=== PATIENT | female | born 1945 | race Caucasian/White ===

== ENCOUNTER 2017-02-18 16:26 | Inpatient (IN) | payer MEDICARE ==
[~2017-02-18] VITALS: Ht 165.1 cm; Wt 82.6 kg
[~2017-02-18 16:26] MED LIST: ADVAIR 250/501 DISK INH; ADVAIR INH; ALBUTEROL0.63 MG/3 INH; ARICEPT23 MG PO; CARDIZEM CD240 MG PO; CARDIZEM30 MG PO; CELEXA10 MG PO; CELEXA20 MG PO; IPRAT-ALBUT 0.5-3 ML UPD; LEVAQUIN500 MG PO; MUCINEX DM ER1 EAC1 PO; MYRBETRIQ25 MG PO; NAMENDA XR28 MG PO; NAMENDA5 MG PO; PROAIR HFA8.5 GM INH; SINGULAIR10 MG PO; SPIRIVA18 MCG INH; STERAPRED 5MG 125 MG PO; VENTOLIN HFA18 GM INH; ZYRTEC10 MG PO
--- NOTE | 2017-02-18 16:46 | NUR ---
PT RECEIVED TO ROOM 2130, VIA WHEELCHAIR. PT ORIENTED TO ROOM AND CALL LIGHT. NEW 22G IV X1 STICK STARTED TO LT FA, PT TOLERATED PROCEDURE WELL. O2 ON 2L NC. SCD'S PUT ON BILAT. PT ASSESSED AT THIS TIME, CALL LIGHT IN REACH, WILL START PLAN OF CARE.
[2017-02-18 17:20] VITALS: BP 129/58; BMI 30.3
--- NOTE | 2017-02-18 18:20 | NUR ---
CALLED AJITH RIDER AND INFORMED HER THAT PHARMACY WANTED TO KNOW IF THEY COULD SUB NEMENDA AND ARICEPT. AJITH RIDER STATED THAT IT WOULD BE OKAY TO SUB. 1833- CALLED PHARMACY AND SPOKE WITH JEN. INFOMRED HER THAT AJITH STATED THAT IT WAS OKAY TO SUB MEDS.
--- NOTE | 2017-02-18 19:00 | NUR ---
REPORT RECEIVED. ASSESSMENT COMPLETE PER FLOW SHEET. LAYING IN BED. SISTER SARAH AT BED SIDE. ALERT TO PERSON, TIME, AND PLACE. S1S2 PRESENT. 2 L NC. RADIAL AND POPLITEAL PULSES PALP BILAT. BS ACTIVE X4. SCDs ON. SEE FLOW SHEET FOR COMPLETE ASSESSMENT. DENIES FURTHER NEEDS AT THIS TIME. CALL LIGHT WITHIN REACH. WILL CONTINUE TO MONITOR.
[2017-02-18 19:07] LABS: BASOPHILS 0.8 % (0-2); EOSINOPHILS 5.4 % (0-7); HEMATOCRIT 40.4 % (36.0-48.0); HEMOGLOBIN 13.1 g/dL (12-16); IMMATURE GRANULOCYTES 0.3 % (0-5); LYMPHOCYTES 28.1 % (15-50); MCH 30.8 pg (26.0-34.0); MCHC 32.4 g/dL (31.0-37.0); MCV 94.8 fL (80.0-100.0); MEAN PLATELET VOLUME 10.1 fL (7.4-10.4); MONOCYTES 6.1 % (2-11); NEUTROPHILS 59.3 % (40-80); PLATELET COUNT 216 10x3/uL (130-400); RBC 4.26 10x6/uL (4.00-5.40); WBC 7.8 10x3/uL (4.8-10.8)
[2017-02-18 19:39] LABS: CALC OSMOLALITY 289 mosm/kg (275-300); CALCIUM 8.4 mg/dL (8.5-10.1); CHLORIDE - SERUM 104 mmol/L (98-107); CREATININE - SERUM 0.7 mg/dL (0.6-1.3); GLUCOSE 154 mg/dL (74-106); SODIUM 145 mmol/L (136-145); UREA NITROGEN 8 mg/dL (7-18); eGFR NON AFRICAN AMERICAN 87 mL/min (90-120)
[2017-02-18 20:00] VITALS: BP 120/37
--- NOTE | 2017-02-18 20:28 | NUR ---
AWAKE LAYING IN BED. MEDS ADMINISTERED PER EMAR. DENIES FURTHER NEEDS AT THIS TIME. CALL LIGHT WITHIN REACH. BED IN LOWEST POSITION.
--- NOTE | 2017-02-18 21:30 | NUR ---
LAYING IN BED WATCHING T.V. DENIES NEEDS AT THIS TIME. CALL LIGHT WITHIN REACH. BED IN LOWEST POSITION.
--- NOTE | 2017-02-18 23:00 | NUR ---
LAYING IN BED AWAKE, WATCHING T.V. DENIES NEEDS AT THIS TIME. CALL LIGHT WITHIN REACH. BED IN LOWEST POSITION. WILL CONTINUE TO MONITOR.
[2017-02-19] VITALS: BP 147/63
--- NOTE | 2017-02-19 00:30 | NUR ---
LAYING IN BED AWAKE, DENIES NEEDS AT THIS TIME. CALL LIGHT WITHIN REACH. BED IN LOWEST POSITION.
--- NOTE | 2017-02-19 02:20 | NUR ---
LAYING IN BED AWAKE. DENIES NEEDS AT THIS TIME. CALL LIGHT WITHIN REACH. BED IN LOWEST POSITION. WILL CONTINUE TO MONITOR.
--- NOTE | 2017-02-19 03:10 | NUR ---
LAYING IN BED SLEEPING. NO DISTRESS NOTED. BED IN LOWEST POSITION. CALL LIGHT WITHIN REACH.
[2017-02-19 04:00] VITALS: BP 123/48
--- NOTE | 2017-02-19 04:30 | NUR ---
LAYING IN BED AWAKE, DENIES NEEDS AT THIS TIME. CALL LIGHT WITHIN REACH. BED IN LOWEST POSITION.
--- NOTE | 2017-02-19 06:00 | NUR ---
LAYING IN BED AWAKE, DENIES NEEDS AT THIS TIME. CALL LIGHT WITHIN REACH. BED IN LOWEST POSITION.
[2017-02-19 06:08] LABS: BASOPHILS 0.2 % (0-2); EOSINOPHILS 0.2 % (0-7); HEMATOCRIT 40.4 % (36.0-48.0); HEMOGLOBIN 13.1 g/dL (12-16); IMMATURE GRANULOCYTES 0.3 % (0-5); LYMPHOCYTES 19.2 % (15-50); MCH 30.5 pg (26.0-34.0); MCHC 32.4 g/dL (31.0-37.0); MCV 94.2 fL (80.0-100.0); MEAN PLATELET VOLUME 10.4 fL (7.4-10.4); MONOCYTES 1.7 % (2-11); NEUTROPHILS 78.4 % (40-80); PLATELET COUNT 236 10x3/uL (130-400); RBC 4.29 10x6/uL (4.00-5.40); RDW 12.8 % (11.5-14.5); WBC 5.9 10x3/uL (4.8-10.8)
[2017-02-19 06:27] LABS: ANION GAP 14.9 mmol/L (8-16); CALCIUM 8.6 mg/dL (8.5-10.1); CARBON DIOXIDE 28.5 mmol/L (21.0-32.0); CREATININE - SERUM 0.8 mg/dL (0.6-1.3); MAGNESIUM - SERUM 1.8 mg/dL (1.8-2.4); POTASSIUM - SERUM 3.4 mmol/L (3.5-5.1)
--- NOTE | 2017-02-19 07:22 | NUR ---
AM ROUNDS- PT IN BED, DENIES ANY NEEDS AT THIS TIME. BED LOW AND WHEELS LOCKED, BEDSIDE RAILS X2, CALL LIGHT IN REACH. NO FAMILY AT BEDSDIE, LT FA IV SL,O2 AT 2L NC. NAD NOTED, WILL CONTINUE TO MONITOR.
--- NOTE | 2017-02-19 09:18 | NUR ---
AM MEDS GIVEN AT THIS TIME. ALSO HELPED PT TO BATHROOM AND LINEN CHANGED AT THIS TIME. PT DENIES ANY NEEDS AT THIS TIME. CALL LIGHT IN REACH, NAD NOTED, WILL CONTINUE TO MONITOR.
[2017-02-19 11:36] VITALS: Ht 165.1 cm; Wt 82.6 kg
[2017-02-19 13:08] VITALS: BP 139/64
[2017-02-19 13:09] VITALS: BP 111/78
--- NOTE | 2017-02-19 14:09 | NUR ---
PT IN BED, GETTING UPDRAFT. PT DENIES ANY NEEDS AT THIS TIME. CALL LIGHT IN REACH, NAD NOTED, WILL CONTINUE TO MONITOR.
[2017-02-19 16:30] VITALS: BP 124/78
--- NOTE | 2017-02-19 19:10 | NUR ---
ALERT/AWAKE TALKING TO VISITOR. DENIES PAIN OR ANY NEEDS. IV IN R FA INTACT SL. HAS 02 AT 2L, RR 20 EVEN U/L. DOES NOT WANT THE SCD'S ON. ORIENTED TO CALL LIGHT FOR ANY NEEDS.
[2017-02-19 20:00] VITALS: BP 109/43
--- NOTE | 2017-02-19 22:00 | NUR ---
RETURNING TO BED FROM BATHROOM. ADMIN SCHED MEDS. C/O ROOM BEING HOT. THERMOSTAT IS ON 55. GOT HER A FAN. STATED SHE FELT MUCH COOLER.
[2017-02-20 04:00] VITALS: BP 139/66
[2017-02-20 05:16] LABS: BASOPHILS 0.1 % (0-2); EOSINOPHILS 0 % (0-7); HEMATOCRIT 38.1 % (36.0-48.0); HEMOGLOBIN 12.3 g/dL (12-16); IMMATURE GRANULOCYTES 0.5 % (0-5); LYMPHOCYTES 6.3 % (15-50); MCH 30.6 pg (26.0-34.0); MCHC 32.3 g/dL (31.0-37.0); MCV 94.8 fL (80.0-100.0); MEAN PLATELET VOLUME 10.4 fL (7.4-10.4); MONOCYTES 4.6 % (2-11); NEUTROPHILS 88.5 % (40-80); PLATELET COUNT 233 10x3/uL (130-400); RBC 4.02 10x6/uL (4.00-5.40); RDW 13.2 % (11.5-14.5)
[2017-02-20 05:22] LABS: WBC 12.8 10x3/uL (4.8-10.8)
[2017-02-20 05:30] LABS: ANION GAP 12.4 mmol/L (8-16); CALCIUM 8.7 mg/dL (8.5-10.1); CARBON DIOXIDE 29.9 mmol/L (21.0-32.0); CREATININE - SERUM 0.8 mg/dL (0.6-1.3); POTASSIUM - SERUM 3.3 mmol/L (3.5-5.1)
--- NOTE | 2017-02-20 05:50 | NUR ---
ADMIN SCHED MEDS. DENIES ANY NEEDS OR DISCOMFORTS.
--- NOTE | 2017-02-20 07:48 | NUR ---
AM ROUNDING- RECEIVED REPORT FROM GROUP THERAPIST NURSE SARAH. PT IS CURRENLTY LAYING IN BED ON RIGHT SIDE WITH EYES CLOSED RESTING. ON 02 AT 2L VIA NC. NO MONITOR. IV SEEN TO RIGHT FOREARM THAT IS CURRENTLY SALINE LOCKED. NO NEED AT CURRENT TIME. WILL CONTINUE TO MONITOR AND CONTINUE WITH PLAN OF CARE.
[2017-02-20 08:18] LABS: IMMUNOGLOBULIN E 55 IU/mL (0-100)
[2017-02-20 10:02] VITALS: BP 417/59
[2017-02-20 11:18] LABS: IMMUNOGLOBULIN A 266 mg/dL (64-422); IMMUNOGLOBULIN G 616 mg/dL (700-1600)
--- NOTE | 2017-02-20 14:36 | NUR ---
PT REQUESTING TO GET IN SHOWER. I INFORMED PT I WOULD FEEL COMFORTABLE IF SOMEONE ASSISTED HER. PT STATES "NO I CAN SHOWER BY MYSELF". PT STATES "DOCTOR SAYS IF I SHOWER, GET DRESSED, AND WALK I CAN GO HOME". PT IN SHOWER NOW. WILL CONTINUE TO MONITOR.
[2017-02-20 14:42] VITALS: BP 114/54
[2017-02-20] MEDS ORDERED: LEVAQUIN750 MG PO (15:26)
[2017-02-20] MEDS ORDERED: PREDNISONE20 MG PO (15:27)
--- NOTE | 2017-02-20 15:58 | NUR ---
WALKED PT AROUND NURSES STATION ORDERED. PLACED PULSE OX ON PT WE WERE WALKING AND 02 SAT GOT DOWN TO 83%. AJITH RIDER NP ON UNIT, NOTIFIED HER OF THIS. AJITH RIDER NP STATES PT WILL HAVE TO GO HOME ON HOME 02. AFTER ASSISTING PT BACK TO BED O2 SATS WENT UP TO 91%. AJITH RIDER NP NOTIFIED OF THIS. WILL CONTINUE TO MONITOR.
--- NOTE | 2017-02-20 16:57 | NUR ---
Patient Name: DANIEL ALVAREZ Admission Status: Urgent Accout number: [id number] Admission Date: 02-18-2017 : 1945 Admission Diagnosis:SHORTNESS OF BREATH Attending: JEREL Current LOS: 2 Anticipated DC Date: 02-20-2017 Planned Disposition: Home Primary Insurance: MEDICARE A & B Discharge Planning Comments: * Is the patient Alert and Oriented? Yes 0 * How many steps to enter\exit or inside your home? 4 0 * PCP SIMEON GOODMAN APN 0 * Pharmacy [facility]. 0 * Preadmission Environment Home with Family 0 * ADLs Independent 0 * Equipment Cane Nebulizer 0 * Other Equipment NO MEDICAL EQUIPMENT PROVIDER PREFERENCE 0 * List name and contact numbers for known caregivers / representatives who currently or will assist patient after discharge: SARAH JOHNSON, SISTER, CAROL ALVAREZ, SON, 0 * Community resources currently utilized None 0 * Please name any agencies selected above. NONE 0 * Additional services required to return to the preadmission environment? No 0 * Can the patient safely return to the preadmission environment? Yes 0 * Has this patient been hospitalized within the prior 30 days at any hospital? No 0 CM MET WITH PT AND SISTER IN ROOM TO DISCUSS DISCHARGE PLANNING AND NEEDS. PT REPORTS LIVING AT HOME INDEPENDENTLY WITH HER ADULT SISTER. PT HASCANE AND NEBULIZER, THEY GOT RID OF THE SHOWER CHAIR BECAUSE IS BROKE A HOLE IN THE BATHTUB AT HOME. PT GAVE OXYGEN SET UP BACK TO THE UNKNOWN COMPANY AND HAS NOT HAD OXYGEN IN A LONG TIME. PT HAS NO MEDICAL EQUIPMENT PROVIDER PREFERNCE AND NO OUTSIDE SERVICES ASSISTING IN THE HOME. CM DISCUSSED AVAILABILITY OF HOME HEALTH, REHAB SERVICES AND MEDICAL EQUIPMENT. PT DENIES DISCHARGE NEEDS, REPORTS HER SISTER IS HERE NOW TO PICK HER UP FOR DISCHARGE HOME. CM RECEIVED ORDER TO ARRANGE HOME OXYGEN FOR PT, SPOKE TO BEDSIDE NURSE WHO REPORTS PT'S OXYGEN SAT IS BELOW 88 DURING AMBULATION. ORDER FOR REPIRATORY WALK TEST OBTAINED. CM RECEIVED QUALIFYING TESTING, CONTACTED [facility] PATIENT, , SPOKE TO [facility] AND FAXED REFERRAL TO [facility] PATIENT AT [phone]. [facility] WILL ARRANGE DELIVERY OF PORTABLE OXYGEN TO PT'S ROOM FOR DISCHARGE HOME SHORTLY AND WILL ARRANGE HOME DELIVERY OF HOME OXYGEN UNIT ONCE PT ARRIVES AT HOME VERONICA. PT AND SISTER NOTIFIED IN ROOM, NO FURTHER NEEDS VOICED. Integration Software Engineer: Jaya Dove
--- NOTE | 2017-02-20 18:21 | NUR ---
1745- D/C INSTRUCTIONS EXPLAINED TO PT. D/C PAPERWORK SIGNED BY PT AND PLACED IN CHART. HEART MONITOR RETURNED TO ABI IN TELEMETRY. IV TO RIGHT FOREARM REMOVED WITH CATH TIP INTACT. COVERED SITE WITH 2X2 GUAZE PADS AND SECURED WITH TAPE. D/C PT VIA WHEELCHAIR.
== END 2017-02-20 18:24 | disposition home or self-care (01) | DRG 192 ==
LOC: D.M2 16:26
PROVIDERS: Family Medicine; Internal Medicine Pulmonary Disease; ADMIT Family Medicine
DX: J44.1 Chronic obstructive pulmonary disease with (acute) exacerbation (principal); F03.90 Unspecified dementia, unspecified severity, without behavioral disturbance, psychotic disturbance, mood disturbance, and anxiety; H11.9 Unspecified disorder of conjunctiva; J30.9 Allergic rhinitis, unspecified; J01.90 Acute sinusitis, unspecified; E87.6 Hypokalemia; I49.9 Cardiac arrhythmia, unspecified; F41.9 Anxiety disorder, unspecified; G47.33 Obstructive sleep apnea (adult) (pediatric); D64.9 Anemia, unspecified; R04.0 Epistaxis; Z87.891 Personal history of nicotine dependence

== ENCOUNTER 2017-04-04 17:56 | Observation (INO) | payer MEDICARE ==
[~2017-04-04] VITALS: Ht 165.1 cm; Wt 60.8 kg
[~2017-04-04 17:56] MED LIST changes: +LEVAQUIN750 MG PO; +PREDNISONE20 MG PO
[2017-04-04 19:10] LABS: BASOPHILS 0.4 % (0-2); EOSINOPHILS 0.9 % (0-7); HEMATOCRIT 37.4 % (36.0-48.0); HEMOGLOBIN 12.2 g/dL (12-16); IMMATURE GRANULOCYTES 0.3 % (0-5); LYMPHOCYTES 6.7 % (15-50); MCH 31.1 pg (26.0-34.0); MCHC 32.6 g/dL (31.0-37.0); MCV 95.4 fL (80.0-100.0); MONOCYTES 7.2 % (2-11); NEUTROPHILS 84.5 % (40-80); PLATELET COUNT 200 10x3/uL (130-400); RBC 3.92 10x6/uL (4.00-5.40); RDW 13.6 % (11.5-14.5); WBC 10.6 10x3/uL (4.8-10.8)
[2017-04-04 19:36] LABS: ALBUMIN 3.3 g/dL (3.4-5.0); ANION GAP 13.4 mmol/L (8-16); BILIRUBIN - TOTAL 0.19 mg/dL (0.2-1.3); CALCIUM 9.1 mg/dL (8.5-10.1); CARBON DIOXIDE 27.5 mmol/L (21.0-32.0); CREATININE - SERUM 1.2 mg/dL (0.6-1.3); PROTEIN - SERUM 6.9 g/dL (6.4-8.2)
[2017-04-04 19:39] LABS: T4 THYROXIN - FREE 0.91 ng/dL (0.76-1.46); THYROID STIMULATING HORMONE 0.74 uIU/mL (0.36-3.74)
[2017-04-04 19:40] LABS: POTASSIUM - SERUM 2.9 mmol/L (3.5-5.1)
--- NOTE | 2017-04-04 22:55 | NUR ---
PT ARRIVES TO FLOOR VIA WC ACCOMPANIED BY NURSE AND SISTER. INITIAL ASSESSMENT COMPLETED, VSS, AFEBRILE. RESP EVEN AND UNLABORED. O2 2LPM NC, SATS 92%. PT DENIES ANY C/O PAIN OR ANY FURTHER C/O DYSPNEA. VSS, AFERBILE. MEDICATIONS RECONCILED AT THE BEDSIDE. UNIT ROUTINES AND PROTOCOLS DISCUSSED WITH PT AND HER SISTER, VERBALIZED UNDERSTANDING. WILL CONT TO MONITOR.
[2017-04-04] MEDS ORDERED: VIBRAMYCIN 100100 MG PO (22:57)
[2017-04-04] MEDS ORDERED: SPIRIVA18 MCG INH (22:57)
[2017-04-04] MEDS ORDERED: ALENDRONATE SOD70 MG PO (22:59)
[2017-04-04] MEDS ORDERED: [UNRECOGNIZED DRUG - OTHER] PO (22:59)
[2017-04-04] MEDS ORDERED: NAMZARIC PO (22:59)
[2017-04-04] MEDS ORDERED: CARTIA XT240 MG PO (22:59)
[2017-04-04] MEDS ORDERED: ARICEPT23 MG PO (23:00)
[2017-04-04] MEDS ORDERED: ADVAIR 500/501 DISK INH (23:00)
[2017-04-04 23:15] VITALS: BP 111/52; BMI 22.3
--- NOTE | 2017-04-04 23:28 | NUR ---
PT NOW NSR ON MONITOR, HR 86 WITH PVC'S NOTED. WILL CONT TO MONITOR.
[2017-04-05] VITALS: BP 111/52
--- NOTE | 2017-04-05 00:08 | NUR ---
PT RESTING WELL WITHOUT C/O OR DISTRESS NOTED. NO CHANGES NOTED IN ASSESSMENT. VSS, AFEBRILE. WILL CONT TO MONITOR.
[2017-04-05 04:00] VITALS: BP 97/40
--- NOTE | 2017-04-05 07:30 | NUR ---
RESTING QUIETLY AAOX4 RESP UNLABORED DENIES ANY NEEDS OR DISCOMFORT NAD NOTED
[2017-04-05 07:36] LABS: ANION GAP 10.2 mmol/L (8-16); CALCIUM 8.6 mg/dL (8.5-10.1); CARBON DIOXIDE 31.4 mmol/L (21.0-32.0); CREATININE - SERUM 0.8 mg/dL (0.6-1.3); POTASSIUM - SERUM 3.6 mmol/L (3.5-5.1)
[2017-04-05 07:59] VITALS: BP 152/77
--- NOTE | 2017-04-05 09:20 | NUR ---
WHILE DISCUSSING THE FERNANDES WITH THE PATIENT, SHE STATED THAT SHE HAS MEDICAID. SHE SAID IT LAPSED FOR A WEEK BECAUSE SHE NEEDED TO GET IN AND SIGN PAPERS, BUT THEY HAVE BEEN SIGNED AND SHE HAS IT. SPOKE WITH SUZY IN THE BUSINESS OFFICE WHO STATED SHE WILL RUN THE NUMBER AND SEE IF IT IS ACTIVE AND UPDATE HER INFORMATION IF IT IS.
[2017-04-05 10:31] VITALS: Ht 165.1 cm; Wt 60.8 kg
[2017-04-05 11:52] VITALS: BP 165/74
--- NOTE | 2017-04-05 15:15 | NUR ---
REVIEWED DISCHARGE INSTRUCTIONS WITH PT STATES UNDERSTANDING COPY GIVEN SALINE CATHETER DCD TO RT HAND SITE FREE OF REDNESS OR EDEMA PT DISCHARGED HOME LEFT VIA W/C IN STABLE CONDITION WITH ALL PERSONAL BELONGINGS
== END 2017-04-05 15:15 | disposition home or self-care (01) ==
LOC: D.ER 17:56 → OBSVTIME 21:03 → D.M2 21:03
PROVIDERS: Emergency Medicine; Physician Assistant Medical; ADMIT Family Medicine
DX: I48.0 Paroxysmal atrial fibrillation (principal); J44.1 Chronic obstructive pulmonary disease with (acute) exacerbation; F03.90 Unspecified dementia, unspecified severity, without behavioral disturbance, psychotic disturbance, mood disturbance, and anxiety; Z87.891 Personal history of nicotine dependence

== ENCOUNTER 2017-05-23 11:31 | Emergency (ER) | payer MEDICARE ==
[2017-04-05 10:31] VITALS: BMI 22.2
[~2017-05-23 11:31] MED LIST changes: +ADVAIR 500/501 DISK INH; +ALENDRONATE SOD70 MG PO; +CARTIA XT240 MG PO; +NAMZARIC PO; +VIBRAMYCIN 100100 MG PO; +[UNRECOGNIZED DRUG - OTHER] PO
[2017-05-23 12:22] LABS: ALBUMIN 3.1 g/dL (3.4-5.0); ALKALINE PHOSPHATASE 64 U/L (46-116); ALT (SGPT) 20 U/L (10-68); BILIRUBIN - TOTAL 0.25 mg/dL (0.2-1.3); CALC OSMOLALITY 293 mosm/kg (275-300); CARBON DIOXIDE 35.3 mmol/L (21.0-32.0); CHLORIDE - SERUM 107 mmol/L (98-107); CREATININE - SERUM 0.8 mg/dL (0.6-1.3); GLUCOSE 100 mg/dL (74-106); POTASSIUM - SERUM 3.6 mmol/L (3.5-5.1); PROTEIN - SERUM 7.1 g/dL (6.4-8.2); SODIUM 149 mmol/L (136-145); UREA NITROGEN 8 mg/dL (7-18); eGFR NON AFRICAN AMERICAN 74 mL/min (90-120)
[2017-05-23 12:30] LABS: BASOPHILS 1.1 % (0-2); EOSINOPHILS 10.6 % (0-7); HEMATOCRIT 40.9 % (36.0-48.0); IMMATURE GRANULOCYTES 0.2 % (0-5); MCH 30.7 pg (26.0-34.0); MCHC 31.8 g/dL (31.0-37.0); MCV 96.5 fL (80.0-100.0); MEAN PLATELET VOLUME 9.7 fL (7.4-10.4); MONOCYTES 8.6 % (2-11); NEUTROPHILS 49.5 % (40-80); PLATELET COUNT 251 10x3/uL (130-400); RBC 4.24 10x6/uL (4.00-5.40); RDW 13.3 % (11.5-14.5); WBC 6.4 10x3/uL (4.8-10.8)
[2017-05-23 12:44] LABS: CREATINE KINASE 49 UL (21-215); PRO BNP 67 pg/mL (0-125)
[2017-05-23 12:45] LABS: THYROID STIMULATING HORMONE 3.27 uIU/mL (0.36-3.74); TROPONIN-I < 0.017 ng/mL (0.000-0.060)
== END 2017-05-23 16:24 | disposition home or self-care (01) ==
LOC: D.ER 11:31
PROVIDERS: Emergency Medicine
DX: R06.00 Dyspnea, unspecified (principal); J44.1 Chronic obstructive pulmonary disease with (acute) exacerbation; F17.200 Nicotine dependence, unspecified, uncomplicated

== ENCOUNTER 2017-05-31 16:41 | Inpatient (IN) | payer MEDICARE, MEDICAID ==
--- NOTE | 2017-05-31 17:00 | NUR ---
RECEIVED TO ROOM 2235 DIRECT ADMIT FROM DOCTOR'S OFFICE. SOB ON EXERTION. O2 2L NC IN USE. SL SITED TO FA WITH 22 GUAGE X 1 ATTEMPT.
[2017-05-31 17:07] VITALS: BMI 27.4
[2017-05-31 18:37] LABS: BASOPHILS 0.4 % (0-2); EOSINOPHILS 3.1 % (0-7); HEMATOCRIT 39.1 % (36.0-48.0); HEMOGLOBIN 12.7 g/dL (12-16); IMMATURE GRANULOCYTES 0.7 % (0-5); LYMPHOCYTES 22.1 % (15-50); MCH 31.3 pg (26.0-34.0); MCHC 32.5 g/dL (31.0-37.0); MCV 96.3 fL (80.0-100.0); MEAN PLATELET VOLUME 9.9 fL (7.4-10.4); MONOCYTES 11.3 % (2-11); NEUTROPHILS 62.4 % (40-80); PLATELET COUNT 242 10x3/uL (130-400); RBC 4.06 10x6/uL (4.00-5.40); RDW 13.7 % (11.5-14.5); WBC 9.1 10x3/uL (4.8-10.8)
[2017-05-31 18:42] LABS: ANION GAP 12.3 mmol/L (8-16); CARBON DIOXIDE 30.5 mmol/L (21.0-32.0); CREATININE - SERUM 0.9 mg/dL (0.6-1.3); POTASSIUM - SERUM 3.8 mmol/L (3.5-5.1)
[2017-05-31 20:00] VITALS: BP 121/62
[2017-06-01] VITALS: BP 110/54
[2017-06-01 04:00] VITALS: BP 101/49
[2017-06-01 06:28] LABS: BASOPHILS 0.1 % (0-2); EOSINOPHILS 0 % (0-7); HEMATOCRIT 38.4 % (36.0-48.0); HEMOGLOBIN 12.5 g/dL (12-16); IMMATURE GRANULOCYTES 1.2 % (0-5); MCH 30.9 pg (26.0-34.0); MCHC 32.6 g/dL (31.0-37.0); MCV 94.8 fL (80.0-100.0); MEAN PLATELET VOLUME 9.9 fL (7.4-10.4); MONOCYTES 0.7 % (2-11); PLATELET COUNT 242 10x3/uL (130-400); RBC 4.05 10x6/uL (4.00-5.40); RDW 13.4 % (11.5-14.5); WBC 6.9 10x3/uL (4.8-10.8)
[2017-06-01 06:44] LABS: ANION GAP 13.4 mmol/L (8-16); CARBON DIOXIDE 27.3 mmol/L (21.0-32.0); POTASSIUM - SERUM 3.7 mmol/L (3.5-5.1)
--- NOTE | 2017-06-01 07:00 | NUR ---
PT REC'D FROM JOELLEN MIGUEL. RESTING IN BED WATCHING TV. ALERT TO PERSON, PLACE, AND TIME. SLIGHTLY CONFUSED WHEN ASKED ABOUT SITUATION. THINKS SHE IS HERE VISITING SOMEONE. EASILY REORIENTED. REGULAR HEART RATE AND RHYTHM. LUNG SOUNDS TO UPPER LOBES CLEAR AND EQUAL. MIDDLE LOBE TO R SIDE WITH EXPIRATORY WHEEZES. LOWER R LOBE DIMINISHED. BOWEL SOUNDS ACTIVE X4 QUADS. PIV TO L FA FREE OF REDNESS AND SWELLING. BED LOW, CALL LIGHT IN REACH, DENIES NEEDS. CPOC.
--- NOTE | 2017-06-01 08:45 | NUR ---
MORNING MEDS PASSED AT THIS TIME. EXPLAINED TO PT WHAT EACH MED WAS AND HOW IT WORKS. PT CONCERNED THAT WE DID NOT HAVE ALL HER MEDICINES. TRIED TO EXPLAIN TO HER THAT WE DID HAVE ALL HER MEDS ACCORDING TO OUR COMPUTER SYSTEM. STATED SHE WOULD CALL HER SISTER AND HAVE HER BRING HER LIST OF MEDS. PT NOT ORIENTED TO SITUATION. THINKS THAT SHE IS HERE BECAUSE SHE FELL. REORIENTED TO REASON FOR ADMISSION. PIV FLUSHED WITH SALINE AND IN MEDS ADMINISTERED. NO SWELLING OR REDNESS NOTED. BED LOW, CALL LIGHT IN REACH, DENIES NEEDS. CPOC.
[2017-06-01 12:17] VITALS: BMI 27.3
[2017-06-01 13:15] VITALS: BP 110/58
--- NOTE | 2017-06-01 13:31 | NUR ---
PT RESTING IN BED WITH TV ON. NO COMPLAINTS OF PAIN. BED LOW, CALL LIGHT IN REACH, DENIES NEEDS. CPOC.
--- NOTE | 2017-06-01 15:11 | NUR ---
PATIENT RESTING IN HER BED. FAMILY AT THE BEDSIDE. PATIENT DENIES ANY NEEDS AT PRESENT TIME. CALL LIGHT IN PATIENT'S REACH. WILL MONITOR PATIENT.
[2017-06-01 16:33] VITALS: BP 134/65
[2017-06-01 20:00] VITALS: BP 122/72
--- NOTE | 2017-06-01 20:14 | NUR ---
PATIENT RESTING IN BED ON NEB TREATMENT. ADMINISTERED MEDS WHEN TX FINISHED. COMPLETED ASSESSMENT. BROUGHT PT COLD CLOTH FOR HER HEAD AND WATER PER HER REQUEST. PATIENT DENIES OTHER NEEDS AT THIS TIME. BED IN LOWEST POSITION AND CALL LIGHT WITHIN REACH. ENCOURAGED THE PT TO CALL IF SHE HAS NEEDS.
[2017-06-02] VITALS (8 sets, daily range): BP systolic 103–135; BP diastolic 51–80
[2017-06-02 05:20] LABS: BASOPHILS 0.1 % (0-2); EOSINOPHILS 0 % (0-7); HEMATOCRIT 36.2 % (36.0-48.0); HEMOGLOBIN 11.8 g/dL (12-16); IMMATURE GRANULOCYTES 1.3 % (0-5); LYMPHOCYTES 5.6 % (15-50); MCH 30.7 pg (26.0-34.0); MCHC 32.6 g/dL (31.0-37.0); MCV 94.3 fL (80.0-100.0); MEAN PLATELET VOLUME 9.8 fL (7.4-10.4); MONOCYTES 5.8 % (2-11); NEUTROPHILS 87.2 % (40-80); PLATELET COUNT 248 10x3/uL (130-400); RBC 3.84 10x6/uL (4.00-5.40); RDW 13.6 % (11.5-14.5)
[2017-06-02 05:21] LABS: WBC 17.3 10x3/uL (4.8-10.8)
[2017-06-02 05:34] LABS: ANION GAP 11.9 mmol/L (8-16); CALCIUM 8.5 mg/dL (8.5-10.1); CARBON DIOXIDE 28.7 mmol/L (21.0-32.0); CREATININE - SERUM 0.9 mg/dL (0.6-1.3); POTASSIUM - SERUM 3.6 mmol/L (3.5-5.1)
--- NOTE | 2017-06-02 07:20 | NUR ---
RECEIVED REPORT. ASSUMED CARE OF PATIENT. CALL LIGHT WITHIN REACH. PATIENT IN SUPINE POSITION RECEIVING NEBULIZER TX AT THIS TIME. RESP EVEN AND UNLABORED. TELEMETRY REAPPLIED. DENIES NEEDS. NO DISTRESS.
--- NOTE | 2017-06-02 11:31 | NUR ---
RESTING IN BED WITH EYES CLOSED. EASILY AROUSED. NO DISTRESS. DENIES NEEDS AT THIS TIME.
--- NOTE | 2017-06-02 18:13 | NUR ---
PATIENT LYING IN BED WITH EYES CLOSED. RESP EVEN AND UNLABORED. CALL LIGHT WITHIN REACH. NO DISTRESS.
--- NOTE | 2017-06-02 20:00 | NUR ---
PATIENT RESTING IN BED WITH FAMILY AT BEDSIDE AND DENIES NEEDS AT THIS TIME. BED IN LOWEST POSITION AND CALL LIGHT WITHIN REACH. ENCOURAGED THE PT TO CALL IF SHE HAS NEEDS.
[2017-06-03] VITALS (7 sets, daily range): BP systolic 116–148; BP diastolic 54–72
--- NOTE | 2017-06-03 04:38 | NUR ---
NOTIFIED BY PATIENT THAT HER IV SITE WAS "BURNING". PT'S IV SITE APPEARED RED AND SWOLLEN. RESITED THE PT'S IV IN HER RIGHT WRIST ON THE THIRD ATTEMPT WITH A 20G IV.
[2017-06-03 05:34] LABS: BASOPHILS 0.1 % (0-2); EOSINOPHILS 0.1 % (0-7); HEMOGLOBIN 11.6 g/dL (12-16); IMMATURE GRANULOCYTES 2.1 % (0-5); LYMPHOCYTES 18.2 % (15-50); MCH 30.7 pg (26.0-34.0); MCHC 32.2 g/dL (31.0-37.0); MCV 95.2 fL (80.0-100.0); MEAN PLATELET VOLUME 9.8 fL (7.4-10.4); MONOCYTES 8.1 % (2-11); NEUTROPHILS 71.4 % (40-80); PLATELET COUNT 223 10x3/uL (130-400); RBC 3.78 10x6/uL (4.00-5.40); RDW 13.6 % (11.5-14.5); WBC 13.1 10x3/uL (4.8-10.8)
[2017-06-03 06:11] LABS: ANION GAP 9.9 mmol/L (8-16); CALCIUM 8.3 mg/dL (8.5-10.1); CARBON DIOXIDE 29.1 mmol/L (21.0-32.0); CREATININE - SERUM 0.8 mg/dL (0.6-1.3); MAGNESIUM - SERUM 1.9 mg/dL (1.8-2.4); PHOSPHOROUS 2.3 mg/dL (2.5-4.9)
--- NOTE | 2017-06-03 10:21 | NUR ---
Patient Name: DANIEL ALVAREZ Admission Status: Urgent Accout number: [id number] Admission Date: 05-31-2017 : 1945 Admission Diagnosis: Attending: JAMAAL MILES Current LOS: 3 Anticipated DC Date: 06-05-2017 Planned Disposition: Home Primary Insurance: MEDICARE A & B Discharge Planning Comments: CM MET WITH PATIENT REGARDING DISCHARGE NEEDS AND PLANS. PATIENT STATED SHE LIVES WITH HER SISTER (SARAH) AND SHE WILL DRIVE HER HOME AT DISCHARGE. PATIENT HAS 4 STEPS WITH RAILS AND NO STAIRS INSIDE HOME. PATIENT STATED SHE IS INDEPENDENT WITH HER CARE AND HAS OXYGEN (2L) 24/7, PORTABLE O2, AND NEBULIZER AT HOME. PATIENTS PCP IS DR. BARROW AND [facility] [employer] [facility]. PATIENT IS REFUSING HOME HEALTH AT THIS TIME. CM WILL CONTINUE TO FOLLOW PATIENT WITH D/C NEEDS AND PLANS. PCP DR[facility]ANIAL GARNICA [facility] [address] [phone] SARAH (SISTER) [phone] Clinical Business Manager: Maxine Quintero Is the patient Alert and Oriented? Yes 0 * How many steps to enter\exit or inside your home? 4 W/RAILS 0 * PCP DR. BARROW (SEES PRACTITIONER MOST OF TIME) 0 * Pharmacy [facility] [address] 0 * Preadmission Environment Home with Family 0 * ADLs Independent 0 * Equipment Nebulizer Oxygen 0 * Other Equipment PORTABLE O2 0 * List name and contact numbers for known caregivers / representatives who currently or will assist patient after discharge: SARAH (SISTER) [phone] 0 * Community resources currently utilized None 0 * Additional services required to return to the preadmission environment? Yes 0 * Can the patient safely return to the preadmission environment? Yes 0 * Has this patient been hospitalized within the prior 30 days at any hospital? No 0 Grand Total: 0
[2017-06-03 11:55] LABS: MAGNESIUM - SERUM 1.9 mg/dL (1.8-2.4); PHOSPHOROUS 2.1 mg/dL (2.5-4.9)
--- NOTE | 2017-06-03 14:00 | NUR ---
PT IV IN RIGHT WRIST INFILTRATED, STARTED PT IV IN LEFT HAND, SL. PT RESTING IN BED, EYES CLOSED, EVEN RISE AND FALL OF CHEST, NO SIGNS OF DISTRESS, CONTINUE WITH CARE PLAN
--- NOTE | 2017-06-03 21:15 | NUR ---
PATIENT RESTING IN BED AND DENIES NEEDS AT THIS TIME. ASSESSMENT COMPLETED AND MEDS ADMINISTERED PER ORDERS. BED IN LOWEST POSITION AND CALL LIGHT WITHIN REACH. ENCOURAGED THE PT TO CALL IF SHE HAS NEEDS.
[2017-06-04 04:00] VITALS: BP 136/83
[2017-06-04 06:29] LABS: BASOPHILS 0.2 % (0-2); EOSINOPHILS 1.5 % (0-7); HEMATOCRIT 37.8 % (36.0-48.0); HEMOGLOBIN 12.1 g/dL (12-16); IMMATURE GRANULOCYTES 2.6 % (0-5); LYMPHOCYTES 28.4 % (15-50); MCH 30.6 pg (26.0-34.0); MCV 95.5 fL (80.0-100.0); MEAN PLATELET VOLUME 9.9 fL (7.4-10.4); MONOCYTES 10.3 % (2-11); PLATELET COUNT 208 10x3/uL (130-400); RBC 3.96 10x6/uL (4.00-5.40); RDW 13.9 % (11.5-14.5)
[2017-06-04 06:36] LABS: WBC 9.3 10x3/uL (4.8-10.8)
[2017-06-04 06:52] LABS: ANION GAP 10.7 mmol/L (8-16); CALCIUM 8.5 mg/dL (8.5-10.1); CARBON DIOXIDE 30.6 mmol/L (21.0-32.0); CREATININE - SERUM 0.8 mg/dL (0.6-1.3); POTASSIUM - SERUM 3.3 mmol/L (3.5-5.1)
--- NOTE | 2017-06-04 07:30 | NUR ---
PT IS RECEIVED THIS AM LYING IN BED. SHE STATES THAT SHE IS NOT HAVING ANY PROBLEMS THIS AM. GEN- AWAKE AND ALERT. LUNGS- DECREASED BREATH SOUNDS BILATERALLY. HEART- RRR. ABD- SOFT , NT BS+. EXT WITH MINIMAL EDEMA. TELEMETRY INTACT. NSR. SALINE LOCK LEFT HAND PATENT. O2 AT 2 L NC. BED IS LOW. SIDE RAILS UP X 2 AND CALL LIGHT IN REACH.
[2017-06-04 08:15] VITALS: BP 134/75
--- NOTE | 2017-06-04 09:00 | NUR ---
PT GIVEN 0900 MEDS. TOLERATED WELL. SHE OFFERS NO COMPLAINTS THIS AM. IV ANTIBIOTIC HUNG MAXIPIME 1 GM. BED IS LOW. SIDE RAILS UP X 2 AND CALL LIGHT IN REACH.
--- NOTE | 2017-06-04 10:30 | NUR ---
PT IS LYING IN BED. OFFERS NO COMPLAINTS. SHE HAS NO REQUEST. BED IS LOW. SIDE RAILS UP X 2 AND CALL LIGHT IN REACH.
[2017-06-04 11:57] VITALS: BP 123/66
--- NOTE | 2017-06-04 12:30 | NUR ---
PT IS RESTING IN BED. SHE OFFERS NO COMPLAINTS. SHE ATE HER LUNCH AND TOLERATED WELL. BED IS LOW. SIDE RAILS UP X 2 AND CALL LIGHT IN REACH.
[2017-06-04] MEDS ORDERED: NAMENDA5 MG PO (12:58)
[2017-06-04] MEDS ORDERED: BENZONATATE200 MG PO (12:58)
[2017-06-04] MEDS ORDERED: MUCINEX DM ER1 EAC1 PO (12:58)
[2017-06-04] MEDS ORDERED: PULMICORT0.5 MG/21 UPD (12:58)
[2017-06-04] MEDS ORDERED: FLORAJEN3 CAPS460 MG PO (12:59)
[2017-06-04] MEDS ORDERED: DALIRESP500 MCG PO (12:59)
[2017-06-04] MEDS ORDERED: SINGULAIR10 MG PO (12:59)
[2017-06-04] MEDS ORDERED: FLUTICASONE PRO16 GM NASAL (12:59)
[2017-06-04] MEDS ORDERED: DOXYCYCLINE HY100 M2 PO (13:00)
[2017-06-04] MEDS ORDERED: OMNICEF300 MG PO (13:07)
--- NOTE | 2017-06-04 13:35 | NUR ---
CM REASSESSMENT NOTE: PATIENT TO DISCHARGE TODAY / FAMILY DRIVING HER/ HOUSE CALLS TO FOLLOW/ REF. HOME HEALTH/ IMM SERVED/ FAMILY BRINGING PORTABLE O2.
--- NOTE | 2017-06-04 13:57 | NUR ---
PT IS LYING IN BED. LSHE IS READY TO BE DISCHARGED. SHE STATES THAT HER BROTHER IN LAW IS COMING TO GET HER. SHE DOES WANT A FLU SHOT. GIVEN.
[2017-06-04] MEDS ORDERED: MEDROL DOSE PACK4 MG PO (14:29)
== END 2017-06-04 15:00 | disposition home or self-care (01) | DRG 189 ==
LOC: D.MS 16:41
PROVIDERS: Emergency Medicine; Family Medicine; ADMIT Family Medicine
DX: J96.20 Acute and chronic respiratory failure, unspecified whether with hypoxia or hypercapnia (principal); J44.1 Chronic obstructive pulmonary disease with (acute) exacerbation; F03.90 Unspecified dementia, unspecified severity, without behavioral disturbance, psychotic disturbance, mood disturbance, and anxiety; I48.91 Unspecified atrial fibrillation; F41.9 Anxiety disorder, unspecified; J30.9 Allergic rhinitis, unspecified; J32.9 Chronic sinusitis, unspecified; D64.9 Anemia, unspecified; Z87.891 Personal history of nicotine dependence

== ENCOUNTER 2017-08-16 12:11 | Day surgery (SDC) | payer MEDICARE ==
[~2017-08-16] VITALS: Ht 167.6 cm; Wt 81.6 kg
--- NOTE | ~2017-08-16 | OP ---
PATIENT NAME: DANIEL ALVAREZ MEDICAL RECORD: [id number] :[birth year] LOCATION:D.OPS ADMISSION DATE: SURGEON: HEIKE PHAM MD DATE OF OPERATION: 08/16/2017 PREOPERATIVE DIAGNOSIS: History of ascending colon polyp, which was a tubulovillous adenoma with focal low-grade atypia. POSTOPERATIVE DIAGNOSIS: History of ascending colon polyp, which was a tubulovillous adenoma with focal low-grade atypia, with significant regrowth of this polyp, which was on a fold. PROCEDURES: 1. Total colonoscopy to cecum. 2. Snare polypectomy and then treatment of the base of the polyp with the argon plasma calcine furnace tender, which is a radiofrequency type of ablation of a benign colonic process. SURGEON: Heike Pham MD MILK RUNNER: None. BLOOD LOSS: Minimal. ANESTHESIA: General. COMPLICATIONS: None. The risks, possible complications, and alternatives to the procedure were explained to the patient. She elects to proceed. The patient was conveyed to the operating room electively on 08/16/2017. General anesthesia was induced by the anesthesia staff. The patient was placed in the Hyatt position. A digital rectal examination was performed. A colonoscope was inserted through the anus. It was advanced easily to the cecum. The prep was very good. I slowly withdrew the endoscope. I irrigated and aspirated extensively. I utilized direct imaging as well as narrow band imaging to interrogate the colonic garcia. I identified significant regrowth of the ascending colon polyp. Several cold endoscopic biopsies were obtained. I then took the snare and snared off 2 pieces of the polyp. I then ablated the base of the polyp with the argon plasma calcine furnace tender. I grasped the 2 portions of the polyp that had been removed with the snare. They were grasped with an endoscopic retrieval net. I then slowly withdrew the endoscope. The pullback was greater than a 60-minute pullback. A retroflexed view was obtained in the rectum. I then unretroflexed the scope and removed it under direct vision. I will see the patient in my office in 2-3 weeks. I will plan for her next colonoscopy with the argon plasma calcine furnace tender to take place in one year. TRANSINT:[id number] Voice Confirmation ID: [id number] DOCUMENT ID: [id number] OPERATIVE REPORT [id number] ROMELIA ALVAREZNDA HEIKE PHAM MD at 0938 CC: DANIEL GALLO MD, ADDIE GEOTZ and RUDOLPH BARROW MD [id number] DICTATION DATE: 08/19/17 1406 SCHEDULING AGENT: 08/19/17 1738 [facility] 08/16/17 [place] [id number] [place] [id number]
--- NOTE | ~2017-08-16 | HP ---
PATIENT: DANIEL ALVAREZ MEDICAL RECORD: [id number] ACCOUNT: [id number] LOCATION:DJASPREET : 43 ADMISSION DATE: 08/16/17 HISTORY AND PHYSICAL EXAMINATION CHIEF COMPLAINT: Colon polyps. HISTORY OF PRESENT ILLNESS: The patient is here to undergo surveillance colonoscopy due to history of complex colon polyps. Many of these were tattooed during a previous colonoscopy. The risks, possible complications, and alternatives to procedure were explained to the patient. She elects to proceed. HOME MEDICATIONS: ProAir, Diltiazem, tramadol, Spiriva, Singulair, albuterol, Advair, and Fosamax. ALLERGIES: No known drug allergies. SOCIAL HISTORY: Ex-smoker. PAST MEDICAL AND SURGICAL HISTORY: She is on home O2, COPD, asthma, atrial fibrillation, dementia, arthritis, and history of colon polyps. PHYSICAL EXAMINATION: GENERAL: The patient does not appear acutely ill. She does appear chronically ill. VITAL SIGNS: Reviewed. The entire physical examination was performed with the presence of a female nurse. EARS: External ears appear normal. EYES: Extraocular movements are intact. NECK: Trachea is midline. CHEST: No intercostal retractions. PULMONARY: Nonlabored, no stridor. ABDOMEN: Nontender. EXTREMITIES: No peripheral cyanosis. IMPRESSION: History of complex colon polyps. PLAN: Colonoscopy and polypectomy utilizing argon plasma aquatics coordinator. TRANSINT:[id number] Voice Confirmation ID: [id number] DOCUMENT ID: [id number] HEIKE PHAM MD at 0938 CC: DUSTIN REAL M.D., DANIEL GALLO MD, ADDIE GOETZ and [id number] DICTATION DATE: 08/16/171945 BANK EXAMINER: 08/16/172052 [facility] 08/16/17 [place] [address] [place] [address]
[~2017-08-16 12:11] MED LIST changes: +BENZONATATE200 MG PO; +DALIRESP500 MCG PO; +DOXYCYCLINE HY100 M2 PO; +FLORAJEN3 CAPS460 MG PO; +FLUTICASONE PRO16 GM NASAL; +MEDROL DOSE PACK4 MG PO; +OMNICEF300 MG PO; +PULMICORT0.5 MG/21 UPD
[2017-08-16] MEDS ORDERED: NAMENDA10 MG PO (13:32)
[2017-08-16] MEDS ORDERED: ALENDRONATE SOD70 MG PO (13:33)
[2017-08-16] MEDS ORDERED: SINGULAIR10 MG PO (13:33)
[2017-08-16] MEDS ORDERED: ULTRAM50 MG PO (13:34)
[2017-08-16] MEDS ORDERED: PROVENTIL/2.5 MG/3 M INH (13:35)
[2017-08-16 13:43] VITALS: BP 119/84; Ht 167.6 cm; Wt 81.6 kg
[2017-08-16 14:05] LABS: HEMATOCRIT 39.9 % (36.0-48.0); MCH 31.2 pg (26.0-34.0); MCHC 32.6 g/dL (31.0-37.0); MCV 95.7 fL (80.0-100.0); MEAN PLATELET VOLUME 10.3 fL (7.4-10.4); RBC 4.17 10x6/uL (4.00-5.40); RDW 13.2 % (11.5-14.5); WBC 6.8 10x3/uL (4.8-10.8)
[2017-08-16 20:02] VITALS: BP 135/78
== END 2017-08-16 21:30 | disposition home or self-care (01) ==
LOC: D.OPS 12:11 → D.PAN 14:00 → D.MS 19:55 → D.OPS 21:30
PROVIDERS: Anesthesiology
DX: D12.2 Benign neoplasm of ascending colon (principal); J45.909 Unspecified asthma, uncomplicated; I48.91 Unspecified atrial fibrillation; J44.9 Chronic obstructive pulmonary disease, unspecified; F03.90 Unspecified dementia, unspecified severity, without behavioral disturbance, psychotic disturbance, mood disturbance, and anxiety; Z01.812 Encounter for preprocedural laboratory examination

== ENCOUNTER 2017-09-28 13:39 | Inpatient (IN) | payer MEDICARE ==
--- NOTE | ~2017-09-28 | CN ---
PATIENT NAME:DANIEL ALVAREZ MEDICAL RECORD: [id number] : 43 LOCATION:D.MS [address] ADMIT DATE: 09/29/17 ACCOUNT: [id number] CONSULTING PHYSICIAN: CHARISSA CAMPA MD REFERRING PHYSICIAN: FLAKITA BARROW MD DATE OF CONSULTATION: 09/29/2017 CONSULT REQUESTING PHYSICIAN: Flakita Barrow MD REASON FOR CONSULTATION: Acute exacerbation of COPD and asthma. HISTORY OF PRESENT ILLNESS: Ms. Alvarez is a 72-year-old female who has a history of COPD-asthma overlap syndrome, chronic hypoxic respiratory failure with home oxygen dependence. According to the patient, her sister has pneumonia; and then, for the last few days, she is sick. She has coughing, wheezing, and shortness of breath. Denies any fever or chills. No night sweats. REVIEW OF THE SYSTEMS: Mainly in the history of present illness. PAST MEDICAL HISTORY: 1. COPD. 2. Asthma. 3. Chronic hypoxic respiratory failure. 4. Dementia, Alzheimer's type. 5. Anxiety. 6. She also has history of atrial fibrillation. PAST SURGICAL HISTORY: History of tubal ligation. ALLERGIES: There are no known drug allergies. MEDICATIONS: She is on Advair, Tudorza, Singulair, albuterol/ipratropium nebulizer. PERSONAL AND SOCIAL HISTORY: The patient is an ex-smoker. She is nondrinker. FAMILY HISTORY: Significant for cardiovascular disease. PHYSICAL EXAMINATION: GENERAL: Now, the patient is lying comfortably. She is not in acute distress. VITAL SIGNS: Blood pressure is 123/59, pulse is 92, respirations 17, temperature 97.7, SpO2 is 94% on 2 liters nasal cannula. HEENT: Conjunctivae pink. Sclerae nonicteric. NECK: Supple. No JVD. CHEST: The chest excursion is minimal on both sides. Wheeze on forceful expiration. HEART: Rhythm regular. Normal sound. No murmur. ABDOMEN: Abdomen is soft. Bowel sounds present. No hepatosplenomegaly. RECTAL: Deferred. EXTREMITIES: No cyanosis. No clubbing. No pedal edema. SKIN: The skin is warm. Normal turgor. CENTRAL NERVOUS SYSTEM: The patient is awake and alert. There is no obvious cranial nerve abnormality. The gait was not tested. CONSULT REPORT [id number] DANIEL ALVAREZ CHEST RADIOGRAPH: There is hyperinflation. No acute infiltrate. CBC; the WBC is 8.3, hemoglobin 13.4, the hematocrit is 41.5, the MCV is 96.1, platelet count 187. Chemistry; sodium 141, potassium 3.9, BUN is 18, creatinine 0.9, glucose 210. ABG; pH is 7.41, pCO2 is 46.3, pO2 is 103, bicarbonate 29.7. IMPRESSION: 1. Ocgyr-qx-ozyljtt hypoxic respiratory failure. 2. Acute exacerbation of COPD. 3. Acute bronchitis. 4. Asthma-COPD overlap syndrome. 4. Dementia. RECOMMENDATION: 1. Methylprednisolone IV and albuterol/ipratropium nebulizer. Start on Brovana and budesonide nebulizer. Discontinue Tudorza. Discontinue Advair. Singulair 10 mg a day. Followup labs and chest radiograph. 2. Continue supplemental oxygen. Dr. Barrow, thank you for involving me in the care of Ms. Alvarez. TRANSINT:[id number] Voice Confirmation ID: [id number] DOCUMENT ID: [id number] CHARISSA CAMPA MD at 1340 CC: FLAKITA BARROW [id number] DICTATION DATE: 09/29/17 1618 IRON GUARDRAIL INSTALLER: 09/29/171914 DIS IN 10/02/17 [facility] [address] [facility] [place] [address]
[~2017-09-28 13:39] MED LIST changes: +NAMENDA10 MG PO; +PROVENTIL/2.5 MG/3 M INH; +ULTRAM50 MG PO
[2017-09-28 14:08] LABS: BASOPHILS 0.4 % (0-2); EOSINOPHILS 2.6 % (0-7); HEMATOCRIT 41.5 % (36.0-48.0); HEMOGLOBIN 13.4 g/dL (12-16); IMMATURE GRANULOCYTES 0.1 % (0-5); LYMPHOCYTES 24.4 % (15-50); MCHC 32.3 g/dL (31.0-37.0); MCV 96.1 fL (80.0-100.0); MEAN PLATELET VOLUME 9.6 fL (7.4-10.4); MONOCYTES 11.4 % (2-11); NEUTROPHILS 61.1 % (40-80); RBC 4.32 10x6/uL (4.00-5.40); RDW 13.1 % (11.5-14.5); WBC 8.3 10x3/uL (4.8-10.8)
[2017-09-28 14:15] LABS: PLATELET COUNT 187 10x3/uL (130-400)
[2017-09-28 14:25] LABS: ALKALINE PHOSPHATASE 64 U/L (46-116); ALT (SGPT) 18 U/L (10-68); BILIRUBIN - TOTAL 0.26 mg/dL (0.2-1.3); CALC OSMOLALITY 281 mosm/kg (275-300); CALCIUM 8.7 mg/dL (8.5-10.1); CARBON DIOXIDE 31.2 mmol/L (21.0-32.0); CHLORIDE - SERUM 104 mmol/L (98-107); CREATININE - SERUM 0.9 mg/dL (0.6-1.3); GLUCOSE 109 mg/dL (74-106); POTASSIUM - SERUM 3.7 mmol/L (3.5-5.1); SODIUM 141 mmol/L (136-145); UREA NITROGEN 13 mg/dL (7-18); eGFR NON AFRICAN AMERICAN 65 mL/min (90-120)
[2017-09-28 14:35] LABS: CKMB 0.2 U/L (0.0-3.6); CREATINE KINASE 26 UL (21-215)
[2017-09-28 14:38] LABS: TROPONIN-I < 0.017 ng/mL (0.000-0.060)
[2017-09-28 18:27] VITALS: BMI 29.2
[2017-09-28 21:18] VITALS: BP 127/68
[2017-09-29] VITALS: BP 143/70
[2017-09-29 04:00] VITALS: BP 115/72
[2017-09-29 05:32] LABS: BASOPHILS 0.3 % (0-2); EOSINOPHILS 0 % (0-7); HEMATOCRIT 38.8 % (36.0-48.0); HEMOGLOBIN 12.3 g/dL (12-16); IMMATURE GRANULOCYTES 0.3 % (0-5); LYMPHOCYTES 24.9 % (15-50); MCH 30.3 pg (26.0-34.0); MCHC 31.7 g/dL (31.0-37.0); MCV 95.6 fL (80.0-100.0); MONOCYTES 3.4 % (2-11); NEUTROPHILS 71.1 % (40-80); PLATELET COUNT 179 10x3/uL (130-400); RBC 4.06 10x6/uL (4.00-5.40)
[2017-09-29 05:39] LABS: WBC 3.9 10x3/uL (4.8-10.8)
[2017-09-29 05:40] LABS: ANION GAP 10.9 mmol/L (8-16); CALCIUM 8.1 mg/dL (8.5-10.1); CREATININE - SERUM 0.9 mg/dL (0.6-1.3); POTASSIUM - SERUM 3.9 mmol/L (3.5-5.1)
[2017-09-29 08:33] VITALS: BP 120/75
[2017-09-29 12:36] VITALS: BP 123/59
[2017-09-29 17:01] VITALS: BP 111/50
[2017-09-29 21:55] VITALS: BP 102/57
[2017-09-30 04:21] LABS: BASOPHILS 0.4 % (0-2); EOSINOPHILS 0 % (0-7); HEMATOCRIT 36.2 % (36.0-48.0); HEMOGLOBIN 11.7 g/dL (12-16); IMMATURE GRANULOCYTES 0.3 % (0-5); LYMPHOCYTES 8.1 % (15-50); MCH 30.8 pg (26.0-34.0); MCHC 32.3 g/dL (31.0-37.0); MCV 95.3 fL (80.0-100.0); MEAN PLATELET VOLUME 9.8 fL (7.4-10.4); MONOCYTES 3.9 % (2-11); NEUTROPHILS 87.3 % (40-80); PLATELET COUNT 182 10x3/uL (130-400)
[2017-09-30 04:27] LABS: WBC 14.4 10x3/uL (4.8-10.8)
[2017-09-30 04:50] VITALS: BP 111/49
[2017-09-30 05:58] LABS: ALBUMIN 2.7 g/dL (3.4-5.0); ANION GAP 14.1 mmol/L (8-16); BILIRUBIN - TOTAL 0.19 mg/dL (0.2-1.3); CALCIUM 8.7 mg/dL (8.5-10.1); CARBON DIOXIDE 28.9 mmol/L (21.0-32.0); PROTEIN - SERUM 6.3 g/dL (6.4-8.2)
[2017-09-30 08:19] VITALS: BP 114/48; BP 141/87
[2017-09-30 12:54] VITALS: BP 102/54
[2017-09-30 16:00] VITALS: BP 104/44
[2017-09-30 20:00] VITALS: BP 120/52
[2017-10-01 05:51] LABS: BASOPHILS 0.1 % (0-2); EOSINOPHILS 0 % (0-7); HEMOGLOBIN 11.4 g/dL (12-16); IMMATURE GRANULOCYTES 0.6 % (0-5); LYMPHOCYTES 8.7 % (15-50); MCH 30.7 pg (26.0-34.0); MCHC 32.6 g/dL (31.0-37.0); MCV 94.3 fL (80.0-100.0); MEAN PLATELET VOLUME 10.3 fL (7.4-10.4); MONOCYTES 3.6 % (2-11); PLATELET COUNT 194 10x3/uL (130-400); RBC 3.71 10x6/uL (4.00-5.40); RDW 13.1 % (11.5-14.5); WBC 15.3 10x3/uL (4.8-10.8)
[2017-10-01 06:29] LABS: ALBUMIN 2.5 g/dL (3.4-5.0); ANION GAP 13.2 mmol/L (8-16); BILIRUBIN - TOTAL 0.1 mg/dL (0.2-1.3); CALCIUM 8.1 mg/dL (8.5-10.1); CARBON DIOXIDE 28.3 mmol/L (21.0-32.0); POTASSIUM - SERUM 3.5 mmol/L (3.5-5.1); PROTEIN - SERUM 6.1 g/dL (6.4-8.2)
[2017-10-01 08:13] VITALS: BP 117/52
[2017-10-01 12:53] VITALS: BP 131/60
[2017-10-01 16:18] VITALS: BP 130/53
[2017-10-01 20:00] VITALS: BP 138/70
[2017-10-02 04:00] VITALS: BP 143/58
[2017-10-02 05:33] LABS: BASOPHILS 0.2 % (0-2); EOSINOPHILS 0 % (0-7); HEMATOCRIT 35.8 % (36.0-48.0); HEMOGLOBIN 11.6 g/dL (12-16); IMMATURE GRANULOCYTES 1.1 % (0-5); LYMPHOCYTES 8.2 % (15-50); MCH 30.3 pg (26.0-34.0); MCHC 32.4 g/dL (31.0-37.0); MCV 93.5 fL (80.0-100.0); MEAN PLATELET VOLUME 10.1 fL (7.4-10.4); MONOCYTES 3.6 % (2-11); NEUTROPHILS 86.9 % (40-80); PLATELET COUNT 181 10x3/uL (130-400); RBC 3.83 10x6/uL (4.00-5.40); RDW 13.1 % (11.5-14.5)
[2017-10-02 05:59] LABS: ALBUMIN 2.6 g/dL (3.4-5.0); ANION GAP 10.9 mmol/L (8-16); BILIRUBIN - TOTAL 0.14 mg/dL (0.2-1.3); CALCIUM 8.6 mg/dL (8.5-10.1); CARBON DIOXIDE 29.9 mmol/L (21.0-32.0); CREATININE - SERUM 0.9 mg/dL (0.6-1.3); POTASSIUM - SERUM 3.8 mmol/L (3.5-5.1); PROTEIN - SERUM 6.2 g/dL (6.4-8.2)
[2017-10-02 08:00] VITALS: BP 150/70
[2017-10-02 12:09] VITALS: BP 119/54
[2017-10-02] MEDS ORDERED: PREDNISONE20 MG PO (14:58)
[2017-10-02 16:50] VITALS: BP 140/64
== END 2017-10-02 17:02 | disposition home or self-care (01) | DRG 189 ==
LOC: D.ER 13:39 → OBSVTIME 16:03 → D.MS 16:03
PROVIDERS: Emergency Medicine; Family Medicine
DX: J96.21 Acute and chronic respiratory failure with hypoxia (principal); J44.0 Chronic obstructive pulmonary disease with (acute) lower respiratory infection; J44.1 Chronic obstructive pulmonary disease with (acute) exacerbation; M35.1 Other overlap syndromes; J20.9 Acute bronchitis, unspecified; G30.9 Alzheimer's disease, unspecified; F02.80 Dementia in other diseases classified elsewhere, unspecified severity, without behavioral disturbance, psychotic disturbance, mood disturbance, and anxiety; D64.9 Anemia, unspecified; Z87.891 Personal history of nicotine dependence

== ENCOUNTER 2017-12-05 20:20 | Observation (INO) | payer MEDICARE ==
[~2017-12-05] VITALS: Ht 167.6 cm; Wt 85.0 kg
--- NOTE | ~2017-12-05 | CN ---
PATIENT NAME:DANIEL ALVAREZ MEDICAL RECORD: [id number] : 43 LOCATION:[facility] ADMIT DATE: 12/05/17 ACCOUNT: [id number] CONSULTING PHYSICIAN: YUNIEL MARIE MD REFERRING PHYSICIAN: YUNIEL MARIE MD DATE OF CONSULTATION: 12/06/2017 HISTORY OF PRESENT ILLNESS: A 72-year-old lady with no known history of coronary artery disease, has history of hypertension, obstructive pulmonary disease, who has been having chest tightness and pressure, more dyspnea with exertion in the past 2-3 weeks. History of obstructive pulmonary disease, has baseline shortness of breath; however, the heaviness is new, had episode of rest symptomology yesterday. She is admitted for further evaluation. PAST MEDICAL HISTORY: Includes: 1. History of hypertension. 2. Hyperlipidemia. 3. Obstructive pulmonary disease. ALLERGIES: None known. MEDICATIONS: Typically include albuterol 2.5 q.i.d., Aricept 23 mg daily, Spiriva 1 puff daily, Cardizem 240 every day, Celexa 40 every day, Namenda 10 every day, tramadol 50 at bedtime, Singulair 10 at bedtime. SOCIAL HISTORY: She is nonsmoker, is able to take care of all ADLs. No set exercise program. REVIEW OF SYSTEMS: The patient reports easy bruising but reports no swollen glands. The patient reports no fever, no night sweats, no significant weight gain, no significant weight loss. No significant exercise tolerance. The patient reports no dry eyes, no irritation, no vision change. Patient reports no difficulty hearing and no ear pain. Patient reports no frequent nose bleeds or nose and sinus problems. Patient reports on arm pain on exertion. No shortness of breath while lying down. No history of heart murmur. Patient reports no cough, no wheezing or coughing up blood. Patient reports no abdominal pain, no vomiting. Normal appetite. No diarrhea and not vomiting blood. No nausea and no constipation. Patient reports no incontinence. No difficulty urinating. No hematuria. No increased frequency. Patient reports no muscle aches. No weakness, no arthralgias, no back pain. No swelling of the extremities. Patient reports no abnormal mole, no jaundice, no rashes. Reports no loss of consciousness. No weakness and no numbness. No seizures, dizziness, or headaches. The patient reports no depression, no sleep disturbance, feeling safe in a relationship and no alcohol abuse. Patient reports on fatigue. Reports no runny nose or sinus pressure. No itching, no hives, and no frequent sneezing. PHYSICAL EXAMINATION: GENERAL: Pleasant female in no acute distress. VITAL SIGNS: Blood pressure 93/45, pulse 64 and regular. HEENT: Normocephalic, atraumatic. NECK: No bruits noted. HEART: Regular, II/ systolic ejection murmur. LUNGS: Prolonged expiratory phase, few expiratory wheezes. ABDOMEN: Soft, nontender. CONSULT REPORT [id number] DANIEL ALVAREZ EXTREMITIES: Pulses 2+ with no edema. DIAGNOSTIC DATA: ECG without acute change. IMPRESSION: Acute coronary syndrome. No history of coronary artery disease. We will plan for angiography to check for progression of [place] disease. TRANSINT:[id number] Voice Confirmation ID: [id number] DOCUMENT ID: [id number] YUNIEL MARIE MD at 1214 CC: [id number] DICTATION DATE: 12/06/17 0841 RADIATION CONTROL TECHNICIAN: 12/06/17 1159 DIS IN 12/06/17 [facility] [address] [place] [address]
--- NOTE | ~2017-12-05 | OP ---
PATIENT NAME: DANIEL ALVAREZ MEDICAL RECORD: [id number] :43 LOCATION:[facility] ADMISSION DATE:12/05/17 SURGEON: YUNIEL MARIE MD DATE OF OPERATION: 12/06/2017 PROCEDURE: Left heart catheterization, selective coronary angiography, right radial artery approach. CATHETERS: A 5-Syriac sheath, 5-4 left and right Ottoniel. The procedure was well tolerated. The patient returned to the su. Sheath was removed. TR band was placed. FINDINGS: Left ventriculography in 30-degree ORDONEZ view: Normal wall motion and normal systolic function. CORONARY ANATOMY: LEFT MAIN: Left main is free of disease. LAD: Free of disease in the diagonal system. CIRCUMFLEX: Free of disease in the marginal system. RIGHT CORONARY ARTERY: Dominant artery, gives rise to PDA, free of disease. IMPRESSION: Normal systolic function, normal coronary anatomy. TRANSINT:[id number] Voice Confirmation ID: [id number] DOCUMENT ID: [id number] YUNIEL MARIE MD at 1214 CC: [id number] DICTATION DATE: 12/06/17 1332 IRRIGATION FOREMAN: 12/06/17 1344 DIS IN 12/06/17 [facility] [address] [place] [id number]
--- NOTE | ~2017-12-05 | HEMODYNAMI ---
PATIENT:DANIEL ALVAREZ MEDICAL RECORD: [id number] : 43 LOCATION[facility] D.[address] [id number] ADMISSION DATE: 12/05/17 Generatedon:12/06/201713:34 Patient name: DANIEL ALVAREZ Patient #: [id number] SSN: : 1945 Date of study: 12/06/2017 Page: Of Hemodynamic Procedure Report Patient Data Patient Demographics Procedure consent was obtained First Name: DANIEL Gender: Female Last Name: ANTONIO : 1945 Patient #: [id number] Age: 72 year(s) Race: Additional ID: [id number] Contact details Address: [address] [place] [address] State: [place] City: [facility] Zip code: [address] Past Medical History Allergies Allergen Reaction Date Comments Reported Other allergy 12/06/2017 [facility] Admission Admission Data Admission Date: 12/05/2017 Admission Time: 23:16 Room #: D.2115 Lab Results Lab Result Date: 12/06/2017 Lab Result Time: 0:00 Biochemistry Name Units Result Min Max BUN mg/dl 12 --(-*--)-- 7 18 Creatinine mg/dl 0.8 --(-*--)-- 0.6 1.3 CBC Name Units Result Min Max Hemoglobin g/dl 12.1 *-(----)-- 13.5 17.5 Procedure Procedure Types Cath Procedure Diagnostic Procedure LHC LHC w/Coronaries Procedure Description Procedure Date Procedure Date: 12/06/2017 Procedure Start Time: 13:23 Procedure End Time: 13:31 Procedure Staff Name Function Michael Hernandez MD Performing Physician Graciela Ivory RT Monitor Flakita Little RT Scrub Baldomero Story RN Nurse Procedure Data Cath Procedure Fluoroscopy Diagnostic fluoroscopy Total fluoroscopy Time: 0.7 time: 0.7 min min Diagnostic fluoroscopy Total fluoroscopy dose: 223 dose: 223 mGy mGy Contrast Material Contrast Material Type Amount (ml) Isovue 300 40 Entry Location Entry Primary Successful Side Size Upsize Upsize Entry Closure Perez ccessful Closure Location (Fr) 1 (Fr) 2 (Fr) Remarks Device Remarks Radial Right 6 Fr Mechanical tr artery Short Compression Estimated blood loss: 10 ml Diagnostic catheters Device Type Used For End Catheter Placement DIAGNOSTIC [place]atur 110cm 5 Procedure Fr catheter ([id number]) Procedure Complications No complications Procedure Medications Medication Administration Route Dosage Oxygen etCO2 Nasal cannula 2 l/min Heparin Flush Bag added to field 2 bags (1000units/500ml NS) 0.9% NaCl I.V. 100 ml/hr Radial Cocktail added to field 1 syringe (Verapomil 2mg/Nitro 400mcg/Heparin 1500units) Fentanyl I.V. 50 mcg Versed I.V. 1 mg Radial Cocktail I.A. 1 syringe (Verapomil 2mg/Nitro 400mcg/Heparin 1500units) Hemodynamics Rest HGB: 12.1 (g/dl) Heart Rate: 65 (bpm) Pressure Samples Time Site Value (mmHg) Purpose Heart Use Rate(bpm) 13:25 LV 104/10,24 Snapshot 75 Gradients Valve Time Site Site Mean SEP/DFP Peak To Heart Use 1 2 (mmHg) (sec/min) Peak Rate (mmHg) (bpm) Aortic 13:26 LV AO 73 Snapshots Pre Cath Intra NCS Post Cath Vital Signs Time Heart Resp SPO2 etCO2 NIBP Rhythm Pain Sedation Rate (ipm) (%) (mmHg) (mmHg) Status Level (bpm) 13:15:13 69 17 95 0 117/66(86) NSR 0 (11) 10(A) , No pain 13:19:29 66 16 95 0 107/56(77) NSR 0 (11) 10(A) , No pain 13:23:41 67 16 98 0 107/56(80) NSR 0 (11) 9(A) , No pain 13:27:53 74 17 96 0 92/41(61) NSR 0 (11) 9(A) , No pain 13:32:27 67 14 96 0 104/54(73) NSR 0 (11) 10(A) , No pain Medications Time Medication Route Dose Verified Delivered Reason Notes Effectiveness by by 13:16:07 Oxygen etCO2 2 l/min Michael Alexandre Per Nasal St Nuno Story RN physician cannula 13:16:17 Heparin Flush added 2 bags Michael Alexandre used for Bag to St Nuno Story RN procedure (1000units/500ml field JONES NS) 13:16:27 0.9% NaCl I.V. 100 Michael Alexandre Per ml/hr St Nuno Story RN physician 13:16:38 Radial Cocktail added 1 Michael Alexandre used for (Verapomil to syringe St Nuno Story RN procedure 2mg/Nitro field JONES 400mcg/Heparin 1500units) 13:22:28 Fentanyl I.V. 50 mcg Michael Alexandre for sedation St Nuno Story RN, MD 13:22:34 Versed I.V. 1 mg Michael Alexandre for sedation St Nuno Story RN, MD 13:25:32 Radial Cocktail I.A. 1 Michael Rodriguez for (Verapomil syringe [place] [facility] vasodilation 2mg/Nitro MD JONES 400mcg/Heparin 1500units) Procedure Log Time Note 12:50:55 Graciela Ivory RT(R) sent for patient. Start room use. 12:57:56 Time tracking: Regular hours (M-F 7:00 - 5:00) 12:58:01 Plan of Care:Hemodynamics will remain stable., Cardiac rhythm will remain stable., Comfort level will be maintained., Respiratory function will remain adequate., Patient/ family verbilizes understanding of procedure., Procedure tolerated without complication., Recovers from procedure without complications.. 12:58:42 Lab Result : Hemoglobin 12.1 g/dl 12:58:42 Lab Result : Creatinine 0.8 mg/dl 12:58:42 Lab Result : BUN 12 mg/dl 13:03:10 Patient received from Med II to [facility] 2 Alert and oriented. Tansferred to table in Supine position. 13:03:11 Warm blankets applied, and pritesh hugger turned on for patient comfort. 13:03:11 Correct patient and procedure confirmed by team. 13:03:13 Signed procedure consent form obtained from patient. 13:03:14 ECG and BP/O2 sat monitors applied to patient. 13:14:07 Vital chart was started 13:16:07 Oxygen 2 l/min etCO2 Nasal cannula was administered by Baldomero Story RN; Per physician; 13:16:17 Heparin Flush Bag (1000units/500ml NS) 2 bags added to field was administered by Baldomero Story RN; used for procedure; 13:16:27 0.9% NaCl 100 ml/hr I.V. was administered by Baldomero Story RN; Per physician; 13:16:38 Radial Cocktail (Verapomil 2mg/Nitro 400mcg/Heparin 1500units) 1 syringe added to field was administered by Baldomero Story RN; used for procedure; 13:17:10 Rhythm: sinus rhythm 13:17:12 Baseline sample Acquired. 13:17:13 Full Disclosure recording started 13:17:20 H&P Date Dictated: 12/05/2017 Within 30 days and on chart.. 13:17:23 Pre-procedure instructions explained to patient. 13:17:25 Family in waiting room. 13:17:56 Patient NPO since Midnight. 13:18:20 Patient allergic to Other allergysteriods 13:18:23 Is the patient allergic to Iodine/contrast media? No. 13:18:28 Is patient on blood thinner?No 13:18:32 Patient diabetic? No. 13:18:41 Snore? Yes 13:18:50 Airway obstruction? Yes COPD 13:18:54 Dentures? No ? 13:19:00 Patient pain scale 0/10 ?. 13:19:06 IV patent on arrival in left hand with 0.9% NaCl at [facility]. 13:19:12 Lab results completed and on chart. 13:19:15 Right Radial & Right Groin area was prepped with chlora-prep and draped in sterile fashion 13:19:19 Alarms reviewed by R. N. 13:19:20 Sharps counted by scrub and verified by R.N. 13:19:21 Physician paged 13:19:22 Physician arrived 13:19:22 --------ALL STOP TIME OUT------ 13:19:23 Final Timeout: patient, procedure, and site verified with staff and physician. All members of the team are in agreement. 13:19:25 Right Radial & Right Groin site verified by team. 13:19:36 Physical assessment completed. ASA score P 2 - A patient with mild systemic disease as per Michael Hernandez MD. 13:19:40 Sedation plan: IV Moderate Sedation Medication:Versed, Fentanyl 13:20:40 Use device set Femoral Dx 13:21:54 Procedure started. 13:22:28 Fentanyl 50 mcg I.V. was administered by Baldomero Story RN; for sedation; 13::34 Versed 1 mg I.V. was administered by Baldomero Story RN; for sedation; 13:23:05 Local anesthetic to right radial artery with Lidocaine 2% by Michael Hernandez MD.INITIAL ACCESS ONLY 13:23:15 A 6 Fr Short sheath was inserted into the Right Radial artery 13:24:09 Zero performed for pressure channel P1 13:25:32 Radial Cocktail (Verapomil 2mg/Nitro 400mcg/Heparin 1500units) 1 syringe I.A. was administered by Michael Hernandez MD; for vasodilation; 13:25:41 A DIAGNOSTIC [place] 110cm 5 Fr catheter ([id number]) was advanced over the wire and used for Procedure. 13:25:43 SHEATH 6Fr Prelude Radial ([id number]) opened to sterile field. 13:25:59 ACIST Hand Control (24041) opened to sterile field. 13:26:00 ACIST Manifold (65783) opened to sterile field. 13:26:04 Tegaderm 4 x 4 (1626W) opened to sterile field. 13:26:12 SHEATH 6Fr Prelude Radial ([id number]) opened to sterile field. 13:26:28 EF : 55 % 13:26:40 LCA angiography performed. 13:26:57 RCA angiography performed. 13:27:32 Catheter removed. 13:27:40 TR BAND Standard ([id number]) opened to sterile field. 13:28:01 Sheath removed intact; hemostasis achieved with Mechanical Compression to the Right Radial artery. 13:28:03 Procedure ended.(Physican Out) 13:28:14 Fluoroscopy time 00.70 minutes. 13:29:02 Flurop Dose total: 223 13:29:02 Fluoroscopy dose: 223 mGy 13:29:05 Contrast amount:Isovue 300 40ml. 13:29:07 Sharps counted by scrub and verified by R.N. 13:29:09 TR band inflated with 10cc of air. 13:29:10 Insertion/operative site no bleeding no hematoma. 13:29:16 Post Procedure Pulses reassessed and unchanged 13::22 Post-procedure physical assessment completed. ASA score P 2 - A patient with mild systemic disease as per Michael Hernandez MD. 13:29:25 Post procedure rhythm: unchanged. 13:29:28 Estimated blood loss: 10 ml 13:29:30 Post procedure instruction explained to patient.Patient verbalizes understanding. 13:29:37 Procedure and supply charges have been captured, reviewed, submitted and are correct. 13:30:05 ACIST Syringe (54610) opened to sterile field. 13:30:06 Bag Decanter (2001S) opened to sterile field. 13:30:08 Medline Cath Pack ([id number]) opened to sterile field. 13:30:09 DIAGNOSTIC WIRE .035 260cm J wire (508767) opened to sterile field. 13:30:58 Procedure Complication : No complications 13:31:01 Vital chart was stopped 13:31:01 See physician's report for complete and final results. 13:31:04 Report given to Pre/Post Procedure Room. 13:31:06 Patient transfered to Pre/Post Procedure Room with Stretcher. 13:31:09 Procedure ended. 13:31:09 Full Disclosure recording stopped 13:31:17 End room use (Document Last) Device Usage Item Name Manufacture Quantity Catalog Number Hospital Part Current M inimal Lot# / Charge Number Stock Stock Serial# Code DIAGNOSTIC Terumo 1 [id number] [id number] 185482 [id number] 5 [place]atur 110cm 5 Fr catheter (316357) SHEATH 6Fr Merit 2 [id number] 047374 247375 388967 5 Prelude Radial Medical ([id number]) ACIST Hand Acist 1 72320 479333 358928 124934 5 Control (50816) Medical Systems Inc ACIST Manifold Acist 1 05888 839468 488238 324662 5 (83921) [employer] Systems Inc Tegaderm 4 x 4 3M 1 1626W 772916 008528 911072 5 (1626W) TR BAND Terumo 1 [id number] 228393 836587 091636 4 0 Standard ([id number]) ACIST Syringe Acist 1 52883 609992 426985 319572 2 0 (54894) Medical Systems Inc Bag Decanter Microtek 1 2002S 382935 38495 880950 5 (2001S) Medical Inc. Medline Cath Cardinal 1 [id number] 636666 85463 021274 5 Pack Health ([id number]) DIAGNOSTIC WIRE St Tom 1 670061 810682 265612 730333 3 0 .035 260cm J wire (130803) Signature Audit Hunter Stage Time Signature Unsigned Intra-Procedure 12/06/2017 Graciela Ivory 1:34:24 PM RT(R) Signatures Monitor : Graciela Ivory Signature : RT Date : Time : [id number] [place] [address]
[2017-12-05 21:03] LABS: BASOPHILS 0.4 % (0-2); EOSINOPHILS 3.4 % (0-7); HEMATOCRIT 38.6 % (36.0-48.0); HEMOGLOBIN 12.1 g/dL (12-16); IMMATURE GRANULOCYTES 0.3 % (0-5); LYMPHOCYTES 14.8 % (15-50); MCH 30.1 pg (26.0-34.0); MCHC 31.3 g/dL (31.0-37.0); MEAN PLATELET VOLUME 9.5 fL (7.4-10.4); MONOCYTES 6.7 % (2-11); NEUTROPHILS 74.4 % (40-80); RBC 4.02 10x6/uL (4.00-5.40); RDW 13.6 % (11.5-14.5); WBC 11.3 10x3/uL (4.8-10.8)
[2017-12-05 21:06] LABS: PLATELET COUNT 245 10x3/uL (130-400)
[2017-12-05 21:27] LABS: ALBUMIN 3.2 g/dL (3.4-5.0); ALKALINE PHOSPHATASE 66 U/L (46-116); ALT (SGPT) 15 U/L (10-68); BILIRUBIN - TOTAL 0.24 mg/dL (0.2-1.3); CALC OSMOLALITY 284 mosm/kg (275-300); CARBON DIOXIDE 30.2 mmol/L (21.0-32.0); CHLORIDE - SERUM 106 mmol/L (98-107); CREATININE - SERUM 0.8 mg/dL (0.6-1.3); GLUCOSE 105 mg/dL (74-106); POTASSIUM - SERUM 3.4 mmol/L (3.5-5.1); PROTEIN - SERUM 7.1 g/dL (6.4-8.2); SODIUM 143 mmol/L (136-145); UREA NITROGEN 12 mg/dL (7-18); eGFR NON AFRICAN AMERICAN 74 mL/min (90-120)
[2017-12-05 21:40] LABS: CHOL - HDL RATIO 5.7 ratio (2.3-4.1); CHOLESTEROL, TOTAL 249 mg/dL (0-200); CKMB 0.7 U/L (0.0-3.6); CREATINE KINASE 201 UL (21-215); HDL CHOLESTEROL 44 mg/dL (32-96); LDL CHOLESTEROL 172 mg/dL (0-100); LDL-HDL RATIO 3.9 ratio (1.5-3.5); TRIGLYCERIDE 166 mg/dL (30-200); TROPONIN-I < 0.017 ng/mL (0.000-0.060)
[2017-12-06 01:20] VITALS: BP 147/76; Ht 167.6 cm; Wt 85.0 kg
[2017-12-06 03:55] LABS: CKMB 0.3 U/L (0.0-3.6); CREATINE KINASE 156 UL (21-215)
[2017-12-06 04:01] LABS: TROPONIN-I < 0.017 ng/mL (0.000-0.060)
[2017-12-06 08:33] VITALS: BP 93/45
[2017-12-06 09:10] LABS: BASOPHILS 0.3 % (0-2); EOSINOPHILS 0.2 % (0-7); HEMATOCRIT 36.6 % (36.0-48.0); HEMOGLOBIN 11.5 g/dL (12-16); IMMATURE GRANULOCYTES 0.2 % (0-5); LYMPHOCYTES 8.4 % (15-50); MCH 30.1 pg (26.0-34.0); MCHC 31.4 g/dL (31.0-37.0); MCV 95.8 fL (80.0-100.0); MONOCYTES 0.9 % (2-11); PLATELET COUNT 272 10x3/uL (130-400); RBC 3.82 10x6/uL (4.00-5.40); RDW 13.7 % (11.5-14.5); WBC 9.4 10x3/uL (4.8-10.8)
[2017-12-06 09:13] LABS: ANION GAP 12.7 mmol/L (8-16); CALCIUM 8.7 mg/dL (8.5-10.1); CARBON DIOXIDE 28.3 mmol/L (21.0-32.0); CREATININE - SERUM 0.9 mg/dL (0.6-1.3)
[2017-12-06 11:41] VITALS: BP 110/61
[2017-12-06 11:46] LABS: CREATINE KINASE 120 UL (21-215); TROPONIN-I < 0.017 ng/mL (0.000-0.060)
[2017-12-06 13:07] LABS: CKMB 0.9 U/L (0.0-3.6)
== END 2017-12-06 15:45 | disposition home or self-care (01) ==
LOC: D.ER 20:20 → OBSVTIME 23:16 → D.EDHOLD 23:16 → D.M2 23:16 → D.CLR 12-06 13:41
PROVIDERS: Emergency Medicine; Family Medicine; Internal Medicine Interventional Cardiology
DX: R07.89 Other chest pain (principal); I10 Essential (primary) hypertension; J44.9 Chronic obstructive pulmonary disease, unspecified; E78.5 Hyperlipidemia, unspecified

== ENCOUNTER 2018-02-07 13:28 | Emergency (ER) | payer MEDICARE ==
[~2018-02-07] VITALS: Ht 167.6 cm; Wt 82.3 kg
[2018-02-07 13:45] VITALS: BP 161/88; Ht 167.6 cm; Wt 82.3 kg
[2018-02-07] MEDS ORDERED: NORCO 7.5/325 T1 TA1 PO (15:33)
== END 2018-02-07 16:03 | disposition home or self-care (01) ==
LOC: D.ER 13:28
DX: M79.602 Pain in left arm (principal); F03.90 Unspecified dementia, unspecified severity, without behavioral disturbance, psychotic disturbance, mood disturbance, and anxiety; J44.9 Chronic obstructive pulmonary disease, unspecified

== ENCOUNTER 2018-07-17 11:07 | Day surgery (SDC) | payer MEDICARE ==
[~2018-07-17] VITALS: Ht 167.6 cm; Wt 82.3 kg
--- NOTE | ~2018-07-17 | OP ---
PATIENT NAME: GABRIELA ALVAREZ MEDICAL RECORD: [id number] :43 LOCATION:D.OPS ADMISSION DATE: SURGEON: GABRIELA NAILS MD DATE OF OPERATION: 07/17/2018 PROCEDURE: EGD with biopsy. CUSTOMER EXPERIENCE LEADER: Gabriela Nails MD SCOPE: Olympus video gastroscope. MEDICATIONS: Per TIVA anesthesia. The patient received 130 mg of propofol for this procedure, O2 4 liters. INDICATION FOR THE PROCEDURE: Epigastric pain, nausea, vomiting and gastroesophageal reflux disease. FINDINGS: Informed consent was given. The patient was made comfortable with the above medications. After reaching an adequate level of sedation by slow IV push, the patient was placed on her left side. The endoscope was then advanced under direct visualization through the posterior pharyngeal area and advanced to the distal esophagus. At the distal esophageal area, nonstenotic Schatzki's ring was appreciated along with mild distal esophagitis. No ulcers, no erosions were appreciated. We then entered the gastric mucosa in the cardia where a hiatal hernia was seen both on direct and retroflex views. We advanced the scope to the mid body of the stomach where only very mild inflammation was noted. At the antral area, the patient had some raised inflamed tissue with a few erosions, no ulcers were appreciated. Biopsies were taken to determine if the patient has Helicobacter pylori. The duodenal bulb was significant for some inflammation present on very small polyps. Biopsies were obtained. The scope was then advanced into the second portion of the duodenum where again mild inflammation was noted. Biopsies were taken in this area. The scope was then withdrawn. IMPRESSION: 1. Nonstenotic Schatzki's ring. 2. Mild distal esophagitis. 3. Small hiatal hernia. 4. Gastritis with a few very small erosions present, some raised tissue noted in the antral area, biopsy obtained. 5. Mildly inflamed duodenal bulbar polyps, biopsied. 6. Mild duodenitis in the second part of the duodenum. PLAN: 1. We will start the patient on famotidine at a dose of 20 mg p.o. b.i.d. 2. Carafate slurry 1 g p.o. q.i.d. for 1 month and then if the patient's symptoms have resolved, she can stop this medication. 3. The patient to follow reflux precautions stringently, both dietary and positional that is caution with chocolate, tomato, citrus, fatty foods, caffeine and peppermint. No tobacco. Caution with alcohol. The patient should sleep with the head of the bed elevated and sit up for 2 hours after every meal. TRANSINT:[id number] Voice Confirmation ID: [id number] DOCUMENT ID: [id number] OPERATIVE REPORT [id number] GABRIELA ALVAREZ BRENDA MD CC: HEIKE PHAM and ADDIE GOETZ [id number] DICTATION DATE: 07/17/18 1349 LOOP TACKER: 07/17/18 1734 [facility] [place] 07/17/18 [facility] [address] [place] [address]
[~2018-07-17 11:07] MED LIST changes: +NORCO 7.5/325 T1 TA1 PO
[2018-07-17 11:38] LABS: HEMATOCRIT 35.4 % (36.0-48.0); HEMOGLOBIN 11.1 g/dL (12-16); MCH 29.3 pg (26.0-34.0); MCHC 31.4 g/dL (31.0-37.0); MCV 93.4 fL (80.0-100.0); MEAN PLATELET VOLUME 9.5 fL (7.4-10.4); RBC 3.79 10x6/uL (4.00-5.40); RDW 14.2 % (11.5-14.5); WBC 7.3 10x3/uL (4.8-10.8)
[2018-07-17 11:51] LABS: ANION GAP 8.4 mmol/L (8-16); CALCIUM 8.6 mg/dL (8.5-10.1); CARBON DIOXIDE 36.9 mmol/L (21.0-32.0); CREATININE - SERUM 0.8 mg/dL (0.6-1.3); POTASSIUM - SERUM 3.3 mmol/L (3.5-5.1)
[2018-07-17 12:29] VITALS: BP 135/67; Ht 167.6 cm; Wt 82.3 kg
== END 2018-07-17 15:15 | disposition home or self-care (01) ==
LOC: D.OPS 11:07
PROVIDERS: Anesthesiology
DX: K21.9 Gastro-esophageal reflux disease without esophagitis (principal); K20.9 Esophagitis, unspecified; K22.2 Esophageal obstruction; K44.9 Diaphragmatic hernia without obstruction or gangrene; K29.80 Duodenitis without bleeding; K31.7 Polyp of stomach and duodenum; R13.10 Dysphagia, unspecified; R11.2 Nausea with vomiting, unspecified; Z01.812 Encounter for preprocedural laboratory examination

== ENCOUNTER 2018-09-02 13:10 | Day surgery (SDC) | payer MEDICARE ==
[~2018-09-02] VITALS: Ht 167.6 cm; Wt 82.7 kg
[2018-09-02 13:52] LABS: BASOPHILS 0.5 % (0-2); EOSINOPHILS 6.5 % (0-7); HEMOGLOBIN 13.3 g/dL (12-16); IMMATURE GRANULOCYTES 0.3 % (0-5); LYMPHOCYTES 25.9 % (15-50); MCH 29.5 pg (26.0-34.0); MCHC 31.7 g/dL (31.0-37.0); MCV 93.1 fL (80.0-100.0); MEAN PLATELET VOLUME 9.8 fL (7.4-10.4); MONOCYTES 8.6 % (2-11); NEUTROPHILS 58.2 % (40-80); PLATELET COUNT 285 10x3/uL (130-400); RBC 4.51 10x6/uL (4.00-5.40); RDW 14.1 % (11.5-14.5); WBC 10.1 10x3/uL (4.8-10.8)
[2018-09-02 13:59] VITALS: BP 89/54; Ht 167.6 cm; Wt 82.7 kg
[2018-09-02] MEDS ORDERED: INCRUSE ELLI62.5 MCG INH (13:59)
[2018-09-02 14:03] LABS: ANION GAP 8.6 mmol/L (8-16); CALCIUM 9.2 mg/dL (8.5-10.1); CARBON DIOXIDE 34.7 mmol/L (21.0-32.0); CREATININE - SERUM 1.2 mg/dL (0.6-1.3); POTASSIUM - SERUM 3.3 mmol/L (3.5-5.1)
--- NOTE | 2018-09-02 16:53 | NUR ---
PT STATES FEELING NAUSEATED. ADMINISTERED ZOFRAN 4 MG IV PER ORDER. DR. PHAM ORDERED BREATHING TREATMENT. RESPIRATORY THERAPIST IN ROOM CURRENTLY ADMINISTERIG BREATHING TREATMENT.
--- NOTE | 2018-09-02 17:17 | NUR ---
PT STATES FEELING CHEST PAIN. DR. PHAM ORDERED EKG AND TROPONIN. CALLED LAB TO DRAW BLODD FOR TROPONIN. LAB EDI BLOOD --WAITING FOR RESULTS. EKG WAS DONE AND SHOWS A. FIB. PT/FAMILY/DR. PHAM ARE ALL AWARE. PT/FAMILY STATE APPT W/ ROBOTICS TECHNOLOGIST IS ALREADY SCHEDULED.
--- NOTE | 2018-09-02 17:19 | NUR ---
X-RAY FINDINGS SHOW THAT THERE IS NO FREE AIR
--- NOTE | 2018-09-02 17:50 | NUR ---
PT IS RESTING COMFORTABLY IN BED. REQUESTS TO HAVE IV OUT. HOWEVER I INFORMED HER THAT THE IV NEEDS TO STAY IN PLACE UNTIL THE TROPONIN LEVEL RESULTS ARE MADE AVAILABLE.
--- NOTE | 2018-09-02 18:28 | NUR ---
PT RESTING QUIETLY IN BED. DENIES NEEDS AT THIS TIME.
--- NOTE | 2018-09-02 18:32 | NUR ---
STILL WAITING FOR TROPONIN LEVEL RESULTS
--- NOTE | 2018-09-02 18:51 | NUR ---
INFORMED DR. PHAM REGARDING CHEST X-RAY, EKG, AND TROPONIN (NEGATIVE FOR FREE AIR, NO CHANGES FROM PRE-OP EKG, TROPONIN <0.017). HE SAID TO DC HER HOME
--- NOTE | 2018-09-02 18:54 | NUR ---
PT LEFT UNIT VIA WC AT 185
--- NOTE | 2018-09-03 18:26 | OP ---
PATIENT NAME: DANIEL ALVAREZ MEDICAL RECORD: [id number] :43 LOCATION:D.OPS ADMISSION DATE: SURGEON: RAY PHAM MD DATE OF OPERATION: 09/02/2018 PREOPERATIVE DIAGNOSES: 1. Duodenal bulbar polyp with low-grade dysplasia. 2. History of complex ascending colon polyp. POSTOPERATIVE DIAGNOSES: 1. Duodenal bulbar polyp with low-grade dysplasia. 2. History of a complex ascending colon polyp. 3. No evidence of regrowth or persistence of the ascending colon polyp. 4. Two new polyps were identified within the large bowel and both of these were sessile and less than 1 cm in diameter. 5. Gastritis around the pylorus, which gave a glandular appearance to the area around the pylorus. 6. Possible small ulcerated polyp within the third portion of the duodenum. PROCEDURES: 1. Esophagogastroduodenoscopy with duodenal polypectomy utilizing argon plasma diamond sander. 2. Total colonoscopy to the cecum. 3. Hot biopsy forceps polypectomies times 2. 4. Biopsy of the scar that was tattooed at the prior polypectomy site in the ascending colon. SURGEON: Ray Pham MD SMOKING PIPE LINER: None. BLOOD LOSS: Minimal. ANESTHESIA: IV sedation. COMPLICATIONS: None. The risks, possible complications, and alternatives to procedure were explained to the patient. She elects to proceed. OPERATIVE COURSE: The patient was conveyed to the endoscopy suite electively on 09/02/2018. IV sedation was induced by the anesthesia staff. A bite block was inserted. A gastroscope was inserted into the mouth. It was advanced easily into the hypopharynx. The esophagus was easily intubated as were the stomach and duodenum. Upon withdrawal, retroflexed and angulus views were obtained. I advanced into the duodenal bulb. I identified the polyp, which was semi-pedunculated. Cold endoscopic biopsies were obtained. I then ablated the polypoid base utilizing argon plasma diamond sander with the esophageal setting in the forced mode. Utilizing the argon plasma diamond sander, I advanced it to the third portion of the duodenum. There was a possibly ulcerated area on one of the folds of the duodenum. I went ahead and treated this area with the argon plasma diamond sander as well. I withdrew into the stomach. The prepyloric area was treated with the OPERATIVE REPORT [id number] PALAVICINI,DANIEL argon plasma diamond sander. As it was somewhat hypertrophic and had a glandular appearance, I did not biopsy this area for fear that it would cause bleeding as the tissue appeared somewhat friable. The endoscope was then withdrawn under direct vision. The patient was turned 180 degrees and placed in the Hyatt position. A digital rectal examination was performed. A colonoscope was inserted through the anus. It was easily advanced to the cecum. I slowly withdrew the endoscope. The pullback was greater than a 14-minute pullback. The prior polypectomy site was noted. There was a scar present next to a tattoo. I noted no regrowth or persistence of a polyp. I re-biopsied this area. I then treated it with the argon plasma diamond sander for hemostasis. As I slowly withdrew the endoscope, a combination of normal imaging and narrow band imaging were utilized. I then performed two hot biopsy forceps polypectomies. A retroflexed view was obtained in the rectum. I then unretroflexed the scope and removed it under direct vision. I will see the patient in my office in 2-3 weeks. It is very likely I will return her surveillance endoscopy needs back over to Dr. Nails as there has been no regrowth of the ascending colon polyp. Additionally, I doubt that the duodenal bulbar polyp is going to regrow so I will turn all of her endoscopic needs back over to Dr. Nails. TRANSINT:[id number] Voice Confirmation ID: [id number] DOCUMENT ID: [id number] RAY PHAM MD at 1667 CC: DANIEL NAILS [id number] DICTATION DATE: 09/02/182028 LOGGING CREW FOREMAN: 09/02/18 2144 [facility] 09/02/18 [facility] [address] [place] [address]
== END 2018-09-02 18:54 | disposition home or self-care (01) ==
LOC: D.OPS 13:10
PROVIDERS: Anesthesiology
DX: K31.7 Polyp of stomach and duodenum (principal); K29.70 Gastritis, unspecified, without bleeding; K63.5 Polyp of colon; D12.6 Benign neoplasm of colon, unspecified; Z86.010 Personal history of colon polyps; Z01.812 Encounter for preprocedural laboratory examination

== ENCOUNTER 2018-10-08 18:14 | Inpatient (IN) | payer MEDICARE ==
[~2018-10-08] VITALS: Ht 167.6 cm; Wt 82.1 kg
[~2018-10-08 18:14] MED LIST changes: +INCRUSE ELLI62.5 MCG INH
[2018-10-08 18:56] LABS: BASOPHILS 0.8 % (0-2); EOSINOPHILS 5.4 % (0-7); HEMATOCRIT 40.1 % (36.0-48.0); HEMOGLOBIN 12.6 g/dL (12-16); IMMATURE GRANULOCYTES 0.1 % (0-5); MCH 29.6 pg (26.0-34.0); MCHC 31.4 g/dL (31.0-37.0); MCV 94.1 fL (80.0-100.0); MONOCYTES 11.9 % (2-11); NEUTROPHILS 59.8 % (40-80); PLATELET COUNT 231 10x3/uL (130-400); RBC 4.26 10x6/uL (4.00-5.40); RDW 14.1 % (11.5-14.5); WBC 8.6 10x3/uL (4.8-10.8)
[2018-10-08 19:00] VITALS: BP 128/80
[2018-10-08 19:11] LABS: APTT 29.4 SECONDS (22.8-39.4); INR 0.96 (0.85-1.17); PROTIME 12.3 SECONDS (11.6-15.0)
[2018-10-08 19:12] LABS: D-DIMER-QUANTITATIVE 0.46 ug/mLFEU (0.20-0.54)
[2018-10-08 19:13] LABS: ALBUMIN 3.1 g/dL (3.4-5.0); ALKALINE PHOSPHATASE 89 U/L (46-116); ALT (SGPT) 17 U/L (10-68); BILIRUBIN - TOTAL 0.23 mg/dL (0.2-1.3); CALC OSMOLALITY 290 mosm/kg (275-300); CALCIUM 9.1 mg/dL (8.5-10.1); CARBON DIOXIDE 33.5 mmol/L (21.0-32.0); CHLORIDE - SERUM 106 mmol/L (98-107); CREATININE - SERUM 0.8 mg/dL (0.6-1.3); GLUCOSE 102 mg/dL (74-106); POTASSIUM - SERUM 3.8 mmol/L (3.5-5.1); PROTEIN - SERUM 7.1 g/dL (6.4-8.2); SODIUM 146 mmol/L (136-145); UREA NITROGEN 12 mg/dL (7-18); eGFR NON AFRICAN AMERICAN 74 mL/min (90-120)
[2018-10-08 19:15] VITALS: BP 97/68
[2018-10-08 19:25] LABS: CKMB 1.6 U/L (0.0-3.6); CREATINE KINASE 59 UL (21-215); PRO BNP 372 pg/mL (0-125); TROPONIN-I < 0.017 ng/mL (0.000-0.060)
[2018-10-08 19:30] VITALS: BP 120/80
[2018-10-08 19:45] VITALS: BP 103/76
[2018-10-08 19:56] VITALS: BP 102/69
--- NOTE | 2018-10-08 20:04 | NUR ---
ATTEMTED TO CALL REPROT TO MED II TWICE, WAS TOLD FIRST TIME I WOULD BE CALLED BACK IN A FEW MINS. THE SECOND ATTEMPT NO ANSWER ON MED II
--- NOTE | 2018-10-08 20:10 | NUR ---
REPROT GIVEN TO Timbo ON MED II. IN REPORT TOLD ROOM IS DIRTY
--- NOTE | 2018-10-08 21:51 | NUR ---
PT ARRIVED TO ROOM, AAO X2 RIGHT AC 20G WITH CARDIZEM INFUSING AT 10 TELEMETRY PLACED PT IS UNCONTROLLED A FIB 110 2L O2 NC. S1S2 IRREGULAR, LOWER LOBES DIMINISHED. COUGH NON PRODUCTIVE. QUICK START AND HISTORY COMPLETE. PT UP TO RESTROOM AND BACK MINIMAL ASSIST. PT COMPLAINS OF DYSPNEA. BP 123/55 O2 96% 2L HEART RATE PER NETWORK CONTRACTOR 155 UNCONTROLLED A FIB. HEART RATE BACK DOWN TO 115 UAF. PT HAS CALL LIGHT IN REACH. NO S/S OF DISTRESS. BEDLOW AND CALL LIGHT IN REACH. WILL CPOC
--- NOTE | 2018-10-08 22:20 | NUR ---
PT IS UAF AT 110
--- NOTE | 2018-10-09 01:21 | NUR ---
PT HR IS NOW 74 SR. CARDIZEM STILL INFUSING AT 10 TO RIGHT AC. PT HAS NO S/S OF DISTRESS. PT BEDLOW AND CALL LIGHT IN REACH.WILL CPOC
[2018-10-09 02:41] VITALS: BP 125/55; BMI 29.2
--- NOTE | 2018-10-09 03:20 | NUR ---
PT IS SR AT 70 NO S/S OF DISTRESS. CARDIZEM STILL INFUSING ORDERED. WILL CPOC
[2018-10-09 04:00] VITALS: BP 117/50
--- NOTE | 2018-10-09 05:32 | NUR ---
PT REPOSITONED SELF IN BED TO LEFT SIDE. PT IS SR 66 ON MONITOR WITH OCCASIONAL PVC'S CARDIZEM INFUSING AT 10 ORDERED. PT HAS NO S/S OF DISTRESS. BEDLOW AND CALL LIGHT IN REACH. WILL CPOC
--- NOTE | 2018-10-09 06:30 | NUR ---
PT IS SR 68 WITH OCCASIONAL PVC'S
--- NOTE | 2018-10-09 08:01 | NUR ---
SPOKE WITH AJITH ORNELAS AND SHE STATES TO ORDER CARDIOLOGY CONSULT.
[2018-10-09 08:03] VITALS: BP 114/55
--- NOTE | 2018-10-09 09:40 | NUR ---
RECEIVED VERBAL ORDER FROM SHEKHAR AHUMADA APN TO LOWER CARDIZEM DRIP FROM 10ML/HR TO 5ML/HR AND GIVE CARDIZEM 360MG PO AND IN TWO HOURS DC CARDIZEM DRIP IF PT IS STILL IN SINUS RHYTHM AND IF PT GOES BACK INTO AFIB TO CALL AND LET CARDIOLOGY KNOW. I VERBALIZED UNDERSTANDING. TURNED CARDIZEM DRIP FROM 10 TO 5ML/HR AND GAVE PO CARDIZEM WILL CONTINUE TO MONITOR.
[2018-10-09 10:28] VITALS: BMI 29.2
--- NOTE | 2018-10-09 11:48 | NUR ---
PT STILL IN SINUS RHYTHM DC'D CARDIZEM DRIP. WILL CONTINUE TO MONITOR.
--- NOTE | 2018-10-09 13:58 | NUR ---
PT WANTING BREATHING TREATMENT. SPOKE WITH JADE BERMUDEZ AND SHE STATES SHE WILL BE RIGHT UP HERE.
--- NOTE | 2018-10-09 14:51 | NUR ---
PT STILL IN SINUS RHYTHM.
--- NOTE | 2018-10-09 14:51 | NUR ---
I have reviewed this patient and I concur with the Shift Assessment completed by the Licensed Practical Nurse today this shift.
--- NOTE | 2018-10-09 15:00 | MORECARE ---
CASE MANAGEMENT DISCHARGE SUMMARY PATIENT: DANIEL ALVAREZ UNIT: [id number] ADM DATE: 10/08/18 AGE: 73 : 44 SEX: F ROOM/BED: D.[facility] AUTHOR: ZENY SOLIS PHYSICIAN: REFERRING PHYSICIAN: CAROL BUSTOS MD DATE OF SERVICE: 10/09/18 Discharge Plan Patient Name: DANIEL ALVAREZ Facility: [facility]:[place] : 1945 Planned Disposition: Anticipated Discharge Date: Discharge Date: Expected LOS: Initial Reviewer: [email or web address] Initial Review Date: 10/08/2018 Generated: 10/09/18 4:00 pm Coverage Notice Reviewer: [id number] - Brittni Wesley Notice Issued Date-Time: 10/09/2018 14:26 Notice Type: Medicare Outpatient Observation Notice Notice Delivered To: Patient Relationship to Patient: Self Area Safety Manager Name: Delivery Method: HAND - Hand Delivered Isha Days: Prior Verbal Notification: Recipient Understood Notice: Yes Recipient Signature: Yes Med Rec Note Co-signed by Attending: Coverage Notice Comment: DENA DISCUSSED WITH PATIENT AND HER SISTER/SAHARAA SARAH JOHNSON, AFTER VERBAL CONSENT RECEIVED. Patient Name: DANIEL ALVAREZ Page [phone] at 1500 All edits/amendments must be made on the electronic document DICTATION DATE: 10/09/181458 PLAY WRITER: TIFFANY 10/09/18 145 RPT#: [id number] DC DATE: STATUS: ADM IN [facility] [address] [place] [address] END OF REPORT
[2018-10-09 16:01] VITALS: BP 114/58
[2018-10-09 16:06] VITALS: Ht 167.6 cm; Wt 82.1 kg
--- NOTE | 2018-10-09 17:00 | NUR ---
SPOKE WITH SHEKHAR BEYER AND SHE ASKED IF PT WAS STILL IN SINUS RHYTHM AND I STATED TO HER YES SHE STATES TO DC CARDIZEM DRIP OUT OF EMAR. VERBALIZED UNDERSTANDING.
[2018-10-10] VITALS (7 sets, daily range): BP systolic 105–145; BP diastolic 44–70
--- NOTE | 2018-10-10 07:19 | NUR ---
REPORT RECEIVED. WILL CONTINUE WITH POC. PT CURRENTLY RESTING ON RIGHT SIDE. CALL LIGHT W/I REACH. FAMILY AT BEDSIDE. RR EVEN AND UNLABORED ON 2L 02. R.AC PIV IS SALINE LOCKED. PT DENIES ANY NEEDS AT THIS TIME. NO S/S OF DISTRESS NOTED. WILL CTM.
--- NOTE | 2018-10-10 13:00 | NUR ---
PT CURRENTLY LYING SEMI FOWLERS. CALL LIGHT W/I REACH. FAMILY AT BEDSIDE. PT HAS BEEN RESTING ALL MORNING AND STATES "THIS IS WHAT HAPPENS WHEN YOU DONT SLEEP FOR SEVERAL DAYS." PT IS NOW AAO AND DENIES ANY NEEDS. WILL CTM.
--- NOTE | 2018-10-10 18:08 | NUR ---
PT CURRENTLY LYING SEMI FOWLERS. CALL LIGHT W/I REACH. FAMILY AT BEDSIDE. RR EVEN AND UNLABORED ON 2L 02. PT DENIES ANY NEEDS AT THIS TIME. WILL PASS REPORT AND CONTINUE WITH POC.
--- NOTE | 2018-10-10 20:19 | NUR ---
INITIAL ROUNDS AND ASSESSMENT COMPLETED. SEE ASSESSMENT. MONITOR AND CPOC.
--- NOTE | 2018-10-10 23:14 | NUR ---
BEDTIME MEDS GIVEN. PT RESTING IN BED. FAMILY X 1 AT BEDSIDE. ALERT/ORIENTED. O2 @ 2L/NC. PIV TO RIGHT A/C SALINE LOCKED. SR/76 PER TELEMETRY.
[2018-10-11 05:10] VITALS: BP 132/60
[2018-10-11 05:39] LABS: BASOPHILS 0.1 % (0-2); EOSINOPHILS 0 % (0-7); HEMATOCRIT 33.9 % (36.0-48.0); HEMOGLOBIN 10.7 g/dL (12-16); IMMATURE GRANULOCYTES 0.7 % (0-5); LYMPHOCYTES 7.5 % (15-50); MCH 28.9 pg (26.0-34.0); MCHC 31.6 g/dL (31.0-37.0); MCV 91.6 fL (80.0-100.0); MEAN PLATELET VOLUME 10.3 fL (7.4-10.4); MONOCYTES 3.2 % (2-11); NEUTROPHILS 88.5 % (40-80); PLATELET COUNT 270 10x3/uL (130-400); RDW 14.5 % (11.5-14.5)
[2018-10-11 05:56] LABS: ALBUMIN 2.8 g/dL (3.4-5.0); ANION GAP 12.5 mmol/L (8-16); BILIRUBIN - TOTAL 0.13 mg/dL (0.2-1.3); CALCIUM 8.7 mg/dL (8.5-10.1); CARBON DIOXIDE 29.7 mmol/L (21.0-32.0); CREATININE - SERUM 0.9 mg/dL (0.6-1.3); POTASSIUM - SERUM 4.2 mmol/L (3.5-5.1); PROTEIN - SERUM 6.4 g/dL (6.4-8.2)
--- NOTE | 2018-10-11 07:45 | NUR ---
ASSESSMENT COMPLETED.ALERT AND ORIENTED.02 AT 2 L/M PER NC. RIGHT AC SL. DENIES ANY NEEDS. TELEMERTY SHOWS SR. SR UP AND WITH CALL LIGHT IN REACH.
[2018-10-11 09:30] VITALS: BP 118/64
[2018-10-11 12:26] VITALS: BP 132/56
--- NOTE | 2018-10-11 13:48 | NUR ---
LYING QUIETLY. DENIES ANY NEEDS.TELEMERTY SHOWS SR. WILL MONITOR
--- NOTE | 2018-10-11 16:12 | NUR ---
AGREE WITH NAILHEAD SETTER ASSESSMENT
[2018-10-11 17:16] VITALS: BP 122/58
--- NOTE | 2018-10-11 18:00 | NUR ---
DENIES ANY NEEDS. TELEMERTY SHOWS SR. O2 AT 2LM PER NC. CALL LIGHT IN REACH WITH SR UP
[2018-10-11 19:55] VITALS: BP 137/33
--- NOTE | 2018-10-11 22:23 | NUR ---
INITIAL ROUNDS COMPLETED AT 1910 HRS. PT DENIED ANY DISCOMFORT. ASSESSMENT COMPLETED AT 1999 HRS. VSS. PT ALERT AND ORIENTED TO PERSON, PLACE AND TIME. AJ. SR PER CM HR 85. LUNGS ESSENTIALLY CTA. IV TO RAC SL. PM MEDS GIVEN PER ORDES. PT CURRENTLY RESTING WITH EYES CLOSED. RESP EVEN AND REGULAR. SR UP X2, CALL LIGHT WITHIN REACH.
[2018-10-11 23:55] VITALS: BP 130/65
--- NOTE | 2018-10-12 00:28 | NUR ---
PT RESTING WITH EYES CLOSED. RESP EVEN AND REGULAR. SR UP X2, CALL LIGHT WITHIN REACH.
--- NOTE | 2018-10-12 03:08 | NUR ---
PT RESTING WITH EYES CLOSED. RESP EVEN AND REGULAR. SR UP X2, CALL LIGHT WITHIN REACH.
[2018-10-12 03:55] VITALS: BP 132/70
--- NOTE | 2018-10-12 04:30 | NUR ---
PT RESTING WITH EYES CLOSED. RESP EVEN AND REGULAR. SR UP X2, CALL LIGHT WITHIN REACH.
[2018-10-12 06:21] LABS: BASOPHILS 0.1 % (0-2); EOSINOPHILS 0 % (0-7); HEMATOCRIT 33.2 % (36.0-48.0); HEMOGLOBIN 10.5 g/dL (12-16); IMMATURE GRANULOCYTES 0.9 % (0-5); LYMPHOCYTES 9.4 % (15-50); MCH 28.9 pg (26.0-34.0); MCHC 31.6 g/dL (31.0-37.0); MCV 91.5 fL (80.0-100.0); MEAN PLATELET VOLUME 10.4 fL (7.4-10.4); MONOCYTES 3.2 % (2-11); NEUTROPHILS 86.4 % (40-80); PLATELET COUNT 249 10x3/uL (130-400); RBC 3.63 10x6/uL (4.00-5.40); RDW 14.6 % (11.5-14.5); WBC 9.8 10x3/uL (4.8-10.8)
--- NOTE | 2018-10-12 06:27 | NUR ---
VSS THROUGHOUT NIGHT. SR PER CM. PT DENIED ANY DISCOMFORT. NEEDS MET; WILL CONTINUE TO MONITOR.
[2018-10-12 06:43] LABS: ALBUMIN 2.9 g/dL (3.4-5.0); ANION GAP 12.6 mmol/L (8-16); BILIRUBIN - TOTAL 0.07 mg/dL (0.2-1.3); CARBON DIOXIDE 28.6 mmol/L (21.0-32.0); CREATININE - SERUM 0.9 mg/dL (0.6-1.3); POTASSIUM - SERUM 4.2 mmol/L (3.5-5.1); PROTEIN - SERUM 6.2 g/dL (6.4-8.2)
--- NOTE | 2018-10-12 07:32 | NUR ---
ALERT AND ORIENTED. TELEMERTY SHOWS SR 62. O2 AT 2 L/M PER NC. SL TO RIGHT AC. UP AB LOBO. LUNGS DIMISHED. NO NEEDS VOICED
[2018-10-12 08:51] VITALS: BP 132/69
--- NOTE | 2018-10-12 10:39 | NUR ---
AGREE WITH DIRECTOR SOCIAL SERVICE ASSESSMENT
--- NOTE | 2018-10-12 11:31 | NUR ---
PT ACIDENTLY PULLED OUT HER IV. REFUSES TO HAVE IT RESTARTED AT THIS TIME
[2018-10-12] MEDS ORDERED: CARDIZEM CD180 MG PO (14:13)
[2018-10-12] MEDS ORDERED: PREDNISONE10 MG PO (14:14)
--- NOTE | 2018-10-12 14:41 | NUR ---
LYING QUIETLY. AWAITING DISCHARGE. DENIES ANY NEEDS. SR UP WITH CALL LIGHT IN REACH
[2018-10-12 14:43] VITALS: BP 137/62
--- NOTE | 2018-10-12 16:05 | MORECARE ---
CASE MANAGEMENT DISCHARGE SUMMARY PATIENT: DANIEL ALVAREZ UNIT: [id number] ADM DATE: 10/11/18 AGE: 73 : 44 SEX: F ROOM/BED: D.2122 AUTHOR: ZENY SOLIS PHYSICIAN: REFERRING PHYSICIAN: CAROL BUSTOS MD DATE OF SERVICE: 10/12/18 Discharge Plan Patient Name: DANIEL ALVAREZ Facility: [facility]:[place] : 1945 Planned Disposition: Home Anticipated Discharge Date: 10/12/18 Discharge Date: Expected LOS: 1 Initial Reviewer: [id number] Initial Review Date: 10/08/2018 Generated: 10/12/18 5:05 pm Coverage Notice Reviewer: [id number] Jenni Nieves Notice Issued Date-Time: 10/09/2018 14:26 Notice Type: Medicare Outpatient Observation Notice Notice Delivered To: Patient Relationship to Patient: Self 8Th Grade Teacher Name: Delivery Method: HAND - Hand Delivered Isha Days: Prior Verbal Notification: Recipient Understood Notice: Yes Recipient Signature: Yes Med Rec Note Co-signed by Attending: Coverage Notice Comment: DENA DISCUSSED WITH PATIENT AND HER SISTER/SAHARAA SARAH JOHNSON, AFTER VERBAL CONSENT RECEIVED. Last DP export: 10/09/18 1:00 pm Patient Name: DANIEL ALVAREZ Page [phone] at 1605 All edits/amendments must be made on the electronic document DICTATION DATE: 10/12/181603 VICE PRESIDENT GLOBAL ADVERTISING SALES: TIFFANY 10/12/181603 RPT#: [id number] DC DATE: STATUS: ADM IN [facility] [address] [place] [address] END OF REPORT
--- NOTE | 2018-10-12 16:12 | MORECARE ---
CASE MANAGEMENT DISCHARGE SUMMARY PATIENT: DANIEL ALVAREZ UNIT: [id number] ADM DATE: 10/11/18 AGE: 73 : 44 SEX: F ROOM/BED: D.2122 AUTHOR: ZENY SOLIS PHYSICIAN: REFERRING PHYSICIAN: CAROL BUSTOS MD DATE OF SERVICE: 10/12/18 Discharge Plan Patient Name: DANIEL ALVAREZ Facility: [facility]:[place] : 1945 Planned Disposition: Home Anticipated Discharge Date: 10/12/18 Discharge Date: Expected LOS: 1 Initial Reviewer: [email or web address] Initial Review Date: 10/08/2018 Generated: 10/12/18 5:12 pm DCPIA - Discharge Planning Initial Assessment Updated by [email or web address]: Caitlyn Hodgson on 10/12/18 4:09 pm * PCP Yasmin Domingo APN * Pharmacy [place], [place] * Preadmission Environment Home with Family * ADLs Independent * Equipment Oxygen * Other Equipment Denies any additional DME * List name and contact numbers for known caregivers / representatives who currently or will assist patient after discharge: Tracy Alexander-sister - [phone] * Verbal permission to speak to the caregivers and representatives has been obtained from the patient. No * Community resources currently utilized None * Please name any agencies selected above. N/A * Additional services required to return to the preadmission environment? No * Can the patient safely return to the preadmission environment? Yes * Has this patient been hospitalized within the prior 30 days at any hospital? No Coverage Notice Reviewer: [id number] - Brittni Golden Notice Issued Date-Time: 10/09/2018 14:26 Notice Type: Medicare Outpatient Observation Notice Notice Delivered To: Patient Relationship to Patient: Self Hide Splitter Name: Delivery Method: HAND - Hand Delivered Isha Days: Prior Verbal Notification: Recipient Understood Notice: Yes Recipient Signature: Yes Med Rec Note Co-signed by Attending: Coverage Notice Comment: FERNANDES DISCUSSED WITH PATIENT AND HER SISTER/POA TRACY ALEXANDER, AFTER VERBAL CONSENT RECEIVED. Last DP export: 10/12/18 3:05 p Patient Name: DANIEL ALVAREZ Page [phone] at 1612 All edits/amendments must be made on the electronic document DICTATION DATE: 10/12/181610 PAYROLL TECHNICIAN: TIFFANY 10/12/181610 RPT#: [id number] DC DATE: STATUS: ADM IN [facility] [address] [place] [address] END OF REPORT
--- NOTE | 2018-10-12 16:16 | NUR ---
PT DISCHARGED. INSTRUCTIONS GIVEN TO PT. TO PRIVATE CAR PER WHEELCHAIR.
--- NOTE | 2018-10-12 16:18 | MORECARE ---
CASE MANAGEMENT DISCHARGE SUMMARY PATIENT: DANIEL ALVAREZ UNIT: [id number] ADM DATE: 10/11/18 AGE: 73 : 44 SEX: F ROOM/BED: D.3082 AUTHOR: WILL,ZENY PHYSICIAN: REFERRING PHYSICIAN: CAROL BUSTOS MD DATE OF SERVICE: 10/12/18 Discharge Plan Patient Name: DANIEL ALVAREZ Facility: [facility]:[place] : 1945 Planned Disposition: Home Anticipated Discharge Date: 10/12/18 Discharge Date: Expected LOS: 1 Initial Reviewer: [email or web address] Initial Review Date: 10/08/2018 Generated: 10/12/18 5:18 pm Comments DCP- Discharge Planning Updated by [email or web address]: Caitlyn Hodgson on 10/12/18 3:[address] Patient Name: DANIEL ALVAREZ Admission Status: ER Accout number: [id number] Admission Date: 10-11-2018 : 1945 Admission Diagnosis: Attending: CAROL BUSTOS Current LOS: 1 Anticipated DC Date: 10-12-2018 Planned Disposition: Home Primary Insurance: [employer] Discharge Planning Comments: MET WITH THE PATIENT AT THE BEDSIDE. KNOW SHE IS DISCHARGED TODAY. ANXIOUS TO GO HOME. STATES SHE LIVES WITH HER SISTER, TRACY, AND BROTHER IN LAW. THE SISTER IS HER POA AND ASSIST HER WITH CARE. SHE HAS HOME OXYGEN THERAPY WITH [facility]. HAS A STATIONARY AND PORTABLE UNIT. [facility] DENIES ANY HOME SERVICES. HER SISTER AND BROTHER IN LAW WILL PROVIDE TRANSPORTATION TO HOME. DISCUSSED DISCHARGE IMM. SHE STATES SHE IS READY FOR DISCHARGE. IMM SIGNED AND TO THE CHART. PATIENT ALSO GIVEN A COPY. Homebirth Midwife: Caitlyn Hodgson DCPIA - Discharge Planning Initial Assessment Updated by [id number]: Caitlyn Hodgson on 10/12/18 4:09 pm * PCP Yasmin Domingo APN * Pharmacy [facility] [place] * Preadmission Environment Home with Family * ADLs Independent * Equipment Oxygen * Other Equipment Denies any additional DME * List name and contact numbers for known caregivers / representatives who currently or will assist patient after discharge: Tracy Alexander-sister - [phone] * Verbal permission to speak to the caregivers and representatives has been obtained from the patient. No * Community resources currently utilized None * Please name any agencies selected above. N/A * Additional services required to return to the preadmission environment? No * Can the patient safely return to the preadmission environment? Yes * Has this patient been hospitalized within the prior 30 days at any hospital? No Coverage Notice Reviewer: [id number] Jenni Nieves Notice Issued Date-Time: 10/09/2018 14:26 Notice Type: Medicare Outpatient Observation Notice Notice Delivered To: Patient Relationship to Patient: Self Pulping Machine Operator Name: Delivery Method: HAND - Hand Delivered Isha Days: Prior Verbal Notification: Recipient Understood Notice: Yes Recipient Signature: Yes Med Rec Note Co-signed by Attending: Coverage Notice Comment: DENA DISCUSSED WITH PATIENT AND HER SISTER/POA TRACY ALEXANDER, AFTER VERBAL CONSENT RECEIVED. Reviewer: [id number] Jenni Hodgson Notice Issued Date-Time: 10/12/2018 16:15 Notice Type: IM Discharge Notice Notice Delivered To: Patient Relationship to Patient: Self Pulping Machine Operator Name: Delivery Method: HAND - Hand Delivered Isha Days: Prior Verbal Notification: Recipient Understood Notice: Yes Recipient Signature: Yes Med Rec Note Co-signed by Attending: Coverage Notice Comment: CM EXPLAINED DISCHARGE IMM. PATIENT STATES SHE UNDERSTANDS. 'I AM READY TO GO". SHE SIGNED COPY WHICH WAS PLACED INTO PATIENT'S CHART. COPY ALSO GIVEN TO THE PATIENT. Last DP export: 10/12/18 3:12 p Patient Name: DANIEL ALVAREZ Page [phone] at 1618 All edits/amendments must be made on the electronic document DICTATION DATE: 10/12/18 1618 IT SYSTEMS ADMINISTRATOR: TIFFANY 10/12/18 1618 RPT#: [id number] DC DATE: STATUS: ADM IN [facility] [address] [place] [address] END OF REPORT
--- NOTE | 2018-10-12 16:25 | MORECARE ---
CASE MANAGEMENT DISCHARGE SUMMARY PATIENT: DANIEL ALVAREZ UNIT: [id number] ADM DATE: 10/11/18 AGE: 73 : 44 SEX: F ROOM/BED: D.9242 AUTHOR: WILL,DOC PHYSICIAN: REFERRING PHYSICIAN: CAROL BUSTOS MD DATE OF SERVICE: 10/12/18 Discharge Plan Patient Name: DANIEL ALVAREZ Facility: [facility]:[place] : 1945 Planned Disposition: Home Anticipated Discharge Date: 10/12/18 Discharge Date: 10/12/2018 Expected LOS: 1 Initial Reviewer: [email or web address] Initial Review Date: 10/08/2018 Generated: 10/12/18 5:25 pm Comments DCP- Discharge Planning Updated by [email or web address]: Caitlyn Hodgson on 10/12/18 3:[address] Patient Name: DANIEL ALVAREZ Admission Status: ER Accout number: [id number] Admission Date: 10-11-2018 : 1945 Admission Diagnosis: Attending: CAROL BUSTOS Current LOS: 1 Anticipated DC Date: 10-12-2018 Planned Disposition: Home Primary Insurance: Birdi Discharge Planning Comments: 1516 MET WITH THE PATIENT AT THE BEDSIDE. KNOW SHE IS DISCHARGED TODAY. ANXIOUS TO GO HOME. STATES SHE LIVES WITH HER SISTER, TRACY, AND BROTHER IN LAW. THE SISTER IS HER POA AND ASSIST HER WITH CARE. SHE HAS HOME OXYGEN THERAPY WITH [facility]. HAS A STATIONARY AND PORTABLE UNIT. [facility] DENIES ANY HOME SERVICES. HER SISTER AND BROTHER IN LAW WILL PROVIDE TRANSPORTATION TO HOME. DISCUSSED DISCHARGE IMM. SHE STATES SHE IS READY FOR DISCHARGE. IMM SIGNED AND TO THE CHART. PATIENT ALSO GIVEN A COPY. Manager Women: Caitlyn Hodgson DCPIA - Discharge Planning Initial Assessment Updated by [email or web address]: Caitlyn Hodgson on 10/12/18 4:09 pm * [facility]CP [facility] APN * [facility] * Preadmission Environment Home with Family * ADLs Independent * Equipment Oxygen * Other Equipment Denies any additional DME * List name and contact numbers for known caregivers / representatives who currently or will assist patient after discharge: Tracy Alexander-sister - [phone] * Verbal permission to speak to the caregivers and representatives has been obtained from the patient. No * Community resources currently utilized None * Please name any agencies selected above. N/A * Additional services required to return to the preadmission environment? No * Can the patient safely return to the preadmission environment? Yes * Has this patient been hospitalized within the prior 30 days at any hospital? No Coverage Notice Reviewer: [id number] Jenni Nieves Notice Issued Date-Time: 10/09/2018 14:26 Notice Type: Medicare Outpatient Observation Notice Notice Delivered To: Patient Relationship to Patient: Self Order Clerk Name: Delivery Method: HAND - Hand Delivered Isha Days: Prior Verbal Notification: Recipient Understood Notice: Yes Recipient Signature: Yes Med Rec Note Co-signed by Attending: Coverage Notice Comment: DENA DISCUSSED WITH PATIENT AND HER SISTER/POA TRACY ALEXANDER, AFTER VERBAL CONSENT RECEIVED. Reviewer: [email or web address] Jenni Hodgson Notice Issued Date-Time: 10/12/2018 16:15 Notice Type: IM Discharge Notice Notice Delivered To: Patient Relationship to Patient: Self Order Clerk Name: Delivery Method: HAND - Hand Delivered Isha Days: Prior Verbal Notification: Recipient Understood Notice: Yes Recipient Signature: Yes Med Rec Note Co-signed by Attending: Coverage Notice Comment: CM EXPLAINED DISCHARGE IMM. PATIENT STATES SHE UNDERSTANDS. 'I AM READY TO GO". SHE SIGNED COPY WHICH WAS PLACED INTO PATIENT'S CHART. COPY ALSO GIVEN TO THE PATIENT. Last DP export: 10/12/18 3:18 p Patient Name: DANIEL ALVAREZ Page [phone] at 1625 All edits/amendments must be made on the electronic document DICTATION DATE: 10/12/18 1625 HALL DIRECTOR: TIFFANY 10/12/18 1625 RPT#: [id number] DC DATE:10/12/18 STATUS: DIS IN [facility] [address] [place] [address] END OF REPORT
--- NOTE | 2018-10-13 10:12 | MORECARE ---
CASE MANAGEMENT DISCHARGE SUMMARY PATIENT: DANIEL ALVAREZ UNIT: [id number] ADM DATE: 10/11/18 AGE: 73 : 44 SEX: F ROOM/BED: D.2152 AUTHOR: WILL,DOC PHYSICIAN: REFERRING PHYSICIAN: CAROL BUSTOS MD DATE OF SERVICE: 10/13/18 Discharge Plan Patient Name: DANIEL ALVAREZ Facility: [facility]:[place] : 1945 Planned Disposition: Home Anticipated Discharge Date: 10/12/18 Discharge Date: 10/12/2018 Expected LOS: 1 Initial Reviewer: [email or web address] Initial Review Date: 10/08/2018 Generated: 10/13/18 11:12 am Comments DCP- Discharge Planning Updated by [email or web address]: Caitlyn Hodgson on 10/12/18 3:[address] Patient Name: DANIEL ALVAREZ Admission Status: ER Accout number: [id number] Admission Date: 10-11-2018 : 1945 Admission Diagnosis: Attending: CAROL BUSTOS Current LOS: 1 Anticipated DC Date: 10-12-2018 Planned Disposition: Home Primary Insurance: [employer] Discharge Planning Comments: 1516 MET WITH THE PATIENT AT THE BEDSIDE. KNOW SHE IS DISCHARGED TODAY. ANXIOUS TO GO HOME. STATES SHE LIVES WITH HER SISTER, TRACY, AND BROTHER IN LAW. THE SISTER IS HER POA AND ASSIST HER WITH CARE. SHE HAS HOME OXYGEN THERAPY WITH [facility]. HAS A STATIONARY AND PORTABLE UNIT. [facility] DENIES ANY HOME SERVICES. HER SISTER AND BROTHER IN LAW WILL PROVIDE TRANSPORTATION TO HOME. DISCUSSED DISCHARGE IMM. SHE STATES SHE IS READY FOR DISCHARGE. IMM SIGNED AND TO THE CHART. PATIENT ALSO GIVEN A COPY. Coil Winder: Caitlyn Hodgson DCPIA - Discharge Planning Initial Assessment Updated by [id number]: Caitlyn Hodgson on 10/12/18 4:09 pm * PCP Yasmin Domingo APN * [facility] [place], [place] * Preadmission Environment Home with Family * ADLs Independent * Equipment Oxygen * Other Equipment Denies any additional DME * List name and contact numbers for known caregivers / representatives who currently or will assist patient after discharge: Tracy Alexander-sister - [phone] * Verbal permission to speak to the caregivers and representatives has been obtained from the patient. No * Community resources currently utilized None * Please name any agencies selected above. N/A * Additional services required to return to the preadmission environment? No * Can the patient safely return to the preadmission environment? Yes * Has this patient been hospitalized within the prior 30 days at any hospital? No Coverage Notice Reviewer: [email or web address] Jenni Nieves Notice Issued Date-Time: 10/09/2018 14:26 Notice Type: Medicare Outpatient Observation Notice Notice Delivered To: Patient Relationship to Patient: Self Vp Product Name: Delivery Method: HAND - Hand Delivered Isha Days: Prior Verbal Notification: Recipient Understood Notice: Yes Recipient Signature: Yes Med Rec Note Co-signed by Attending: Coverage Notice Comment: DENA DISCUSSED WITH PATIENT AND HER SISTER/POA TRACY ALEXANDER, AFTER VERBAL CONSENT RECEIVED. Reviewer: [email or web address] Jenni Hodgson Notice Issued Date-Time: 10/12/2018 16:15 Notice Type: IM Discharge Notice Notice Delivered To: Patient Relationship to Patient: Self Vp Product Name: Delivery Method: HAND - Hand Delivered Isha Days: Prior Verbal Notification: Recipient Understood Notice: Yes Recipient Signature: Yes Med Rec Note Co-signed by Attending: Coverage Notice Comment: CM EXPLAINED DISCHARGE IMM. PATIENT STATES SHE UNDERSTANDS. 'I AM READY TO GO". SHE SIGNED COPY WHICH WAS PLACED INTO PATIENT'S CHART. COPY ALSO GIVEN TO THE PATIENT. Last DP export: 10/12/18 3:25 p Patient Name: DANIEL ALVAREZ Page [phone] at 1012 All edits/amendments must be made on the electronic document DICTATION DATE: 10/13/18 1011 YARN WEIGHER: TIFFANY 10/13/18 1011 RPT#: [id number] DC DATE:10/12/18 STATUS: DIS IN [facility] [address] [place] [address] END OF REPORT
== END 2018-10-12 16:22 | disposition home or self-care (01) | DRG 308 ==
LOC: D.ER 18:14 → D.M2 19:39 → OBSVTIME 19:39 → D.M2 10-11 14:54
PROVIDERS: Family Medicine; ADMIT Emergency Medicine; ATTEND Emergency Medicine
DX: I48.0 Paroxysmal atrial fibrillation (principal); J96.21 Acute and chronic respiratory failure with hypoxia; J44.0 Chronic obstructive pulmonary disease with (acute) lower respiratory infection; J44.1 Chronic obstructive pulmonary disease with (acute) exacerbation; I10 Essential (primary) hypertension; F03.90 Unspecified dementia, unspecified severity, without behavioral disturbance, psychotic disturbance, mood disturbance, and anxiety; J20.9 Acute bronchitis, unspecified; J45.909 Unspecified asthma, uncomplicated; Z87.891 Personal history of nicotine dependence

== ENCOUNTER 2019-01-09 17:28 | Inpatient (IN) | payer MEDICARE ==
[~2019-01-09 17:28] MED LIST changes: +CARDIZEM CD180 MG PO; +PREDNISONE10 MG PO
[2019-01-09 18:30] VITALS: BP 108/97
[2019-01-09 19:18] LABS: BASOPHILS 0.7 % (0-2); EOSINOPHILS 6.7 % (0-7); HEMATOCRIT 36.1 % (36.0-48.0); HEMOGLOBIN 11.1 g/dL (12-16); IMMATURE GRANULOCYTES 0.2 % (0-5); LYMPHOCYTES 17.1 % (15-50); MCH 28.3 pg (26.0-34.0); MCHC 30.7 g/dL (31.0-37.0); MCV 92.1 fL (80.0-100.0); MEAN PLATELET VOLUME 9.7 fL (7.4-10.4); MONOCYTES 8.1 % (2-11); NEUTROPHILS 67.2 % (40-80); PLATELET COUNT 238 10x3/uL (130-400); RBC 3.92 10x6/uL (4.00-5.40); RDW 14.2 % (11.5-14.5); WBC 8.5 10x3/uL (4.8-10.8)
[2019-01-09 19:32] LABS: ALBUMIN 3.2 g/dL (3.4-5.0); ALKALINE PHOSPHATASE 72 U/L (46-116); ALT (SGPT) 16 U/L (10-68); BILIRUBIN - TOTAL 0.38 mg/dL (0.2-1.3); CALC OSMOLALITY 287 mosm/kg (275-300); CALCIUM 8.8 mg/dL (8.5-10.1); CARBON DIOXIDE 38.1 mmol/L (21.0-32.0); CHLORIDE - SERUM 103 mmol/L (98-107); CREATININE - SERUM 0.7 mg/dL (0.6-1.3); POTASSIUM - SERUM 3.1 mmol/L (3.5-5.1); PROTEIN - SERUM 7.3 g/dL (6.4-8.2); SODIUM 145 mmol/L (136-145); UREA NITROGEN 8 mg/dL (7-18); eGFR NON AFRICAN AMERICAN 87 mL/min (90-120)
[2019-01-09 19:39] LABS: GLUCOSE 109 mg/dL (74-106)
[2019-01-09 19:40] VITALS: BP 111/93
[2019-01-09 19:41] LABS: PRO BNP 810 pg/mL (0-125); TROPONIN-I < 0.017 ng/mL (0.000-0.060)
[2019-01-09 20:48] VITALS: BP 102/85
[2019-01-09] MEDS ORDERED: VIBRAMYCIN 100100 MG PO (20:58)
[2019-01-09] MEDS ORDERED: PREDNISONE20 MG PO (20:59)
[2019-01-09 22:39] VITALS: BP 106/98
--- NOTE | 2019-01-09 23:07 | NUR ---
PATIENT SITTING UP EATING BECAME TACHYCARDIC - REPEAT EKG DONE AT 2304 - SHOWED ATRIAL FIBRILLATION WITH RAPID RESPONSE WITH PREMATURE VENTRICULAR OR ABERRANTLY CONDUCTED COMPLEXES. - DR HURT AT BEDSIDE - ORDERS RECEIVED FOR DELL MURPHY RN ASSISTING THIS NURSE WITH MEDICATION ADMINISTRATION. PT CONTINUES TO REPORT SHORTNESS OF BREATH AND IS ORTHOPNEIC. THIS APPEARS TO BE A CHRONIC STATE FOR HER SHE REPORTS SLEEPING SITTING UP AT HOME - PT HAS DISTENDED ABDOMEN THAT SHE STATES "IT HAS GOTTEN A LOT BIGGER LATELY." LOWER BILATERAL EDEMA +3 WHICH PATIENT ALSO REPORTS HAS INCREASED OVER THE LAST FEW DAYS. FAMILY AT BEDSIDE FOR ENTIRE STAY IN ER.
--- NOTE | 2019-01-09 23:58 | NUR ---
HIGHEST HEARTRATE NOTED ON MONITOR BY THIS NURSE WAS 143
--- NOTE | 2019-01-10 00:15 | NUR ---
ADMIT TO ROOM 2117 FROM ER VIA STRETCHER. ACCOMPANIED BY BROTHER IN LAW. PT ALERT/ORIENTED. IV CARDIZEM INFUSING AT 5ML/HR. TELEMETRY STARTED UCAF 120'S. ADMISSION ASSESSMENT, HISTORY AND HOME MEDS COMPLETED. PT NOW RESTING IN BED. PLAN OF CARE INITIATED.
[2019-01-10 01:04] VITALS: BP 142/80; BMI 29.2
--- NOTE | 2019-01-10 03:35 | NUR ---
RESTING IN BED. UCAF 132. C/O SORE REAR/BUTTOCKS. BOUDREAUXS CREAM PROVIDED.
[2019-01-10 04:00] VITALS: BP 119/66; BP 94/55
[2019-01-10 06:04] LABS: BASOPHILS 0.2 % (0-2); EOSINOPHILS 0.4 % (0-7); HEMOGLOBIN 10.7 g/dL (12-16); IMMATURE GRANULOCYTES 0.4 % (0-5); MCHC 30.6 g/dL (31.0-37.0); MCV 91.6 fL (80.0-100.0); MEAN PLATELET VOLUME 10.3 fL (7.4-10.4); MONOCYTES 0.5 % (2-11); NEUTROPHILS 92.5 % (40-80); PLATELET COUNT 243 10x3/uL (130-400); RBC 3.82 10x6/uL (4.00-5.40); RDW 14.1 % (11.5-14.5)
[2019-01-10 06:15] LABS: WBC 5.5 10x3/uL (4.8-10.8)
[2019-01-10 06:40] LABS: ALKALINE PHOSPHATASE 64 U/L (46-116); ALT (SGPT) 16 U/L (10-68); BILIRUBIN - TOTAL 0.27 mg/dL (0.2-1.3); CALCIUM 8.8 mg/dL (8.5-10.1); CARBON DIOXIDE 33.9 mmol/L (21.0-32.0); CHLORIDE - SERUM 106 mmol/L (98-107); CREATININE - SERUM 0.8 mg/dL (0.6-1.3); POTASSIUM - SERUM 3.3 mmol/L (3.5-5.1); PROTEIN - SERUM 6.9 g/dL (6.4-8.2); SODIUM 145 mmol/L (136-145); TROPONIN-I < 0.017 ng/mL (0.000-0.060); UREA NITROGEN 10 mg/dL (7-18); eGFR NON AFRICAN AMERICAN 74 mL/min (90-120)
[2019-01-10 06:41] LABS: CALC OSMOLALITY 291 mosm/kg (275-300); GLUCOSE 175 mg/dL (74-106)
--- NOTE | 2019-01-10 07:49 | NUR ---
ROUNDING DONE WITH PATIENT HAVING A PRODUCTIVE COUGH, SPUTUM IS CLEAR TO LIGHT YELLOW. BILATERAL UPPER HWEEZES HEARD THROUGHOUT UPPER LUNG MERAZ. PATIENT STATES SHE HAS HAD THIS COUGH FOR YEARS. ON 2L PER NC, THIS IS A HOME DOSE. ON HEART MONITOR SHOWING UCAF, HR 111. CARDIZEM DRIP INFUSING AT 5 CC/HR SEEN TO LEFT FA. PATIENT STATES THAT SHE HAS UPPER DENTURES, CONTAINER GIVEN ALONG WITH BLUE NON SKID SOCKS.
[2019-01-10 09:37] VITALS: BP 106/80
--- NOTE | 2019-01-10 11:59 | NUR ---
DENIES NEEDS AT THIS TIME. ON HEART MONITOR SHOWING UCAF, HR 154
--- NOTE | 2019-01-10 12:39 | NUR ---
HR 115-155, PAGE INTO JACK VENTURA APN. NEW ORDERS RECEIVED.
--- NOTE | 2019-01-10 13:43 | NUR ---
BETAPACE GIVEN. WILL D/C CARDIZEM DRIP IN TWO HOURS.
[2019-01-10 15:30] LABS: APTT 29.3 SECONDS (22.8-39.4); INR 1.13 (0.85-1.17)
[2019-01-10 15:32] LABS: D-DIMER-QUANTITATIVE 1.17 ug/mLFEU (0.20-0.54)
--- NOTE | 2019-01-10 15:44 | NUR ---
CARDIZEM DRIP IS STOPPED IT HAS BEEN TWO HOURS SINCE BETAPACE WAS GIVEN.
[2019-01-10 15:50] LABS: MAGNESIUM - SERUM 1.8 mg/dL (1.8-2.4); T4 THYROXIN - FREE 0.92 ng/dL (0.76-1.46); THYROID STIMULATING HORMONE 0.43 uIU/mL (0.36-3.74)
--- NOTE | 2019-01-10 15:53 | NUR ---
BILATERAL SCD'S ON AND IN USE.
[2019-01-10 16:13] LABS: % SATURATION 7 % (15-55); IRON 25 ug/dl (35-150); TOTAL IRON BIND CAPACITY 349 ug/dl (260-445); UNSAT IRON BIND CAPACITY 324 ug/dl (150-375)
[2019-01-10 18:48] VITALS: BP 116/73
[2019-01-10 19:55] VITALS: BP 128/71
--- NOTE | 2019-01-10 20:00 | NUR ---
PT RESTING IN BED. NO DISTRESS. INITIAL ROUNDS COMPLETED. SEE ASSESSMENT.
--- NOTE | 2019-01-10 21:56 | NUR ---
PHONE CALL TO DR JOYNER AND RECIEVED ORDER FOR MELATONIN 6MG ORAL AT BEDTIME.
--- NOTE | 2019-01-10 22:15 | NUR ---
ALL BEDTIME MEDS GIVEN. PT RESTING. CALL LIGHT IN REACH. MONITOR AND CPOC.
[2019-01-10 23:49] VITALS: BP 127/95
--- NOTE | 2019-01-11 02:00 | NUR ---
IV TO LFA INFILTRATED. SITED NEW 20G TO RFA AND IVF @ K[facility]/ABT RESUMMED. APPLIED ICE PACK TO LFA WHICH IS RED AND WARM. PT ALSO C/O SOB/DYSPNEA/WHEEZING . RT NOTIFIED AND HAS NOW PROVIDED BREATHING TREATMENT. AFTER COMPLETION OF TREATMENT, PT FEELS MORE AT EASE WITH BREATHING.
[2019-01-11 06:19] LABS: BASOPHILS 0 % (0-2); EOSINOPHILS 0 % (0-7); HEMATOCRIT 35.5 % (36.0-48.0); HEMOGLOBIN 10.6 g/dL (12-16); IMMATURE GRANULOCYTES 0.2 % (0-5); LYMPHOCYTES 8.1 % (15-50); MCH 27.9 pg (26.0-34.0); MCHC 29.9 g/dL (31.0-37.0); MCV 93.4 fL (80.0-100.0); MEAN PLATELET VOLUME 10.1 fL (7.4-10.4); MONOCYTES 3.2 % (2-11); NEUTROPHILS 88.5 % (40-80); PLATELET COUNT 244 10x3/uL (130-400); RDW 14.1 % (11.5-14.5)
[2019-01-11 06:31] LABS: WBC 12.4 10x3/uL (4.8-10.8)
--- NOTE | 2019-01-11 07:27 | NUR ---
ROUNDING DONE WITH PATIENT LAYING ON RIGHT SIDE, RESTING WITH EYES CLOSED. RESP EVEN. ON 2L PER NC. ON HEART MONITOR SHOWING UCAF, HR 111. RIGHT FA PIV SEEN WITH SALINE LOCK, ORANGE SWAB CAP IN USE. ON EP, AWAITING LAB RESULTS.
[2019-01-11 07:50] LABS: ANION GAP 9.2 mmol/L (8-16); CALCIUM 8.7 mg/dL (8.5-10.1); CARBON DIOXIDE 32.9 mmol/L (21.0-32.0); CREATININE - SERUM 0.8 mg/dL (0.6-1.3)
[2019-01-11 07:51] LABS: POTASSIUM - SERUM 4.1 mmol/L (3.5-5.1)
[2019-01-11 07:59] VITALS: BP 123/88
--- NOTE | 2019-01-11 08:04 | NUR ---
K+ IS 4.1, NO NEED FOR COVERAGE.
--- NOTE | 2019-01-11 10:30 | NUR ---
PATIENT AWAKE AND COMING OUT OF RESTROOM WITH NASAL CANNULA ON. STATES THAT SHE CAN'T BREATH. PULSE OX SHOWS 94%. I CALLED FOR PRN BREATHING TREATMENT. CHAPARRO WITH RT IS ON THE WAY. WILL STAY WITH PATIENT UNTIL SHE GETS HERE.
--- NOTE | 2019-01-11 11:19 | NUR ---
I CALLED [facility] WITH [facility] TO CONTINUE WITH THE PRN Q 2 HOURS BREATHING TREATMENT PATIENT'S EX. WHEEZING NOW.
--- NOTE | 2019-01-11 11:35 | NUR ---
NEW ORDERS FROM DR MAYA. I CALLED CHAPARRO IN [place] FOR THE BIPAP 15/02. I CALLED SARAH (SISTER) AND NOTIFIED HER OF NEW UPDATES.
[2019-01-11 11:57] VITALS: BP 126/93
--- NOTE | 2019-01-11 12:00 | NUR ---
PATIENT IS RESTING WITH EYES CLOSED WITH BIPAP ON. CALL LIGHT IS IN REACH.
--- NOTE | 2019-01-11 12:24 | NUR ---
RESTING WITH EYES CLOSED, RESP ARE EVEN. ON BIPAP.
--- NOTE | 2019-01-11 13:31 | NUR ---
20 G TO LEFT AC X 1 STICK PER THIS NURSE. PATIENT IS MADE NPO FOR CTA.
[2019-01-11 16:27] VITALS: BP 132/82
--- NOTE | 2019-01-11 16:32 | NUR ---
FAMILY AT BEDSIDE. PATIENT IS PLACED ON 2L PER NC.
--- NOTE | 2019-01-11 18:11 | NUR ---
PLACED BACK ON BIPAP. SISTER AT BEDSIDE. NPO PAST MIONIGHT TONIGHT.
--- NOTE | 2019-01-11 18:14 | NUR ---
PATIENT HAS NOT USED THE [facility] FOR THE URINE SAMPLE TO BE COLLECTED.
[2019-01-11 19:45] VITALS: BP 120/87
[2019-01-12] VITALS: BP 131/59
--- NOTE | 2019-01-12 02:47 | NUR ---
PT REFUSING TO WEAR BIPAP AT THIS TIME. PT PLACED ON 2L NASAL CANNULA.
[2019-01-12 04:00] VITALS: BP 112/58
--- NOTE | 2019-01-12 04:20 | NUR ---
PT PUT BACK ON BIPAP.
[2019-01-12 05:30] LABS: BASOPHILS 0 % (0-2); EOSINOPHILS 0 % (0-7); HEMATOCRIT 34.7 % (36.0-48.0); HEMOGLOBIN 10.6 g/dL (12-16); IMMATURE GRANULOCYTES 0.3 % (0-5); LYMPHOCYTES 6.8 % (15-50); MCH 28.2 pg (26.0-34.0); MCHC 30.5 g/dL (31.0-37.0); MCV 92.3 fL (80.0-100.0); MEAN PLATELET VOLUME 10.8 fL (7.4-10.4); MONOCYTES 3.3 % (2-11); NEUTROPHILS 89.6 % (40-80); PLATELET COUNT 271 10x3/uL (130-400); RBC 3.76 10x6/uL (4.00-5.40); WBC 9.8 10x3/uL (4.8-10.8)
[2019-01-12 06:00] LABS: ANION GAP 8.8 mmol/L (8-16); CALCIUM 8.7 mg/dL (8.5-10.1); CARBON DIOXIDE 34.4 mmol/L (21.0-32.0); CREATININE - SERUM 0.9 mg/dL (0.6-1.3); MAGNESIUM - SERUM 2.1 mg/dL (1.8-2.4); PHOSPHOROUS 4.1 mg/dL (2.5-4.9); POTASSIUM - SERUM 4.2 mmol/L (3.5-5.1)
--- NOTE | 2019-01-12 07:27 | NUR ---
ALERT AND CONFUSED AT TIMES. TELEMERTY SHOWS CAF AT 100. O2 AT 2 L/M PER NC. UP TO BATH ROOM. SR UP WITH CALL LIGHT IN REACH.NPO FOR CTA WILL MONITOR
[2019-01-12 07:59] VITALS: BP 125/88
--- NOTE | 2019-01-12 09:55 | CN ---
PATIENT NAME:DANIEL ALVAREZ MEDICAL RECORD: [id number] : 43 LOCATION:[facility] D.2117 ADMIT DATE: 01/09/19 ACCOUNT: [id number] CONSULTING PHYSICIAN: YUNIEL MARIE MD REFERRING PHYSICIAN: MYESHA JOYNER MD DATE OF CONSULTATION: 01/09/2019 HISTORY OF PRESENT ILLNESS: A 73-year-old female with history of paroxysmal atrial fibrillation typically controlled on diltiazem therapy, has history of underlying pulmonary disease and frequent exacerbations when she has exacerbation of pulmonary disease. She was admitted with respiratory tract infection here concerning his cardiovascular status. PAST MEDICAL HISTORY: 1. History of hypertension. 2. Dementia. 3. Obstructive pulmonary disease. 4. Atrial fibrillation, sick sinus syndrome. MEDICATIONS: Chronic home medications include Singulair 10 every day, Advair Diskus 500/50 one puff b.i.d., Namenda 10 mg every day, Celexa 40 every day, diltiazem 360 every day, benazepril 23 mg every day, and Proventil 2.5 q.6 hours. ALLERGIES: PREDNISONE. SOCIAL HISTORY: Lives at home, good family support. Nonsmoker. PHYSICAL EXAMINATION: GENERAL: This is a pleasant, in no acute distress. VITAL SIGNS: 125 and irregular, blood pressure 106/80. HEENT: Normocephalic, atraumatic. NECK: No bruits noted. HEART: Irregular, tachycardic. II/ systolic ejection murmur. LUNGS: Prolonged expiratory phase with expiratory wheezing. ABDOMEN: Soft, nontender. EXTREMITIES: Pulses are 2+. Trace edema. IMPRESSION: AFib, RVR, has had problem with higher doses of calcium channel julio secondary to marked edema. We will switch to beta blockade with Betapace 120 b.i.d. Hopefully, this will help maintain sinus rhythm as well as control rate for aspiration above. TRANSINT:[id number] Voice Confirmation ID: [id number] DOCUMENT ID: [id number] YUNIEL MARIE MD at 0955 CC: [id number] DICTATION DATE: 01/10/19 1332 ENTRY LEVEL MECHANICAL ENGINEER: 01/10/19 2221 [place] [address]
[2019-01-12 12:04] VITALS: BP 135/90
--- NOTE | 2019-01-12 12:08 | EC ---
PATIENT:DANIEL ALVAREZ DATE OF SERVICE: 01/09/19 SEX: F MEDICAL RECORD: [id number] DATE OF : 43 LOCATION:D.M2 D.211 AGE OF PATIENT: 73 ADMISSION DATE: 01/09/19 REFERRING PHYSICIAN: INTERPRETING PHYSICIAN: YUNIEL MARIE MD ECHOCARDIOGRAM REPORT ECHO CHARGES 4 ECHO COMPLETE Date: 01/11/19 CLINICAL DIAGNOSIS: CHF/A-FIB ECHOCARDIOGRAPHIC MEASUREMENTS (adult normal given) AC root (d.<3.7cm) 3.0 cm LV Septum d (<1.2 cm> 1.2 cm Valve Excursion 1.5 cm LV Septum (systole) 1.6 cm Left Atria (s.<4.0cm> 4.8 cm LVPW d(<1.2cm) 1.0 cm RV (d.<2.3cm) 2.7 cm LVPW (sytole) 1.4 cm LV diastole(<5.6CM) 5.9 cm MV E-F(>70mm/sec) cm LV systole 4.4 cm LVOT Diameter 1.7 cm MV exc.(>10mm) cm Est.ejection fraction (50-75%) % DOPPLER: LVIT cm/sec A cm/sec E 112 cm/sec LA cm/sec RVSP 41.0 mmHg LVOT 68.0 cm/sec AOP1/2T m/s Asc. Ao 115 cm/sec RVOT 69.0 cm/sec RA cm/sec PA 76.0 cm/sec AV Gradient Peak 5.3 mmHg AV Mean 2.8 mmHg AV Area 1.0 cm MV Gradient Peak 8.9 mmHg MV Mean 3.3 mmHg MV Area cm COMMENTS: Metal Moulder: 1 FAITH ARRIOLAOE Field Property Loss Specialist: 3 Dr. Rowe TAPE# PACS Pericardial Effusion Y DATE OF SERVICE: Adequate 2-D, color-flow and spectral Doppler, and M-mode. LVH is present. LV internal dimensions are normal. Difficult to fully assess focal wall motion secondary to underlying atrial fib and variable RR intervals. Overall LV function appears mildly reduced at 40% to 45%. Aortic valve sclerosis without stenosis by Doppler interrogation. Left atrium is dilated at 4.8 cm. Mitral valve is thickened. Moderate MR. Right-sided chambers are grossly normal. Moderate TR. ECHOCARDIOGRAM REPORT [id number] DANIEL ALVAREZ TRANSINT:[id number] Voice Confirmation ID: [id number] DOCUMENT ID: [id number] YUNIEL MARIE MD at 1208 CC: [id number] DICTATION DATE: 01/12/19 0950 HAND STRAIGHTENER: 01/12/19 1204 ADM IN [facility] [address] [id number]
[2019-01-12 13:42] VITALS: BMI 29.2
--- NOTE | 2019-01-12 15:27 | NUR ---
LYING QUIETLY WITH BI PAP ON. DENIES AND NEEDS. SR UP WITH CALL LIGHT IN REACH
--- NOTE | 2019-01-12 19:30 | NUR ---
RESUMING PATIENT CARE. PATIENT IS ALERT AND PLEASANTLY CONFUSED. PATIENT ON CONTINOUS BIPAP WITHOUT ISSUE. NO S/S OF DISTRESS. NO C/O PAIN. CALL LIGHT WITHIN REACH. WILL CPOC.
[2019-01-12 20:00] VITALS: BP 147/91
[2019-01-13] VITALS: BP 130/96
--- NOTE | 2019-01-13 01:03 | NUR ---
PATIENT RESTING COMFORTABLY IN BED. PATIENT REMAINS ON BIPAP WITHOUT ISSUE. NO S/S OF DISTRESS. NO C/O PAIN NEEDS MET. CALL LIGHT WITHIN REACH. WILL CPOC.
[2019-01-13 04:00] VITALS: BP 153/86
[2019-01-13 05:04] LABS: BASOPHILS 0 % (0-2); EOSINOPHILS 0 % (0-7); HEMATOCRIT 36.2 % (36.0-48.0); IMMATURE GRANULOCYTES 0.5 % (0-5); LYMPHOCYTES 8.1 % (15-50); MCH 27.6 pg (26.0-34.0); MCHC 30.4 g/dL (31.0-37.0); MEAN PLATELET VOLUME 10.5 fL (7.4-10.4); MONOCYTES 3.1 % (2-11); NEUTROPHILS 88.3 % (40-80); PLATELET COUNT 282 10x3/uL (130-400); RBC 3.98 10x6/uL (4.00-5.40)
[2019-01-13 05:23] LABS: ANION GAP 7.8 mmol/L (8-16); CALCIUM 8.4 mg/dL (8.5-10.1); CARBON DIOXIDE 37.9 mmol/L (21.0-32.0); CREATININE - SERUM 0.9 mg/dL (0.6-1.3); POTASSIUM - SERUM 3.7 mmol/L (3.5-5.1)
--- NOTE | 2019-01-13 07:30 | NUR ---
ALERT AND ORIENTED. TELEMERTY SHOWS CAF 99. RIGHT AND LEFT FA ARM SL. UP AB LOBO. ON CONTINOUS BI PAP. DENIES ANY NEEDS SR UP WITH CALL LIGHT IN REACH. WILL MONITOR
[2019-01-13 09:18] VITALS: BP 141/77
--- NOTE | 2019-01-13 16:26 | MORECARE ---
CASE MANAGEMENT DISCHARGE SUMMARY PATIENT: DAINEL ALVAREZ UNIT: [id number] ADM DATE: 01/09/19 AGE: 73 : 44 SEX: F ROOM/BED: [facility] AUTHOR: ZENY SOLIS PHYSICIAN: REFERRING PHYSICIAN: MYESHA JOYNER MD DATE OF SERVICE: 01/13/19 Discharge Plan Patient Name: DANIEL ALVAREZ Facility: [facility] : 1945 Planned Disposition: Home Anticipated Discharge Date: Discharge Date: Expected LOS: Initial Reviewer: [email or web address] Initial Review Date: 01/13/2019 Generated: 01/13/19 5:26 pm DCPIA - Discharge Planning Initial Assessment Updated by [email or web address]: Jaya Dove on 01/13/19 4:22 pm * Is the patient Alert and Oriented? Yes * How many steps to enter\exit or inside your home? * PCP DR. RUDOLPH BARROW * Pharmacy [facility] * Preadmission Environment Home with Family * ADLs Independent * Equipment Nebulizer Oxygen * Other Equipment HOME AND PORTABLE OXYGEN [facility] - PROVIDER * List name and contact numbers for known caregivers / representatives who currently or will assist patient after discharge: SARAH JOHNSON, SISTER, [phone] * Verbal permission to speak to the caregivers and representatives has been obtained from the patient. N/A * Community resources currently utilized None * Please name any agencies selected above. NONE * Additional services required to return to the preadmission environment? Yes * Can the patient safely return to the preadmission environment? Yes * Has this patient been hospitalized within the prior 30 days at any hospital? No External Providers External Provider: [facility] [place] [facility] Next Contact Date: 01/13/2019 Service Request Date: Service Type: Resolution: Reviewer: Comments: Patient Name: DANIEL ALVAREZ Page [phone] at 5740 All edits/amendments must be made on the electronic document DICTATION DATE: 01/13/19 1626 REPACKER: TIFFANY 01/13/19 1626 RPT#: [id number] DC DATE: STATUS: ADM IN [facility] [address] [place] [address] END OF REPORT
[2019-01-13 18:42] VITALS: BP 157/98
[2019-01-13 18:51] VITALS: BP 120/87
--- NOTE | 2019-01-13 19:34 | NUR ---
RESUMING PATIENT CARE. PATIENT IS RESTING COMFORTABLY IN BED. PATIENT REMAINS ON A BIPAP. NEEDS MET. NO S/S OF DISTRESS. NO C/O PAIN. CALL LIGHT WITHIN REACH. WILL CPOC.
[2019-01-13 20:00] VITALS: BP 124/76
[2019-01-14 00:08] VITALS: BP 114/74
[2019-01-14 04:00] VITALS: BP 132/90
[2019-01-14 06:11] LABS: BASOPHILS 0.1 % (0-2); EOSINOPHILS 0.5 % (0-7); HEMATOCRIT 36.8 % (36.0-48.0); HEMOGLOBIN 11.5 g/dL (12-16); IMMATURE GRANULOCYTES 0.5 % (0-5); LYMPHOCYTES 25.5 % (15-50); MCHC 31.3 g/dL (31.0-37.0); MCV 89.5 fL (80.0-100.0); MEAN PLATELET VOLUME 10.8 fL (7.4-10.4); MONOCYTES 11.8 % (2-11); NEUTROPHILS 61.6 % (40-80); PLATELET COUNT 273 10x3/uL (130-400); RBC 4.11 10x6/uL (4.00-5.40); WBC 9.3 10x3/uL (4.8-10.8)
[2019-01-14 06:41] LABS: ANION GAP 6.5 mmol/L (8-16); CALCIUM 8.6 mg/dL (8.5-10.1); CARBON DIOXIDE 37.8 mmol/L (21.0-32.0); CREATININE - SERUM 0.9 mg/dL (0.6-1.3); POTASSIUM - SERUM 3.3 mmol/L (3.5-5.1)
[2019-01-14 08:44] VITALS: BP 124/88
[2019-01-14 09:16] LABS: FOLATE (FOLIC ACID) - SERUM 12.7 ng/mL (>3.0)
--- NOTE | 2019-01-14 10:46 | NUR ---
DR. ANGELES NOTIFIED OF AF HR 150. NEW ORDERS GIVEN.
[2019-01-14 11:40] VITALS: BP 117/63
[2019-01-14 15:46] VITALS: BP 126/66
--- NOTE | 2019-01-14 16:25 | NUR ---
URINE AND STOOL COLLECTED AND TAKEN TO LAB. WILL MONITOR.
[2019-01-14 16:37] LABS: APPEARANCE CLEAR (CLEAR); BILIRUBIN NEGATIVE (NEGATIVE); COLOR YELLOW (YELLOW); GLUCOSE NEGATIVE (NEGATIVE); KETONE NEGATIVE (NEGATIVE); NITRITE NEGATIVE (NEGATIVE); PROTEIN NEGATIVE (NEGATIVE); SPECIFIC GRAVITY 1.015 (1.005-1.020); UROBILINOGEN NORMAL (NORMAL)
[2019-01-14 16:42] LABS: BACTERIA FEW /hpf (NONE SEEN); EPITHELIAL CELLS 0-5 /hpf (0-5); RED CELLS - URINE 0-5 /hpf (0-5); WHITE CELLS - URINE NSEEN /hpf (0-5)
--- NOTE | 2019-01-14 19:25 | NUR ---
RESUMING PATIENT CARE. PATIENT IS ALERT AND ORIENTED, SITTING ON SIDE OF BED. RESPIRATIONS ARE EVEN AND UNLABORED. PATIENT IV INFILTRATED. INFUSION STOPPED AND IV REMOVED. NO S/S OF DISTRESS. NO C/O PAIN. CALL LIGHT WITHIN REACH. WILL CPOC.
[2019-01-14 20:00] VITALS: BP 126/77
[2019-01-15] VITALS: BP 130/64
[2019-01-15 04:00] VITALS: BP 145/81
[2019-01-15 05:05] LABS: BASOPHILS 0 % (0-2); EOSINOPHILS 1.1 % (0-7); HEMATOCRIT 36.6 % (36.0-48.0); HEMOGLOBIN 11.5 g/dL (12-16); IMMATURE GRANULOCYTES 0.5 % (0-5); MCH 28.1 pg (26.0-34.0); MCHC 31.4 g/dL (31.0-37.0); MCV 89.5 fL (80.0-100.0); MEAN PLATELET VOLUME 10.8 fL (7.4-10.4); MONOCYTES 10.9 % (2-11); NEUTROPHILS 57.5 % (40-80); PLATELET COUNT 263 10x3/uL (130-400); RBC 4.09 10x6/uL (4.00-5.40); WBC 8.1 10x3/uL (4.8-10.8)
[2019-01-15 05:55] LABS: ANION GAP 8.2 mmol/L (8-16); CALCIUM 8.5 mg/dL (8.5-10.1); CARBON DIOXIDE 35.3 mmol/L (21.0-32.0); PHOSPHOROUS 2.7 mg/dL (2.5-4.9)
[2019-01-15 06:00] LABS: POTASSIUM - SERUM 3.5 mmol/L (3.5-5.1)
[2019-01-15 08:18] VITALS: BP 118/77
--- NOTE | 2019-01-15 09:40 | NUR ---
TELEMETRY CAF. HR 98. RESP UL ON 02 2L NC. UD CONT PER RT. CALL LIGHT IN REACH. WILL MONITOR NEEDS.
--- NOTE | 2019-01-15 11:27 | MORECARE ---
CASE MANAGEMENT DISCHARGE SUMMARY PATIENT: DANIEL ALVAREZ UNIT: [id number] ADM DATE: 01/09/19 AGE: 73 : 44 SEX: F ROOM/BED: D.5328 AUTHOR: WILL,DOC PHYSICIAN: REFERRING PHYSICIAN: MYESHA JOYNER MD DATE OF SERVICE: 01/15/19 Discharge Plan Patient Name: DANIEL ALVAREZ Facility: [facility]:[place] : 1945 Planned Disposition: Home Anticipated Discharge Date: Discharge Date: Expected LOS: Initial Reviewer: [email or web address] Initial Review Date: 01/13/2019 Generated: 01/15/19 12:27 pm Comments DCP- Discharge Planning Updated by [email or web address]: Brittni Nieves on 01/15/19 10:[address] SPOKE WITH LUCIO WITH [facility], [phone]. ASKED IF WE HAVE INSURANCE AUTH FOR THE TRILOGY OR NOT, EXPLAINED THAT THE BOOMSWING OPERATOR WANTED THE PATIENT TO SPEND A NIGHT ON THE MACHINE TO MAKE SURE SHE WOULD TOLERATE THE MACHINE BEFORE THEY DISCHARGED HER. I SAID IF THE MACHINE IS DELIVERED TODAY AND SHE TOLERATES IT, SHE MAY BE ABLE TO DISCHARGE HOME TOMORROW. SHE STATED THAT SHE WOULD CALL [facility] AND SEE ABOUT DELIVERY TODAY. I WILL CALL RESPIRATORY WHEN THE TRILOGY ARRIVES SO THEY CAN MANAGE IT OVERNIGHT. DCPIA - Discharge Planning Initial Assessment Updated by [id number]: Jaya Dove on 01/13/19 4:22 pm * Is the patient Alert and Oriented? Yes * How many steps to enter\exit or inside your home? * PCP DR. RUDOLPH BARROW * Pharmacy [facility] ON [facility] * Preadmission Environment Home with Family * ADLs Independent * Equipment Nebulizer Oxygen * Other Equipment HOME AND PORTABLE OXYGEN [facility] PATIENT - PROVIDER * List name and contact numbers for known caregivers / representatives who currently or will assist patient after discharge: SARAH JOHNSON, SISTER, [phone] * Verbal permission to speak to the caregivers and representatives has been obtained from the patient. N/A * Community resources currently utilized None * Please name any agencies selected above. NONE * Additional services required to return to the preadmission environment? Yes * Can the patient safely return to the preadmission environment? Yes * Has this patient been hospitalized within the prior 30 days at any hospital? No Coverage Notice Reviewer: [id number] Jenni Jaya Dove Notice Issued Date-Time: 01/13/2019 12:10 Notice Type: Patient Choice Letter Notice Delivered To: Patient Relationship to Patient: Strap Stitcher Name: Delivery Method: HAND - Hand Delivered Isha Days: Prior Verbal Notification: Recipient Understood Notice: Yes Recipient Signature: Yes Med Rec Note Co-signed by Attending: Coverage Notice Comment: [facility] Reviewer: [id number] Jenni Dove Notice Issued Date-Time: 01/13/2019 12:10 Notice Type: IM Discharge Notice Notice Delivered To: Patient Relationship to Patient: Strap Stitcher Name: Delivery Method: HAND - Hand Delivered Isha Days: Prior Verbal Notification: Recipient Understood Notice: Yes Recipient Signature: Yes Med Rec Note Co-signed by Attending: Coverage Notice Comment: Last DP export: 01/13/19 3:26 p Patient Name: DANIEL ALVAREZ Page [phone] at 1127 All edits/amendments must be made on the electronic document DICTATION DATE: 01/15/19 1126 SUPPLY PERSON: TIFFANY 01/15/19 1126 RPT#: [id number] DC DATE: STATUS: ADM IN [facility] [address] [place] [address] END OF REPORT
[2019-01-15 12:39] VITALS: BP 126/81
[2019-01-15 16:50] VITALS: BP 137/90
--- NOTE | 2019-01-15 17:33 | MORECARE ---
CASE MANAGEMENT DISCHARGE SUMMARY PATIENT: DANIEL ALVAREZ UNIT: [id number] ADM DATE: 01/09/19 AGE: 73 : 44 SEX: F ROOM/BED: D.4276 AUTHOR: WILL,DOC PHYSICIAN: REFERRING PHYSICIAN: MYESHA JOYNER MD DATE OF SERVICE: 01/15/19 Discharge Plan Patient Name: DANIEL ALVAREZ Facility: [facility]:[place] : 1945 Planned Disposition: Home Anticipated Discharge Date: Discharge Date: Expected LOS: Initial Reviewer: [email or web address] Initial Review Date: 01/13/2019 Generated: 01/15/19 6:32 pm Comments DCP- Discharge Planning Updated by [email or web address]: Caitlyn Hodgson on 01/15/19 4:[address] [facility] ARRIVED WITH PATIENT'S TRILOGY. CM SPOKE WITH HER AT THE BEDSIDE. SHE WAS EXPLINING THE UNIT TO THE PATIENT. SHE ALSO ADVISED SHE WOULD BE INSTRUCTING THE PATIENT AND HER FAMILY WHEN SHE DISCHARGES TO HOME. TC TO RESPIRATORY THERAPY, NIR, TO ADVISE THE TRILOGY IS PRESENT IN PATIENT'S AND ABI IS AT THE BEDSIDE. DCP- Discharge Planning Updated by [id number]: Brittni Nieves on 01/15/19 10:[address] SPOKE WITH LUCIO WITH [facility], [phone]. ASKED IF WE HAVE INSURANCE AUTH FOR THE TRILOGY OR NOT, EXPLAINED THAT THE WANT AD SUPERVISOR WANTED THE PATIENT TO SPEND A NIGHT ON THE MACHINE TO MAKE SURE SHE WOULD TOLERATE THE MACHINE BEFORE THEY DISCHARGED HER. I SAID IF THE MACHINE IS DELIVERED TODAY AND SHE TOLERATES IT, SHE MAY BE ABLE TO DISCHARGE HOME TOMORROW. SHE STATED THAT SHE WOULD CALL [facility] AND SEE ABOUT DELIVERY TODAY. I WILL CALL RESPIRATORY WHEN THE TRILOGY ARRIVES SO THEY CAN MANAGE IT OVERNIGHT. DCPIA - Discharge Planning Initial Assessment Updated by [email or web address]: Jaya Dove on 01/13/19 4:22 pm * Is the patient Alert and Oriented? Yes * How many steps to enter\exit or inside your home? * PCP DR. RUDOLPH BARROW * Pharmacy [facility] * Preadmission Environment Home with Family * ADLs Independent * Equipment Nebulizer Oxygen * Other Equipment HOME AND PORTABLE OXYGEN [facility] PATIENT - PROVIDER * List name and contact numbers for known caregivers / representatives who currently or will assist patient after discharge: SARAH JOHNSON, SISTER, [phone] * Verbal permission to speak to the caregivers and representatives has been obtained from the patient. N/A * Community resources currently utilized None * Please name any agencies selected above. NONE * Additional services required to return to the preadmission environment? Yes * Can the patient safely return to the preadmission environment? Yes * Has this patient been hospitalized within the prior 30 days at any hospital? No Coverage Notice Reviewer: [id number] Dove Notice Issued Date-Time: 01/13/2019 12:10 Notice Type: Patient Choice Letter Notice Delivered To: Patient Relationship to Patient: Candle Molder Hand Name: Delivery Method: HAND - Hand Delivered Isha Days: Prior Verbal Notification: Recipient Understood Notice: Yes Recipient Signature: Yes Med Rec Note Co-signed by Attending: Coverage Notice Comment: [facility] PATIENT Reviewer: [id number] Dove Notice Issued Date-Time: 01/13/2019 12:10 Notice Type: IM Discharge Notice Notice Delivered To: Patient Relationship to Patient: Candle Molder Hand Name: Delivery Method: HAND - Hand Delivered Isha Days: Prior Verbal Notification: Recipient Understood Notice: Yes Recipient Signature: Yes Med Rec Note Co-signed by Attending: Coverage Notice Comment: Last DP export: 01/15/19 10:27 a Patient Name: DANIEL ALVAREZ Page [phone] at 1733 All edits/amendments must be made on the electronic document DICTATION DATE: 01/15/191731 BLOCKER HEATED METAL FORMS: TIFFANY 01/15/191731 RPT#: [id number] DC DATE: STATUS: ADM IN [facility] [address] [place] [address] END OF REPORT
--- NOTE | 2019-01-15 19:51 | NUR ---
RESUMING PATIENT CARE. PATIENT IS ALERT AND ORIENTED, RESPIRATIONS ARE EVEN AND UNLABORED. NO S/S OF DISTRESS. NO C/O PAIN. CALL LIGHT WITHIN REACH. WILL CPOC.
[2019-01-15 21:04] VITALS: BP 114/71
[2019-01-16 01:29] VITALS: BP 131/81
--- NOTE | 2019-01-16 03:28 | NUR ---
PT WAS PUT ON TRILOGY AT 2200. I CAME TO PT ROOM TO DO 0100 BREATHING, SHE DID NOT HAVE HER TRILOGY ON. I EXPLAINED THE IMPORTANCE OF HER WEARING THE MASK AND SHE CONTINUES TO REFUSE. PT STATES SHE WILL NOT WEAR THE TRILOGY AT HOME
[2019-01-16 05:17] LABS: BASOPHILS 0.1 % (0-2); EOSINOPHILS 1.4 % (0-7); HEMATOCRIT 36.9 % (36.0-48.0); HEMOGLOBIN 11.6 g/dL (12-16); IMMATURE GRANULOCYTES 0.5 % (0-5); LYMPHOCYTES 26.2 % (15-50); MCH 27.7 pg (26.0-34.0); MCHC 31.4 g/dL (31.0-37.0); MCV 88.1 fL (80.0-100.0); MEAN PLATELET VOLUME 10.6 fL (7.4-10.4); MONOCYTES 10.1 % (2-11); NEUTROPHILS 61.7 % (40-80); PLATELET COUNT 249 10x3/uL (130-400); RBC 4.19 10x6/uL (4.00-5.40)
[2019-01-16 05:30] LABS: CARBON DIOXIDE 35.7 mmol/L (21.0-32.0); MAGNESIUM - SERUM 2.1 mg/dL (1.8-2.4); POTASSIUM - SERUM 3.7 mmol/L (3.5-5.1)
[2019-01-16 06:22] VITALS: BP 139/85
[2019-01-16 08:13] VITALS: BP 129/89
[2019-01-16 11:45] VITALS: BP 125/84
[2019-01-16] MEDS ORDERED: MUCINEX DM ER1 EAC1 PO (13:59)
[2019-01-16] MEDS ORDERED: DALIRESP500 MCG PO (13:59)
[2019-01-16] MEDS ORDERED: BETAPACE 120 M120 MG PO (13:59)
[2019-01-16] MEDS ORDERED: DOXYCYCLINE HY100 M2 PO (14:01)
[2019-01-16] MEDS ORDERED: MEDROL DOSE PACK4 MG PO (14:04)
[2019-01-16] MEDS ORDERED: ATROVENT 0.02%2.5 ML UPD (14:05)
[2019-01-16] MEDS ORDERED: XOPENEX 0.0.63 MG/3 UPD (14:07)
--- NOTE | 2019-01-16 15:17 | NUR ---
IV AND TELEMETRY DCD. DC PLANS GIVEN. UMDERSTANDING VOICED. ESCORTED TO CAR BY W/C.
--- NOTE | 2019-01-16 18:09 | MORECARE ---
CASE MANAGEMENT DISCHARGE SUMMARY PATIENT: DANIEL ALVAREZ UNIT: [id number] ADM DATE: 01/09/19 AGE: 73 : 44 SEX: F ROOM/BED: D.7170 AUTHOR: WILL,DOC PHYSICIAN: REFERRING PHYSICIAN: MYESHA JOYNER MD DATE OF SERVICE: 01/16/19 Discharge Plan Patient Name: DANIEL ALVAREZ Facility: [facility]:[place] : 1945 Planned Disposition: Home Anticipated Discharge Date: 01/16/19 Discharge Date: 01/16/2019 Expected LOS: 7 Initial Reviewer: [email or web address] Initial Review Date: 01/13/2019 Generated: 01/16/19 7:09 pm Comments DCP- Discharge Planning Updated by [email or web address]: Caitlyn Hodgson on 01/16/19 5:[address] LATE ENTRY 1330 TELEPHONED [facility] WITH [facility] THIS AFTERNOON TO ADVISE OF DISCHARGE. LEFT VOICE MAIL 1430 TELEPHONE CALL TO [facility] [place]. ADVISED THE PATIENT WAS BEING DISCHARGED TO HOME TODAY. SHAY MET W/ PATIENT PRIOR TO DISCHARGE.. SHE DENIED ANY NEEDS, DCP- Discharge Planning Updated by [id number]: Caitlyn Hodgson on 01/15/19 4:[address] ABI [facility] ARRIVED WITH PATIENT'S TRILOGY. SHAY SPOKE WITH HER AT THE BEDSIDE. SHE WAS EXPLINING THE UNIT TO THE PATIENT. SHE ALSO ADVISED SHE WOULD BE INSTRUCTING THE PATIENT AND HER FAMILY WHEN SHE DISCHARGES TO HOME. TC TO RESPIRATORY THERAPYNIR, TO ADVISE THE TRILOGY IS PRESENT IN PATIENT'S AND ABI IS AT THE BEDSIDE. DCP- Discharge Planning Updated by [id number]: Brittni Nieves on 01/15/19 10:[address] SPOKE WITH LUCIO WITH [facility], [phone]. ASKED IF WE HAVE INSURANCE AUTH FOR THE TRILOGY OR NOT, EXPLAINED THAT THE DIVISION MERCHANDISE MANAGER WANTED THE PATIENT TO SPEND A NIGHT ON THE MACHINE TO MAKE SURE SHE WOULD TOLERATE THE MACHINE BEFORE THEY DISCHARGED HER. I SAID IF THE MACHINE IS DELIVERED TODAY AND SHE TOLERATES IT, SHE MAY BE ABLE TO DISCHARGE HOME TOMORROW. SHE STATED THAT SHE WOULD CALL [facility] AND SEE ABOUT DELIVERY TODAY. I WILL CALL RESPIRATORY WHEN THE TRILOGY ARRIVES SO THEY CAN MANAGE IT OVERNIGHT. DCPIA - Discharge Planning Initial Assessment Updated by [id number]: Jaya Dove on 01/13/19 4:22 pm * Is the patient Alert and Oriented? Yes * How many steps to enter\exit or inside your home? * PCP DR. RUDOLPH BARROW * Pharmacy [facility] * Preadmission Environment Home with Family * ADLs Independent * Equipment Nebulizer Oxygen * Other Equipment HOME AND PORTABLE OXYGEN [facility] PATIENT - PROVIDER * List name and contact numbers for known caregivers / representatives who currently or will assist patient after discharge: SARAH JOHNSON, SISTER, [phone] * Verbal permission to speak to the caregivers and representatives has been obtained from the patient. N/A * Community resources currently utilized None * Please name any agencies selected above. NONE * Additional services required to return to the preadmission environment? Yes * Can the patient safely return to the preadmission environment? Yes * Has this patient been hospitalized within the prior 30 days at any hospital? No Coverage Notice Reviewer: [id number] Jenni Dove Notice Issued Date-Time: 01/13/2019 12:10 Notice Type: Patient Choice Letter Notice Delivered To: Patient Relationship to Patient: Buckler And Lacer Name: Delivery Method: HAND - Hand Delivered Isha Days: Prior Verbal Notification: Recipient Understood Notice: Yes Recipient Signature: Yes Med Rec Note Co-signed by Attending: Coverage Notice Comment: [facility] Reviewer: [email or web address] Jenni Dove Notice Issued Date-Time: 01/13/2019 12:10 Notice Type: IM Discharge Notice Notice Delivered To: Patient Relationship to Patient: Buckler And Lacer Name: Delivery Method: HAND - Hand Delivered Isha Days: Prior Verbal Notification: Recipient Understood Notice: Yes Recipient Signature: Yes Med Rec Note Co-signed by Attending: Coverage Notice Comment: Last DP export: 01/15/19 4:33 p Patient Name: DANIEL ALVARZE Page [phone] at 1809 All edits/amendments must be made on the electronic document DICTATION DATE: 01/16/191808 RELAY SHOP TESTER: TIFFANY 01/16/191808 RPT#: [id number] DC DATE:01/16/19 STATUS: DIS IN [address] [place] [address] END OF REPORT
[2019-03-31] MEDS ORDERED: SINGULAIR10 MG PO (14:58)
[2019-03-31] MEDS ORDERED: PROPAFENONE HC150 MG PO (14:58)
[2019-03-31] MEDS ORDERED: DONEPEZIL HCL10 MG PO (15:00)
[2019-04-01] MEDS ORDERED: RYTHMOL PO (15:42)
== END 2019-01-16 15:18 | disposition home or self-care (01) | DRG 177 ==
LOC: D.ER 17:28 → D.MS 22:29 → D.M2 22:29
PROVIDERS: Emergency Medicine; Family Medicine; ADMIT Internal Medicine Nephrology; ATTEND Internal Medicine Nephrology
PROC: 5A09557 Assistance with Respiratory Ventilation, Greater than 96 Consecutive Hours, Continuous Positive Airway Pressure (ICD-10-PCS; principal; 2019-01-11)
DX: J15.6 Pneumonia due to other Gram-negative bacteria (principal); J96.21 Acute and chronic respiratory failure with hypoxia; I50.33 Acute on chronic diastolic (congestive) heart failure; J44.1 Chronic obstructive pulmonary disease with (acute) exacerbation; J98.11 Atelectasis; J13 Pneumonia due to Streptococcus pneumoniae; Z99.81 Dependence on supplemental oxygen; I48.91 Unspecified atrial fibrillation; D64.9 Anemia, unspecified; F03.90 Unspecified dementia, unspecified severity, without behavioral disturbance, psychotic disturbance, mood disturbance, and anxiety; E87.6 Hypokalemia

== ENCOUNTER 2019-02-06 15:43 | Inpatient (IN) | payer MEDICARE ==
[~2019-02-06] VITALS: Ht 165.1 cm; Wt 76.7 kg
[~2019-02-06 15:43] MED LIST changes: +ATROVENT 0.02%2.5 ML UPD; +BETAPACE 120 M120 MG PO; +XOPENEX 0.0.63 MG/3 UPD
[2019-02-06 16:39] LABS: BASOPHILS 0.8 % (0-2); EOSINOPHILS 8.4 % (0-7); HEMATOCRIT 41.3 % (36.0-48.0); IMMATURE GRANULOCYTES 0.2 % (0-5); LYMPHOCYTES 37.9 % (15-50); MCH 28.1 pg (26.0-34.0); MCHC 31.5 g/dL (31.0-37.0); MCV 89.4 fL (80.0-100.0); MONOCYTES 9.4 % (2-11); NEUTROPHILS 43.3 % (40-80); RBC 4.62 10x6/uL (4.00-5.40); RDW 15.1 % (11.5-14.5); WBC 6.3 10x3/uL (4.8-10.8)
[2019-02-06 16:43] LABS: PLATELET COUNT 309 10x3/uL (130-400)
[2019-02-06 16:52] LABS: CALCIUM 9.3 mg/dL (8.5-10.1); CARBON DIOXIDE 32.7 mmol/L (21.0-32.0); CREATININE - SERUM 1.5 mg/dL (0.6-1.3); POTASSIUM - SERUM 3.7 mmol/L (3.5-5.1)
[2019-02-06] MEDS ORDERED: CARDIZEM CD240 MG PO (18:22)
[2019-02-06 20:00] VITALS: BP 104/83
--- NOTE | 2019-02-06 21:15 | NUR ---
PT HR-[id number] UNCONTROLLED A-FIBB RVR. DR. MARIE CONSULTED. CARDIZEM DRIP ORDERED WITH 15MG BOLUS. SEE MAR. DRIP STARTED BY JOELLEN DUFF. BED LOW CALL LIGHT WITHIN REACH. NICK ALARM IN PLACE AND ON. WILL CONTINUE TO MONITOR.
--- NOTE | 2019-02-06 21:15 | NUR ---
PRIMARY NURSE REPORTED AFIB RVR RATES UP TO [address] MARIE AND NEW ORDERS RECIEVED. BOLUS DOSE OF IV CARDIZEM 15MG GIVEN AT 3 AND THEN CARDIZEM DRIP AT 15ML/HR STARTED CONTINUOUS AFTER BOLUS GIVEN. CURRENT RATE AFIB 120 TO 130.
--- NOTE | 2019-02-06 22:54 | NUR ---
PT HR-88. CARDIZEM DRIP DECREASED FROM 15ML/HR TO 10ML/HR PER CHARGE NURSESHERIN. VITALAS STABLE AT THIS TIME. RR EVEN AND UNLABORED. WILL CONTINUE TO MONITOR.
--- NOTE | 2019-02-06 23:04 | NUR ---
DECREASED RATE OF CARDIZEM DRIP TO 10ML/HR AT THIS TIME. PT STAYING UCAF 110 OR LESS AT THIS TIME.
[2019-02-06 23:18] VITALS: BP 112/56
[2019-02-07] VITALS: BP 112/56
--- NOTE | 2019-02-07 00:14 | NUR ---
ESTABLISHED 22G IV IN LEFT WRIST. IV PATENT CARDIZEM RUNNING AT 10ML/HR. HR-71 A-FIBB ON TELEMETRY. WILL CONTINUE TO MONITOR.
--- NOTE | 2019-02-07 02:15 | NUR ---
I have reviewed this patient and I concur with the Shift Assessment completed by the Licensed Practical Nurse today this shift.
--- NOTE | 2019-02-07 02:18 | NUR ---
PT HR 59-62 AFIB ON TELEMETRY. DEACRESED CARDIZEM DRIP TO 5ML/HR PER CHARGE RAUL DUFF RN. PT RESTING COMFORTABLY AT THIS TIME. NO S/S OF DISTRESS. BED LOW CALL LIGHT WITHIN REACH. WILL CONTINUE TO MONITOR.
[2019-02-07 04:00] VITALS: BP 96/56
[2019-02-07 06:05] LABS: BASOPHILS 0.7 % (0-2); EOSINOPHILS 8.5 % (0-7); HEMATOCRIT 37.2 % (36.0-48.0); HEMOGLOBIN 11.6 g/dL (12-16); LYMPHOCYTES 51.4 % (15-50); MCH 27.6 pg (26.0-34.0); MCHC 31.2 g/dL (31.0-37.0); MCV 88.4 fL (80.0-100.0); MONOCYTES 9.8 % (2-11); NEUTROPHILS 29.6 % (40-80); PLATELET COUNT 272 10x3/uL (130-400); RBC 4.21 10x6/uL (4.00-5.40); RDW 15.1 % (11.5-14.5); WBC 5.7 10x3/uL (4.8-10.8)
[2019-02-07 06:24] LABS: ALBUMIN 2.6 g/dL (3.4-5.0); ANION GAP 10.1 mmol/L (8-16); BILIRUBIN - TOTAL 0.42 mg/dL (0.2-1.3); CALCIUM 8.3 mg/dL (8.5-10.1); CARBON DIOXIDE 31.8 mmol/L (21.0-32.0); MAGNESIUM - SERUM 1.8 mg/dL (1.8-2.4); POTASSIUM - SERUM 3.9 mmol/L (3.5-5.1); PROTEIN - SERUM 5.8 g/dL (6.4-8.2)
[2019-02-07 06:27] LABS: CREATININE - SERUM 1.1 mg/dL (0.6-1.3)
--- NOTE | 2019-02-07 07:00 | NUR ---
RECEIVED REPORT. ASSUMED CARE OF PATIENT. CALL LIGHT WITHIN REACH. DENIES NEEDS. CARDIZEM INFUSING TO RIGHT WRIST ORDERED. PATEINT IS CONTROLLED AFIB, RATE OF 65 ON TELEMETRY. NO DISTRESS.
--- NOTE | 2019-02-07 09:00 | NUR ---
SPOKE WITH ABOUT CARDIZEM ORDERS. RECEIVED NEW ORDER TO GIVE ORAL DOSE OF CARDIZEM ORDERED WITH AM MEDS AND TWO HOURS AFTER PO ADMINISTRATION, D/C IV CARDIZEM. THANKED .
[2019-02-07 09:33] VITALS: BP 100/52
--- NOTE | 2019-02-07 10:00 | NUR ---
DELL WEBER TO BE D/C'D AT 1150.
[2019-02-07 10:44] LABS: APTT 29.8 SECONDS (22.8-39.4); INR 1.09 (0.85-1.17); PROTIME 13.6 SECONDS (11.6-15.0)
[2019-02-07 10:46] LABS: D-DIMER-QUANTITATIVE 1.06 ug/mLFEU (0.20-0.54)
[2019-02-07 10:59] LABS: T4 THYROXIN - FREE 0.92 ng/dL (0.76-1.46); THYROID STIMULATING HORMONE 2.15 uIU/mL (0.36-3.74)
--- NOTE | 2019-02-07 12:01 | NUR ---
CARDIZEM DRIP OFF.
[2019-02-07] MEDS ORDERED: ALENDRONATE SOD35 MG PO (12:02)
[2019-02-07] MEDS ORDERED: VOLTAREN100 GM TOPICAL (12:05)
[2019-02-07] MEDS ORDERED: DONEPEZIL HCL10 MG PO (12:06)
[2019-02-07] MEDS ORDERED: OMEPRAZOLE20 M1 PO (12:07)
[2019-02-07] MEDS ORDERED: BETAPACE 120 M120 MG PO (12:08)
--- NOTE | 2019-02-07 12:31 | NUR ---
20 GAUGE IV REMOVED FROM RIGHT FOREARM IV SITE NOTED TO INFILTRATE. CATHETER TIP INTACT. NO BLEEDING FROM SITE. 2X2 GAUZE APPLIED AND SECURED WITH BANDAID. NO DISTRESS. TOELRATED IV REMOVAL WELL. IV FLUIDS INFUSING TO LEFT WRIST AT THIS TIME.
[2019-02-07 13:47] VITALS: Ht 165.1 cm; Wt 76.7 kg
[2019-02-07 14:23] VITALS: BP 106/55
[2019-02-07 16:10] VITALS: BP 118/53
--- NOTE | 2019-02-07 16:31 | NUR ---
URINE KEEPS GETTING CONTAMINATED BY STOOL. UNABLE TO COLLECT ADEQUATE URINE SPECIMEN AT THIS TIME.
[2019-02-07 19:10] VITALS: BP 98/54
--- NOTE | 2019-02-07 19:32 | NUR ---
PT RESTING IN BED ALERT AND ORIENTED WITH TRILOGY MASK ON. NO S/S OF DISTRESS AT THIS TIME. PT DENIES ANY PAIN OR FURTHER NEEDS. BED LOW CALL LIGHT WITHIN REACH. WILL CONTINUE TO MONITOR.
[2019-02-07 23:14] LABS: APPEARANCE CLEAR (CLEAR); BILIRUBIN NEGATIVE (NEGATIVE); COLOR YELLOW (YELLOW); GLUCOSE NEGATIVE (NEGATIVE); KETONE SMALL mg/dL (NEGATIVE); NITRITE NEGATIVE (NEGATIVE); PROTEIN NEGATIVE (NEGATIVE); SPECIFIC GRAVITY 1.015 (1.005-1.020); UROBILINOGEN NORMAL (NORMAL)
[2019-02-08] VITALS: BP 121/82
--- NOTE | 2019-02-08 01:35 | NUR ---
ASSISTED PT TO BATHEROOM. PT RR EVEN AND UNLABORED. P0SEY IN PLACE CALL LIGHT WITHIN REACH. WILL CON TINUE TO MONITOR.
[2019-02-08 04:00] VITALS: BP 116/56
[2019-02-08 05:28] LABS: BASOPHILS 0.6 % (0-2); EOSINOPHILS 7.4 % (0-7); HEMATOCRIT 34.8 % (36.0-48.0); HEMOGLOBIN 10.8 g/dL (12-16); IMMATURE GRANULOCYTES 0.2 % (0-5); LYMPHOCYTES 45.2 % (15-50); MCH 27.3 pg (26.0-34.0); MCV 87.9 fL (80.0-100.0); MEAN PLATELET VOLUME 9.9 fL (7.4-10.4); MONOCYTES 7.2 % (2-11); NEUTROPHILS 39.4 % (40-80); PLATELET COUNT 237 10x3/uL (130-400); RBC 3.96 10x6/uL (4.00-5.40); RDW 14.8 % (11.5-14.5); WBC 5.3 10x3/uL (4.8-10.8)
--- NOTE | 2019-02-08 05:31 | NUR ---
I have reviewed this patient and I concur with the Shift Assessment completed by the Licensed Practical Nurse today this shift.
[2019-02-08 05:42] LABS: ALBUMIN 2.7 g/dL (3.4-5.0); ANION GAP 8.7 mmol/L (8-16); BILIRUBIN - TOTAL 0.21 mg/dL (0.2-1.3); CALCIUM 8.5 mg/dL (8.5-10.1); CARBON DIOXIDE 30.1 mmol/L (21.0-32.0); CREATININE - SERUM 0.9 mg/dL (0.6-1.3); MAGNESIUM - SERUM 1.8 mg/dL (1.8-2.4); POTASSIUM - SERUM 3.8 mmol/L (3.5-5.1); PROTEIN - SERUM 5.9 g/dL (6.4-8.2)
--- NOTE | 2019-02-08 07:00 | NUR ---
RECEIVED REPORT. ASSUMED CARE OF PATIENT. CALL LIGHT WITHIN REACH. RESTING WITH EYES CLOSED ON RIGHT LATERAL SIDE. EASILY AROUSED. RESP EVEN AND UNLABORED. O2 VIA NASAL CANULA. IV FLUIDS INFUSING TO LEFT WRIST ORDERED. DENIES NEEDS.
[2019-02-08 09:13] VITALS: BP 105/61
--- NOTE | 2019-02-08 09:48 | NUR ---
20 GAUGE IV PLACED TO RIGHT FOREARM X 1 STICK. GOOD BLOOD RETURN, EASY FLUSH. IV PLACED DUE TO CTA PROTOCOL ORDERED. IV TAPED, DATED AND SECURED. TOLERATED IV PLACEMENT WELL. NO DISTRESS. ASSISTED PATIENT TO AND FROM RESTROOM AT THIS TIME
--- NOTE | 2019-02-08 10:48 | CN ---
PATIENT NAME:DANIEL ALVAREZ MEDICAL RECORD: [id number] : 43 LOCATION:D.M2 D.2138 ADMIT DATE: 02/06/19 ACCOUNT: [id number] CONSULTING PHYSICIAN: YUNIEL MARIE MD REFERRING PHYSICIAN: MYESHA JOYNER MD DATE OF CONSULTATION: 02/07/2019 HISTORY OF PRESENT ILLNESS: A 73-year-old lady with a history of severe obstructive pulmonary disease. She has a history of hypertension, atrial fibrillation, not a Coumadin candidate secondary to dementia, multiple issues. Admitted from Dr. Delaney' office with COPD exacerbation, atrial fibrillation with RVR. She has responded well to treatment of her pulmonary and IV Cardizem with rates now well controlled. Currently on continuous infusion of 5 mcg an hour. We are asked to see her concerning her cardiovascular status. PAST MEDICAL HISTORY: Includes; 1. History of hypertension. 2. Atrial fibrillation. 3. Dementia. 4. Obstructive pulmonary disease. ALLERGIES: PREDNISONE. SOCIAL HISTORY: Quit smoking several years back. Nondrinker. Does need assistance with ADLs due to dementia. Has good family support. No set exercise program. MEDICATIONS: On admission include Atrovent every 4 hours, Xopenex every 6 hours, Aricept 23 mg p.o. daily, Incruse Ellipta one puff daily, diltiazem 240 every day, Celexa 40 every day, Namenda 10 every day, Singulair 10 at bedtime. REVIEW OF SYSTEMS: The patient reports easy bruising but reports no swollen glands. The patient reports no fever, no night sweats, no significant weight gain, no significant weight loss. No significant exercise tolerance. The patient reports no dry eyes, no irritation, no vision change. Patient reports no difficulty hearing and no ear pain. Patient reports no frequent nose bleeds or nose and sinus problems. Patient reports on arm pain on exertion. No shortness of breath while lying down. No history of heart murmur. Patient reports no cough, no wheezing or coughing up blood. Patient reports no abdominal pain, no vomiting. Normal appetite. No diarrhea and not vomiting blood. No nausea and no constipation. Patient reports no incontinence. No difficulty urinating. No hematuria. No increased frequency. Patient reports no muscle aches. No weakness, no arthralgias, no back pain. No swelling of the extremities. Patient reports no abnormal mole, no jaundice, no rashes. Reports no loss of consciousness. No weakness and no numbness. No seizures, dizziness, or headaches. The patient reports no depression, no sleep disturbance, feeling safe in a relationship and no alcohol abuse. Patient reports on fatigue. Reports no runny nose or sinus pressure. No itching, no hives, and no frequent sneezing. PHYSICAL EXAMINATION: GENERAL: Elderly female, in no acute distress. VITAL SIGNS: Pulse is 78 and regular, blood pressure 100/52. HEENT: Normocephalic, atraumatic. NECK: No bruits noted. CONSULT REPORT [id number] MIQUELFABIOLADANIEL HEART: Irregular, rate is controlled, II/ systolic ejection murmur. LUNGS: Good air excursion. ABDOMEN: Soft, nontender. EXTREMITIES: A 1+ pulses, 1+ edema. IMPRESSION: Suspect atrial fibrillation exacerbation secondary to underlying pulmonary disease, easily controlled once pulmonary status improves. This is her typical scenario. Obviously not a candidate for NOAC or warfarin therapy given overall condition. Thank you for the consultation. TRANSINT:[id number] Voice Confirmation ID: [id number] DOCUMENT ID: [id number] YUNIEL MARIE MD at 1048 CC: [id number] DICTATION DATE: 02/07/19949 REGENERATOR OPERATOR: 02/07/19 1200 ADM IN [place] [id number] [place] [address]
[2019-02-08 12:38] VITALS: BP 111/73
--- NOTE | 2019-02-08 15:15 | NUR ---
HOME TRILOGY UNIT ON AND PATIENT RESTING WITH EYES CLOSED. NO DISTRESS. CALL LIGHT WITHIN REACH.
--- NOTE | 2019-02-08 15:26 | NUR ---
UNABLE TO COMPLETE ASSESSMENT DUE TO PREVIOUS ASSESSMENT IS LOCKED WITH POWER OUTAGE OCCURED. NARRATIVE PROVIDED: PATIENT IS ALERT,ORIENTED TO NAME, TIME, AND SITUATION. FOLLOWS COMMANDS, AROUSED BY NAME CALLING, EASILY FORGETFUL REQUIRING FREQUENT QUES AND REMINDERS. RESP EVEN AND UNLABORED. AUDIBLE WHEEZES. O2 VIA NASAL CANULA AT 2L/MIN. BIPAP WHEN SLEEPING. S1S2, NO MURMUR. NO EDEMA. BS X 4, SOFT. INCONTINENT OF URINE. DENIES PAIN OR DISCOMFORT. DENIES ANY SUICIDAL IDEATION. PATIENT IS A FALL RISK. SR UP X 2, CALL LIGHT WITHIN REACH, NON SKID SOCKS PATENT. IV TO LEFT WRIST PATENT WITH D5 1/2 NS INFUSING AT 100 ML/HR. PATIENT NOT ON CORE MEASURES. ARM BAND PRESENTE. PATIENT IS NOT ON ISOLATION. PATIENT REQUIRES ASSIST WITH TRANSFERS DUE TO UNSTEADY GAIT AT TIMES. THIS ASSESSMENT COMPLETED AT 0725 THIS AM.
[2019-02-08 16:47] VITALS: BP 126/69
--- NOTE | 2019-02-08 19:10 | NUR ---
PATIENT LAYING IN BED. FAMILY AT BEDSIDE. NO COMPLAINTS AT THIS TIME. NO DISTRESS NOTED.
[2019-02-08 20:00] VITALS: BP 98/54
--- NOTE | 2019-02-08 20:00 | NUR ---
PATIENT TRIED TO GET UP TO GO TO RESTROOM BY SELF. PATIENT SAT DOWN IN RECLINER. PATIENT STATES SHE DID NOT FALL. PATIENT'S IV TO RIGHT FOREARM PULLED OUT WHEN SHE TRIED TO STAND AND WALK. IV WITH TIP INTACT. IV FLUID CHANGED TO LEFT WRIST. PATIENT VERBALIZED UNDERSTANDING TO CALL FOR HELP WHEN GOING TO THE BATHROOM. PATIENT ASSISTED BACK INTO BED WITH NO ISSUES.
[2019-02-09] VITALS: BP 124/58
--- NOTE | 2019-02-09 02:07 | NUR ---
PATIENT LAYING IN BED. PATIENT HAS NO COMPLAINTS AT THIS TIME. NO DISTRESS NOTED.
[2019-02-09 04:13] LABS: BASOPHILS 0 % (0-2); EOSINOPHILS 0.2 % (0-7); HEMOGLOBIN 10.9 g/dL (12-16); IMMATURE GRANULOCYTES 0.4 % (0-5); LYMPHOCYTES 15.7 % (15-50); MCH 27.3 pg (26.0-34.0); MCHC 31.1 g/dL (31.0-37.0); MCV 87.7 fL (80.0-100.0); MEAN PLATELET VOLUME 10.3 fL (7.4-10.4); MONOCYTES 1.3 % (2-11); NEUTROPHILS 82.4 % (40-80); PLATELET COUNT 249 10x3/uL (130-400); RBC 3.99 10x6/uL (4.00-5.40); RDW 14.5 % (11.5-14.5); WBC 4.6 10x3/uL (4.8-10.8)
[2019-02-09 04:28] LABS: ALBUMIN 2.8 g/dL (3.4-5.0); BILIRUBIN - TOTAL 0.22 mg/dL (0.2-1.3); CALCIUM 8.6 mg/dL (8.5-10.1); MAGNESIUM - SERUM 1.8 mg/dL (1.8-2.4); PROTEIN - SERUM 6.2 g/dL (6.4-8.2)
--- NOTE | 2019-02-09 05:39 | NUR ---
I have reviewed this patient and I concur with the Shift Assessment completed by the Licensed Practical Nurse today this shift.
--- NOTE | 2019-02-09 07:00 | NUR ---
IV INFILTRATED TO LEFT HAND. TIP INTACT. NEW IV TO RIGHT HAND 22G X1 ATTEMPT.
--- NOTE | 2019-02-09 07:49 | NUR ---
PT IS AWAKEN AND ORIENTEDX4 AT THIS TIME. LYING IN BED, FIDDLING WITH HER HOME TRILOGY MASK. WAS TOLD BY TITLE DEPARTMENT MANAGER NURSE, WHO HAD BEEN TOLD BY PREVIOUS DAY SHIFT NURSE, THAT PT WAS SUPPOSED TO WEAR HER TRILOGY ALL DAY/NIGHT, ONLY REMOVING IT FOR MEALS. WHEN LOOKING INTO THE CHART FURTHER, WE FOUND NO ORDERS THAT CONFIRMED THIS. I HAVE DECIDED NOT TO ENFORCE THIS RULE WITH THE PT. I LET HER TAKE THE TRILOGY OFF AND INFORMED HER TO WEAR IT FOR AT LEAST 2 HOURS A DAY (PREFERBALLY WHEN SHE NAPS) AND THEN AT HS. PT IS RELIVED TO HAVE THIS, I WILL ADJUST IF I HEAR OTHERWISE FROM THE DR ABOUT HOW SHE IS SUPPOSED TO WEAR IT. NO COMPLAINTS/CONCERNS/QUESTIONS THIS MORNING, CL IN REACH, SRX2, BED ALARM ON.
[2019-02-09 08:52] VITALS: BP 118/64
--- NOTE | 2019-02-09 10:39 | NUR ---
PT IS EXTREMELY NON COMPLIENT WITH USING HER CL. PT IS ON A BED ALARM, BUT STILL REFUSES TO USE THE CL. HAVE DONE PT INSTRUCTION, PT DOESN'T LISTEN. CL IN REACH, SRX2.
[2019-02-09 12:55] VITALS: BP 132/63
--- NOTE | 2019-02-09 13:50 | NUR ---
I have reviewed this patient and I concur with the Shift Assessment completed by the Licensed Practical Nurse today this shift.
[2019-02-09 14:54] VITALS: BP 117/57
--- NOTE | 2019-02-09 16:53 | MORECARE ---
CASE MANAGEMENT DISCHARGE SUMMARY PATIENT: DANIEL ALVAREZ UNIT: [id number] ADM DATE: 02/06/19 AGE: 73 : 43 SEX: F ROOM/BED: D.9207 AUTHOR: WILL,DOC PHYSICIAN: REFERRING PHYSICIAN: YMESHA JOYNER MD DATE OF SERVICE: 02/09/19 Discharge Plan Patient Name: DANIEL ALVAREZ Facility: [facility]:[place] : 1945 Planned Disposition: Home with Home Health Anticipated Discharge Date: Discharge Date: Expected LOS: Initial Reviewer: [email or web address] Initial Review Date: 02/09/2019 Generated: 02/09/19 5:53 pm DCPIA - Discharge Planning Initial Assessment Updated by [email or web address]: Jaya Dove on 02/09/19 4:51 pm * Is the patient Alert and Oriented? Yes * How many steps to enter\exit or inside your home? NONE * PCP DR. RUDOLPH BARROW * Pharmacy [facility] [facility] * Preadmission Environment Home with Family * ADLs Independent * Equipment Nebulizer Other Oxygen * Other Equipment TRILOGY MACHINE HOME AND PORTABLE OXYGEN [facility] PATIENT - PROVIDER * List name and contact numbers for known caregivers / representatives who currently or will assist patient after discharge: SARAH JOHNSON, SISTER, * Verbal permission to speak to the caregivers and representatives has been obtained from the patient. Yes * Community resources currently utilized None * Please name any agencies selected above. NONE * Additional services required to return to the preadmission environment? No * Can the patient safely return to the preadmission environment? Yes * Has this patient been hospitalized within the prior 30 days at any hospital? Yes Coverage Notice Reviewer: [id number] Jenni Dove Notice Issued Date-Time: 02/09/2019 16:30 Notice Type: IM Discharge Notice Notice Delivered To: Patient Relationship to Patient: Registered Nurse First Assistant Name: Delivery Method: HAND - Hand Delivered Isha Days: Prior Verbal Notification: Recipient Understood Notice: Yes Recipient Signature: Yes Med Rec Note Co-signed by Attending: Coverage Notice Comment: Reviewer: [id number] Jenni Dove Notice Issued Date-Time: 02/09/2019 16:30 Notice Type: Patient Choice Letter Notice Delivered To: Patient Relationship to Patient: Registered Nurse First Assistant Name: Delivery Method: HAND - Hand Delivered Isha Days: Prior Verbal Notification: Recipient Understood Notice: Yes Recipient Signature: Yes Med Rec Note Co-signed by Attending: Coverage Notice Comment: [facility] Patient Name: DANIEL ALVAREZ Page [phone] at 1653 All edits/amendments must be made on the electronic document DICTATION DATE: 02/09/191651 TRANSMISSION MAINTENANCE SUPERVISOR: TIFFANY 02/09/191651 RPT#: [id number] DC DATE: STATUS: ADM IN [facility] [address] [place] [address] END OF REPORT
--- NOTE | 2019-02-09 17:09 | MORECARE ---
CASE MANAGEMENT DISCHARGE SUMMARY PATIENT: DANIEL ALVAREZ UNIT: [id number] ADM DATE: 02/06/19 AGE: 73 : 43 SEX: F ROOM/BED: D.2469 AUTHOR: WILL,DOC PHYSICIAN: REFERRING PHYSICIAN: MYESHA JOYNER MD DATE OF SERVICE: 02/09/19 Discharge Plan Patient Name: DANIEL ALVAREZ Facility: [facility]:[place] : 1945 Planned Disposition: Home with Home Health Anticipated Discharge Date: Discharge Date: Expected LOS: Initial Reviewer: [email or web address] Initial Review Date: 02/09/2019 Generated: 02/09/19 6:09 pm Comments DCP- Discharge Planning Updated by [email or web address]: Jaya Dove on 02/09/19 4:[address] Patient Name: DANIEL ALVAREZ Admission Status: Urgent Accout number: [id number] Admission Date: 02-06-2019 : 1945 Admission Diagnosis: Attending: MYESHA JOYNER Current LOS: 3 Anticipated DC Date: Planned Disposition: Home with Home Health Primary Insurance: [employer] PLANNED EXTERNAL PROVIDER: [facility] Discharge Planning Comments: CM MET WITH PT AND SISTER IN ROOM TO DISCUSS DISCHARGE PLANNING AND NEEDS. DANIEL ALVAREZ provided verbal consent to discuss current and ongoing needs with/in the presence of: SISTERELIZABETH. PT REPORTS LIVING AT HOME INDEPENDENTLY WITH HER SISTER. PT HAS NEBULIZER, HOME AND PORTABLE OXYGEN AND TRILOGY MACHINE FROM [facility] PATIENT. PT HAS NO OUTSIDE SERVICES ASSISTING IN THE HOME. PT HAS NOT BEEN WEARING HER HOME TRILOGY. CM COUNSELED WITH PT ON IMPORTANCE OF WEARING PRESCRIBED AND THAT INSURANCE WOULD NOT PAY FOR THE MACHINE IF PT REFUSES TO WEAR IT. PT REPORTS SHE WILL WEAR PRESCRIBED. PT'S SISTER INFORMED CM THAT THE DOCTOR TOLD HER THEY WERE GOING TO PUT PT INTO REHAB. CM REVIEWED CHART, THERAPY HAS SIGNED OFF INDICATING NO SKILLED NEED FOR THERAPY SERVICES. CM DISCUSSED AVAILABILITY OF HOME HEALTH, REHAB SERVICES AND MEDICAL EQUIPMENT. PT WILL ACCEPT HOME HEALTH WITH [facility] SHE HAS USED THEM IN THE PAST. CHOICE SIGNED. PT REPORTS HER SISTER WILL PICK HER UP FOR DISCHARGE HOME. IMPORTANT MESSAGE FROM MEDICARE PROVIDED AND EXPLAINED. PT WANTS TO DISCHARGE HOME WITH HER SISTER AND [employer]. CM TO ARRANGE HOME HEALTH FOR OBSERVATION AND ASSESSMENT WITH PHYSICIAN ORDER AND AGREEMENT AND PHYSICIAN ORDER FOR HOME HEALTH. Car Coupler: Jaya Dove DCPIA - Discharge Planning Initial Assessment Updated by [id number]: Jaya Dove on 02/09/19 4:51 pm * Is the patient Alert and Oriented? Yes * How many steps to enter\exit or inside your home? NONE * PCP DR. RUDOLPH BARROW * Pharmacy [facility] * Preadmission Environment Home with Family * ADLs Independent * Equipment Nebulizer Other Oxygen * Other Equipment TRILOGY MACHINE HOME AND PORTABLE OXYGEN [facility] PATIENT - PROVIDER * List name and contact numbers for known caregivers / representatives who currently or will assist patient after discharge: SARAH JOHNSON, SISTER, * Verbal permission to speak to the caregivers and representatives has been obtained from the patient. Yes * Community resources currently utilized None * Please name any agencies selected above. NONE * Additional services required to return to the preadmission environment? No * Can the patient safely return to the preadmission environment? Yes * Has this patient been hospitalized within the prior 30 days at any hospital? Yes Coverage Notice Reviewer: [id number] Jenni Dove Notice Issued Date-Time: 02/09/2019 16:30 Notice Type: IM Discharge Notice Notice Delivered To: Patient Relationship to Patient: Hogshead Cooper Name: Delivery Method: HAND - Hand Delivered Isha Days: Prior Verbal Notification: Recipient Understood Notice: Yes Recipient Signature: Yes Med Rec Note Co-signed by Attending: Coverage Notice Comment: Reviewer: [id number] Jenni Dove Notice Issued Date-Time: 02/09/2019 16:30 Notice Type: Patient Choice Letter Notice Delivered To: Patient Relationship to Patient: Hogshead Cooper Name: Delivery Method: HAND - Hand Delivered Isha Days: Prior Verbal Notification: Recipient Understood Notice: Yes Recipient Signature: Yes Med Rec Note Co-signed by Attending: Coverage Notice Comment: [facility] Last DP export: 02/09/19 3:53 pm Patient Name: DANIEL ALVAREZ Page [phone] at 1709 All edits/amendments must be made on the electronic document DICTATION DATE: 071708 EXERCISER HORSE: ITFFANY 02/09/191708 RPT#: [id number] DC DATE: STATUS: ADM IN [facility] [address] [place] [address] END OF REPORT
--- NOTE | 2019-02-09 19:00 | NUR ---
PATIENT LAYING IN BED. HAS NO COMPLAINTS AT THIS TIME. NO DISTRESS NOTED.
[2019-02-09 20:00] VITALS: BP 120/68
--- NOTE | 2019-02-09 22:50 | NUR ---
IT WAS FOUND THAT THIS PATIENT AND ANOTHER PATIENT HAD THE WRONG TELEMETRY MONITORS ON. ZHANE BEYER NOTIFIED. INCIDENT REPORT TO [facility] SUBMITTED. CHARGE NURSE NOTIFIED.
--- NOTE | 2019-02-09 23:13 | NUR ---
PATIENT GOT UP TO USE THE BATHROOM WITHOUT USING THE CALL LIGHT. THIS NURSE IMMEDIATELY WENT INTO ROOM WHEN BED ALARM WENT OFF. PATIENT HAD PULL HER IV LINE TIGHT AGAIN. IV LINE DISCONNECTED AND IV FLUSHED WITH SALINE FLUSH. THIS NURSE STAYED IN ROOM UNTIL PATIENT WAS DONE USING THE BATHROOM. PATIENT EDUCATED AGAIN TO USE THE CALL LIGHT BEFORE GOING TO THE BATHROOM.
[2019-02-10] VITALS: BP 121/66
--- NOTE | 2019-02-10 01:49 | NUR ---
I have reviewed this patient and I concur with the Shift Assessment completed by the Licensed Practical Nurse today this shift.
[2019-02-10 04:00] VITALS: BP 147/72
[2019-02-10 05:20] LABS: BASOPHILS 0.1 % (0-2); EOSINOPHILS 0.1 % (0-7); HEMATOCRIT 34.2 % (36.0-48.0); HEMOGLOBIN 10.7 g/dL (12-16); IMMATURE GRANULOCYTES 0.4 % (0-5); LYMPHOCYTES 8.7 % (15-50); MCH 27.8 pg (26.0-34.0); MCHC 31.3 g/dL (31.0-37.0); MCV 88.8 fL (80.0-100.0); MEAN PLATELET VOLUME 10.8 fL (7.4-10.4); MONOCYTES 2.4 % (2-11); NEUTROPHILS 88.3 % (40-80); PLATELET COUNT 256 10x3/uL (130-400); RBC 3.85 10x6/uL (4.00-5.40); RDW 15.1 % (11.5-14.5)
[2019-02-10 05:30] LABS: WBC 11.6 10x3/uL (4.8-10.8)
[2019-02-10 05:42] LABS: ALBUMIN 2.9 g/dL (3.4-5.0); ANION GAP 11.7 mmol/L (8-16); BILIRUBIN - TOTAL 0.19 mg/dL (0.2-1.3); CALCIUM 8.7 mg/dL (8.5-10.1); CARBON DIOXIDE 28.7 mmol/L (21.0-32.0); CREATININE - SERUM 0.8 mg/dL (0.6-1.3); MAGNESIUM - SERUM 1.9 mg/dL (1.8-2.4); POTASSIUM - SERUM 4.4 mmol/L (3.5-5.1); PROTEIN - SERUM 5.7 g/dL (6.4-8.2)
--- NOTE | 2019-02-10 07:00 | NUR ---
RECEIVED REPORT. ASSUMED CARE OF PATIENT. RESTING IN BED WITH EYES OPEN. SMILING. PATIENT DENIES ANY NEEDS AT THIS TIME. NO DISTRESS. HOME TRILOGY UNIT NOT IN USE, PATIENT ON NASAL CANNULA AT THIS TIME.
--- NOTE | 2019-02-10 08:06 | NUR ---
TELEMETRY REMOVED. PATIENT WILL NOT KEEP IT ON.
[2019-02-10 08:55] VITALS: BP 136/72
--- NOTE | 2019-02-10 09:45 | NUR ---
HERE ROUNDING ON PATIENT. STATES THAT PATIENT IS STABLE TO DISCHARGE TO HOME FROM HIS STAND POINT. WILL PASS ON TO PRIMARY.
--- NOTE | 2019-02-10 09:50 | NUR ---
LOMOTIL ADMINISTERED FOR DIARRHEA AT THIS TIME. NO DISTRESS.
[2019-02-10] MEDS ORDERED: PREDNISONE10 MG PO (12:34)
[2019-02-10 12:35] VITALS: BP 132/70
--- NOTE | 2019-02-10 13:40 | MORECARE ---
CASE MANAGEMENT DISCHARGE SUMMARY PATIENT: DANIEL ALVAREZ UNIT: [id number] ADM DATE: 02/06/19 AGE: 73 : 44 SEX: F ROOM/BED: D.3648 AUTHOR: WILL,DOC PHYSICIAN: REFERRING PHYSICIAN: MYESHA JOYNER MD DATE OF SERVICE: 02/10/19 Discharge Plan Patient Name: DANIEL ALVAREZ Facility: [facility]:[place] : 1945 Planned Disposition: Home with Home Health Anticipated Discharge Date: 02/10/19 Discharge Date: Expected LOS: 4 Initial Reviewer: [email or web address] Initial Review Date: 02/09/2019 Generated: 02/10/19 2:40 pm Comments DCP- Discharge Planning Updated by [id number]: Jaya Dove on 02/09/19 4:[address] Patient Name: DANIEL ALVAREZ Admission Status: Urgent Accout number: [id number] Admission Date: 02-06-2019 : 1945 Admission Diagnosis: Attending: MYESHA JOYNER Current LOS: 3 Anticipated DC Date: Planned Disposition: Home with Home Health Primary Insurance: [employer] PLANNED EXTERNAL PROVIDER: [facility] Discharge Planning Comments: CM MET WITH PT AND SISTER IN ROOM TO DISCUSS DISCHARGE PLANNING AND NEEDS. DANIEL ALVAREZ provided verbal consent to discuss current and ongoing needs with/in the presence of: SISTERELIZABETH. PT REPORTS LIVING AT HOME INDEPENDENTLY WITH HER SISTER. PT HAS NEBULIZER, HOME AND PORTABLE OXYGEN AND TRILOGY MACHINE FROM [facility] PATIENT. PT HAS NO OUTSIDE SERVICES ASSISTING IN THE HOME. PT HAS NOT BEEN WEARING HER HOME TRILOGY. CM COUNSELED WITH PT ON IMPORTANCE OF WEARING PRESCRIBED AND THAT INSURANCE WOULD NOT PAY FOR THE MACHINE IF PT REFUSES TO WEAR IT. PT REPORTS SHE WILL WEAR PRESCRIBED. PT'S SISTER INFORMED CM THAT THE DOCTOR TOLD HER THEY WERE GOING TO PUT PT INTO REHAB. CM REVIEWED CHART, THERAPY HAS SIGNED OFF INDICATING NO SKILLED NEED FOR THERAPY SERVICES. CM DISCUSSED AVAILABILITY OF HOME HEALTH, REHAB SERVICES AND MEDICAL EQUIPMENT. PT WILL ACCEPT HOME HEALTH WITH [facility] SHE HAS USED THEM IN THE PAST. CHOICE SIGNED. PT REPORTS HER SISTER WILL PICK HER UP FOR DISCHARGE HOME. IMPORTANT MESSAGE FROM MEDICARE PROVIDED AND EXPLAINED. PT WANTS TO DISCHARGE HOME WITH HER SISTER AND [facility]. CM TO ARRANGE HOME HEALTH FOR OBSERVATION AND ASSESSMENT WITH PHYSICIAN ORDER AND AGREEMENT AND PHYSICIAN ORDER FOR HOME HEALTH. [employer] Salesperson: Jaya Dove DCPIA - Discharge Planning Initial Assessment Updated by [id number]: Jaya Dove on 02/09/19 4:51 pm * Is the patient Alert and Oriented? Yes * How many steps to enter\exit or inside your home? NONE * PCP DR. RUDOLPH BARROW * Pharmacy [facility] * Preadmission Environment Home with Family * ADLs Independent * Equipment Nebulizer Other Oxygen * Other Equipment TRILOGY MACHINE HOME AND PORTABLE OXYGEN [facility] PATIENT - PROVIDER * List name and contact numbers for known caregivers / representatives who currently or will assist patient after discharge: SARAH JONHSON, SISTER, * Verbal permission to speak to the caregivers and representatives has been obtained from the patient. Yes * Community resources currently utilized None * Please name any agencies selected above. NONE * Additional services required to return to the preadmission environment? No * Can the patient safely return to the preadmission environment? Yes * Has this patient been hospitalized within the prior 30 days at any hospital? Yes External Providers External Provider: [facility] Next Contact Date: 02/10/2019 Service Request Date: Service Type: Resolution: Reviewer: Comments: Coverage Notice Reviewer: [email or web address] Jenni Dove Notice Issued Date-Time: 02/09/2019 16:30 Notice Type: IM Discharge Notice Notice Delivered To: Patient Relationship to Patient: Contracts Director Name: Delivery Method: HAND - Hand Delivered Isha Days: Prior Verbal Notification: Recipient Understood Notice: Yes Recipient Signature: Yes Med Rec Note Co-signed by Attending: Coverage Notice Comment: Reviewer: [email or web address] Jneni Dove Notice Issued Date-Time: 02/09/2019 16:30 Notice Type: Patient Choice Letter Notice Delivered To: Patient Relationship to Patient: Contracts Director Name: Delivery Method: HAND - Hand Delivered Isha Days: Prior Verbal Notification: Recipient Understood Notice: Yes Recipient Signature: Yes Med Rec Note Co-signed by Attending: Coverage Notice Comment: [facility] Last DP export: 02/09/19 4:09 pm Patient Name: DANIEL ALVAREZ Page [phone] at 1340 All edits/amendments must be made on the electronic document DICTATION DATE: 02/10/191338 HEALTH UNIT COORDINATOR: TIFFANY 02/10/191338 RPT#: [id number] DC DATE: STATUS: ADM IN [facility] [address] [place] [address] END OF REPORT
--- NOTE | 2019-02-10 14:07 | MORECARE ---
CASE MANAGEMENT DISCHARGE SUMMARY PATIENT: DANIEL ALVAREZ UNIT: [id number] ADM DATE: 02/06/19 AGE: 73 : 44 SEX: F ROOM/BED: D.5417 AUTHOR: WILL,DOC PHYSICIAN: REFERRING PHYSICIAN: MYESHA JOYNER MD DATE OF SERVICE: 02/10/19 Discharge Plan Patient Name: DANIEL ALVAREZ Facility: [facility]:[place] : 1945 Planned Disposition: Home with Home Health Anticipated Discharge Date: 02/10/19 Discharge Date: Expected LOS: 4 Initial Reviewer: [email or web address] Initial Review Date: 02/09/2019 Generated: 02/10/19 3:07 pm Comments DCP- Discharge Planning Updated by [email or web address]: Jaya Dove on 02/10/19 1:[address] Patient Name: DANIEL ALVAREZ Encounter No: [id number] : 1945 Primary Insurance: COVENTRY [place] [employer] Pounce Anticipated DC Date: 02-10-2019 Planned Disposition: Home with Home Health External Planned Provider: [facility] DCP follow-up note: CM RECEIVED DISCHARGE AND HOME HEALTH ORDERS. CM CALLED [facility], THEY ARE OUT OF PT'S INSURANCE NETWORK. CM SPOKE TO PT IN ROOM AND NOTIFIED THAT [facility] WAS OUT OF NETWORK FOR INSURANCE, PT HAD NO CHOICE ON HOME HEALTH PROVIDER, CM CALLED PT'S SECOND CHOICE OF [facility], ; THEY ARE IN NETWORK. CM FAXED REFERRAL AND DISCHARGE INFORMATION TO [facility] AT [phone]. [place] TO [facility] HOME HEALTH ADMIT. PT NOTIFIED WHO DENIES FURTHER DISCHARGE NEEDS. LORENZA Beaulieu DCP- Discharge Planning Updated by [id number]: Jaya Dove on 02/09/19 4:[address] Patient Name: DANIEL ALVAREZ Admission Status: Urgent Accout number: [id number] Admission Date: 02-06-2019 : 1945 Admission Diagnosis: Attending: MYESHA JOYNER Current LOS: 3 Anticipated DC Date: Planned Disposition: Home with Home Health Primary Insurance: [employer] ADVANTAGE PLANNED EXTERNAL PROVIDER: [facility] Discharge Planning Comments: CM MET WITH PT AND SISTER IN ROOM TO DISCUSS DISCHARGE PLANNING AND NEEDS. DANIEL ALVAREZ provided verbal consent to discuss current and ongoing needs with/in the presence of: SISTER, ELIZABETH. PT REPORTS LIVING AT HOME INDEPENDENTLY WITH HER SISTER. PT HAS NEBULIZER, HOME AND PORTABLE OXYGEN AND TRILOGY MACHINE FROM [facility]. PT HAS NO OUTSIDE SERVICES ASSISTING IN THE HOME. PT HAS NOT BEEN WEARING HER HOME TRILOGY. CM COUNSELED WITH PT ON IMPORTANCE OF WEARING PRESCRIBED AND THAT INSURANCE WOULD NOT PAY FOR THE MACHINE IF PT REFUSES TO WEAR IT. PT REPORTS SHE WILL WEAR PRESCRIBED. PT'S SISTER INFORMED CM THAT THE DOCTOR TOLD HER THEY WERE GOING TO PUT PT INTO REHAB. CM REVIEWED CHART, THERAPY HAS SIGNED OFF INDICATING NO SKILLED NEED FOR THERAPY SERVICES. CM DISCUSSED AVAILABILITY OF HOME HEALTH, REHAB SERVICES AND MEDICAL EQUIPMENT. PT WILL ACCEPT HOME HEALTH WITH [facility] SHE HAS USED THEM IN THE PAST. CHOICE SIGNED. PT REPORTS HER SISTER WILL PICK HER UP FOR DISCHARGE HOME. IMPORTANT MESSAGE FROM MEDICARE PROVIDED AND EXPLAINED. PT WANTS TO DISCHARGE HOME WITH HER SISTER AND [facility]. CM TO [facility] FOR OBSERVATION AND ASSESSMENT WITH PHYSICIAN ORDER AND AGREEMENT AND PHYSICIAN ORDER FOR HOME HEALTH. Booking Supervisor: Jaya Dove DCPIA - Discharge Planning Initial Assessment Updated by [email or web address]: Jaya Dove on 02/09/19 4:51 pm * Is the patient Alert and Oriented? Yes * How many steps to enter\exit or inside your home? NONE * PCP DR. RUDOLPH BARROW * Pharmacy [facility] * Preadmission Environment Home with Family * ADLs Independent * Equipment Nebulizer Other Oxygen * Other Equipment TRILOGY MACHINE HOME AND PORTABLE OXYGEN [facility] - PROVIDER * List name and contact numbers for known caregivers / representatives who currently or will assist patient after discharge: SARAH JOHNSON, SISTER, * Verbal permission to speak to the caregivers and representatives has been obtained from the patient. Yes * Community resources currently utilized None * Please name any agencies selected above. NONE * Additional services required to return to the preadmission environment? No * Can the patient safely return to the preadmission environment? Yes * Has this patient been hospitalized within the prior 30 days at any hospital? Yes External Providers External Provider: [facility] Next Contact Date: 02/10/2019 Service Request Date: Service Type: Resolution: Reviewer: Comments: Coverage Notice Reviewer: [id number] Dove Notice Issued Date-Time: 02/09/2019 16:30 Notice Type: IM Discharge Notice Notice Delivered To: Patient Relationship to Patient: Computational Sciences Professor Name: Delivery Method: HAND - Hand Delivered Isha Days: Prior Verbal Notification: Recipient Understood Notice: Yes Recipient Signature: Yes Med Rec Note Co-signed by Attending: Coverage Notice Comment: Reviewer: [id number] Jenni Jaya Dove Notice Issued Date-Time: 02/09/2019 16:30 Notice Type: Patient Choice Letter Notice Delivered To: Patient Relationship to Patient: Computational Sciences Professor Name: Delivery Method: HAND - Hand Delivered Isha Days: Prior Verbal Notification: Recipient Understood Notice: Yes Recipient Signature: Yes Med Rec Note Co-signed by Attending: Coverage Notice Comment: [facility], [facility] Last DP export: 02/10/19 12:40 pm Patient Name: DANIEL ALVAREZ Page [id number] at 1407 All edits/amendments must be made on the electronic document DICTATION DATE: 02/10/19 1407 COMMUNITY DEVELOPMENT PLANNER: TIFFANY 02/10/19 1407 RPT#: [id number] DC DATE: STATUS: ADM IN [facility] [address] [place] [address] END OF REPORT
--- NOTE | 2019-02-10 14:34 | NUR ---
22 GAUGE IV REMOVED FROM RIGHT HAND. NO BLEEDING FROM SITE. CATHETER TIP INTACT. 2X2 GAUZE APPLIED AND SECURED WITH TAPE. TOLERATED IV REMOVAL WELL. PATIENT IS DISCHARGING TO HOME.
[2019-02-10 15:11] VITALS: BP 130/70
--- NOTE | 2019-02-10 15:26 | NUR ---
PATIENT LEFT UNIT VIA WHEELCHAIR. PATIENT DISHCARGED TO HOME WITH HER SISTER. PATIENT LEFT UNIT WITH ALL PERSONAL BELONGINGS INCLUDING HER HOME TRILOGY UNIT. PATIENT IN NO DISTRESS UPON LEAVING THE UNIT. PATIENT THANKED THIS BEND UP FOR ALL CARES RENDERED.
[2019-03-31] MEDS ORDERED: SINGULAIR10 MG PO (14:58)
[2019-03-31] MEDS ORDERED: PROPAFENONE HC150 MG PO (14:58)
[2019-03-31] MEDS ORDERED: DONEPEZIL HCL10 MG PO (15:00)
[2019-04-01] MEDS ORDERED: RYTHMOL PO (15:42)
== END 2019-02-10 15:34 | disposition home health service (06) | DRG 189 ==
LOC: D.M2 15:43
PROVIDERS: Family Medicine Adult Medicine; ADMIT Internal Medicine Nephrology; ATTEND Internal Medicine Nephrology
DX: J96.21 Acute and chronic respiratory failure with hypoxia (principal); N17.9 Acute kidney failure, unspecified; E87.0 Hyperosmolality and hypernatremia; J98.11 Atelectasis; E44.0 Moderate protein-calorie malnutrition; Z99.81 Dependence on supplemental oxygen; F03.90 Unspecified dementia, unspecified severity, without behavioral disturbance, psychotic disturbance, mood disturbance, and anxiety; I48.2 Chronic atrial fibrillation; Z68.29 Body mass index [BMI] 29.0-29.9, adult; J30.9 Allergic rhinitis, unspecified; J43.9 Emphysema, unspecified; J96.22 Acute and chronic respiratory failure with hypercapnia; Z87.891 Personal history of nicotine dependence

== ENCOUNTER 2019-04-12 17:23 | Inpatient (IN) | payer MEDICARE ==
[~2019-04-12] VITALS: Ht 165.1 cm; Wt 104.5 kg
[~2019-04-12 17:23] MED LIST changes: +ALENDRONATE SOD35 MG PO; +DONEPEZIL HCL10 MG PO; +OMEPRAZOLE20 M1 PO; +PROPAFENONE HC150 MG PO; +RYTHMOL PO; +VOLTAREN100 GM TOPICAL
[2019-04-12 19:07] LABS: BASOPHILS 0.4 % (0-2); EOSINOPHILS 2.7 % (0-7); HEMATOCRIT 38.5 % (36.0-48.0); HEMOGLOBIN 12.5 g/dL (12-16); IMMATURE GRANULOCYTES 0.5 % (0-5); LYMPHOCYTES 13.5 % (15-50); MCHC 32.5 g/dL (31.0-37.0); MCV 86.3 fL (80.0-100.0); MEAN PLATELET VOLUME 9.4 fL (7.4-10.4); NEUTROPHILS 71.9 % (40-80); PLATELET COUNT 250 10x3/uL (130-400); RBC 4.46 10x6/uL (4.00-5.40); RDW 17.6 % (11.5-14.5); WBC 12.5 10x3/uL (4.8-10.8)
[2019-04-12 19:16] LABS: INR 1.01 (0.85-1.17); PROTIME 12.8 SECONDS (11.6-15.0)
[2019-04-12 19:23] VITALS: BP 102/69
[2019-04-12 19:26] LABS: ALBUMIN 3.2 g/dL (3.4-5.0); BILIRUBIN - TOTAL 0.45 mg/dL (0.2-1.3); C-REACTIVE PROTEIN 2.5 mg/dL (0.0-0.9); CALCIUM 8.3 mg/dL (8.5-10.1); CARBON DIOXIDE 32.5 mmol/L (21.0-32.0); CREATININE - SERUM 0.8 mg/dL (0.6-1.3); POTASSIUM - SERUM 3.6 mmol/L (3.5-5.1); PROTEIN - SERUM 6.4 g/dL (6.4-8.2)
[2019-04-12 21:13] VITALS: BP 123/48
--- NOTE | 2019-04-12 21:13 | NUR ---
NO DISTRESS NOTED AT THIS TIME. PT REPORTS PAIN IS 10/10.COLOR WNL FOR RACE IV PATENT AND INFUSING AND 125 ML/HR. VSS. WILL CONTINUE TO MONITOR.
--- NOTE | 2019-04-12 21:52 | NUR ---
PER EDP NICK OK TO ADMINISTER MORPHINE 2 MG AT THIS TIME.
[2019-04-12 22:11] VITALS: BP 104/62
--- NOTE | 2019-04-12 22:50 | NUR ---
RECEIVED PT FROM ER VIA STRETCHER. ALERT AND ORIENTED TO SELF AND PLACE. CONFUSED. POOR HISTORIAN DURING ASSESSMENT. FAMILY IN ROOM BUT UNSURE OF WHAT MEDS SHE IS ON. ONLY HAS PAIN WHEN MOVING. RESP LABORED, IRREG. O2 @ 2LNC. WEARS O2 AT HOME. NS @ 125 MLHR INFUSING IN RT AC WITHOUT DIFF. INCONT OF B/B. SPOKE WITH AIR BRAKE MECHANIC WHO STATES THERE ARE NO TELE UNITS AVAILABLE AT THIS TIME. NICK ALARM ON FOR PT SAFETY. SR ELEVATED X2. CL IN REACH.
[2019-04-12 23:48] VITALS: BP 95/58
[2019-04-12 23:58] VITALS: BP 95/58; BMI 29.0
[2019-04-13 04:00] VITALS: BP 127/66
--- NOTE | 2019-04-13 05:02 | NUR ---
LYING IN BED WITH EYES CLOSED. RESP EVEN AND NONLABORED. HAS RESTED WELL TONIGHT WITH NO C/O PAIN. NICK ALARM ON. CL IN REACH.
--- NOTE | 2019-04-13 07:38 | NUR ---
PT RESTING IN BED WITH EYES OPEN, NO S/S OF DISTRESS. CURRENTLY RCVING 2L VIA NC. IV LOCATED TO RIGHT AC RUNNING NS @ 125. DENIES ANY NEEDS AT THIS TIME, WILL CONT TO MONITOR.
[2019-04-13 08:37] VITALS: BP 111/75
--- NOTE | 2019-04-13 09:29 | NUR ---
Rehab Prescreening Consult recieved and the chart pas been reviewed. This [facility] which will require a preauth. She will need a PT and an OT eval. Currently she does not have a H&P. Rehab will follow her progress. Sarah Vences RN Clinical Liaison, Rehab
[2019-04-13 12:06] VITALS: BP 119/71
[2019-04-13 12:48] VITALS: BMI 28.9
--- NOTE | 2019-04-13 13:10 | NUR ---
PT VOIDED AND HAD BM. BLADDER SCAN COMPLETE SHOWING 0ML OF URINE.
[2019-04-13 13:41] LABS: BASOPHILS 0.3 % (0-2); EOSINOPHILS 2.8 % (0-7); HEMATOCRIT 35.4 % (36.0-48.0); HEMOGLOBIN 11.1 g/dL (12-16); IMMATURE GRANULOCYTES 0.3 % (0-5); LYMPHOCYTES 18.1 % (15-50); MCH 27.7 pg (26.0-34.0); MCHC 31.4 g/dL (31.0-37.0); MEAN PLATELET VOLUME 9.6 fL (7.4-10.4); MONOCYTES 10.9 % (2-11); NEUTROPHILS 67.6 % (40-80); PLATELET COUNT 221 10x3/uL (130-400); RBC 4.01 10x6/uL (4.00-5.40); RDW 17.7 % (11.5-14.5); WBC 10.4 10x3/uL (4.8-10.8)
[2019-04-13 13:43] LABS: MCV 88.3 fL (80.0-100.0)
[2019-04-13 13:55] LABS: CALC OSMOLALITY 282 mosm/kg (275-300); CALCIUM 7.8 mg/dL (8.5-10.1); CARBON DIOXIDE 35.2 mmol/L (21.0-32.0); CHLORIDE - SERUM 105 mmol/L (98-107); CREATININE - SERUM 0.7 mg/dL (0.6-1.3); POTASSIUM - SERUM 3.7 mmol/L (3.5-5.1); SODIUM 142 mmol/L (136-145); UREA NITROGEN 13 mg/dL (7-18); eGFR NON AFRICAN AMERICAN 87 mL/min (90-120)
[2019-04-13 13:58] LABS: GLUCOSE 90 mg/dL (74-106)
[2019-04-13 14:29] VITALS: BMI 38.3
--- NOTE | 2019-04-13 15:12 | MORECARE ---
CASE MANAGEMENT DISCHARGE SUMMARY PATIENT: DANIEL ALVAREZ UNIT: [id number] ADM DATE: 04/12/19 AGE: 73 : 44 SEX: F [facility] AUTHOR: ZENY SOLIS PHYSICIAN: REFERRING PHYSICIAN: MYESHA JOYNER MD DATE OF SERVICE: 04/13/19 Discharge Plan Patient Name: DANIEL ALVAREZ Facility: [facility]:[place] : 1945 Planned Disposition: Inpatient Rehab Anticipated Discharge Date: Discharge Date: Expected LOS: Initial Reviewer: [email or web address] Initial Review Date: 04/13/2019 Generated: 04/13/19 4:11 pm Patient Name: DANIEL ALVAREZ Page [id number] at 1512 All edits/amendments must be made on the electronic document DICTATION DATE: 04/13/19 1511 NURSE'S AIDES TEACHER: TIFFANY 04/13/19 1511 RPT#: [id number] DC DATE: STATUS: ADM IN [facility] [address] [place] [address] END OF REPORT
--- NOTE | 2019-04-13 15:20 | MORECARE ---
CASE MANAGEMENT DISCHARGE SUMMARY PATIENT: DANIEL ALVAREZ UNIT: [id number] ADM DATE: 04/12/19 AGE: 73 : 44 SEX: F ROOM/BED: D.2236 AUTHOR: ZENY OSLIS PHYSICIAN: REFERRING PHYSICIAN: MYESHA JOYNER MD DATE OF SERVICE: 04/13/19 Discharge Plan Patient Name: DANIEL ALVAREZ Facility: [facility]:[place] : 1945 Planned Disposition: Inpatient Rehab Anticipated Discharge Date: Discharge Date: Expected LOS: Initial Reviewer: [email or web address] Initial Review Date: 04/13/2019 Generated: 04/13/19 4:19 pm DCPIA - Discharge Planning Initial Assessment Updated by [id number]: Zohreh Potter on 04/13/19 3:17 pm * Is the patient Alert and Oriented? Yes * How many steps to enter\exit or inside your home? 4/0 * PCP Flakita Delaney * Pharmacy [facility] * Preadmission Environment Home with Family * ADLs Partial Dependent * Partial ADLs (Assistance needed) Ambulation Medication Management * Equipment Cane Nebulizer Other Oxygen * Other Equipment Portable oxygen Trilogy * List name and contact numbers for known caregivers / representatives who currently or will assist patient after discharge: Ray Alexander - Brother in law - [phone] Tracy Alexander - Sister (POA) - [phone] * Verbal permission to speak to the caregivers and representatives has been obtained from the patient. Yes * Community resources currently utilized Other * Please name any agencies selected above. [facility] * Additional services required to return to the preadmission environment? Yes * Can the patient safely return to the preadmission environment? No * Has this patient been hospitalized within the prior 30 days at any hospital? No Last DP export: 04/13/19 2:12 pm Patient Name: DANIEL ALVAREZ Page [phone] at 1520 All edits/amendments must be made on the electronic document DICTATION DATE: 04/13/19 1519 JOINTER MACHINE OPERATOR: TIFFANY 04/13/19 1519 RPT#: [id number] MA DATE: STATUS: ADM IN [facility] [address] [place] [address] END OF REPORT
--- NOTE | 2019-04-13 15:28 | MORECARE ---
CASE MANAGEMENT DISCHARGE SUMMARY PATIENT: DANIEL ALVAREZ UNIT: [id number] ADM DATE: 04/12/19 AGE: 73 : 44 SEX: F ROOM/BED: D.2236 AUTHOR: ZENY SOLIS PHYSICIAN: REFERRING PHYSICIAN: MYESHA JOYNER MD DATE OF SERVICE: 04/13/19 Discharge Plan Patient Name: DANIEL ALVAREZ Facility: [facility]:[place] : 1945 Planned Disposition: Inpatient Rehab Anticipated Discharge Date: Discharge Date: Expected LOS: Initial Reviewer: [email or web address] Initial Review Date: 04/13/2019 Generated: 04/13/19 4:27 pm Comments DCP- Discharge Planning Updated by [id number]: Zohreh Potter on 04/13/19 2:[address] Patient Name: DANIEL ALVAREZ Admission Status: ER Accout number: [id number] Admission Date: 04-12-2019 : 1945 Admission Diagnosis: Attending: MYESHA JOYNER Current LOS: 1 Anticipated DC Date: Planned Disposition: Inpatient Rehab Primary Insurance: [employer] ADVANTAGE Discharge Planning Comments: CM met with patient to discuss discharge planning/needs. She lives with her sister and brother in law in a mobile home. She states she is ok with going to rehab and doesn't care where she goes. Permission granted to call her family for further planning. I spoke with patient's brother in law (Ray) to discuss discharge plan. I informed them of the availability of inpatient rehab, SNF, home health and DME. He states he would like her to stay here at our inpatient rehab if possible. He states that he feels she may need more than 2 weeks of therapy though. I discussed SNF. He states he would like a referral to [facility] if inpatient rehab is not authorized. I spoke with Ngozi at [facility], they do not accept [employer]. She will need preauthorization for inpatient rehab. CM will continue to follow and assist with discharge planning/needs. Oil Field Roustabout: Zohreh Potter DCPIA - Discharge Planning Initial Assessment Updated by [id number]: Zohreh Potter on 04/13/19 3:17 pm * Is the patient Alert and Oriented? Yes * How many steps to enter\exit or inside your home? 4/0 * PCP Flakita Delaney * Pharmacy [facility] * Preadmission Environment Home with Family * ADLs Partial Dependent * Partial ADLs (Assistance needed) Ambulation Medication Management * Equipment Cane Nebulizer Other Oxygen * Other Equipment Portable oxygen Trilogy * List name and contact numbers for known caregivers / representatives who currently or will assist patient after discharge: Ray Alexander - Brother in law - [phone] Tracy Alexander - Sister (POA) - [phone] * Verbal permission to speak to the caregivers and representatives has been obtained from the patient. Yes * Community resources currently utilized Other * Please name any agencies selected above. [facility] * Additional services required to return to the preadmission environment? Yes * Can the patient safely return to the preadmission environment? No * Has this patient been hospitalized within the prior 30 days at any hospital? No Coverage Notice Reviewer: [id number] Jenni Potter Notice Issued Date-Time: 04/13/2019 15:24 Notice Type: Patient Choice Letter Notice Delivered To: Family Member Relationship to Patient: Brother in Law Tack Puller Machine Name: Ray Alexander Delivery Method: HAND - Hand Delivered Isha Days: Prior Verbal Notification: Recipient Understood Notice: Yes Recipient Signature: Med Rec Note Co-signed by Attending: Coverage Notice Comment: [place] for [facility] Last DP export: 04/13/19 2:20 pm Patient Name: DANIEL ALVAREZ Page [id number] at 1528 All edits/amendments must be made on the electronic document DICTATION DATE: 04/13/19 1527 CITY CARRIER: TIFFANY 04/13/19 1527 RPT#: [id number] DC DATE: STATUS: ADM IN [facility] [address] [place] [address] END OF REPORT
--- NOTE | 2019-04-13 16:50 | NUR ---
URINE COLLECTED AND TAKEN TO LAB.
[2019-04-13 17:10] VITALS: BP 113/57
[2019-04-13 17:25] LABS: APPEARANCE CLEAR (CLEAR); BILIRUBIN NEGATIVE (NEGATIVE); COLOR YELLOW (YELLOW); GLUCOSE NEGATIVE (NEGATIVE); KETONE NEGATIVE (NEGATIVE); NITRITE NEGATIVE (NEGATIVE); PROTEIN NEGATIVE (NEGATIVE); SPECIFIC GRAVITY 1.025 (1.005-1.020); UROBILINOGEN NORMAL (NORMAL)
--- NOTE | 2019-04-13 19:39 | NUR ---
LYING IN BED WITH TELEVISION ON, SISTER AT BEDSIDE, ABLE TO VOICE ALL COMPLAINTS WITH NO S/S OF ANY ACUTE DISTRESS NOTED. DENIES PAIN AT THIS TIME.
[2019-04-13 21:14] VITALS: BP 96/61
[2019-04-13 21:17] VITALS: BP 117/70
--- NOTE | 2019-04-14 01:10 | NUR ---
REQUESTED MEDICATION FOR PAIN, TYLENOL GIVEN PER ORDERS, EXCEPT WHEN PT WENT TO PUT MEDICATION IN MOUTH, CUP WENT BEHIND HEAD, MEDICATION WAS WASTED AND NEW PULLED FROM PYXIS AND SUCCESSFULLY ADMINISTERED PO. WILL NOTE ANY CHANGE.
[2019-04-14 01:44] VITALS: BP 130/80
--- NOTE | 2019-04-14 03:00 | NUR ---
HAS RESTED WELL THIS SHIFT, IV TO RIGHT AC IS PATENT WITH NORMAL SALINE INFUSING VIA PUMP PER ORDERS. O2 AT 2L VIA NC TOLERATED WELL. TELEMETRY IN PLACE WITH 97 CONTROLLED A-FIB NOTED. SHOWS NO S/S OF ANY DISTRESS. WILL NOTE ANY CHANGE.
[2019-04-14 04:38] VITALS: BP 130/74
[2019-04-14 06:02] LABS: BASOPHILS 0.3 % (0-2); EOSINOPHILS 3.2 % (0-7); HEMATOCRIT 32.9 % (36.0-48.0); HEMOGLOBIN 10.3 g/dL (12-16); IMMATURE GRANULOCYTES 0.3 % (0-5); LYMPHOCYTES 18.7 % (15-50); MCH 27.5 pg (26.0-34.0); MCHC 31.3 g/dL (31.0-37.0); MEAN PLATELET VOLUME 9.7 fL (7.4-10.4); MONOCYTES 10.7 % (2-11); NEUTROPHILS 66.8 % (40-80); PLATELET COUNT 202 10x3/uL (130-400); RBC 3.74 10x6/uL (4.00-5.40); RDW 17.6 % (11.5-14.5); WBC 10.1 10x3/uL (4.8-10.8)
--- NOTE | 2019-04-14 06:22 | NUR ---
I have reviewed this patient and I concur with the Shift Assessment completed by the Licensed Practical Nurse today this shift.
[2019-04-14 06:24] LABS: CALC OSMOLALITY 285 mosm/kg (275-300); CALCIUM 7.7 mg/dL (8.5-10.1); CARBON DIOXIDE 32.5 mmol/L (21.0-32.0); CHLORIDE - SERUM 106 mmol/L (98-107); CREATININE - SERUM 0.7 mg/dL (0.6-1.3); GLUCOSE 94 mg/dL (74-106); POTASSIUM - SERUM 3.6 mmol/L (3.5-5.1); SODIUM 144 mmol/L (136-145); UREA NITROGEN 10 mg/dL (7-18); eGFR NON AFRICAN AMERICAN 87 mL/min (90-120)
--- NOTE | 2019-04-14 07:00 | NUR ---
PATIENT RESTING WITH EYES CLOSED, NO DISTRESS OR NEEDS VOICED. CL IN REACH
[2019-04-14 07:55] VITALS: Ht 165.1 cm; Wt 104.5 kg
[2019-04-14 08:24] VITALS: BP 118/83
[2019-04-14 12:19] VITALS: BP 126/76
--- NOTE | 2019-04-14 13:55 | NUR ---
PATIENT RESTING IN BED, REPORTS PAIN WITH MOVEMENT. TOLERATED MEAL WELL. CL IN REACH
--- NOTE | 2019-04-14 15:21 | NUR ---
OT NOTE: PT COMPLETED BED MOB TASKS WITH MIN/MOD A. PT COMPLETED HAIR BRUSHING AND FACE WASH WITH SET UP. THANK YOU, BRENNAN WARD
[2019-04-14 17:03] VITALS: BP 122/59
--- NOTE | 2019-04-14 20:00 | NUR ---
A/O WITH NO SIGNS OF ACUTE DISTRESS NOTED. IV TO THE RT AC WITH NO REDNESS OR SWELLING. O2 @ 2L. DENIES PAIN OR OTHER NEEDS AT THIS TIME. CONTINUE WITH PLAN OF CARE.
[2019-04-14 21:20] VITALS: BP 105/79
[2019-04-14 22:40] LABS: APPEARANCE CLEAR (CLEAR); BILIRUBIN NEGATIVE (NEGATIVE); COLOR YELLOW (YELLOW); GLUCOSE NEGATIVE (NEGATIVE); KETONE NEGATIVE (NEGATIVE); NITRITE NEGATIVE (NEGATIVE); PROTEIN NEGATIVE (NEGATIVE); SPECIFIC GRAVITY 1.005 (1.005-1.020); UROBILINOGEN NORMAL (NORMAL)
[2019-04-15 01:11] VITALS: BP 126/75
[2019-04-15 05:18] VITALS: BP 154/80
[2019-04-15 06:57] LABS: CALC OSMOLALITY 280 mosm/kg (275-300); CALCIUM 8.5 mg/dL (8.5-10.1); CARBON DIOXIDE 33.1 mmol/L (21.0-32.0); CHLORIDE - SERUM 105 mmol/L (98-107); CREATININE - SERUM 0.6 mg/dL (0.6-1.3); GLUCOSE 101 mg/dL (74-106); POTASSIUM - SERUM 3.5 mmol/L (3.5-5.1); SODIUM 142 mmol/L (136-145); eGFR NON AFRICAN AMERICAN > 90 mL/min (90-120)
[2019-04-15 07:15] LABS: UREA NITROGEN 6 mg/dL (7-18)
[2019-04-15 07:17] LABS: BASOPHILS 0.2 % (0-2); EOSINOPHILS 2.5 % (0-7); HEMATOCRIT 33.6 % (36.0-48.0); HEMOGLOBIN 10.8 g/dL (12-16); IMMATURE GRANULOCYTES 0.7 % (0-5); LYMPHOCYTES 17.6 % (15-50); MCH 27.7 pg (26.0-34.0); MCHC 32.1 g/dL (31.0-37.0); MCV 86.2 fL (80.0-100.0); MEAN PLATELET VOLUME 9.9 fL (7.4-10.4); MONOCYTES 10.7 % (2-11); NEUTROPHILS 68.3 % (40-80); PLATELET COUNT 240 10x3/uL (130-400); RDW 17.2 % (11.5-14.5); WBC 10.5 10x3/uL (4.8-10.8)
[2019-04-15 09:22] VITALS: BP 156/92
--- NOTE | 2019-04-15 10:00 | NUR ---
PATIENT TRANSFER FROM MED SURG NEED [facility] DRIP. PATIENT IS AWAKE, LETHARGIC AND ONLY ORIENTED TO NAME. PATIENT DENIES ANY NEEDS OR PAIN. WILL CONTINUE WITH PLAN OF CARE. AR UP X 2 BED IN LOW POSITION AND CALL LIGHT IN REACH.
[2019-04-15 10:43] LABS: MAGNESIUM - SERUM 1.7 mg/dL (1.8-2.4); THYROID STIMULATING HORMONE 2.22 uIU/mL (0.36-3.74)
[2019-04-15 10:52] LABS: CKMB 0.3 U/L (0.0-3.6); CREATINE KINASE 22 UL (21-215); TROPONIN-I < 0.017 ng/mL (0.000-0.060)
--- NOTE | 2019-04-15 11:11 | MORECARE ---
CASE MANAGEMENT DISCHARGE SUMMARY PATIENT: DANIEL ALVAREZ UNIT: [id number] ADM DATE: 04/12/19 AGE: 73 : 43 SEX: F ROOM/BED: D.2123 AUTHOR: ZENY SOLIS PHYSICIAN: REFERRING PHYSICIAN: MYESHA JOYNER MD DATE OF SERVICE: 04/15/19 Discharge Plan Patient Name: DANIEL ALVAREZ Facility: [facility]:[place] : 1945 Planned Disposition: Inpatient Rehab Anticipated Discharge Date: Discharge Date: Expected LOS: Initial Reviewer: [email or web address] Initial Review Date: 04/13/2019 Generated: 04/15/19 12:10 pm DCP- Discharge Planning Updated by [email or web address]: Zohreh Potter on 04/13/19 2:[address] Patient Name: DANIEL ALVAREZ Admission Status: ER Accout number: [id number] Admission Date: 04-12-2019 : 1945 Admission Diagnosis: Attending: MYESHA JOYNER Current LOS: 1 Anticipated DC Date: Planned Disposition: Inpatient Rehab Primary Insurance: [employer] Discharge Planning Comments: CM met with patient to discuss discharge planning/needs. She lives with her sister and brother in law in a mobile home. She states she is ok with going to rehab and doesn't care where she goes. Permission granted to call her family for further planning. I spoke with patient's brother in law (Ray) to discuss discharge plan. I informed them of the availability of inpatient rehab, SNF, home health and DME. He states he would like her to stay here at our inpatient rehab if possible. He states that he feels she may need more than 2 weeks of therapy though. I discussed SNF. He states he would like a referral to [facility] if inpatient rehab is not authorized. I spoke with Ngozi at [facility], they do not accept [employer]. She will need preauthorization for inpatient rehab. CM will continue to follow and assist with discharge planning/needs. Algebra Tutor: Zohreh Potter DCPIA - Discharge Planning Initial Assessment Updated by [id number]: Zohreh Potter on 04/13/19 3:17 pm * Is the patient Alert and Oriented? Yes * How many steps to enter\exit or inside your home? 4/0 * PCP Flakita Delaney * Pharmacy [facility] * Preadmission Environment Home with Family * ADLs Partial Dependent * Partial ADLs (Assistance needed) Ambulation Medication Management * Equipment Cane Nebulizer Other Oxygen * Other Equipment Portable oxygen Trilogy * List name and contact numbers for known caregivers / representatives who currently or will assist patient after discharge: Ray Alexander - Brother in law - [phone] Tracy Alexander - Sister (POA) - [phone] * Verbal permission to speak to the caregivers and representatives has been obtained from the patient. Yes * Community resources currently utilized Other * Please name any agencies selected above. [facility] * Additional services required to return to the preadmission environment? Yes * Can the patient safely return to the preadmission environment? No * Has this patient been hospitalized within the prior 30 days at any hospital? No Coverage Notice Reviewer: [id number] Jenni Potter Notice Issued Date-Time: 04/13/2019 15:24 Notice Type: Patient Choice Letter Notice Delivered To: Family Member Relationship to Patient: Brother in Law Drag Car Racer Name: Ray Alexander Delivery Method: HAND - Hand Delivered Isha Days: Prior Verbal Notification: Recipient Understood Notice: Yes Recipient Signature: Med Rec Note Co-signed by Attending: Coverage Notice Comment: [place] for [facility] Last DP export: 04/13/19 2:28 pm Patient Name: DANIEL ALVAREZ Page 54633 at 1111 All edits/amendments must be made on the electronic document DICTATION DATE: 04/15/19 1110 ARTIFICIAL PLASTIC EYE MAKER: TIFFANY 04/15/19 1110 RPT#: [id number] DC DATE: STATUS: ADM IN [facility] [address] [place] [address] END OF REPORT
--- NOTE | 2019-04-15 11:20 | MORECARE ---
CASE MANAGEMENT DISCHARGE SUMMARY PATIENT: DANIEL ALVAREZ UNIT: [id number] ADM DATE: 04/12/19 AGE: 73 : 43 SEX: F ROOM/BED: D.2123 AUTHOR: WILL,DOC PHYSICIAN: REFERRING PHYSICIAN: MYESHA JOYNER MD DATE OF SERVICE: 04/15/19 Discharge Plan Patient Name: DANIEL ALVAREZ Facility: [facility]:[place] : 1945 Planned Disposition: Inpatient Rehab Anticipated Discharge Date: Discharge Date: Expected LOS: Initial Reviewer: [id number] Initial Review Date: 04/13/2019 Generated: 04/15/19 12:20 pm Comments DCP- Discharge Planning Updated by [id number]: Zohreh Abbey on 04/15/19 10:[address] CM spoke with patient's sister yesterday. Her sister (Tracy) states she doesn't want her to go to a shelter if possible. She states that she would like her to go to inpatient rehab. I informed her that she would need authorization for that from insurance and inpatient rehab is already working on that. I informed her that it could probably be a denial if she is unable to participate in 3 hours of therapy a day. Her sister states if she is denied, that she would consent to a skilled unit. I spoke with [facility], and Maria E states she believes [facility] in network, but unsure. I also spoke with Dong Mac with [facility] and he states he may be able to work with her insurance for authorization. Her sister states it does not matter which one she goes to, "whatever we can find". zeyad Menjivar for [facility], states they [facility]. CM will continue to follow and assist with discharge planning/needs. DCP- Discharge Planning Updated by [id number]: Zohreh Abbey on 04/13/19 2:[address] Patient Name: DANIEL ALVAREZ Admission Status: ER Accout number: [id number] Admission Date: 04-12-2019 : 1945 Admission Diagnosis: Attending: MYESHA JOYNER Current LOS: 1 Anticipated DC Date: Planned Disposition: Inpatient Rehab Primary Insurance: [employer] ADVANT[employer] Discharge Planning Comments: CM met with patient to discuss discharge planning/needs. She lives with her sister and brother in law in a mobile home. She states she is ok with going to rehab and doesn't care where she goes. Permission granted to call her family for further planning. I spoke with patient's brother in law (Ray) to discuss discharge plan. I informed them of the availability of inpatient rehab, SNF, home health and DME. He states he would like her to stay here at our inpatient rehab if possible. He states that he feels she may need more than 2 weeks of therapy though. I discussed SNF. He states he would like a referral to [facility] if inpatient rehab is not authorized. I spoke with Ngozi at [facility], they do not accept [employer]. She will need preauthorization for inpatient rehab. CM will continue to follow and assist with discharge planning/needs. Metal Container Maker: Zohreh Potter NHPIA - Discharge Planning Initial Assessment Updated by [id number]: Zohreh Potter on 04/13/19 3:17 pm * Is the patient Alert and Oriented? Yes * How many steps to enter\\exit or inside your home? 4/0 * PCP Flakita Delaney * Pharmacy [facility] * Preadmission Environment Home with Family * ADLs Partial Dependent * Partial ADLs (Assistance needed) Ambulation Medication Management * Equipment Cane Nebulizer Other Oxygen * Other Equipment Portable oxygen Trilogy * List name and contact numbers for known caregivers / representatives who currently or will assist patient after discharge: Ray Alexander - Brother in law - [phone] Tracy Alexander - Sister (POA) - [phone] * Verbal permission to speak to the caregivers and representatives has been obtained from the patient. Yes * Community resources currently utilized Other * Please name any agencies selected above. [facility] * Additional services required to return to the preadmission environment? Yes * Can the patient safely return to the preadmission environment? No * Has this patient been hospitalized within the prior 30 days at any hospital? No Coverage Notice Reviewer: [id number] - Zohreh Potter Notice Issued Date-Time: 04/13/2019 15:24 Notice Type: Patient Choice Letter Notice Delivered To: Family Member Relationship to Patient: Brother in Law Medical Assembly Name: Ray Alexander Delivery Method: HAND - Hand Delivered Isha Days: Prior Verbal Notification: Recipient Understood Notice: Yes Recipient Signature: Med Rec Note Co-signed by Attending: Coverage Notice Comment: [place] for [facility] Last DP export: 04/15/19 10:11 a Patient Name: DANIEL ALVAREZ Page 19881 at 1120 All edits/amendments must be made on the electronic document DICTATION DATE: 04/15/19 112 CRIME SCENE EXAMINER: TIFFANY 04/15/19 1120 RPT#: [id number] DC DATE: STATUS: ADM IN [facility] [address] [place] [address] END OF REPORT
--- NOTE | 2019-04-15 12:18 | NUR ---
PATIENT EATING LUNCH. PATIENT IS STABLE. CARGRACEZEM GOING PER OCT. WILL CONTINUE TO MONITOR. SR UP X 2 BED IN LOW POSITION AND CALL LIGHT IN REACH.
[2019-04-15 14:05] VITALS: BP 131/82
[2019-04-15 17:26] LABS: CKMB 0.3 U/L (0.0-3.6); CREATINE KINASE 27 UL (21-215); TROPONIN-I < 0.017 ng/mL (0.000-0.060)
[2019-04-15 17:31] VITALS: BP 140/44
--- NOTE | 2019-04-15 17:47 | NUR ---
PATIENT HAD LARGE WATERY BROWN STOOL. PATIENT CLEANED AND TOTAL LINEN AND GOWN CHANGE. PATIENT NOW SITTING UP IN BED EATING DINNER. PATIENT DENIES ANY NEEDS OR PAIN. WILL CONTINUE TO [facility]. SR UP X 2 BED IN LOW POSITION AND CALL LIGHT IN REACH.
[2019-04-15 20:00] VITALS: BP 127/66
[2019-04-15 22:12] LABS: CKMB 0.2 U/L (0.0-3.6); CREATINE KINASE 21 UL (21-215)
[2019-04-15 22:32] LABS: TROPONIN-I < 0.017 ng/mL (0.000-0.060)
[2019-04-16] VITALS: BP 133/74
[2019-04-16 05:39] LABS: BASOPHILS 0.5 % (0-2); EOSINOPHILS 4.2 % (0-7); HEMATOCRIT 32.8 % (36.0-48.0); HEMOGLOBIN 10.6 g/dL (12-16); IMMATURE GRANULOCYTES 0.6 % (0-5); LYMPHOCYTES 19.6 % (15-50); MCH 27.7 pg (26.0-34.0); MCHC 32.3 g/dL (31.0-37.0); MCV 85.9 fL (80.0-100.0); MEAN PLATELET VOLUME 9.6 fL (7.4-10.4); NEUTROPHILS 64.1 % (40-80); PLATELET COUNT 244 10x3/uL (130-400); RBC 3.82 10x6/uL (4.00-5.40)
[2019-04-16 05:43] VITALS: BP 143/80
[2019-04-16 05:57] LABS: CALC OSMOLALITY 276 mosm/kg (275-300); CARBON DIOXIDE 31.9 mmol/L (21.0-32.0); CHLORIDE - SERUM 104 mmol/L (98-107); CREATININE - SERUM 0.6 mg/dL (0.6-1.3); GLUCOSE 82 mg/dL (74-106); POTASSIUM - SERUM 3.7 mmol/L (3.5-5.1); SODIUM 140 mmol/L (136-145); eGFR NON AFRICAN AMERICAN > 90 mL/min (90-120)
[2019-04-16 05:58] LABS: UREA NITROGEN 10 mg/dL (7-18)
[2019-04-16 09:16] VITALS: BP 148/77
--- NOTE | 2019-04-16 09:23 | NUR ---
awake and alert. DENIES ANY NEEDS. TELEMERTY SHOWS SR 68. 02 AT 2 L/M PER NC. IV TO RIGHT AC HAS NS AT 75 AND A CARDIZEM DRIP AT 5MG/HR. SR UP WITH CALL LIGHT IN REACH. WILL MONITOR
--- NOTE | 2019-04-16 11:21 | NUR ---
Rehab Note- Received voicemail from from [facility] stating her inpatient acute rehab stay will be denied per their medical coding technician d/t the patient being too acutely ill & on the Cardizem drip. Had conversation at length with & will begin PreAuth process again with [facility] when the patient is medically stable. Have spoken with SHAY Dickson. Will continue to follow at this time & begin PreAuth process when medically stable. Thank you for this referral! Deirdre Up RN Clinical Liaison, [facility] Rehab
--- NOTE | 2019-04-16 12:17 | NUR ---
Nutrition Follow-up: Chart reviewed. Overall good/fair PO intake. Noted pt had large watery BM last night. Diet: Cardiac PO intake: 79% avg x 7 meals Wt: 230# Labs reviewed Meds reviewed Continue current diet as tolerated. Offer nutrition supplements. [place] food preferences within diet restrictions. RD following.
--- NOTE | 2019-04-16 12:53 | NUR ---
OT NOTE: PT PERFORMED VERY WELL TODAY. INITIALLY VERY LETHARGIC BUT BETTER THERAPY ADVANCED. BED MOB WITH MIN ASSIST AND EXT TIME. SIT TO STAND WITH MOD ASSIST AND USE OF WALKER. PT ABLE TO AMB TODAY WITH MIN/MOD ASSIST, IV, O2, WALKER, AND MOD VERBAL CUES TO ADVANCE RLE VS DRAGGING IT. AMB APPROX 20 FT. TOILET TRANSFER WITH MIN/MOD ASSIST USING A BED SCRUGGS IN CHAIR. MAX ASSIST WITH HYGIENE. ABLE TO WASH HANDS, FACE, ARMS, AND CHEST WITH SET UP. UE DRESSING WITH MIN ASSIST. MOD ASSIST TO AMELIA SOCKS CAMRON GORDON, OTR/L
--- NOTE | 2019-04-16 12:59 | NUR ---
URINE SPECIMAN CUP GIVEN TO PT FOR UA. STATES SHE WILL DO IT SOON
[2019-04-16 13:27] VITALS: BP 125/98
--- NOTE | 2019-04-16 14:50 | NUR ---
I have reviewed this patient and I concur with the Shift Assessment completed by the Licensed Practical Nurse today this shift.
--- NOTE | 2019-04-16 15:08 | NUR ---
OT NOTE: PT COMPLETED ADL MOB WITH MOD A WITH RW. PT COMPLETED SIT TO STAND WITH MOD A. PT REQUIRED MOD/MAX A FOR HYGIENE TASKS. THANK YOU, BRENNAN WARD
[2019-04-16 16:45] VITALS: BP 142/77
--- NOTE | 2019-04-16 18:09 | NUR ---
HOB UP FOR DIET. DENIES ANY NEEDS. SR UP WITH CALL LIGHT IN REACH.TELEMERTY SHOWS SR. WILL MONITOR
--- NOTE | 2019-04-16 19:05 | NUR ---
RESP IN ROOM AND TX GOING PT ALERT AND OX4 SKIN WARM AND DRY O2 AT 2 OTHERWISE AND IV TO RT AC IS PATENT
--- NOTE | 2019-04-16 19:40 | NUR ---
LCTA BED LOW AND LOCKED AND CALL LIGHT IS IN REACH
[2019-04-16 21:00] VITALS: BP 149/77
[2019-04-17 00:50] VITALS: BP 150/63
--- NOTE | 2019-04-17 04:37 | NUR ---
I have reviewed this patient and I concur with the Shift Assessment completed by the Licensed Practical Nurse today this shift.
[2019-04-17 04:46] LABS: BASOPHILS 0.4 % (0-2); EOSINOPHILS 4.9 % (0-7); HEMATOCRIT 32.5 % (36.0-48.0); HEMOGLOBIN 10.5 g/dL (12-16); IMMATURE GRANULOCYTES 0.5 % (0-5); LYMPHOCYTES 23.9 % (15-50); MCH 27.9 pg (26.0-34.0); MCHC 32.3 g/dL (31.0-37.0); MCV 86.2 fL (80.0-100.0); MEAN PLATELET VOLUME 9.3 fL (7.4-10.4); MONOCYTES 12.3 % (2-11); PLATELET COUNT 253 10x3/uL (130-400); RBC 3.77 10x6/uL (4.00-5.40); WBC 7.7 10x3/uL (4.8-10.8)
[2019-04-17 04:56] LABS: CALC OSMOLALITY 278 mosm/kg (275-300); CALCIUM 8.3 mg/dL (8.5-10.1); CARBON DIOXIDE 32.5 mmol/L (21.0-32.0); CHLORIDE - SERUM 104 mmol/L (98-107); CREATININE - SERUM 0.7 mg/dL (0.6-1.3); GLUCOSE 86 mg/dL (74-106); POTASSIUM - SERUM 4.1 mmol/L (3.5-5.1); SODIUM 141 mmol/L (136-145); UREA NITROGEN 11 mg/dL (7-18); eGFR NON AFRICAN AMERICAN 87 mL/min (90-120)
[2019-04-17 06:35] VITALS: BP 139/72
--- NOTE | 2019-04-17 08:20 | NUR ---
ASSESSMENT COMPLETED. AWAKE AND ALERT. TELEMERTY SHOWS SR. O2 AT 2 L/M PER NC. RIGHT AC WITH NS AT 75. PT IS INCOIENT OF URINE AND STOOL. SR UP WITH CALL LIGHT IN REACH. WILL MONITOR
[2019-04-17 08:30] VITALS: BP 111/46
[2019-04-17 10:17] LABS: % SATURATION 12 % (15-55); IRON 34 ug/dl (35-150); TOTAL IRON BIND CAPACITY 265 ug/dl (260-445); UNSAT IRON BIND CAPACITY 231 ug/dl (150-375)
--- NOTE | 2019-04-17 12:39 | NUR ---
OT NOTE: PT DOING WELL HOWEVER, REPORTING INCREASED PAIN IN R LE DURING AMBULAITON. BED MOB WITH MOD ASSIST. EOB SITTING WITH GOOD BALANCE. GROOMING TASKS INCLUDING BRUSHING HAIR, WASHING FACE AND UPPER BODY WITH WASH CLOTH AND SET UP; MIN ASSIST TO AMELIA GOWN. ATTEMPTED AMBULATION AND PT GRIMACING AND C/O PAIN IN FX AREA. ASSISTED TO CHAIR WITH WALKER AND MOD ASSIST. PT UNABLE TO ADVANCE L LE DUE TO PAIN WITH WT BEARING ON R LE. PT BACK TO SCOOTING FOOT VS STEPPING. CAMRON GORDON, OTR/L
[2019-04-17 13:45] VITALS: BP 129/63
--- NOTE | 2019-04-17 14:40 | NUR ---
I have reviewed this patient and I concur with the Shift Assessment completed by the Licensed Practical Nurse today this shift.
[2019-04-17 16:32] VITALS: BP 136/71
[2019-04-17 20:00] VITALS: BP 133/67
--- NOTE | 2019-04-17 20:00 | NUR ---
REPORT RECIEVED AND ROUNDING COMPLETE. PATIENT LAYING IN BED EYES CLOSED. BREATHING EVEN AND UNLABORED NO S/SX OF DISTRESS. PATIENT HAS A RIGHT AC PIV THAT IS PATENT AND SHOWING NO S/SX OF INFILTRATION. PATIEN IS WEARING NASAL CANNULA WITH O2 AT 2L. CALL LIGHT WITHIN REACH AND BED IN LOWEST POSITON.
--- NOTE | 2019-04-17 20:29 | NUR ---
ODD JOBS DAY WORKER REPORTS ELEVATED TEMP. WILL TREAT PER MAR
[2019-04-18] VITALS: BP 110/68
[2019-04-18 04:00] VITALS: BP 135/87
[2019-04-18 05:49] LABS: BASOPHILS 0.2 % (0-2); EOSINOPHILS 5.2 % (0-7); HEMATOCRIT 33.6 % (36.0-48.0); HEMOGLOBIN 10.8 g/dL (12-16); IMMATURE GRANULOCYTES 0.5 % (0-5); LYMPHOCYTES 25.5 % (15-50); MCHC 32.1 g/dL (31.0-37.0); MEAN PLATELET VOLUME 10.3 fL (7.4-10.4); MONOCYTES 12.6 % (2-11); PLATELET COUNT 261 10x3/uL (130-400); RBC 3.86 10x6/uL (4.00-5.40); WBC 8.3 10x3/uL (4.8-10.8)
[2019-04-18 06:07] LABS: CALCIUM 8.6 mg/dL (8.5-10.1); CARBON DIOXIDE 30.6 mmol/L (21.0-32.0); CHLORIDE - SERUM 105 mmol/L (98-107); CREATININE - SERUM 0.6 mg/dL (0.6-1.3); POTASSIUM - SERUM 3.8 mmol/L (3.5-5.1); SODIUM 140 mmol/L (136-145); UREA NITROGEN 10 mg/dL (7-18); eGFR NON AFRICAN AMERICAN > 90 mL/min (90-120)
[2019-04-18 06:20] LABS: CALC OSMOLALITY 276 mosm/kg (275-300); GLUCOSE 72 mg/dL (74-106)
--- NOTE | 2019-04-18 07:20 | NUR ---
PT RESTING IN BED, SHIFT ASSESSMENT PERFORMED. DENIES ANY NEEDS AT THIS TIME, WILL CONT TO FOLLOW POC
[2019-04-18 08:30] VITALS: BP 125/78
[2019-04-18 12:45] VITALS: BP 116/64
--- NOTE | 2019-04-18 15:19 | NUR ---
PT RESTING IN BED EATING LUNCH. DENIES ANY NEEDS AT THIS TIME. WILL CONT TO FOLLOW POC
[2019-04-18 16:45] VITALS: BP 129/68
[2019-04-18 22:06] VITALS: BP 137/76
--- NOTE | 2019-04-18 23:15 | NUR ---
INITIAL ROUNDS COMPLETED AT 1915 HRS. PT DENEID ANY DISCOMFORT. ASSESSMETN COMPLETED AT 1954 H RS. UCAF PER CM HR 103. PT ALERT, ORIENTED TO PERSON AND PLACE. REORIENTED TO TIME AND SITUATION. IV TO RAC WITH NS AT 75CC/HR. IV PATENT. LUNGS DIMINSHED IN BASES BILAT. AJ. PT INCONTINENT OF URINE. INCONTINENT CARE DONE. BED LINENS CHANGED. PM MEDS GIVEN. PT CURRENTLY RESTING WITH EYES CLOSED. RESP EVEN AND REGULAR. SR UP X2, CALL LIGHT WITHIN REACH AND BED ALARM ON.
[2019-04-19] VITALS (7 sets, daily range): BP systolic 98–153; BP diastolic 47–78
--- NOTE | 2019-04-19 01:47 | NUR ---
PT RESTING WITH EYES CLOSED. RESP EVEN AND REGULAR. SR UP X2, CALL LIGHT WITHIN REACH AND BED ALARM ON.
--- NOTE | 2019-04-19 02:54 | NUR ---
PT INCONTINENT OF URINE. BED BATHDONE, BED LINENS CHANGED. PT REPOSITIONED IN BED FOR COMFORT. SR UP X2, CALL LIGHT WITHIN REACH.
--- NOTE | 2019-04-19 04:15 | NUR ---
PT RESTING WITH EYES CLOSED. RESP EVEN AND REGULAR. SR UP X2, CALL LIGHT WITHIN REACH AND BED ALARM ON.
[2019-04-19 05:43] LABS: BASOPHILS 0.5 % (0-2); EOSINOPHILS 4.3 % (0-7); HEMATOCRIT 35.6 % (36.0-48.0); HEMOGLOBIN 11.6 g/dL (12-16); IMMATURE GRANULOCYTES 0.3 % (0-5); LYMPHOCYTES 24.4 % (15-50); MCH 28.4 pg (26.0-34.0); MCHC 32.6 g/dL (31.0-37.0); MCV 87.3 fL (80.0-100.0); MEAN PLATELET VOLUME 10.7 fL (7.4-10.4); MONOCYTES 11.2 % (2-11); NEUTROPHILS 59.3 % (40-80); PLATELET COUNT 226 10x3/uL (130-400); RBC 4.08 10x6/uL (4.00-5.40); RDW 16.8 % (11.5-14.5); WBC 9.4 10x3/uL (4.8-10.8)
[2019-04-19 06:03] LABS: CALC OSMOLALITY 278 mosm/kg (275-300); CALCIUM 8.8 mg/dL (8.5-10.1); CARBON DIOXIDE 31.2 mmol/L (21.0-32.0); CHLORIDE - SERUM 104 mmol/L (98-107); CREATININE - SERUM 0.6 mg/dL (0.6-1.3); GLUCOSE 80 mg/dL (74-106); POTASSIUM - SERUM 4.3 mmol/L (3.5-5.1); SODIUM 141 mmol/L (136-145); UREA NITROGEN 9 mg/dL (7-18); eGFR NON AFRICAN AMERICAN > 90 mL/min (90-120)
--- NOTE | 2019-04-19 06:21 | NUR ---
VSS THROUGHOTU NIGHT. CAF PER CM HR 82 THIS AM. INCONTINENT X3 DURING SHIFT. PT CLEAN AND SRY AT THIS TIME. NEEDS MET; WILL CONTINUE TO MONITOR.
--- NOTE | 2019-04-19 08:00 | NUR ---
PT RESTING IN BED, SHIFT ASSESSMENT PERFORMED. DENIES ANY NEEDS AT THIS TIME. WILL CONT TO FOLLOW POC
--- NOTE | 2019-04-19 12:15 | NUR ---
PT RESTING IN CHAIR EATING LUNCH, DENIES ANY NEEDS AT THIS TIME, WILL CONT TO FOLLOW POC
--- NOTE | 2019-04-19 18:29 | NUR ---
PT RESTING IN BED, FAMILY IS BRINGING HER SUPPER. DENIES ANY NEEDS AT THIS TIME. BED ALARM ON. WILL CONT TO FOLLOW POC
--- NOTE | 2019-04-19 20:14 | NUR ---
PT IN W/C WITH FAMILY GOING DOWNSTAIRS AT 1915 HRS. NO DISTRESS NOTED. BACK TO ROOM AT 1950 HRS. PT ALERT, ORIENTED TO PERSON AND PLACE. REORIENTED TO TIME AND SITUATION. O2 2LNC. INSPIRATORY WHEEZES NOTED TO UPPER R LOBES, DIMINSHED IN BASES BILAT. AJ. IV TO RAC WITH NS AT 75C/HR. IV PATENT. BUTTOCKS SLIGHTLY EXCORIATED. WILL CONTINUE TO MONITOR. SR UP X2, CALL LIGHT WITHIN REACH.
--- NOTE | 2019-04-19 20:49 | NUR ---
PT INCONTINENT OF URINE. INCONTINENT CARE DONE, BED LINENS CHANGED. PT TOLERATED ACTIVITY WELL.
--- NOTE | 2019-04-19 22:06 | NUR ---
PM MEDS GIVEN. SR UP X2, CALL LIGHT WITHIN REACH.
--- NOTE | 2019-04-19 23:47 | NUR ---
UCAF PER CM HR 127. PT DENIES ANY DISCOMFORT. FAN PROVIDED PER REQUEST. SR UP X2, CALL LIGHT WITHIN REACH.
--- NOTE | 2019-04-20 00:56 | NUR ---
PT INCONTINENT OF URINE AND STOOL. INCONTINENT CARE DONE, BED LINENS CHANGED. PT STATES FEELS MUCH IMPROVED. CAF PER CM HR 89. CALL LIGHT WITHIN REACH.
--- NOTE | 2019-04-20 02:05 | NUR ---
PT RESTING WITH EYES CLOSED. RESP EVEN AND REGULAR. SR UP X2, CALL LIGHT WITHIN REACH.
[2019-04-20 04:37] VITALS: BP 112/63
[2019-04-20 04:42] LABS: BASOPHILS 0.4 % (0-2); EOSINOPHILS 3.5 % (0-7); HEMATOCRIT 32.9 % (36.0-48.0); HEMOGLOBIN 10.5 g/dL (12-16); IMMATURE GRANULOCYTES 0.4 % (0-5); LYMPHOCYTES 23.6 % (15-50); MCH 27.9 pg (26.0-34.0); MCHC 31.9 g/dL (31.0-37.0); MCV 87.5 fL (80.0-100.0); MEAN PLATELET VOLUME 9.9 fL (7.4-10.4); MONOCYTES 8.3 % (2-11); NEUTROPHILS 63.8 % (40-80); PLATELET COUNT 249 10x3/uL (130-400); RBC 3.76 10x6/uL (4.00-5.40); RDW 16.7 % (11.5-14.5); WBC 9.4 10x3/uL (4.8-10.8)
--- NOTE | 2019-04-20 04:46 | NUR ---
PT INCONTINENT OF URINE. INCONTINENT CARE DONE, BED LINENS CHANGED. PT DENIES ANY DISCOMFORT. SR UP X2, CALL LIGHT WITHIN REACH.
[2019-04-20 04:54] LABS: CALC OSMOLALITY 281 mosm/kg (275-300); CALCIUM 8.4 mg/dL (8.5-10.1); CARBON DIOXIDE 33.9 mmol/L (21.0-32.0); CHLORIDE - SERUM 105 mmol/L (98-107); CREATININE - SERUM 0.7 mg/dL (0.6-1.3); GLUCOSE 82 mg/dL (74-106); POTASSIUM - SERUM 3.9 mmol/L (3.5-5.1); SODIUM 142 mmol/L (136-145); eGFR NON AFRICAN AMERICAN 87 mL/min (90-120)
[2019-04-20 04:57] LABS: UREA NITROGEN 13 mg/dL (7-18)
--- NOTE | 2019-04-20 05:44 | NUR ---
VSS THROUGHOUT NIGHT. CAF PER CM THIS AM. DENIES ANY DISCOMFORT. NEEDS MET; WILL CONTINUE TO MONITOR.
--- NOTE | 2019-04-20 07:00 | NUR ---
PT RESTING PEACEFULLY, BREATHS EVEN/REGULAR/UNLABORED. NO SIGNS/SYMPTOMS OF ACUTE DISTRESS AT THIS TIME. DID NOT FURTHER DISTURB AT THIS TIME. CL IN REACH, SRX2. NO FMAILY PRESENT.
[2019-04-20 08:14] VITALS: BP 103/55
--- NOTE | 2019-04-20 11:10 | NUR ---
OT NOTE: PT IN BED; VERY LETHARGIC. ASSISTED PT TO EOB WITH MOD ASSIST; PT HAD VERY WATERY DIARRHEA BUT DID NOT ATTEMPT TO ASK TO GO TO BATHROOM, NOR DID SHE ATTEMPT TO COMPLETE HYGIENE. REQUIRED TOTAL ASSIST WITH TOILET HYGIENE. AFTER GETTING PT CLEANED AND CHANGING LINENS, HAD PT SIT ON EOB TO COMPLETE BATH. PT ABLE TO WASH FACE, HANDS, CHEST AND UPPER LEGS WITH WASH CLOTH. REQUIRED ASSIST WITH BACK. STOOD WITH PT WITH MOD ASSIST AND SHE REQUIRED TOTAL ASSIST FOR PERINEAL CARE. PT WITH INCREASED WEAKNESS TODAY. ABLE TO STAND FOR ONLY APPROX 1 MIN EACH TIME ( REQUIRED 4 ATTEMPTS IN STANDING). PT NOT WANTING TO GET UP IN CHAIR. MOD ASSIST FOR GETTING BACK TO BED. CAMRON GORDON, OTR/L
[2019-04-20 11:17] VITALS: BP 108/61
--- NOTE | 2019-04-20 12:01 | NUR ---
I have reviewed this patient and I concur with the Shift Assessment completed by the Licensed Practical Nurse today this shift.
--- NOTE | 2019-04-20 13:20 | NUR ---
Nutrition Follow-up: Pt reports overall good appetite. Observed breakfast tray; majority eaten. Noted watery diarrhea this AM. Diet: Cardiac PO intake: 58% avg x 9 meals No new wt Labs reviewed Meds reviewed Continue current diet as tolerated. Pt agreed to try Ensure; sent with lunch today. RD following.
--- NOTE | 2019-04-20 15:09 | NUR ---
Rehab Note- Spoke with Darlene Paul reintiated a PreAuth for an inpatient acute rehab stay. Pending Ref#[id number], clinicals faxed in for review at this time. Will continue to follow. Thank you for this referral! Deirdre Up RN Clinical Liaison, [facility] Rehab
[2019-04-20 15:23] VITALS: BP 100/65
--- NOTE | 2019-04-20 18:53 | NUR ---
WITHELD BREATHING TX DUE TO ELEVATED HR OF 165 CONFIRMED VIA TELEMETRY
--- NOTE | 2019-04-20 19:33 | NUR ---
OT NOTE: PT COMPLETED BED MOB WITH MIN A. PT COMPLETED SIT TO STAND WITH CGA. PT REQUIRED TOTAL A WITH HYGIENE TASKS. PT REQUIRED CUES FOR TASK COMPLETION. THANK YOU, BRENNAN WARD
[2019-04-20 20:00] VITALS: BP 103/70
--- NOTE | 2019-04-20 22:51 | NUR ---
CONCRETE FOREMAN AT BED SIDE, BATH AND LINEN CHANGE COMPLETE.
[2019-04-21] VITALS: BP 123/57
--- NOTE | 2019-04-21 01:10 | NUR ---
RESTING WITH EYES CLOSED, RESPERATIONS EVEN, NO S/S DISTRESS NOTED.
--- NOTE | 2019-04-21 03:23 | NUR ---
I have reviewed this patient and I concur with the Shift Assessment completed by the Licensed Practical Nurse today this shift.
[2019-04-21 04:00] VITALS: BP 114/57
[2019-04-21 06:35] LABS: BASOPHILS 0.4 % (0-2); EOSINOPHILS 3.4 % (0-7); HEMATOCRIT 33.3 % (36.0-48.0); HEMOGLOBIN 10.8 g/dL (12-16); IMMATURE GRANULOCYTES 0.4 % (0-5); LYMPHOCYTES 19.9 % (15-50); MCH 28.4 pg (26.0-34.0); MCHC 32.4 g/dL (31.0-37.0); MCV 87.6 fL (80.0-100.0); MEAN PLATELET VOLUME 10.3 fL (7.4-10.4); MONOCYTES 9.3 % (2-11); NEUTROPHILS 66.6 % (40-80); PLATELET COUNT 234 10x3/uL (130-400); RDW 16.5 % (11.5-14.5); WBC 10.5 10x3/uL (4.8-10.8)
[2019-04-21 06:53] LABS: ALBUMIN 2.3 g/dL (3.4-5.0); ALKALINE PHOSPHATASE 78 U/L (46-116); ALT (SGPT) 17 U/L (10-68); BILIRUBIN - TOTAL 0.27 mg/dL (0.2-1.3); CALC OSMOLALITY 282 mosm/kg (275-300); CALCIUM 8.5 mg/dL (8.5-10.1); CARBON DIOXIDE 36.3 mmol/L (21.0-32.0); CHLORIDE - SERUM 104 mmol/L (98-107); CREATININE - SERUM 0.6 mg/dL (0.6-1.3); GLUCOSE 82 mg/dL (74-106); POTASSIUM - SERUM 4.1 mmol/L (3.5-5.1); PROTEIN - SERUM 5.4 g/dL (6.4-8.2); SODIUM 143 mmol/L (136-145); UREA NITROGEN 10 mg/dL (7-18); eGFR NON AFRICAN AMERICAN > 90 mL/min (90-120)
--- NOTE | 2019-04-21 07:21 | NUR ---
EYES CLOSED BUT RESPONDS TO VERBLE STEMULI. 02 AT 2 L/M PER NC. LEFT AC IV WITH NS AT 75. TELEMERTY SHOWS CAF 90. SR UP WITH CALL LIGHT IN REACH
[2019-04-21 08:39] VITALS: BP 106/79
[2019-04-21 11:34] VITALS: BP 116/65
--- NOTE | 2019-04-21 13:03 | NUR ---
OT NOTE: BED MOB WITH MIN ASSIST; TOILETING WITH MOD ASSIST. AMB IN ROOM WITH WALKER AND MIN/MOD ASSIST WITH VC FOR ADVANCING L LE VS SLIDING. CUES FOR EACH STEP. SIMPLE GROOMING WITH SET UP CAMRON GORDON OTR/L
--- NOTE | 2019-04-21 14:22 | NUR ---
I have reviewed this patient and I concur with the Shift Assessment completed by the Licensed Practical Nurse today this shift.
[2019-04-21 15:42] VITALS: BP 130/73
[2019-04-21 21:01] VITALS: BP 124/69
--- NOTE | 2019-04-21 21:17 | NUR ---
HS MEDS GIVEN WITH FRESH ICE WATER. PT DENIES NEEDS. BED LOW, CL IN REACH.
--- NOTE | 2019-04-21 22:09 | NUR ---
GREASER HELPER AT BED SIDE, BATH AND LINEN CHANGE COMPLETE. REPOSITIONED IN BED FOR COMFORT.
[2019-04-22] VITALS: BP 121/53
[2019-04-22 04:00] VITALS: BP 128/76
[2019-04-22 05:58] LABS: BASOPHILS 0.5 % (0-2); EOSINOPHILS 3.9 % (0-7); HEMATOCRIT 33.6 % (36.0-48.0); HEMOGLOBIN 10.8 g/dL (12-16); IMMATURE GRANULOCYTES 0.3 % (0-5); LYMPHOCYTES 22.2 % (15-50); MCH 28.1 pg (26.0-34.0); MCHC 32.1 g/dL (31.0-37.0); MCV 87.5 fL (80.0-100.0); MEAN PLATELET VOLUME 10.4 fL (7.4-10.4); MONOCYTES 7.9 % (2-11); NEUTROPHILS 65.2 % (40-80); PLATELET COUNT 209 10x3/uL (130-400); RBC 3.84 10x6/uL (4.00-5.40); RDW 16.4 % (11.5-14.5); WBC 8.8 10x3/uL (4.8-10.8)
[2019-04-22 06:32] LABS: ALBUMIN 2.3 g/dL (3.4-5.0); ALKALINE PHOSPHATASE 73 U/L (46-116); ALT (SGPT) 17 U/L (10-68); BILIRUBIN - TOTAL 0.28 mg/dL (0.2-1.3); CALC OSMOLALITY 280 mosm/kg (275-300); CALCIUM 9.1 mg/dL (8.5-10.1); CARBON DIOXIDE 37.3 mmol/L (21.0-32.0); CHLORIDE - SERUM 102 mmol/L (98-107); CREATININE - SERUM 0.6 mg/dL (0.6-1.3); GLUCOSE 78 mg/dL (74-106); POTASSIUM - SERUM 3.6 mmol/L (3.5-5.1); PROTEIN - SERUM 6.1 g/dL (6.4-8.2); SODIUM 142 mmol/L (136-145); UREA NITROGEN 9 mg/dL (7-18); eGFR NON AFRICAN AMERICAN > 90 mL/min (90-120)
--- NOTE | 2019-04-22 07:56 | NUR ---
ASSESSMENT DONE. DENIES NEEDS
[2019-04-22 08:00] VITALS: BP 131/75
--- NOTE | 2019-04-22 09:44 | NUR ---
I have reviewed this patient and I concur with the Shift Assessment completed by the Licensed Practical Nurse today this shift.
[2019-04-22 12:00] VITALS: BP 101/67
--- NOTE | 2019-04-22 13:20 | NUR ---
Rehab Note- Spoke with Tracy with [facility] stating that the patient has been denied an inpatient acute rehab stay due to concerns for the patient would be able to participate in the required 3hrs/day of therapy, but would approve a SNF. Has the option to do a peer to peer by 1200 on 04/23/19 by calling [phone]. Ref#[id number]. VM left for SHAY Dickson. Thank you for this referral! Deirdre Up RN Clinical Liaison, [facility] Rehab
--- NOTE | 2019-04-22 14:01 | NUR ---
OT NOTE: BED MOB WITH MIN/CGA; IN ROOM AMBULATION WITH MIN ASSIST AND PT VERY FRUSTRATED WHEN CUES TO ADVANCE STEP VS SLIDING HER FOOT. SET UP FOR GROOMING TASKS. AGREEABLE TO SIT UP IN CHAIR. SLIGHTLY MORE AGITATED TODAY. CAMRON GORDON, OTR/L
--- NOTE | 2019-04-22 14:29 | NUR ---
OT NOTE: PT COMPLETED SIT TO STAND WITH MIN A. PT COMPLETED ADL MOB WITH MIN A. PT EDUCATED TO LIFT FOOT...NOT SLIDE AND TWIST. PT COMPLETED HAIR GROOMING WITH SET UP. PT COMPLETED UE AROM AXS. THANK YOU, BRENNAN WARD
[2019-04-22 16:00] VITALS: BP 91/49
--- NOTE | 2019-04-22 16:53 | MORECARE ---
CASE MANAGEMENT DISCHARGE SUMMARY PATIENT: DANIEL ALVAREZ UNIT: [id number] ADM DATE: 04/12/19 AGE: 73 : 44 SEX: F ROOM/BED: D.0373 AUTHOR: WILL,DOC PHYSICIAN: REFERRING PHYSICIAN: MYESHA JOYNER MD DATE OF SERVICE: 04/22/19 Discharge Plan Patient Name: DANIEL ALVAREZ Facility: [facility]:[place] : 1945 Planned Disposition: Home with Home Health Anticipated Discharge Date: Discharge Date: Expected LOS: Initial Reviewer: [email or web address] Initial Review Date: 04/13/2019 Generated: 04/22/19 5:52 pm Comments DCP- Discharge Planning Updated by [id number]: Jaya Dove on 04/22/19 3:[address] Patient Name: DANIEL ALVAREZ Encounter No: [id number] : 1945 Primary Insurance: [employer] Anticipated DC Date: Planned Disposition: Home with Home Health External Planned Provider: TO BE DETERMINED DCP follow-up note: CM RECEIVED CALL FROM [facility]PAT[facility], PT WAS DECLINED BY INSURANCE FOR INPATIENT REHAB. CM SPOKE TO PT IN ROOM, PT DOES NOT WANT TO GO TO [facility] FOR REHAB AND WANTS TO RETURN HOME WITH HOME HEALTH. PT REPORTS GETTING OUT OF BED AND WALKING INDEPENDENTLY AND IS STONG ENOUGH TO RETURN HOME AT DISCHARGE. PT DENIES FURHTER NEEDS OTHER THAN HOME HEALTH. CM NOTIFIED PEPITO RIDER. CM TO FOLLOW UP WITH PT SOON POSSIBLE TO GET PT'S CHOICE ON HOME HEALTH PROVIDER AND WILL ARRANGE HOME HEALTH FOR DISCHARGE HOME WITH PHYSICIAN AGREEEMENT AND ORDERS. Jaya Dove, CASE MANAGEMENT DCP- Discharge Planning Updated by [id number]: Zohreh Potter on 04/15/19 10:[address] CM spoke with patient's sister yesterday. Her sister (Tracy) states she doesn't want her to go to a retirement if possible. She states that she would like her to go to inpatient rehab. I informed her that she would need authorization for that from insurance and inpatient rehab is already working on that. I informed her that it could probably be a denial if she is unable to participate in 3 hours of therapy a day. Her sister states if she is denied, that she would consent to a skilled unit. I spoke with Maria E with [facility], and Maria E states she believes [facility] are in network, but unsure. I also spoke with Dong Mac with [facility] and he states he may be able to work with her insurance for authorization. Her sister states it does not matter which one she goes to, "whatever we can find". zeyad Menjivar for [facility], states they are not in network with [employer]. CM will continue to follow and assist with discharge planning/needs. DCP- Discharge Planning Updated by [id number]: Zohreh Potter on 04/13/19 2:[address] Patient Name: DANIEL ALVAREZ Admission Status: ER Accout number: [id number] Admission Date: 04-12-2019 : 1945 Admission Diagnosis: Attending: MYESHA JOYNER Current LOS: 1 Anticipated DC Date: Planned Disposition: Inpatient Rehab Primary Insurance: [employer] Discharge Planning Comments: CM met with patient to discuss discharge planning/needs. She lives with her sister and brother in law in a mobile home. She states she is ok with going to rehab and doesn't care where she goes. Permission granted to call her family for further planning. I spoke with patient's brother in law (Ray) to discuss discharge plan. I informed them of the availability of inpatient rehab, SNF, home health and DME. He states he would like her to stay here at our inpatient rehab if possible. He states that he feels she may need more than 2 weeks of therapy though. I discussed SNF. He states he would like a referral to [facility] if inpatient rehab is not authorized. I spoke with Ngozi at [facility], they do not accept [employer]. She will need preauthorization for inpatient rehab. CM will continue to follow and assist with discharge planning/needs. Straightening Machine Operator: Zohreh Potter DCPIA - Discharge Planning Initial Assessment Updated by [id number]: Zohreh Potter on 04/13/19 3:17 pm * Is the patient Alert and Oriented? Yes * How many steps to enter\\exit or inside your home? 4/0 * PCP Flakita Delaney * Pharmacy [facility] * Preadmission Environment Home with Family * ADLs Partial Dependent * Partial ADLs (Assistance needed) Ambulation Medication Management * Equipment Cane Nebulizer Other Oxygen * Other Equipment Portable oxygen Trilogy * List name and contact numbers for known caregivers / representatives who currently or will assist patient after discharge: Ray Alexander - Brother in law - [phone] Tracy Alexander - Sister (POA) - [phone] * Verbal permission to speak to the caregivers and representatives has been obtained from the patient. Yes * Community resources currently utilized Other * Please name any agencies selected above. House Call[facility] * Additional services required to return to the preadmission environment? Yes * Can the patient safely return to the preadmission environment? No * Has this patient been hospitalized within the prior 30 days at any hospital? No Coverage Notice Reviewer: [id number] Jenni Potter Notice Issued Date-Time: 04/13/2019 15:24 Notice Type: Patient Choice Letter Notice Delivered To: Family Member Relationship to Patient: Brother in Law Auto Bumper Straightener Name: Ray Alexander Delivery Method: HAND - Hand Delivered Isha Days: Prior Verbal Notification: Recipient Understood Notice: Yes Recipient Signature: Med Rec Note Co-signed by Attending: Coverage Notice Comment: [place] for [facility] Last DP export: 04/15/19 10:20 a Patient Name: DANIEL ALVAREZ Page [id number] at 1653 All edits/amendments must be made on the electronic document DICTATION DATE: 04/22/191651 MAKING LINE WORKER: TIFFANY 04/22/191651 RPT#: [id number] DC DATE: STATUS: ADM IN [facility] [address] [place] [address] END OF REPORT
--- NOTE | 2019-04-22 17:31 | NUR ---
WITHOUT CHANGES OR DISTRESS NOTED AT THIS TIME. DENIES NEEDS
--- NOTE | 2019-04-22 19:20 | NUR ---
BEDSIDE REPORT RECEIVED FROM DAY SHIFT, PT CARE ASSUMED. INTRODUCED SELF AND WROTE NAME ON BOARD. PT LYING IN BED WITH EYES CLOSED, RR EVEN AND NONLABORED, NO S/S OF DISTRESS, AROUSES EASILY TO VOICE. DENIES ANY NEEDS AT THIS TIME. BED IN LOWEST POSITION, SR X2, CALL LIGHT WITHIN REACH. WILL CONTINUE TO MONITOR.
[2019-04-22 20:47] VITALS: BP 127/80
[2019-04-23] VITALS: BP 91/58
--- NOTE | 2019-04-23 01:31 | NUR ---
PT LYING AWAKE IN BED, WATCHING TV. DENIES ANY NEEDS AT THIS TIME. BED IN LOWEST POSITION, SR X2, CALL LIGHT WITHIN REACH. WILL CONTINUE TO MONITOR.
[2019-04-23 04:00] VITALS: BP 104/69
[2019-04-23 05:56] LABS: BASOPHILS 0.4 % (0-2); EOSINOPHILS 3.9 % (0-7); HEMATOCRIT 33.5 % (36.0-48.0); HEMOGLOBIN 10.7 g/dL (12-16); IMMATURE GRANULOCYTES 0.4 % (0-5); LYMPHOCYTES 21.4 % (15-50); MCH 28.1 pg (26.0-34.0); MCHC 31.9 g/dL (31.0-37.0); MCV 87.9 fL (80.0-100.0); MEAN PLATELET VOLUME 10.3 fL (7.4-10.4); MONOCYTES 9.8 % (2-11); NEUTROPHILS 64.1 % (40-80); PLATELET COUNT 228 10x3/uL (130-400); RBC 3.81 10x6/uL (4.00-5.40); RDW 16.2 % (11.5-14.5); WBC 9.8 10x3/uL (4.8-10.8)
[2019-04-23 06:18] LABS: ALBUMIN 2.4 g/dL (3.4-5.0); ALKALINE PHOSPHATASE 85 U/L (46-116); ALT (SGPT) 17 U/L (10-68); BILIRUBIN - TOTAL 0.19 mg/dL (0.2-1.3); CALCIUM 8.9 mg/dL (8.5-10.1); CARBON DIOXIDE 35.3 mmol/L (21.0-32.0); CHLORIDE - SERUM 103 mmol/L (98-107); CREATININE - SERUM 0.5 mg/dL (0.6-1.3); GLUCOSE 86 mg/dL (74-106); PROTEIN - SERUM 5.5 g/dL (6.4-8.2); SODIUM 141 mmol/L (136-145); eGFR NON AFRICAN AMERICAN > 90 mL/min (90-120)
[2019-04-23 06:19] LABS: CALC OSMOLALITY 280 mosm/kg (275-300); POTASSIUM - SERUM 4.4 mmol/L (3.5-5.1); UREA NITROGEN 15 mg/dL (7-18)
--- NOTE | 2019-04-23 07:49 | NUR ---
ASSESSMENT DONE. DENIES NEEDS
[2019-04-23 08:00] VITALS: BP 128/63
--- NOTE | 2019-04-23 09:09 | NUR ---
I have reviewed this patient and I concur with the Shift Assessment completed by the Licensed Practical Nurse today this shift.
[2019-04-23 12:00] VITALS: BP 105/52
--- NOTE | 2019-04-23 12:25 | NUR ---
OT NOTE: PT WAS HAVING BM IN BED. ASKED IF SHE COULD TELL WHEN SHE NEEDED TO HAVE A BM AND SHE STATED YES. EXPLAINED THAT I WOULD FIND A BS COMMODE SO THAT SHE COULD ASK FOR ASSIST TO TOILET VS GOING IN BED.. BED MOB WITH MIN ASSIST; SIT TO STAND WITH MIN ASSIST; MAX ASSIST WITH TOILET HYGIENE; MAX ASSIST TO AMELIA PULL UPS; SET UP FOR WASHING FACE, HANDS, CHEST, ARMS, AND UPPER LEGS..MAX ASSIST WITH LOWER LEGS DUE TO PAIN WHEN BENDING FORWARD IN CHAIR. PT AMB APPROX 10-12 FT IN ROOM WITH CONSTANT CUES FOR ADVANCING L LE.. PT IMPROVED WITH GAIT TOWARDS END OF AMBULATION BUT WAS VERY FATIGUED AND SOB UPON GETTING OVER TO CHAIR. CONTINUE TO RECOMMEND IP REHAB WHEN PT IS MEDICALLY STABLE. CAMRON GORDON, OTR/L
--- NOTE | 2019-04-23 12:43 | NUR ---
Nutrition Follow-up: Pt did not remember if she ate this morning but reports that she likes Ensure. Diet: Cardiac, Ensure with meals PO intake: 50-75% No new wt Last BM: 04/23 Labs reviewed Meds reviewed Continue current diet/supplement as tolerated. RD following.
[2019-04-23 16:18] VITALS: BP 105/52; BP 115/58
--- NOTE | 2019-04-23 17:08 | MORECARE ---
CASE MANAGEMENT DISCHARGE SUMMARY PATIENT: DANIEL ALVAREZ UNIT: [id number] ADM DATE: 04/12/19 AGE: 73 : 43 SEX: F ROOM/BED: D.2123 AUTHOR: WILLDOC PHYSICIAN: REFERRING PHYSICIAN: MYESHA JOYNER MD DATE OF SERVICE: 04/23/19 Discharge Plan Patient Name: DANIEL ALVAREZ Facility: [facility]:[place] : 1945 Planned Disposition: Inpatient Rehab Anticipated Discharge Date: Discharge Date: Expected LOS: Initial Reviewer: [id number] Initial Review Date: 04/13/2019 Generated: 04/23/19 6:08 pm Comments DCP- Discharge Planning Updated by [id number]: Jaya Dove on 04/23/19 4:[address] Patient Name: DANIEL ALVAREZ Encounter No: [id number] : 1945 Primary Insurance: KXEN Anticipated DC Date: Planned Disposition: Inpatient Rehab External Planned Provider: [facility] INPATIENT REHAB DCP follow-up note: CM RECEIVED CALL FROM PT'S SISTER AND POWER OF SATELLITE INSTALLATION TECHNICIAN, TRACY GONZALEZ, WHO WANTED TO DISCUSS DISCHARGE PLANNING. TRACY REPORTS PT NEEDS REHAB INPATIENT AT [place] AND IF DELCINED, SHE WILL NEED ANY GROUP HOME REHAB EXCEPT [facility]. TRACY REPORTS PT HAS DEMENTIA, LIVES WITH HER (TRACY) AND THEY DISCUSSED REHAB LAST NIGHT, PT IS IN AGREEMENT WITH REHAB SERVICES. IF TRACY DOES NOT ANSWER HER PHONE, SHE DIRECTED CM TO CALL HEIKE, HER SPOUSE, . CM SPOKE TO VIDA OF INPATIENT REHAB AT MULTIDISCIPLINARY TEAM MEETING, INPATIENT REHAB TO RESUBMIT TO INSURANCE FOR INPATIENT REHAB AUTHORIZATION REQUEST. CM TO CONTINUE TO FOLLOW AND ASSIST IF NEEDED. LORENZA Beaulieu DCP- Discharge Planning Updated by [id number]: Jaya Dove on 04/22/19 3:[address] Patient Name: DANIEL ALVAREZ Encounter No: [id number] : 1945 Primary Insurance: [employer] Anticipated DC Date: Planned Disposition: Home with Home Health External Planned Provider: TO BE DETERMINED DCP follow-up note: CM RECEIVED CALL FROM VIDA OF INPATIENT REHAB, PT WAS DECLINED BY INSURANCE FOR INPATIENT REHAB. CM SPOKE TO PT IN ROOM, PT DOES NOT WANT TO GO TO GROUP HOME FOR REHAB AND WANTS TO RETURN HOME WITH HOME HEALTH. PT REPORTS GETTING OUT OF BED AND WALKING INDEPENDENTLY AND IS STONG ENOUGH TO RETURN HOME AT DISCHARGE. PT DENIES FURHTER NEEDS OTHER THAN HOME HEALTH. CM NOTIFIED PEPITO RIDER. CM TO FOLLOW UP WITH PT SOON POSSIBLE TO GET PT'S CHOICE ON HOME HEALTH PROVIDER AND WILL ARRANGE HOME HEALTH FOR DISCHARGE HOME WITH PHYSICIAN AGREEEMENT AND ORDERS. Jaya Dove, CASE MANAGEMENT DCP- Discharge Planning Updated by [id number]: Zohreh Potter on 04/15/19 10:[address] CM spoke with patient's sister yesterday. Her sister (Tracy) states she doesn't want her to go to a [facility] if possible. She states that she would like her to go to inpatient rehab. I informed her that she would need authorization for that from insurance and inpatient rehab is already working on that. I informed her that it could probably be a denial if she is unable to participate in 3 hours of therapy a day. Her sister states if she is denied, that she would consent to a skilled unit. I spoke with Maria E with [facility], and Maria E states she believes [facility] are in network, but unsure. I also spoke with Dong Mac with [facility] and he states he may be able to work with her insurance for authorization. Her sister states it does not matter which one she goes to, "whatever we can find". nina Menjivarson for [facility], states they are not in network with [place]. CM will continue to follow and assist with discharge planning/needs. DCP- Discharge Planning Updated by [id number]: Zohreh Potter on 04/13/19 2:[address] Patient Name: DANIEL ALVAREZ Admission Status: ER Accout number: [id number] Admission Date: 04-12-2019 : 1945 Admission Diagnosis: Attending: MYESHA JOYNER Current LOS: 1 Anticipated DC Date: Planned Disposition: Inpatient Rehab Primary Insurance: [employer] Discharge Planning Comments: CM met with patient to discuss discharge planning/needs. She lives with her sister and brother in law in a mobile home. She states she is ok with going to rehab and doesn't care where she goes. Permission granted to call her family for further planning. I spoke with patient's brother in law (Heike) to discuss discharge plan. I informed them of the availability of inpatient rehab, SNF, home health and DME. He states he would like her to stay here at our inpatient rehab if possible. He states that he feels she may need more than 2 weeks of therapy though. I discussed SNF. He states he would like a referral to [facility] if inpatient rehab is not authorized. I spoke with Ngozi at [facility], they do not accept [place]. She will need preauthorization for inpatient rehab. CM will continue to follow and assist with discharge planning/needs. Food Packer: Zohreh Potter NEPIA - Discharge Planning Initial Assessment Updated by [id number]: Zohreh Potter on 04/13/19 3:17 pm * Is the patient Alert and Oriented? Yes * How many steps to enter\\exit or inside your home? 4/0 * PCP Flakita Delaney * Pharmacy [facility] * Preadmission Environment Home with Family * ADLs Partial Dependent * Partial ADLs (Assistance needed) Ambulation Medication Management * Equipment Cane Nebulizer Other Oxygen * Other Equipment Portable oxygen Trilogy * List name and contact numbers for known caregivers / representatives who currently or will assist patient after discharge: Heike Alexander - Brother in law - [phone] Tracy Alexander - Sister (POA) - [phone] * Verbal permission to speak to the caregivers and representatives has been obtained from the patient. Yes * Community resources currently utilized Other * Please name any agencies selected above. [facility] * Additional services required to return to the preadmission environment? Yes * Can the patient safely return to the preadmission environment? No * Has this patient been hospitalized within the prior 30 days at any hospital? No Coverage Notice Reviewer: [id number] - Zohreh Potter Notice Issued Date-Time: 04/13/2019 15:24 Notice Type: Patient Choice Letter Notice Delivered To: Family Member Relationship to Patient: Brother in Law Wire Inspector Name: Heike Alexander Delivery Method: HAND - Hand Delivered Isha Days: Prior Verbal Notification: Recipient Understood Notice: Yes Recipient Signature: Med Rec Note Co-signed by Attending: Coverage Notice Comment: [place] for [facility] Last DP export: 04/22/19 3:53 p Patient Name: DANIEL ALVAREZ Page 26730 at 1708 All edits/amendments must be made on the electronic document DICTATION DATE: 04/23/191707 MOTOR AND GENERATOR ASSEMBLER: TIFFANY 04/23/191707 RPT#: [id number] DC DATE: STATUS: ADM IN [facility] [address] [place] [address] END OF REPORT
--- NOTE | 2019-04-23 17:35 | NUR ---
WITHOUT CHANGES OR DISTRESS NOTED AT THIS TIME. DENIES NEEDS
--- NOTE | 2019-04-23 19:20 | NUR ---
ASSESSMENT COMPLETE. PT ALERT AND ORIENTED TO NAME, RESPERATIONS NON LABORED ON RA. IV TO LEFT ARM NS AT 50 CC/HR. PT DENIES PAIN OR NEEDS. BED LOW, CL IN REACH. NICK LARISSA IN USE FOR PT SAFETY.
[2019-04-23 20:00] VITALS: BP 107/68
--- NOTE | 2019-04-23 20:37 | NUR ---
HS MEDS GIVEN WITH FRESH ICE WATER. PT INCONTINENT OF BOWEL, PT CLEANED, BUT PASTE APPLIED, REPOSITIONED IN BED FOR COMFORT.
[2019-04-24] VITALS: BP 122/60
--- NOTE | 2019-04-24 02:05 | NUR ---
RESTING WITH EYES CLOSED, REPSERATIONS EVEN, NO S/S DISTRESS NOTED.
--- NOTE | 2019-04-24 03:22 | NUR ---
I have reviewed this patient and I concur with the Shift Assessment completed by the Licensed Practical Nurse today this shift.
[2019-04-24 04:00] VITALS: BP 116/67
[2019-04-24 06:41] LABS: BASOPHILS 0.5 % (0-2); EOSINOPHILS 4.6 % (0-7); HEMATOCRIT 34.1 % (36.0-48.0); HEMOGLOBIN 10.8 g/dL (12-16); IMMATURE GRANULOCYTES 0.5 % (0-5); LYMPHOCYTES 26.9 % (15-50); MCH 28.4 pg (26.0-34.0); MCHC 31.7 g/dL (31.0-37.0); MCV 89.7 fL (80.0-100.0); MEAN PLATELET VOLUME 11.5 fL (7.4-10.4); MONOCYTES 10.6 % (2-11); NEUTROPHILS 56.9 % (40-80); PLATELET COUNT 222 10x3/uL (130-400); RDW 16.5 % (11.5-14.5); WBC 8.3 10x3/uL (4.8-10.8)
[2019-04-24 06:52] LABS: ALBUMIN 2.5 g/dL (3.4-5.0); ALKALINE PHOSPHATASE 88 U/L (46-116); ALT (SGPT) 17 U/L (10-68); BILIRUBIN - TOTAL 0.22 mg/dL (0.2-1.3); CALC OSMOLALITY 283 mosm/kg (275-300); CALCIUM 8.9 mg/dL (8.5-10.1); CARBON DIOXIDE 37.5 mmol/L (21.0-32.0); CHLORIDE - SERUM 104 mmol/L (98-107); CREATININE - SERUM 0.6 mg/dL (0.6-1.3); GLUCOSE 80 mg/dL (74-106); POTASSIUM - SERUM 4.2 mmol/L (3.5-5.1); PROTEIN - SERUM 5.6 g/dL (6.4-8.2); SODIUM 143 mmol/L (136-145); UREA NITROGEN 13 mg/dL (7-18); eGFR NON AFRICAN AMERICAN > 90 mL/min (90-120)
--- NOTE | 2019-04-24 07:20 | NUR ---
ASSESSMENT DONE. DENIES NEEDS
[2019-04-24 08:16] VITALS: BP 126/75
--- NOTE | 2019-04-24 10:18 | NUR ---
I have reviewed this patient and I concur with the Shift Assessment completed by the Licensed Practical Nurse today this shift.
[2019-04-24 12:44] VITALS: BP 115/62
--- NOTE | 2019-04-24 13:26 | NUR ---
LOOSE STOOL X3. DOES NOT MEET C-DIF CRITERIA
--- NOTE | 2019-04-24 14:53 | NUR ---
OT NOTE: PT WITH SEVERE DIARRHEA AGAIN TODAY. PT WITH CONTINUAL EPISODES EACH TIME SHE IS CLEANED UP. PT ABLE TO WASH FACE AND HANDS WITH CLOTH. REQUIRED EXT ASSIST WITH REMAINDER OF ADLS. BED MOB WITH MIN ASSIST BUT DID NOT FEEL LIKE AMBULATING TODAY. CAMRON GORDON, OTR/L
[2019-04-24 20:16] VITALS: BP 104/59
--- NOTE | 2019-04-24 22:06 | NUR ---
INITIAL ROUNDS COMPLETED AT 1914 HRS. PT RESTING WITH EYES CLOSED. RESP EVEN AND REGULAR. ASSESSMENT COMPLETED AT 1939 HRS. CAF PER CM HR 100. PT ALERT; ORIENTED TO PERSON ONLY. REORIENTED TO PLACE, TIME AND SITUATION. AJ. IV TO LFA WITH NS AT 50CC/HR. IV PATENT. O2 2LNC. LUNGS DIMINISHED IN BASES BILAT WITH EXP WHEEZE NOTED TO R LUNG. BUTTOCKS EXCORIATED. PM MEDS GIVEN. PT INCONTINENT OF URINE AT 2200 HRS. BEDBATH DONE; BED LINENS CHANGED. HAIR WASHED. REPOSITIONED IN BED FOR COMFORT. PT CURRENTLY WATCHING TV. SR UP X2, CALL LIGHT WITHIN REACH.
[2019-04-24 23:13] VITALS: BP 108/60
--- NOTE | 2019-04-24 23:56 | NUR ---
PT RESTING WITH EYES CLOSED. RESP EVEN AND REGULAR. SR UP X2, CALL LIGHT WITHIN REACH.
--- NOTE | 2019-04-25 02:33 | NUR ---
PT RESTING WITH EYES CLOSED. RESP EVEN AND REGULAR. SR UP X2, CALL LIGHT WITHIN REACH.
--- NOTE | 2019-04-25 04:12 | NUR ---
PT RESTING WITH EYES CLOSED. RESP EVEN AND REGULAR. SR UP X2, CALL LIGHT WITHIN REACH.
[2019-04-25 04:13] VITALS: BP 106/56
--- NOTE | 2019-04-25 06:02 | NUR ---
VSS THROUGHOUT NIGHT. CAF PER CM. PT RESTED WELL DURING SHIFT. NEEDS MET; WILL CONTINUE TO MONITOR.
[2019-04-25 06:21] LABS: ALBUMIN 2.4 g/dL (3.4-5.0); ALKALINE PHOSPHATASE 90 U/L (46-116); ALT (SGPT) 18 U/L (10-68); BILIRUBIN - TOTAL 0.24 mg/dL (0.2-1.3); CALC OSMOLALITY 286 mosm/kg (275-300); CALCIUM 8.4 mg/dL (8.5-10.1); CARBON DIOXIDE 39.9 mmol/L (21.0-32.0); CHLORIDE - SERUM 107 mmol/L (98-107); CREATININE - SERUM 0.6 mg/dL (0.6-1.3); GLUCOSE 80 mg/dL (74-106); POTASSIUM - SERUM 4.1 mmol/L (3.5-5.1); PROTEIN - SERUM 5.6 g/dL (6.4-8.2); SODIUM 145 mmol/L (136-145); eGFR NON AFRICAN AMERICAN > 90 mL/min (90-120)
[2019-04-25 06:22] LABS: BASOPHILS 0.9 % (0-2); EOSINOPHILS 5.1 % (0-7); HEMATOCRIT 34.7 % (36.0-48.0); HEMOGLOBIN 10.7 g/dL (12-16); IMMATURE GRANULOCYTES 0.4 % (0-5); MCH 28.1 pg (26.0-34.0); MCHC 30.8 g/dL (31.0-37.0); MCV 91.1 fL (80.0-100.0); MEAN PLATELET VOLUME 10.9 fL (7.4-10.4); MONOCYTES 10.4 % (2-11); NEUTROPHILS 54.2 % (40-80); PLATELET COUNT 254 10x3/uL (130-400); RBC 3.81 10x6/uL (4.00-5.40); RDW 16.5 % (11.5-14.5); UREA NITROGEN 9 mg/dL (7-18); WBC 7.8 10x3/uL (4.8-10.8)
[2019-04-25 08:00] VITALS: BP 112/66
--- NOTE | 2019-04-25 08:51 | NUR ---
AM MEDS GIVEN AT THIS TIME. PT A/O X2, RESP EVEN AND NONLABORED ON 2LNC. LT FA IV INFUSING NS AT 50CC/HR. PT REFUSED TO EAT BREAKFAST AT THIS TIME. DENIES ANY NEEDS, CALL LIGHT IN REACH, BEDSIDE RAILS X2, NAD NOTED, WILL CONTINUE PLAN OF CARE.
[2019-04-25 12:00] VITALS: BP 101/64
--- NOTE | 2019-04-25 12:48 | NUR ---
PT UP TO CHAIR, EATING LUNCH, DENIES ANY NEEDS AT THIS TIME. CALL LIGHT IN REACH, NAD NOTED, WILL CONTINUE TO MONITOR.
--- NOTE | 2019-04-25 15:08 | NUR ---
CALLED PHARMACY AND SPOKE WITH JENNIFER, INFORMED HIM THAT I NEED ANOTHER TUBE OF CALMOSEPTINE FOR PT.
[2019-04-25 16:11] VITALS: BP 108/61
--- NOTE | 2019-04-25 16:33 | NUR ---
PT IN BED, RESTING COMFORTABLY, EASILY AROUSES TO VOICE. DENIES ANY NEEDS AT THIS TIME. CALL LIGHT IN REACH.
--- NOTE | 2019-04-25 16:52 | NUR ---
CALLED PHARMACY, INFORMED TECH THAT I HAD CALLED EARLIER TO REQUEST ANOTHER TUBE OF CALMOSEPTINE.
--- NOTE | 2019-04-25 19:34 | NUR ---
INITIAL ROUNDS COMPLETED. PT DENIES ANY DISCOMFORT. SR UP X2, CALL LIGHT WITHIN JC.
[2019-04-25 20:04] VITALS: BP 98/56
--- NOTE | 2019-04-25 22:32 | NUR ---
ASSESSMENT COMPLETED AT 1945 HRS. VSS. UCAF PER CM HR 112. PT ALERT, ORIENTED TO PERSON AND PLACE. REORIENTED TO TIME AND SITUATION. O2 2LNC. LUNGS DIMINISHED IN BASES BILAT. ABD SOFT WITH ACTIVE BS NOTED. AJ. PALPABLE PERIPHERAL PULSES. IV TO RFA WITH NS AT 50CC/HR. IV PATENT. BUTTOCKS EXCORIATED. PM MEDS GIVEN. PT CURRENTLY RESTING WITH EYES CLOSED. RESP EVEN AND REGULAR. SR UP X2,CALL LIGHT WITHIN REACH.
[2019-04-25 23:23] VITALS: BP 101/56
--- NOTE | 2019-04-26 00:29 | NUR ---
PT RESTING WITH EYES CLOSED. RESP EVEN AND REGULAR. SR UP X2,CALL LIGHT WITHIN REACH.
--- NOTE | 2019-04-26 02:28 | NUR ---
PT INCONTINENT OF URINE. INCONTINENT CARE DONE, BED LINENS CHANGED. AUSTIN'S APPLIED TO BUTTOCKS. PT TOLERATED ACTIVITY WELL. SR UP X2, CALL LIGHT WITHIN REACH.
[2019-04-26 04:00] VITALS: BP 101/57
--- NOTE | 2019-04-26 04:28 | NUR ---
PT RSTING WITH EYES CLOSED. RESP EVEN AND REGULAR. SR UP X2, CALL LIGHT WITHIN REACH.
[2019-04-26 05:49] LABS: BASOPHILS 0.5 % (0-2); HEMOGLOBIN 10.4 g/dL (12-16); IMMATURE GRANULOCYTES 0.3 % (0-5); LYMPHOCYTES 31.2 % (15-50); MCH 28.5 pg (26.0-34.0); MCHC 31.5 g/dL (31.0-37.0); MCV 90.4 fL (80.0-100.0); MEAN PLATELET VOLUME 10.7 fL (7.4-10.4); MONOCYTES 10.7 % (2-11); NEUTROPHILS 51.3 % (40-80); PLATELET COUNT 216 10x3/uL (130-400); RBC 3.65 10x6/uL (4.00-5.40); RDW 16.4 % (11.5-14.5); WBC 7.4 10x3/uL (4.8-10.8)
[2019-04-26 06:12] LABS: ALBUMIN 2.3 g/dL (3.4-5.0); ALKALINE PHOSPHATASE 89 U/L (46-116); ALT (SGPT) 17 U/L (10-68); BILIRUBIN - TOTAL 0.22 mg/dL (0.2-1.3); CALC OSMOLALITY 285 mosm/kg (275-300); CALCIUM 8.7 mg/dL (8.5-10.1); CARBON DIOXIDE 36.1 mmol/L (21.0-32.0); CHLORIDE - SERUM 104 mmol/L (98-107); CREATININE - SERUM 0.6 mg/dL (0.6-1.3); GLUCOSE 89 mg/dL (74-106); POTASSIUM - SERUM 4.1 mmol/L (3.5-5.1); PROTEIN - SERUM 5.4 g/dL (6.4-8.2); SODIUM 144 mmol/L (136-145); eGFR NON AFRICAN AMERICAN > 90 mL/min (90-120)
--- NOTE | 2019-04-26 06:39 | NUR ---
VSS THROUGHOUT NIGHT. PT DENIED ANY DISCOMFORT. NEDS MET; WILL CONTINUE TO MONITOR.
[2019-04-26 06:53] LABS: UREA NITROGEN 12 mg/dL (7-18)
--- NOTE | 2019-04-26 07:17 | NUR ---
ASSESSMENT COMPLETED. DENIES ANY NEEDS.TELEMERTY SHOWS AFIB AT 94. 02 AT 2 L/M PER NC. RIGHT FA IV WITH NS AT 50. LUNGS DIMISHED. SR UP WITH CALL LIGHT IN REACH WITH SR UP.
--- NOTE | 2019-04-26 07:30 | NUR ---
ASSESSMENT COMPLETELY. DENIES ANY NEEDS. TELEMERTY SHOWS SB AT 57. PT IS HUSLIA. LUNGS DIMISHED. LEFT AC SL. FAMILY AT BEDSIDE. WILL MONITOR
[2019-04-26 08:00] VITALS: BP 95/53
--- NOTE | 2019-04-26 10:58 | NUR ---
I have reviewed this patient and I concur with the Shift Assessment completed by the Licensed Practical Nurse today this shift.
[2019-04-26 12:00] VITALS: BP 98/60
--- NOTE | 2019-04-26 15:38 | MORECARE ---
CASE MANAGEMENT DISCHARGE SUMMARY PATIENT: DANIEL ALVAREZ UNIT: [id number] ADM DATE: 04/12/19 AGE: 73 : 44 SEX: F ROOM/BED: D.2123 AUTHOR: WILL,DOC PHYSICIAN: REFERRING PHYSICIAN: MYESHA JOYNER MD DATE OF SERVICE: 04/26/19 Discharge Plan Patient Name: DANIEL ALVAREZ Facility: [facility]:[place] : 1945 Planned Disposition: Inpatient Rehab Anticipated Discharge Date: Discharge Date: Expected LOS: Initial Reviewer: [id number] Initial Review Date: 04/13/2019 Generated: 04/26/19 4:37 pm Comments DCP- Discharge Planning Updated by [id number]: Caitlyn Hodgson on 04/26/19 2:[address] CM RECEIVED MD ORDER TO CHECK IF DISCHARGE PLAN IS STILL FOR HOME. IN REVIEW OF WEEKDAY CM THE PLAN IS FOR A SENIOR LIVING FACILITY. SPOKE W/ THE PRIMARY NURSE, ROSANA. THE PATIENT HAS SOME DEGREE OF CONFUSION. SHE WISHES TO DISCHARGE TO HOME. PER THE NURSING NOTES THE FAMILY WAS AT THE BEDSIDE EARLIER THIS AM. TC TO YANNICK, SISTER, TRACY. NO ANSWER. LEFT VM FOR TRACY ELIZABETH TO RETURN CALL WHEN AVAILAABLE. DCP- Discharge Planning Updated by [id number]: Jaya Dove on 04/23/19 4:[address] Patient Name: DANIEL ALVAREZ Encounter No: [id number] : 1945 Primary Insurance: Kar[employer] Anticipated DC Date: Planned Disposition: Inpatient Rehab External Planned Provider: [facility] DCP follow-up note: CM RECEIVED CALL FROM PT'S SISTER AND POWER OF MOTION AND TIME STUDY TEACHER, TRACY LISA, WHO WANTED TO DISCUSS DISCHARGE PLANNING. TRACY REPORTS PT NEEDS REHAB INPATIENT AT [place] AND IF DELCINED, SHE WILL NEED ANY SENIOR LIVING REHAB EXCEPT [facility]. TRACY REPORTS PT HAS DEMENTIA, LIVES WITH HER (TRACY) AND THEY DISCUSSED REHAB LAST NIGHT, PT IS IN AGREEMENT WITH REHAB SERVICES. IF TRACY DOES NOT ANSWER HER PHONE, SHE DIRECTED CM TO CALL HEIKE, HER SPOUSE, . CM SPOKE TO VIDA OF INPATIENT REHAB AT MULTIDISCIPLINARY TEAM MEETING, INPATIENT REHAB TO RESUBMIT TO INSURANCE FOR INPATIENT REHAB AUTHORIZATION REQUEST. CM TO CONTINUE TO FOLLOW AND ASSIST IF NEEDED. Jaay Dove, CASE MANAGEMENT DCP- Discharge Planning Updated by [id number]: Jaya Dove on 04/22/19 3:[address] Patient Name: DANIEL ALVAREZ Encounter No: [id number] : 1945 Primary Insurance: Karma Snap Anticipated DC Date: Planned Disposition: Home with Home Health External Planned Provider: TO BE DETERMINED DCP follow-up note: CM RECEIVED CALL FROM VIDA OF INPATIENT REHAB, PT WAS DECLINED BY INSURANCE FOR INPATIENT REHAB. CM SPOKE TO PT IN ROOM, PT DOES NOT WANT TO GO TO SENIOR LIVING FOR REHAB AND WANTS TO RETURN HOME WITH HOME HEALTH. PT REPORTS GETTING OUT OF BED AND WALKING INDEPENDENTLY AND IS STONG ENOUGH TO RETURN HOME AT DISCHARGE. PT DENIES FURHTER NEEDS OTHER THAN HOME HEALTH. CM NOTIFIED PEPITO RIDER. CM TO FOLLOW UP WITH PT SOON POSSIBLE TO GET PT'S CHOICE ON HOME HEALTH PROVIDER AND WILL ARRANGE HOME HEALTH FOR DISCHARGE HOME WITH PHYSICIAN AGREEEMENT AND ORDERS. Jaya Dove, CASE MANAGEMENT DCP- Discharge Planning Updated by [id number]: Zohreh Potter on 04/15/19 10:[address] CM spoke with patient's sister yesterday. Her sister (Tracy) states she doesn't want her to go to a skilled nursing if possible. She states that she would like her to go to inpatient rehab. I informed her that she would need authorization for that from insurance and inpatient rehab is already working on that. I informed her that it could probably be a denial if she is unable to participate in 3 hours of therapy a day. Her sister states if she is denied, that she would consent to a skilled unit. I spoke with Maria E with [facility], and Maria E states she believes [facility] are in network, but unsure. I also spoke with Dong Mac with [facility] and he states he may be able to work with her insurance for authorization. Her sister states it does not matter which one she goes to, "whatever we can find". zeyad Menjivar for [facility], states they are not in network with [place]. CM will continue to follow and assist with discharge planning/needs. DCP- Discharge Planning Updated by [id number]: Zohreh Potter on 04/13/19 2:[address] Patient Name: DANIEL ALVAREZ Admission Status: ER Accout number: [id number] Admission Date: 04-12-2019 : 1945 Admission Diagnosis: Attending: MYESHA JOYNER Current LOS: 1 Anticipated DC Date: Planned Disposition: Inpatient Rehab Primary Insurance: [employer] Discharge Planning Comments: CM met with patient to discuss discharge planning/needs. She lives with her sister and brother in law in a mobile home. She states she is ok with going to rehab and doesn't care where she goes. Permission granted to call her family for further planning. I spoke with patient's brother in law (Heike) to discuss discharge plan. I informed them of the availability of inpatient rehab, SNF, home health and DME. He states he would like her to stay here at our inpatient rehab if possible. He states that he feels she may need more than 2 weeks of therapy though. I discussed SNF. He states he would like a referral to [facility] if inpatient rehab is not authorized. I spoke with Ngozi at [facility], they do not accept [place]. She will need preauthorization for inpatient rehab. CM will continue to follow and assist with discharge planning/needs. Street Photographer: Zohreh Potter DCPIA - Discharge Planning Initial Assessment Updated by [id number]: Zohreh Potter on 04/13/19 3:17 pm * Is the patient Alert and Oriented? Yes * How many steps to enter\\exit or inside your home? 4/0 * PCP Flakita Delaney * Pharmacy [facility] * Preadmission Environment Home with Family * ADLs Partial Dependent * Partial ADLs (Assistance needed) Ambulation Medication Management * Equipment Cane Nebulizer Other Oxygen * Other Equipment Portable oxygen Trilogy * List name and contact numbers for known caregivers / representatives who currently or will assist patient after discharge: Heike Alexander - Brother in law - [phone] Tracy Alexander - Sister (POA) - [phone] * Verbal permission to speak to the caregivers and representatives has been obtained from the patient. Yes * Community resources currently utilized Other * Please name any agencies selected above. [facility] * Additional services required to return to the preadmission environment? Yes * Can the patient safely return to the preadmission environment? No * Has this patient been hospitalized within the prior 30 days at any hospital? No Coverage Notice Reviewer: [id number] Jenni Potter Notice Issued Date-Time: 04/13/2019 15:24 Notice Type: Patient Choice Letter Notice Delivered To: Family Member Relationship to Patient: Brother in Law Flooring Grader Name: Heike Alexander Delivery Method: HAND - Hand Delivered Isha Days: Prior Verbal Notification: Recipient Understood Notice: Yes Recipient Signature: Med Rec Note Co-signed by Attending: Coverage Notice Comment: [place] for [facility] Last DP export: 04/23/19 4:08 p Patient Name: DANIEL ALVAREZ Page 62527 at 1538 All edits/amendments must be made on the electronic document DICTATION DATE: 04/26/19 1537 TOURIST CABIN KEEPER: TIFFANY 04/26/19 1537 RPT#: [id number] DC DATE: STATUS: ADM IN [facility] [address] [place] [address] END OF REPORT
[2019-04-26 16:00] VITALS: BP 108/75
--- NOTE | 2019-04-26 16:48 | NUR ---
PT LYING QUIETLY. DENIES ANY NEEDS. SR UP WITH CALL LIGHT IN REACH. WILL MONITOR
--- NOTE | 2019-04-26 19:12 | NUR ---
INITIAL ROUNDS COMPLETED. RT TX IN PROGRESS. NO DISTRESS NOTED. SR UP X2, CALL LIGHT WITHIN REACH.
[2019-04-26 20:23] VITALS: BP 111/67
--- NOTE | 2019-04-26 21:55 | NUR ---
ASSESSMENT COMPLETED AT 2004 HRS. UCAF PER CM HR 135. OTHER VSS. PT ALERT, ORIENTED TO PERSON AND PLACE. REORIENTED TO TIME AND SITUATION. IV TO RFA WITH NS AT 50CC/HR. IV PATENT. O2 2LNC. LUNGS WITH SCATTERED WHEEZES TO UPPER LOBES, DIMINISHED TO LWER LOBES BILAT. ACTIVE BS NOTED. AJ. PALPABLE PERIPHERAL PULSES. BUTTOCKS EXCORIATED. PM MEDS GIVEN PER ORDERS. PT INCINTINENT OF URINE AT 2120 HRS. BEDBATH DONE, BED LINENS CHANGED. PT TOLERATED ACTIVITY WELL. PT CURRENTLY RESTING WITH EYES CLOSED. RESP EVEN AND REGULAR. SR UP X2, CALL LIGHT WITHIN REACH.
--- NOTE | 2019-04-27 00:03 | NUR ---
PT RESTING WITH EYES CLOSED. RESP EVEN AND REGULAR. SR UP X2, CALL LIGHT WITHIN REACH.
[2019-04-27 00:11] VITALS: BP 103/61
--- NOTE | 2019-04-27 02:09 | NUR ---
PT RESTING WITH EYES CLOSED. RESP EVEN AND REGULAR. SR UP X2, CALL LIGHT WITHIN REACH.
[2019-04-27 04:24] VITALS: BP 100/56
--- NOTE | 2019-04-27 04:32 | NUR ---
PT RESTING WITH EYES CLOSED. RESP EVEN AND REGULAR. SR UP X2, CALL LIGHT WITHIN REACH.
--- NOTE | 2019-04-27 05:51 | NUR ---
VS THIS AM. PT DENIED ANY DISCOMFORT DURING SHIFT. INCONTINENT X2. NEEDS MET; WILL CONTINUE TO MONITOR.
[2019-04-27 06:25] LABS: BASOPHILS 0.3 % (0-2); HEMATOCRIT 31.8 % (36.0-48.0); HEMOGLOBIN 9.8 g/dL (12-16); IMMATURE GRANULOCYTES 0.4 % (0-5); LYMPHOCYTES 27.4 % (15-50); MCH 28.2 pg (26.0-34.0); MCHC 30.8 g/dL (31.0-37.0); MCV 91.4 fL (80.0-100.0); MEAN PLATELET VOLUME 10.5 fL (7.4-10.4); NEUTROPHILS 59.9 % (40-80); PLATELET COUNT 230 10x3/uL (130-400); RBC 3.48 10x6/uL (4.00-5.40); RDW 16.2 % (11.5-14.5); WBC 6.9 10x3/uL (4.8-10.8)
[2019-04-27 06:52] LABS: ALBUMIN 2.2 g/dL (3.4-5.0); ALKALINE PHOSPHATASE 82 U/L (46-116); ALT (SGPT) 17 U/L (10-68); BILIRUBIN - TOTAL 0.14 mg/dL (0.2-1.3); CALC OSMOLALITY 284 mosm/kg (275-300); CALCIUM 8.7 mg/dL (8.5-10.1); CARBON DIOXIDE 39.8 mmol/L (21.0-32.0); CHLORIDE - SERUM 105 mmol/L (98-107); CREATININE - SERUM 0.5 mg/dL (0.6-1.3); GLUCOSE 67 mg/dL (74-106); POTASSIUM - SERUM 4.5 mmol/L (3.5-5.1); PROTEIN - SERUM 5.7 g/dL (6.4-8.2); SODIUM 144 mmol/L (136-145); UREA NITROGEN 12 mg/dL (7-18); eGFR NON AFRICAN AMERICAN > 90 mL/min (90-120)
[2019-04-27 07:53] VITALS: BP 106/73
[2019-04-27 11:03] VITALS: BP 90/46
--- NOTE | 2019-04-27 11:40 | NUR ---
I have reviewed this patient and I concur with the Shift Assessment completed by the Licensed Practical Nurse today this shift.
--- NOTE | 2019-04-27 11:41 | MORECARE ---
CASE MANAGEMENT DISCHARGE SUMMARY PATIENT: DANIEL ALVAREZ UNIT: [id number] ADM DATE: 04/12/19 AGE: 73 : 43 SEX: F ROOM/BED: D.9863 AUTHOR: WILL,DOC PHYSICIAN: REFERRING PHYSICIAN: MYESHA JOYNER MD DATE OF SERVICE: 04/27/19 Discharge Plan Patient Name: DANIEL ALVAREZ Facility: [facility]:[place] : 1945 Planned Disposition: Inpatient Rehab Anticipated Discharge Date: Discharge Date: Expected LOS: Initial Reviewer: [id number] Initial Review Date: 04/13/2019 Generated: 04/27/19 12:41 pm Comments DCP- Discharge Planning Updated by [id number]: Jaya Dove on 04/27/19 10:[address] Patient Name: DANIEL ALVAREZ Encounter No: [id number] : 1945 Primary Insurance: [employer] Anticipated DC Date: Planned Disposition: Inpatient Rehab External Planned Provider: [facility] DCP follow-up note: CM SPOKE TO VIDA OF [facility] DURING MULTIDICIPLINARY TEAM MEETING WHO INFORMED GROUP THAT SHE IS RESUBMITTING TO INSURANCE FOR AUTHORIZATION DETERMINATION FOR INPATIENT REHAB. CM HAS PREVIOUSLY SPOKEN TO PT'S SISTER / YANNICK WHO HAS DISCUSSED PLAN OF [facility] IN [place] IF DECLINED INPATIENT REHAB; JUST NOT [facility]. CM WAITING INSURANCE AUTHORIZATION FOR DENIAL FOR INPATIENT REHAB AT [place]. Jaya Dove. CASE MANAGEMENT DCP- Discharge Planning Updated by [id number]: Caitlyn Hodgson on 04/26/19 2:[address] CM RECEIVED MD ORDER TO CHECK IF DISCHARGE PLAN IS STILL FOR HOME. IN REVIEW OF WEEKDAY CM THE PLAN IS FOR A [facility] FACILITY. SPOKE W/ THE PRIMARY NURSE, ROSANA. THE PATIENT HAS SOME DEGREE OF CONFUSION. SHE WISHES TO DISCHARGE TO HOME. PER THE NURSING NOTES THE FAMILY WAS AT THE BEDSIDE EARLIER THIS AM. TC TO POA, SISTER, TRACY. NO ANSWER. LEFT VM FOR TRACY JOHNSON TO RETURN CALL WHEN AVAILAABLE. DCP- Discharge Planning Updated by [id number]: Jaya Dove on 04/23/19 4:[address] Patient Name: DANIEL ALVAREZ Encounter No: [id number] : 1945 Primary Insurance: [employer] Anticipated DC Date: Planned Disposition: Inpatient Rehab External Planned Provider: [facility] DCP follow-up note: CM RECEIVED CALL FROM PT'S SISTER AND POWER OF COMMUNICATIONS OFFICER, TRACY GONZALEZ, WHO WANTED TO DISCUSS DISCHARGE PLANNING. TRACY REPORTS PT NEEDS REHAB INPATIENT AT [place] AND IF DELCINED, SHE WILL NEED ANY [facility] REHAB EXCEPT [facility]. TRACY REPORTS PT HAS DEMENTIA, LIVES WITH HER (TRACY) AND THEY DISCUSSED REHAB LAST NIGHT, PT IS IN AGREEMENT WITH REHAB SERVICES. IF TRACY DOES NOT ANSWER HER PHONE, SHE DIRECTED CM TO CALL HEIKE, HER SPOUSE, . CM SPOKE TO VIDA OF INPATIENT REHAB AT MULTIDISCIPLINARY TEAM MEETING, INPATIENT REHAB TO RESUBMIT TO INSURANCE FOR INPATIENT REHAB AUTHORIZATION REQUEST. CM TO CONTINUE TO FOLLOW AND ASSIST IF NEEDED. Jaya Dove, CASE MANAGEMENT DCP- Discharge Planning Updated by [id number]: Jaya Dove on 04/22/19 3:[address] Patient Name: DANIEL ALVAREZ Encounter No: [id number] : 1945 Primary Insurance: [employer] Anticipated DC Date: Planned Disposition: Home with Home Health External Planned Provider: TO BE DETERMINED DCP follow-up note: CM RECEIVED CALL FROM [facility] OF INPATIENT REHAB, PT WAS DECLINED BY INSURANCE FOR INPATIENT REHAB. CM SPOKE TO PT IN ROOM, PT DOES NOT WANT TO GO TO [facility] FOR REHAB AND WANTS TO RETURN HOME WITH HOME HEALTH. PT REPORTS GETTING OUT OF BED AND WALKING INDEPENDENTLY AND IS STONG ENOUGH TO RETURN HOME AT DISCHARGE. PT DENIES FURHTER NEEDS OTHER THAN HOME HEALTH. CM NOTIFIED PEPITO RIDER. CM TO FOLLOW UP WITH PT SOON POSSIBLE TO GET PT'S CHOICE ON HOME HEALTH PROVIDER AND WILL ARRANGE HOME HEALTH FOR DISCHARGE HOME WITH PHYSICIAN AGREEEMENT AND ORDERS. Jaya Dove, CASE MANAGEMENT DCP- Discharge Planning Updated by [id number]: Zohreh Potter on 04/15/19 10:[address] CM spoke with patient's sister yesterday. Her sister (Tracy) states she doesn't want her to go to a care home if possible. She states that she would like her to go to inpatient rehab. I informed her that she would need authorization for that from insurance and inpatient rehab is already working on that. I informed her that it could probably be a denial if she is unable to participate in 3 hours of therapy a day. Her sister states if she is denied, that she would consent to a skilled unit. I spoke with Maria E with [facility], and Maria E states she believes [place] and [facility] are in network, but unsure. I also spoke with Dong Mac with [facility] and he states he may be able to work with her insurance for authorization. Her sister states it does not matter which one she goes to, "whatever we can find". zeyad Menjivar for [facility], states they are not in network with [employer]. CM will continue to follow and assist with discharge planning/needs. DCP- Discharge Planning Updated by [id number]: Zohreh Potter on 04/13/19 2:[address] Patient Name: DANIEL ALVAREZ Admission Status: ER Accout number: [id number] Admission Date: 04-12-2019 : 1945 Admission Diagnosis: Attending: MYESHA JOYNER Current LOS: 1 Anticipated DC Date: Planned Disposition: Inpatient Rehab Primary Insurance: [employer] Discharge Planning Comments: CM met with patient to discuss discharge planning/needs. She lives with her sister and brother in law in a mobile home. She states she is ok with going to rehab and doesn't care where she goes. Permission granted to call her family for further planning. I spoke with patient's brother in law (Heike) to discuss discharge plan. I informed them of the availability of inpatient rehab, SNF, home health and DME. He states he would like her to stay here at our inpatient rehab if possible. He states that he feels she may need more than 2 weeks of therapy though. I discussed SNF. He states he would like a referral to [facility] if inpatient rehab is not authorized. I spoke with Ngozi at [facility], they do not accept [employer]. She will need preauthorization for inpatient rehab. CM will continue to follow and assist with discharge planning/needs. Stamp Presser: Zohreh Potter DCPIA - Discharge Planning Initial Assessment Updated by [id number]: Zohreh Potter on 04/13/19 3:17 pm * Is the patient Alert and Oriented? Yes * How many steps to enter\\exit or inside your home? 4/0 * PCP Flakita Delaney * Pharmacy [facility] * Preadmission Environment Home with Family * ADLs Partial Dependent * Partial ADLs (Assistance needed) Ambulation Medication Management * Equipment Cane Nebulizer Other Oxygen * Other Equipment Portable oxygen Trilogy * List name and contact numbers for known caregivers / representatives who currently or will assist patient after discharge: Heike Johnson - Brother in law - [phone] Tracy Johnson - Sister (POA) - [phone] * Verbal permission to speak to the caregivers and representatives has been obtained from the patient. Yes * Community resources currently utilized Other * Please name any agencies selected above. House Call[facility] * Additional services required to return to the preadmission environment? Yes * Can the patient safely return to the preadmission environment? No * Has this patient been hospitalized within the prior 30 days at any hospital? No Coverage Notice Reviewer: [id number] - Zohreh Potter Notice Issued Date-Time: 04/13/2019 15:24 Notice Type: Patient Choice Letter Notice Delivered To: Family Member Relationship to Patient: Brother in Law Cattle Inspector Name: Heike Johnson Delivery Method: HAND - Hand Delivered Isha Days: Prior Verbal Notification: Recipient Understood Notice: Yes Recipient Signature: Med Rec Note Co-signed by Attending: Coverage Notice Comment: [place] for [facility] Last DP export: 04/26/19 2:38 p Patient Name: DANIEL ALVAREZ Page 37875 at 1141 All edits/amendments must be made on the electronic document DICTATION DATE: 04/27/19 1141 BROADCAST JOURNALIST: TIFFANY 04/27/19 1141 RPT#: [id number] DC DATE: STATUS: ADM IN [facility] [address] [place] [address] END OF REPORT
--- NOTE | 2019-04-27 14:05 | NUR ---
Nutrition Follow-up: Pt states she likes Ensure and drinks them when they are sent. Diet: Cardiac, Ensure with meals PO intake: 41% avg x 6 meals No new wt Last BM: 04/26 Labs reviewed Meds noted: Imodium, NS @ 75 Continue current diet/supplement as tolerated. Encourage PO intake. [place] food preferences within diet restrictions. RD following.
--- NOTE | 2019-04-27 14:45 | NUR ---
OT NOTE: PT COMPLETED BED MOB WITH SBA. PT COMPLETED SIT TO STAND WITH CGA. PT COMPLETED ADL MOB WITH CGA. PT COMPLETED GROOMING TASK WITH SET UP. PT COMPLETED UE AROM AXS. PT STILL HAS C/O PAIN WITH MOBILITY. THANK YOU, BRENNAN WARD
--- NOTE | 2019-04-27 15:26 | NUR ---
Rehab Note- PreAuth restarted at this time [employer], Ref#[id number]. Faxed clinical information for review for possible inpatient acute rehab stay. Will continue to follow at this time. Thank you for this referral! Brian Up RN Clincial Liaison, [facility] Rehab
[2019-04-27 15:37] VITALS: BP 110/73
--- NOTE | 2019-04-27 19:17 | NUR ---
ASSESSMENT COMPLETE, PT ALERT AND ORIENTED TO SLEF. RESPERATIONS NON-LAOBRED ON O2 AT 2 LITERS VIA NC. IV TO RIGHT ARM WITH NS INFUSING AT 50 CC/HR. SITE CLEAN AND DRY. PT CURRENTLY DENIES PAIN AND NEEDS, BED LOW, CL IN REACH.
[2019-04-27 20:00] VITALS: BP 96/52
--- NOTE | 2019-04-27 21:46 | NUR ---
HS MEDS GIVEN WITH FRESH ICE WATER. PT DENIES PAIN OR NEEEDS, BED LOW, CL IN REACH.
--- NOTE | 2019-04-27 22:55 | NUR ---
LINE WELDER AT BED SIDE, PT INCONTINENT OF URINE.
[2019-04-28] VITALS: BP 98/68
--- NOTE | 2019-04-28 00:43 | NUR ---
CLOTH SHRINKING MACHINE OPERATOR AT BED SIDE, BATH AND LINEN CHANGE COMPLETE.
--- NOTE | 2019-04-28 02:16 | NUR ---
RESTING WITH EYES CLOSED, RESPERATIONS EVEN, NO S/S DISTRESS NOTED.
[2019-04-28 04:00] VITALS: BP 99/64
--- NOTE | 2019-04-28 04:55 | NUR ---
I have reviewed this patient and I concur with the Shift Assessment completed by the Licensed Practical Nurse today this shift.
[2019-04-28 05:00] LABS: BASOPHILS 0.5 % (0-2); EOSINOPHILS 6.3 % (0-7); HEMATOCRIT 31.6 % (36.0-48.0); HEMOGLOBIN 9.6 g/dL (12-16); IMMATURE GRANULOCYTES 0.2 % (0-5); LYMPHOCYTES 33.6 % (15-50); MCH 28.2 pg (26.0-34.0); MCHC 30.4 g/dL (31.0-37.0); MCV 92.7 fL (80.0-100.0); MEAN PLATELET VOLUME 10.2 fL (7.4-10.4); NEUTROPHILS 50.4 % (40-80); PLATELET COUNT 208 10x3/uL (130-400); RBC 3.41 10x6/uL (4.00-5.40); RDW 16.7 % (11.5-14.5); WBC 5.9 10x3/uL (4.8-10.8)
[2019-04-28 05:10] LABS: ALBUMIN 2.2 g/dL (3.4-5.0); ALKALINE PHOSPHATASE 80 U/L (46-116); ALT (SGPT) 17 U/L (10-68); BILIRUBIN - TOTAL 0.17 mg/dL (0.2-1.3); CALC OSMOLALITY 289 mosm/kg (275-300); CALCIUM 8.3 mg/dL (8.5-10.1); CARBON DIOXIDE 39.3 mmol/L (21.0-32.0); CHLORIDE - SERUM 107 mmol/L (98-107); CREATININE - SERUM 0.5 mg/dL (0.6-1.3); GLUCOSE 83 mg/dL (74-106); POTASSIUM - SERUM 3.9 mmol/L (3.5-5.1); PROTEIN - SERUM 5.5 g/dL (6.4-8.2); SODIUM 147 mmol/L (136-145); UREA NITROGEN 11 mg/dL (7-18); eGFR NON AFRICAN AMERICAN > 90 mL/min (90-120)
--- NOTE | 2019-04-28 08:05 | NUR ---
ASSESSMENT DONE. DENIES NEEDS.
[2019-04-28 08:29] VITALS: BP 128/61
--- NOTE | 2019-04-28 10:24 | NUR ---
I have reviewed this patient and I concur with the Shift Assessment completed by the Licensed Practical Nurse today this shift.
[2019-04-28 11:24] VITALS: BP 95/68
--- NOTE | 2019-04-28 15:23 | NUR ---
OT NOTE: PT COMPLETED INCREASED ADL MOB WITH R/W REQUIRED CGA. PT EDUCATED TO PICK LE UP AND FOLLOW THROUGH FOR INCREASED SAFETY AND DECREASED FALL RISK. PT COMPLETED STANDING BALANCE WITH CGA. PT COMPLETED FACE WASH WITH SET UP IN CHAIR. PT COMPLETED UE AROM AX. THANK YOU, BRENNAN WARD
[2019-04-28 15:50] VITALS: BP 118/63
--- NOTE | 2019-04-28 17:20 | MORECARE ---
CASE MANAGEMENT DISCHARGE SUMMARY PATIENT: DANIEL ALVAREZ UNIT: [id number] ADM DATE: 04/12/19 AGE: 73 : 44 SEX: F ROOM/BED: D.2123 AUTHOR: ZENY SOLIS PHYSICIAN: REFERRING PHYSICIAN: MYESHA JOYNER MD DATE OF SERVICE: 04/28/19 Discharge Plan Patient Name: DANIEL ALVAREZ Facility: [facility]:[place] : 1945 Planned Disposition: Inpatient Rehab Anticipated Discharge Date: Discharge Date: Expected LOS: Initial Reviewer: [id number] Initial Review Date: 04/13/2019 Generated: 04/28/19 6:19 pm Comments DCP- Discharge Planning Updated by [id number]: Jaya Dove on 04/28/19 4:[address] Patient Name: DANIEL ALVAREZ Encounter No: [id number] : 1945 Primary Insurance: [employer] Anticipated DC Date: Planned Disposition: Inpatient Rehab External Planned Provider: [facility] INPATIENT REHAB DCP follow-up note: CM PARTICIPATED IN MULTIDISCIPLINARY TEAM MEETING, WAS INFORMED BY VIDA OF INPATIENT REHAB AT [place] THAT THEY ARE SUBMITTING FOR INSURANCE AUTHORIZATION AGAIN TODAY. CM NOTIFIED PT WHO IS WILLING FOR INPATIENT REHAB AT [place] AND UNDERSTANDS AND AGREES THAT IF DECLINED, SHE WILL GO TO PENITENTIARY FACILITY IN [place] OTHER THAN [facility]. IMPORTANT MESSAGE FROM MEDICARE PROVIDED AND EXPLAINED. CM WAITING INSURANCE DETERMINATION FOR INPATIENT REHAB AT [facility]. LORENZA Beaulieu DCP- Discharge Planning Updated by [id number]: Jaya Dove on 04/27/19 10:[address] Patient Name: DANIEL ALVAREZ Encounter No: [id number] : 1945 Primary Insurance: [employer]AGE Anticipated DC Date: Planned Disposition: Inpatient Rehab External Planned Provider: [facility] INPATIENT REH[facility] DCP follow-up note: CM SPOKE TO VIDA OF [facility] INPATIENT REHAB DURING MULTIDICIPLINARY TEAM MEETING WHO INFORMED GROUP THAT SHE IS RESUBMITTING TO INSURANCE FOR AUTHORIZATION DETERMINATION FOR INPATIENT REHAB. CM HAS PREVIOUSLY SPOKEN TO PT'S SISTER / POA WHO HAS DISCUSSED PLAN OF PENITENTIARY IN [place] IF DECLINED INPATIENT REHAB; JUST NOT [facility]. CM WAITING INSURANCE AUTHORIZATION FOR DENIAL FOR INPATIENT REHAB AT [place]. Jaya Dove. CASE MANAGEMENT DCP- Discharge Planning Updated by [id number]: Caitlyn Hodgson on 04/26/19 2:[address] CM RECEIVED MD ORDER TO CHECK IF DISCHARGE PLAN IS STILL FOR HOME. IN REVIEW OF WEEKDAY CM THE PLAN IS FOR A PENITENTIARY FACILITY. SPOKE W/ THE PRIMARY NURSE, ROSANA. THE PATIENT HAS SOME DEGREE OF CONFUSION. SHE WISHES TO DISCHARGE TO HOME. PER THE NURSING NOTES THE FAMILY WAS AT THE BEDSIDE EARLIER THIS AM. TC TO POA, SISTER, TRACY. NO ANSWER. LEFT VM FOR TRACY JOHNSON TO RETURN CALL WHEN AVAILAABLE. DCP- Discharge Planning Updated by [id number]: Jaya Dove on 04/23/19 4:[address] Patient Name: DANIEL ALVAREZ Encounter No: [id number] : 1945 Primary Insurance: [employer] Anticipated DC Date: Planned Disposition: Inpatient Rehab External Planned Provider: [facility] INPATIENT REH[facility] DCP follow-up note: CM RECEIVED CALL FROM PT'S SISTER AND POWER OF GOAT FARMER, TRACY GONZALEZ, WHO WANTED TO DISCUSS DISCHARGE PLANNING. TRACY REPORTS PT NEEDS REHAB INPATIENT AT [place] AND IF DELCINED, SHE WILL NEED ANY PENIT[facility] REHAB [facility]CEPT [facility]. TRACY REPORTS PT HAS DEMENTIA, LIVES WITH HER (TRACY) AND THEY DISCUSSED REHAB LAST NIGHT, PT IS IN AGREEMENT WITH REHAB SERVICES. IF TRACY DOES NOT ANSWER HER PHONE, SHE DIRECTED CM TO CALL HEIKE, HER SPOUSE, . CM SPOKE TO VIDA OF INPATIENT REHAB AT MULTIDISCIPLINARY TEAM MEETING, INPATIENT REHAB TO RESUBMIT TO INSURANCE FOR INPATIENT REHAB AUTHORIZATION REQUEST. CM TO CONTINUE TO FOLLOW AND ASSIST IF NEEDED. Jaya Dove, CASE MANAGEMENT DCP- Discharge Planning Updated by [id number]: Jaya Dove on 04/22/19 3:[address] Patient Name: DANIEL ALVAREZ Encounter No: [id number] : 1945 Primary Insurance: ALYL ARCHULETA Anticipated DC Date: Planned Disposition: Home with Home Health External Planned Provider: TO BE DETERMINED DCP follow-up note: CM RECEIVED CALL FROM [facility] OF INPATIENT REHAB, PT WAS DECLINED BY INSURANCE FOR INPATIENT REHAB. CM SPOKE TO PT IN ROOM, PT DOES NOT WANT TO GO TO PENITENTIARY FOR REHAB AND WANTS TO RETURN HOME WITH HOME HEALTH. PT REPORTS GETTING OUT OF BED AND WALKING INDEPENDENTLY AND IS STONG ENOUGH TO RETURN HOME AT DISCHARGE. PT DENIES FURHTER NEEDS OTHER THAN HOME HEALTH. CM NOTIFIED PEPITO RIDER. CM TO FOLLOW UP WITH PT SOON POSSIBLE TO GET PT'S CHOICE ON HOME HEALTH PROVIDER AND WILL ARRANGE HOME HEALTH FOR DISCHARGE HOME WITH PHYSICIAN AGREEEMENT AND ORDERS. Jaya Dove, CASE MANAGEMENT DCP- Discharge Planning Updated by [id number]: Zohreh Potter on 04/15/19 10:[address] CM spoke with patient's sister yesterday. Her sister (Tracy) states she doesn't want her to go to a longterm if possible. She states that she would like her to go to inpatient rehab. I informed her that she would need authorization for that from insurance and inpatient rehab is already working on that. I informed her that it could probably be a denial if she is unable to participate in 3 hours of therapy a day. Her sister states if she is denied, that she would consent to a skilled unit. I spoke with Maria E with [facility], and Maria E states she believes [place] and [facility] are in network, but unsure. I also spoke with Dong Mac with [facility] and he states he may be able to work with her insurance for authorization. Her sister states it does not matter which one she goes to, "whatever we can find". zeyad Menjivar for [facility], states they are not in network with [place]. CM will continue to follow and assist with discharge planning/needs. DCP- Discharge Planning Updated by [id number]: Zohreh Potter on 04/13/19 2:[address] Patient Name: DANIEL ALVAREZ Admission Status: ER Accout number: [id number] Admission Date: 04-12-2019 : 1945 Admission Diagnosis: Attending: MYESHA JOYNER Current LOS: 1 Anticipated DC Date: Planned Disposition: Inpatient Rehab Primary Insurance: [employer] Discharge Planning Comments: CM met with patient to discuss discharge planning/needs. She lives with her sister and brother in law in a mobile home. She states she is ok with going to rehab and doesn't care where she goes. Permission granted to call her family for further planning. I spoke with patient's brother in law (Heike) to discuss discharge plan. I informed them of the availability of inpatient rehab, SNF, home health and DME. He states he would like her to stay here at our inpatient rehab if possible. He states that he feels she may need more than 2 weeks of therapy though. I discussed SNF. He states he would like a referral to [facility] if inpatient rehab is not authorized. I spoke with Ngozi at [facility], they do not accept [place]. She will need preauthorization for inpatient rehab. CM will continue to follow and assist with discharge planning/needs. Roll Inspector: Zohreh Potter [facility] - Discharge Planning Initial Assessment Updated by [id number]: Zohreh Potter on 04/13/19 3:17 pm * Is the patient Alert and Oriented? Yes * How many steps to enter\\exit or inside your home? 4/0 * PCP Flakita Delaney * Pharmacy [facility] * Preadmission Environment Home with Family * ADLs Partial Dependent * Partial ADLs (Assistance needed) Ambulation Medication Management * Equipment Cane Nebulizer Other Oxygen * Other Equipment Portable oxygen Trilogy * List name and contact numbers for known caregivers / representatives who currently or will assist patient after discharge: Heike Johnson - Brother in law - [phone] Tracy Johnson - Sister (POA) - [phone] * Verbal permission to speak to the caregivers and representatives has been obtained from the patient. Yes * Community resources currently utilized Other * Please name any agencies selected above. House Calls * Additional services required to return to the preadmission environment? Yes * Can the patient safely return to the preadmission environment? No * Has this patient been hospitalized within the prior 30 days at any hospital? No Coverage Notice Reviewer: [id number] - Zohreh Potter Notice Issued Date-Time: 04/13/2019 15:24 Notice Type: Patient Choice Letter Notice Delivered To: Family Member Relationship to Patient: Brother in Law Clipper Machine Name: Heike Johnson Delivery Method: HAND - Hand Delivered Isha Days: Prior Verbal Notification: Recipient Understood Notice: Yes Recipient Signature: Med Rec Note Co-signed by Attending: Coverage Notice Comment: [place] for [facility] Reviewer: [id number] - Jaya Dove Notice Issued Date-Time: 04/28/2019 15:50 Notice Type: IM Discharge Notice Notice Delivered To: Patient Relationship to Patient: Clipper Machine Name: Delivery Method: HAND - Hand Delivered Isha Days: Prior Verbal Notification: Recipient Understood Notice: Yes Recipient Signature: Yes Med Rec Note Co-signed by Attending: Coverage Notice Comment: Last DP export: 04/27/19 10:41 a Patient Name: DANIEL ALVAREZ Page [id number] at 1720 All edits/amendments must be made on the electronic document DICTATION DATE: 04/28/191718 REPTILE KEEPER: TIFFANY 04/28/191718 RPT#: [id number] DC DATE: STATUS: ADM IN [facility] [address] [place] [address] END OF REPORT
--- NOTE | 2019-04-28 17:45 | NUR ---
WITHOUT CHANGES OR DISTRESS NOPTED AT THIS TIME.
--- NOTE | 2019-04-28 19:15 | NUR ---
CALLED TO PTS ROOM BY FAMILY MEMBER, PT SITTING UP ON SIDE OF BED, ASKED PT WHAT SHE WAS DOING AND PT STATED THAT SHE WAS JUST WANTING TO SIT UP FOR A MINUTE AND GET REPOSITIONED. EXPLAINED TO PT THAT FOR HER SAFETY THAT WE DONT WANT HER TO GET UP BY HER SELF AND THAT SHE NEEDS TO CALL FOR ASSISTANCE. PT STATED THAT SHE WASNT GOING TO GET UP AND KNOWS TO CALL FOR ASSISTANCE. ASSITED PT BACK TO LAYING POSITION, CL IN REACH.
[2019-04-28 20:15] VITALS: BP 115/71
--- NOTE | 2019-04-28 21:54 | NUR ---
DIRECTOR INBOUND SALES AT BED SIDE, PT INCONTINENT OF URINE. BATH AND LINEN CHANGE COMPLETE.
[2019-04-29 00:02] VITALS: BP 147/70
[2019-04-29 04:00] VITALS: BP 115/62
--- NOTE | 2019-04-29 04:28 | NUR ---
I have reviewed this patient and I concur with the Shift Assessment completed by the Licensed Practical Nurse today this shift.
[2019-04-29 06:33] LABS: ALBUMIN 2.4 g/dL (3.4-5.0); ALKALINE PHOSPHATASE 89 U/L (46-116); ALT (SGPT) 20 U/L (10-68); BILIRUBIN - TOTAL 0.27 mg/dL (0.2-1.3); CALC OSMOLALITY 286 mosm/kg (275-300); CALCIUM 8.9 mg/dL (8.5-10.1); CHLORIDE - SERUM 104 mmol/L (98-107); CREATININE - SERUM 0.6 mg/dL (0.6-1.3); GLUCOSE 87 mg/dL (74-106); POTASSIUM - SERUM 3.8 mmol/L (3.5-5.1); PROTEIN - SERUM 5.9 g/dL (6.4-8.2); SODIUM 145 mmol/L (136-145); UREA NITROGEN 9 mg/dL (7-18); eGFR NON AFRICAN AMERICAN > 90 mL/min (90-120)
[2019-04-29 07:12] LABS: CARBON DIOXIDE 41.6 mmol/L (21.0-32.0)
[2019-04-29 07:31] LABS: BASOPHILS 0.7 % (0-2); EOSINOPHILS 6.7 % (0-7); HEMATOCRIT 32.8 % (36.0-48.0); HEMOGLOBIN 9.9 g/dL (12-16); IMMATURE GRANULOCYTES 0.5 % (0-5); LYMPHOCYTES 31.2 % (15-50); MCH 28.2 pg (26.0-34.0); MCHC 30.2 g/dL (31.0-37.0); MCV 93.4 fL (80.0-100.0); MONOCYTES 12.1 % (2-11); NEUTROPHILS 48.8 % (40-80); PLATELET COUNT 239 10x3/uL (130-400); RBC 3.51 10x6/uL (4.00-5.40); RDW 16.5 % (11.5-14.5); WBC 6.1 10x3/uL (4.8-10.8)
--- NOTE | 2019-04-29 07:55 | NUR ---
ASSESSMENT DONE. DENIES NEEDS
[2019-04-29 08:45] VITALS: BP 116/64
--- NOTE | 2019-04-29 11:11 | NUR ---
I have reviewed this patient and I concur with the Shift Assessment completed by the Licensed Practical Nurse today this shift.
[2019-04-29 13:57] VITALS: BP 98/42
--- NOTE | 2019-04-29 14:50 | NUR ---
Spoke to Liz at [employer] today regarding the preauthorization for ARU for this patient. Clinical updates along with labs, PT and V/S given orally per her request. She will submit all information to the biomedical engineering professor for a determination. Discussed with the CM during IDT Liz PH# [phone], Sarah Vences RN Clinical Liaison, Rehab
--- NOTE | 2019-04-29 16:32 | NUR ---
OT NOTE: PT COMPLETED SIDE ROLLING WITH MIN A USING SIDE RAIL. PT COMPLETED BUE AROM EXS. PT COMPLETED FACE WASHING WITH SET UP. PT COMPLETED HAIR GROOMING WTH SET UP. THANK YOU, BRENNAN WARD
[2019-04-29 17:30] VITALS: BP 101/80
--- NOTE | 2019-04-29 18:40 | NUR ---
WITHOUT CHANGES OR DISTRESS NOTED AT THIS TIME. DENIES NEEDS
[2019-04-29 20:00] VITALS: BP 105/57
[2019-04-30] VITALS: BP 105/69
--- NOTE | 2019-04-30 01:42 | NUR ---
I have reviewed this patient and I concur with the Shift Assessment completed by the Licensed Practical Nurse today this shift.
--- NOTE | 2019-04-30 03:03 | NUR ---
RESTING WITH EYES CLOSED, RESPERATIONS EVEN, NO S/S DISTRESS NOTED.
[2019-04-30 06:56] LABS: BASOPHILS 0.5 % (0-2); EOSINOPHILS 3.3 % (0-7); HEMATOCRIT 35.1 % (36.0-48.0); HEMOGLOBIN 10.7 g/dL (12-16); IMMATURE GRANULOCYTES 0.3 % (0-5); LYMPHOCYTES 13.7 % (15-50); MCH 28.5 pg (26.0-34.0); MCHC 30.5 g/dL (31.0-37.0); MCV 93.6 fL (80.0-100.0); MEAN PLATELET VOLUME 10.3 fL (7.4-10.4); MONOCYTES 6.6 % (2-11); NEUTROPHILS 75.6 % (40-80); PLATELET COUNT 251 10x3/uL (130-400); RBC 3.75 10x6/uL (4.00-5.40); RDW 16.4 % (11.5-14.5)
[2019-04-30 07:14] LABS: ALBUMIN 2.6 g/dL (3.4-5.0); ALKALINE PHOSPHATASE 94 U/L (46-116); ALT (SGPT) 22 U/L (10-68); BILIRUBIN - TOTAL 0.27 mg/dL (0.2-1.3); CALCIUM 9.2 mg/dL (8.5-10.1); CHLORIDE - SERUM 102 mmol/L (98-107); CREATININE - SERUM 0.7 mg/dL (0.6-1.3); PROTEIN - SERUM 6.3 g/dL (6.4-8.2); SODIUM 143 mmol/L (136-145); eGFR NON AFRICAN AMERICAN 87 mL/min (90-120)
[2019-04-30 07:16] LABS: WBC 8.8 10x3/uL (4.8-10.8)
--- NOTE | 2019-04-30 07:21 | NUR ---
EYES CLOSED APEARS TO BE SLEEPING RESPERATIONS REG AND NONE LABORED. TELEMERTY SHOWS SR 89. LEFT AC IV WITH NS AT 75. NO NEEDS NOTED
[2019-04-30 07:55] LABS: CALC OSMOLALITY 290 mosm/kg (275-300); GLUCOSE 191 mg/dL (74-106); POTASSIUM - SERUM 4.4 mmol/L (3.5-5.1); UREA NITROGEN 15 mg/dL (7-18)
[2019-04-30 09:28] VITALS: BP 101/65
--- NOTE | 2019-04-30 09:46 | NUR ---
Rehab Note- Received voicemail from Liz with [facility] stating that their medical recruiter denied the patient an inpatient rehab stay stating the patient was too unstable at this time per Medicare guidelines. Peer to Peer can be set up by [address] [place] [address] today by calling [phone]. And an Appeals line is [phone]. Voicemail left for SHAY Dickson. Thank you for this referral! Deirdre Up RN Clinical Liaison, [facility] Rehab
[2019-04-30 12:53] VITALS: BP 92/38
--- NOTE | 2019-04-30 13:56 | NUR ---
LYING QUIETLY. RESP REG AND NON LABORED. WILL MONITOR
--- NOTE | 2019-04-30 15:55 | NUR ---
OT NOTE: PT EXHIBITED INCREASED I WITH BED MOB TASKS. PT COMPLETED SUPINE TO SIT WITH SBA. PT COMPLETED SIT TO STAND WITH SBA/CGA. PT COMPLETED ADL MOB WITH R/W AND CGA. PT CONTINUES TO REQUIRE CUES TO LIFT FOOT DURING AMBULATION. PT COMPLETED GROOMING TASKS UPRIGHT IN CHAIR WITH SET UP. THANK YOU, BRENNAN WARD
--- NOTE | 2019-04-30 15:58 | NUR ---
OT NOTE: PT COMPLETED STANDING BALANCE AXS WITH SBA/CGA. PT COMPLETED HYGIENE TASK IN STANDING WITH MOD A. THANK YOU, BRENNAN WARD
--- NOTE | 2019-04-30 17:37 | NUR ---
I have reviewed this patient and I concur with the Shift Assessment completed by the Licensed Practical Nurse today this shift.
[2019-04-30 20:00] VITALS: BP 99/53
[2019-05-01] VITALS: BP 97/56
--- NOTE | 2019-05-01 02:56 | NUR ---
RESTING WITH EYES CLOSED, RESPERTIONS EVEN, NO S/S DISTRESS NOTED.
[2019-05-01 04:00] VITALS: BP 97/54
--- NOTE | 2019-05-01 06:49 | NUR ---
I have reviewed this patient and I concur with the Shift Assessment completed by the Licensed Practical Nurse today this shift.
--- NOTE | 2019-05-01 07:33 | NUR ---
ALERT BUT CONFUSED. TELEMERTY SHOWS PACED RHYTHM. SL TO RIGHT WRIST. DENIES ANY NEEDS. PT WILL NOT TURN OR USE THE BEDSIDE COOMODE. SHE IS INCONIENT. HER BUTTOCTS ARE RALPH. SR UP WITH CALL LIGHT IN REACH
[2019-05-01 09:01] VITALS: BP 115/65
--- NOTE | 2019-05-01 11:34 | MORECARE ---
CASE MANAGEMENT DISCHARGE SUMMARY PATIENT: DANIEL ALVAREZ UNIT: [id number] ADM DATE: 04/12/19 AGE: 73 : 43 SEX: F ROOM/BED: D.2123 AUTHOR: ZENY SOLIS PHYSICIAN: REFERRING PHYSICIAN: MYESHA JOYNER MD DATE OF SERVICE: 05/01/19 Discharge Plan Patient Name: DANIEL ALVAREZ Facility: [facility] : 1945 Planned Disposition: Inpatient Rehab Anticipated Discharge Date: Discharge Date: Expected LOS: Initial Reviewer: [id number] Initial Review Date: 04/13/2019 Generated: 05/01/19 12:33 pm Comments DCP- Discharge Planning Updated by [id number]: Jaya Dove on 04/28/19 4:[address] Patient Name: DANIEL ALVAREZ Encounter No: [id number] : 1945 Primary Insurance: [employer] Anticipated DC Date: Planned Disposition: Inpatient Rehab External Planned Provider: [facility] INPATIENT REHAB DCP follow-up note: CM PARTICIPATED IN MULTIDISCIPLINARY TEAM MEETING, WAS INFORMED BY [facility] OF INPATIENT REHAB AT [place] THAT THEY ARE SUBMITTING FOR INSURANCE AUTHORIZATION AGAIN TODAY. CM NOTIFIED PT WHO IS WILLING FOR INPATIENT REHAB AT [place] AND UNDERSTANDS AND AGREES THAT IF DECLINED, SHE WILL GO TO CUSTODIAL FACILITY IN [place] OTHER THAN [facility]. IMPORTANT MESSAGE FROM MEDICARE PROVIDED AND EXPLAINED. CM WAITING INSURANCE DETERMINATION FOR INPATIENT REHAB AT [facility]. LORENZA Beaulieu DCP- Discharge Planning Updated by [id number]: Jaya Dove on 04/27/19 10:[address] Patient Name: DANIEL ALVAREZ Encounter No: [id number] : 1945 Primary Insurance: [employer] Anticipated DC Date: Planned Disposition: Inpatient Rehab External Planned Provider: [facility] INPATIENT REH[facility] DCP follow-up note: CM SPOKE TO VIDA OF [facility] INPATIENT REHAB DURING MULTIDICIPLINARY TEAM MEETING WHO INFORMED GROUP THAT SHE IS RESUBMITTING TO INSURANCE FOR AUTHORIZATION DETERMINATION FOR INPATIENT REHAB. CM HAS PREVIOUSLY SPOKEN TO PT'S SISTER / POA WHO HAS DISCUSSED PLAN OF CUSTODIAL IN [place] IF DECLINED INPATIENT REHAB; JUST NOT [facility]. CM WAITING INSURANCE AUTHORIZATION FOR DENIAL FOR INPATIENT REHAB AT [place]. Jaya Dove. CASE MANAGEMENT DCP- Discharge Planning Updated by [id number]: Caitlyn Hodgson on 04/26/19 2:[address] CM RECEIVED MD ORDER TO CHECK IF DISCHARGE PLAN IS STILL FOR HOME. IN REVIEW OF WEEKDAY CM THE PLAN IS FOR A CUSTODIAL FACILITY. SPOKE W/ THE PRIMARY NURSE, ROSANA. THE PATIENT HAS SOME DEGREE OF CONFUSION. SHE WISHES TO DISCHARGE TO HOME. PER THE NURSING NOTES THE FAMILY WAS AT THE BEDSIDE EARLIER THIS AM. TC TO POA, SISTER, TRACY. NO ANSWER. LEFT VM FOR TRACY JOHNSON TO RETURN CALL WHEN AVAILAABLE. DCP- Discharge Planning Updated by [id number]: Jaya Dove on 04/23/19 4:[address] Patient Name: DANIEL ALVAREZ Encounter No: [id number] : 1945 Primary Insurance: [employer] Anticipated DC Date: Planned Disposition: Inpatient Rehab External Planned Provider: [facility] INPATIENT REHAB DCP follow-up note: CM RECEIVED CALL FROM PT'S SISTER AND POWER OF BRANCH MANAGER, TRACY GONZALEZ, WHO WANTED TO DISCUSS DISCHARGE PLANNING. TRACY REPORTS PT NEEDS REHAB INPATIENT AT [place] AND IF DELCINED, SHE WILL NEED ANY CUSTODIAL REHAB [place]CEPT [facility]. TRACY REPORTS PT HAS DEMENTIA, LIVES WITH HER (TRACY) AND THEY DISCUSSED REHAB LAST NIGHT, PT IS IN AGREEMENT WITH REHAB SERVICES. IF TRACY DOES NOT ANSWER HER PHONE, SHE DIRECTED CM TO CALL HEIKE, HER SPOUSE, . CM SPOKE TO VIDA OF INPATIENT REHAB AT MULTIDISCIPLINARY TEAM MEETING, INPATIENT REHAB TO RESUBMIT TO INSURANCE FOR INPATIENT REHAB AUTHORIZATION REQUEST. CM TO CONTINUE TO FOLLOW AND ASSIST IF NEEDED. Jaya Dove, CASE MANAGEMENT DCP- Discharge Planning Updated by [id number]: Jaya Dove on 04/22/19 3:[address] Patient Name: DANIEL ALVAREZ Encounter No: [id number] : 1945 Primary Insurance: [employer] Anticipated DC Date: Planned Disposition: Home with Home Health External Planned Provider: TO BE DETERMINED DCP follow-up note: CM RECEIVED CALL FROM [facility] OF INPATIENT REHAB, PT WAS DECLINED BY INSURANCE FOR INPATIENT REHAB. CM SPOKE TO PT IN ROOM, PT DOES NOT WANT TO GO TO CUSTODIAL FOR REHAB AND WANTS TO RETURN HOME WITH HOME HEALTH. PT REPORTS GETTING OUT OF BED AND WALKING INDEPENDENTLY AND IS STONG ENOUGH TO RETURN HOME AT DISCHARGE. PT DENIES FURHTER NEEDS OTHER THAN HOME HEALTH. CM NOTIFIED PEPITO RIDER. CM TO FOLLOW UP WITH PT SOON POSSIBLE TO GET PT'S CHOICE ON HOME HEALTH PROVIDER AND WILL ARRANGE HOME HEALTH FOR DISCHARGE HOME WITH PHYSICIAN AGREEEMENT AND ORDERS. Jaya Dove, CASE MANAGEMENT DCP- Discharge Planning Updated by [id number]: Zohreh Potter on 04/15/19 10:[address] CM spoke with patient's sister yesterday. Her sister (Tracy) states she doesn't want her to go to a custodial if possible. She states that she would like her to go to inpatient rehab. I informed her that she would need authorization for that from insurance and inpatient rehab is already working on that. I informed her that it could probably be a denial if she is unable to participate in 3 hours of therapy a day. Her sister states if she is denied, that she would consent to a skilled unit. I spoke with Maria E with [facility], and Maria E states she believes [place] and [facility] are in network, but unsure. I also spoke with Dong Mac with [facility] and he states he may be able to work with her insurance for authorization. Her sister states it does not matter which one she goes to, "whatever we can find". zeyad Menjivar for [facility], states they are not in network with [place]. CM will continue to follow and assist with discharge planning/needs. DCP- Discharge Planning Updated by [id number]: Zohreh Potter on 04/13/19 2:[address] Patient Name: DANIEL ALVAREZ Admission Status: ER Accout number: [id number] Admission Date: 04-12-2019 : 1945 Admission Diagnosis: Attending: MYESHA JOYNER Current LOS: 1 Anticipated DC Date: Planned Disposition: Inpatient Rehab Primary Insurance: [employer] Discharge Planning Comments: CM met with patient to discuss discharge planning/needs. She lives with her sister and brother in law in a mobile home. She states she is ok with going to rehab and doesn't care where she goes. Permission granted to call her family for further planning. I spoke with patient's brother in law (Heike) to discuss discharge plan. I informed them of the availability of inpatient rehab, SNF, home health and DME. He states he would like her to stay here at our inpatient rehab if possible. He states that he feels she may need more than 2 weeks of therapy though. I discussed SNF. He states he would like a referral to [facility] if inpatient rehab is not authorized. I spoke with Ngozi at [facility], they do not accept [place]. She will need preauthorization for inpatient rehab. CM will continue to follow and assist with discharge planning/needs. Photographers' Model: [facility]re[facility] Potter [facility] Initial Assessment Updated by [id number]: Zohreh Potter on 04/13/19 3:17 pm * Is the patient Alert and Oriented? Yes * How many steps to enter\\exit or inside your home? 4/0 * PCP Flakita Delaney * Pharmacy [facility] * Preadmission Environment Home with Family * ADLs Partial Dependent * Partial ADLs (Assistance needed) Ambulation Medication Management * Equipment Cane Nebulizer Other Oxygen * Other Equipment Portable oxygen Trilogy * List name and contact numbers for known caregivers / representatives who currently or will assist patient after discharge: Heike Johnson - Brother in law - [phone] Tracy Johnson - Sister (POA) - [phone] * Verbal permission to speak to the caregivers and representatives has been obtained from the patient. Yes * Community resources currently utilized Other * Please name any agencies selected above. [facility] * Additional services required to return to the preadmission environment? Yes * Can the patient safely return to the preadmission environment? No * Has this patient been hospitalized within the prior 30 days at any hospital? No External Providers External Provider: [facility] Next Contact Date: Service Request Date: Service Type: Resolution: Reviewer: Comments: Coverage Notice Reviewer: [id number] - Zohreh Potter Notice Issued Date-Time: 04/13/2019 15:24 Notice Type: Patient Choice Letter Notice Delivered To: Family Member Relationship to Patient: Brother in Law Show Horse Driver Name: Heike Johnson Delivery Method: HAND - Hand Delivered Isha Days: Prior Verbal Notification: Recipient Understood Notice: Yes Recipient Signature: Med Rec Note Co-signed by Attending: Coverage Notice Comment: [facility] Reviewer: [id number] - Jaya Dove Notice Issued Date-Time: 04/28/2019 15:50 Notice Type: IM Discharge Notice Notice Delivered To: Patient Relationship to Patient: Show Horse Driver Name: Delivery Method: HAND - Hand Delivered Isha Days: Prior Verbal Notification: Recipient Understood Notice: Yes Recipient Signature: Yes Med Rec Note Co-signed by Attending: Coverage Notice Comment: Last DP export: 04/28/19 4:20 p Patient Name: DANIEL ALVAREZ Page [id number] at 1134 All edits/amendments must be made on the electronic document DICTATION DATE: 05/01/19 1133 [place] OPERATOR: TIFFANY 05/01/19 1133 RPT#: [id number] DC DATE: STATUS: ADM IN [facility] [address] [place] [address] END OF REPORT
--- NOTE | 2019-05-01 12:51 | MORECARE ---
CASE MANAGEMENT DISCHARGE SUMMARY PATIENT: DANIEL ALVAREZ UNIT: [id number] ADM DATE: 04/12/19 AGE: 73 : 43 SEX: F ROOM/BED: D.2123 AUTHOR: ZENY SOLIS PHYSICIAN: REFERRING PHYSICIAN: MYESHA JOYNER MD DATE OF SERVICE: 05/01/19 Discharge Plan Patient Name: DANIEL ALVAREZ Facility: [facility]:[place] : 1945 Planned Disposition: Longterm Facility Anticipated Discharge Date: Discharge Date: Expected LOS: Initial Reviewer: [id number] Initial Review Date: 04/13/2019 Generated: 05/01/19 1:51 pm Comments DCP- Discharge Planning Updated by [id number]: Jaya Dove on 04/28/19 4:[address] Patient Name: DANIEL ALVAREZ Encounter No: [id number] : 1945 Primary Insurance: [employer] Anticipated DC Date: Planned Disposition: Inpatient Rehab External Planned Provider: [facility] INPATIENT REHAB DCP follow-up note: CM PARTICIPATED IN MULTIDISCIPLINARY TEAM MEETING, WAS INFORMED BY [facility] OF INPATIENT REH[facility] AT [place] THAT THEY ARE SUBMITTING FOR INSURANCE AUTHORIZATION AGAIN TODAY. CM NOTIFIED PT WHO IS WILLING FOR INPATIENT REHAB AT [place] AND UNDERSTANDS AND AGREES THAT IF DECLINED, SHE WILL GO TO LONG-TERM FACILITY IN [place] OTHER THAN [facility]. IMPORTANT MESSAGE FROM MEDICARE PROVIDED AND EXPLAINED. CM WAITING INSURANCE DETERMINATION FOR INPATIENT REHAB AT [facility]. LORENZA Beaulieu DCP- Discharge Planning Updated by [email or web address]: Jaya Dove on 04/27/19 10:[address] Patient Name: DANIEL ALVAREZ Encounter No: [id number] : 1945 Primary Insurance: [employer]AGE Anticipated DC Date: Planned Disposition: Inpatient Rehab External Planned Provider: [facility] INPATIENT REHAB DCP follow-up note: CM SPOKE TO VIDA OF [facility] INPATIENT REHAB DURING MULTIDICIPLINARY TEAM MEETING WHO INFORMED GROUP THAT SHE IS RESUBMITTING TO INSURANCE FOR AUTHORIZATION DETERMINATION FOR INPATIENT REHAB. CM HAS PREVIOUSLY SPOKEN TO PT'S SISTER / POA WHO HAS DISCUSSED PLAN OF LONG-TERM IN [place] IF DECLINED INPATIENT REHAB; JUST NOT [facility]. CM WAITING INSURANCE AUTHORIZATION FOR DENIAL FOR INPATIENT REHAB AT [place]. Jaya Dove. CASE MANAGEMENT DCP- Discharge Planning Updated by [id number]: Caitlyn Hodgson on 04/26/19 2:[address] CM RECEIVED MD ORDER TO CHECK IF DISCHARGE PLAN IS STILL FOR HOME. IN REVIEW OF WEEKDAY CM THE PLAN IS FOR A LONG-TERM FACILITY. SPOKE W/ THE PRIMARY NURSE, ROSANA. THE PATIENT HAS SOME DEGREE OF CONFUSION. SHE WISHES TO DISCHARGE TO HOME. PER THE NURSING NOTES THE FAMILY WAS AT THE BEDSIDE EARLIER THIS AM. TC TO POA, SISTER, TRACY. NO ANSWER. LEFT VM FOR TRACY JOHNSON TO RETURN CALL WHEN AVAILAABLE. DCP- Discharge Planning Updated by [id number]: Jaya Dove on 04/23/19 4:[address] Patient Name: DANIEL ALVAREZ Encounter No: [id number] : 1945 Primary Insurance: [employer] Anticipated DC Date: Planned Disposition: Inpatient Rehab External Planned Provider: [facility] INPATIENT REHAB DCP follow-up note: CM RECEIVED CALL FROM PT'S SISTER AND POWER OF RESEARCH CENTER DIRECTOR, TRACY GONZALEZ, WHO WANTED TO DISCUSS DISCHARGE PLANNING. TRACY REPORTS PT NEEDS REHAB INPATIENT AT [place] AND IF DELCINED, SHE WILL NEED ANY LONG-TERM REHAB [facility]CEPT [facility]. TRACY REPORTS PT HAS DEMENTIA, LIVES WITH HER (TRACY) AND THEY DISCUSSED REHAB LAST NIGHT, PT IS IN AGREEMENT WITH REHAB SERVICES. IF TRACY DOES NOT ANSWER HER PHONE, SHE DIRECTED CM TO CALL HEIKE, HER SPOUSE, . CM SPOKE TO VIDA OF INPATIENT REHAB AT MULTIDISCIPLINARY TEAM MEETING, INPATIENT REHAB TO RESUBMIT TO INSURANCE FOR INPATIENT REHAB AUTHORIZATION REQUEST. CM TO CONTINUE TO FOLLOW AND ASSIST IF NEEDED. Jaya Dove, CASE MANAGEMENT DCP- Discharge Planning Updated by [id number]: Jaya Dove on 04/22/19 3:[address] Patient Name: DANIEL ALVAREZ Encounter No: [id number] : 1945 Primary Insurance: [employer] Anticipated DC Date: Planned Disposition: Home with Home Health External Planned Provider: TO BE DETERMINED DCP follow-up note: CM RECEIVED CALL FROM [facility] OF INPATIENT REHAB, PT WAS DECLINED BY INSURANCE FOR INPATIENT REHAB. CM SPOKE TO PT IN ROOM, PT DOES NOT WANT TO GO TO LONG-TERM FOR REHAB AND WANTS TO RETURN HOME WITH HOME HEALTH. PT REPORTS GETTING OUT OF BED AND WALKING INDEPENDENTLY AND IS STONG ENOUGH TO RETURN HOME AT DISCHARGE. PT DENIES FURHTER NEEDS OTHER THAN HOME HEALTH. CM NOTIFIED PEPITO RIDER. CM TO FOLLOW UP WITH PT SOON POSSIBLE TO GET PT'S CHOICE ON HOME HEALTH PROVIDER AND WILL ARRANGE HOME HEALTH FOR DISCHARGE HOME WITH PHYSICIAN AGREEEMENT AND ORDERS. Jaya Dove, CASE MANAGEMENT DCP- Discharge Planning Updated by [id number]: Zohreh Potter on 04/15/19 10:[address] CM spoke with patient's sister yesterday. Her sister (Tracy) states she doesn't want her to go to a fci if possible. She states that she would like her to go to inpatient rehab. I informed her that she would need authorization for that from insurance and inpatient rehab is already working on that. I informed her that it could probably be a denial if she is unable to participate in 3 hours of therapy a day. Her sister states if she is denied, that she would consent to a skilled unit. I spoke with Maria E with [facility], and Maria E states she believes [place] and [facility] are in network, but unsure. I also spoke with Dong Mac with [facility] and he states he may be able to work with her insurance for authorization. Her sister states it does not matter which one she goes to, "whatever we can find". zeyad Menjivar for [facility], states they are not in network with [place]. CM will continue to follow and assist with discharge planning/needs. DCP- Discharge Planning Updated by [id number]: Zohreh Potter on 04/13/19 2:[address] Patient Name: DANIEL ALVAREZ Admission Status: ER Accout number: [id number] Admission Date: 04-12-2019 : 1945 Admission Diagnosis: Attending: MYESHA JOYNER Current LOS: 1 Anticipated DC Date: Planned Disposition: Inpatient Rehab Primary Insurance: [employer] Discharge Planning Comments: CM met with patient to discuss discharge planning/needs. She lives with her sister and brother in law in a mobile home. She states she is ok with going to rehab and doesn't care where she goes. Permission granted to call her family for further planning. I spoke with patient's brother in law (Heike) to discuss discharge plan. I informed them of the availability of inpatient rehab, SNF, home health and DME. He states he would like her to stay here at our inpatient rehab if possible. He states that he feels she may need more than 2 weeks of therapy though. I discussed SNF. He states he would like a referral to [facility] if inpatient rehab is not authorized. I spoke with Ngozi at [facility], they do not accept [place]. She will need preauthorization for inpatient rehab. CM will continue to follow and assist with discharge planning/needs. Business Development Executive: Zohreh Potter [facility] - [facility]charge Planning Initial Assessment Updated by [email or web address]: Zohreh Potter on 04/13/19 3:17 pm * Is the patient Alert and Oriented? Yes * How many steps to enter\\exit or inside your home? 4/0 * PCP Flakita Delaney * Pharmacy [facility] * Preadmission Environment Home with Family * ADLs Partial Dependent * Partial ADLs (Assistance needed) Ambulation Medication Management * Equipment Cane Nebulizer Other Oxygen * Other Equipment Portable oxygen Trilogy * List name and contact numbers for known caregivers / representatives who currently or will assist patient after discharge: Heike Johnson - Brother in law - [phone] Tracy Johnson - Sister (POA) - [phone] * Verbal permission to speak to the caregivers and representatives has been obtained from the patient. Yes * Community resources currently utilized Other * Please name any agencies selected above. [facility] * Additional services required to return to the preadmission environment? Yes * Can the patient safely return to the preadmission environment? No * Has this patient been hospitalized within the prior 30 days at any hospital? No Coverage Notice Reviewer: [id number] - Zohreh Potter Notice Issued Date-Time: 04/13/2019 15:24 Notice Type: Patient Choice Letter Notice Delivered To: Family Member Relationship to Patient: Brother in Law Field Sales Engineer Name: Heike Johnson Delivery Method: HAND - Hand Delivered Isha Days: Prior Verbal Notification: Recipient Understood Notice: Yes Recipient Signature: Med Rec Note Co-signed by Attending: Coverage Notice Comment: [place] for [facility] Reviewer: [id number] - Jaya Dove Notice Issued Date-Time: 04/28/2019 15:50 Notice Type: IM Discharge Notice Notice Delivered To: Patient Relationship to Patient: Field Sales Engineer Name: Delivery Method: HAND - Hand Delivered Isha Days: Prior Verbal Notification: Recipient Understood Notice: Yes Recipient Signature: Yes Med Rec Note Co-signed by Attending: Coverage Notice Comment: Last DP export: 05/01/19 10:34 a Patient Name: DANIEL ALVAREZ Page 84668 at 1251 All edits/amendments must be made on the electronic document DICTATION DATE: 05/01/19 1251 STONE LAYER: TIFFANY 05/01/19 1251 RPT#: [id number] DC DATE: STATUS: ADM IN [facility] [address] [place] [address] END OF REPORT
--- NOTE | 2019-05-01 12:56 | NUR ---
Nutrition Follow-up: Pt disoriented. PO intake fluctuates. Noted pt incontinent with reddened buttocks. Awaiting placement. Diet: Cardiac, Ensure with meals PO intake: 0-75% No new wt Last BM: 04/29 per chart Labs noted: Glu 191 Meds reviewed -Continue current diet/supplement as tolerated. Encourage PO intake. [place] food preferences within diet restrictions. -MD may consider appetite stimulant. -Please obtain new wt. -RD following.
--- NOTE | 2019-05-01 13:07 | MORECARE ---
CASE MANAGEMENT DISCHARGE SUMMARY PATIENT: DANIEL ALVAREZ UNIT: [id number] ADM DATE: 04/12/19 AGE: 73 : 44 SEX: F ROOM/BED: D.2123 AUTHOR: WILL,DOC PHYSICIAN: REFERRING PHYSICIAN: MYESHA JOYNER MD DATE OF SERVICE: 05/01/19 Discharge Plan Patient Name: DANIEL ALVAREZ Facility: [facility]:[place] : 1945 Planned Disposition: Nursing Home Facility Anticipated Discharge Date: Discharge Date: Expected LOS: Initial Reviewer: [id number] Initial Review Date: 04/13/2019 Generated: 05/01/19 2:06 pm Comments DCP- Discharge Planning Updated by [id number]: Lesly Rios on 05/01/19 12:[address] Patient Name: DANIEL ALVAREZ Admission Status: ER Accout number: [id number] Admission Date: 04-12-2019 : 1945 Admission Diagnosis:FRACTURE OF SUPERIOR RIM OF RIGHT PUBIS, INIT FOR CLOS Attending: MYESHA JOYNER Current LOS: 19 Anticipated DC Date: Planned Disposition: Nursing Home Facility Primary Insurance: COVENTRY FL[employer] ADVANTAGE Discharge Planning Comments: [place] HAD BEEN SIGNED FOR [facility] SNF, I FAXED REFERRAL TODAY. CM WILL FOLLOW AND ASSIST. Nursing Assoc: Lesly Rios DCP- Discharge Planning Updated by [id number]: Jaya Dove on 04/28/19 4:[address] Patient Name: ADNIEL ALVAREZ Encounter No: [id number] : 1945 Primary Insurance: COVENTRY MCARE ADVANTAGE Anticipated DC Date: Planned Disposition: Inpatient Rehab External Planned Provider: [facility] INPATIENT REHAB DCP follow-up note: CM PARTICIPATED IN MULTIDISCIPLINARY TEAM MEETING, WAS INFORMED BY [facility] OF INPATIENT REHAB AT [place] THAT THEY ARE SUBMITTING FOR INSURANCE AUTHORIZATION AGAIN TODAY. CM NOTIFIED PT WHO IS WILLING FOR INPATIENT REHAB AT [place] AND UNDERSTANDS AND AGREES THAT IF DECLINED, SHE WILL GO TO LONG TERM FACILITY IN [place] OTHER THAN [facility]. IMPORTANT MESSAGE FROM MEDICARE PROVIDED AND EXPLAINED. CM WAITING INSURANCE DETERMINATION FOR INPATIENT REHAB AT [facility]. aJya Dove, CASE MANAGEMENT DCP- Discharge Planning Updated by [id number]: Jaya Dove on 04/27/19 10:[address] Patient Name: DANIEL ALVAREZ Encounter No: [id number] : 1945 Primary Insurance: [employer] ADVANTAGE Anticipated DC Date: Planned Disposition: Inpatient Rehab External Planned Provider: [facility] INPATIENT REHAB DCP follow-up note: CM SPOKE TO VIDA OF [facility] INPATIENT REHAB DURING MULTIDICIPLINARY TEAM MEETING WHO INFORMED GROUP THAT SHE IS RESUBMITTING TO INSURANCE FOR AUTHORIZATION DETERMINATION FOR INPATIENT REHAB. CM HAS PREVIOUSLY SPOKEN TO PT'S SISTER / YANNICK WHO HAS DISCUSSED PLAN OF LONG TERM IN [place] IF DECLINED INPATIENT REHAB; JUST NOT [facility]. CM WAITING INSURANCE AUTHORIZATION FOR DENIAL FOR INPATIENT REHAB AT [place]. Jaya Dove. CASE MANAGEMENT DCP- Discharge Planning Updated by [id number]: Caitlyn Hodgson on 04/26/19 2:[address] CM RECEIVED MD ORDER TO CHECK IF DISCHARGE PLAN IS STILL FOR HOME. IN REVIEW OF WEEKDAY CM THE PLAN IS FOR A LONG TERM FACILITY. SPOKE W/ THE PRIMARY NURSE, ROSANA. THE PATIENT HAS SOME DEGREE OF CONFUSION. SHE WISHES TO DISCHARGE TO HOME. PER THE NURSING NOTES THE FAMILY WAS AT THE BEDSIDE EARLIER THIS AM. TC TO YANNICK, SISTER, TRACY. NO ANSWER. LEFT VM FOR TRACY ALEXANDER TO RETURN CALL WHEN AVAILAABLE. DCP- Discharge Planning Updated by [id number]: Jaya Dove on 04/23/19 4:[address] Patient Name: DANIEL ALVAREZ Encounter No: [id number] : 1945 Primary Insurance: [employer] ADVANTAGE Anticipated DC Date: Planned Disposition: Inpatient Rehab External Planned Provider: [facility] INPATIENT REHAB DCP follow-up note: CM RECEIVED CALL FROM PT'S SISTER AND POWER OF ORTHOPEDIC SHOE FITTER, TRACY GONZALEZ, WHO WANTED TO DISCUSS DISCHARGE PLANNING. TRACY REPORTS PT NEEDS REHAB INPATIENT AT [place] AND IF DELCINED, SHE WILL NEED ANY LONG TERM REHAB EXCEPT [facility]. TRACY REPORTS PT HAS DEMENTIA, LIVES WITH HER (TRACY) AND THEY DISCUSSED REHAB LAST NIGHT, PT IS IN AGREEMENT WITH REHAB SERVICES. IF TRACY DOES NOT ANSWER HER PHONE, SHE DIRECTED CM TO CALL HEIKE, HER SPOUSE, . CM SPOKE TO VIDA OF INPATIENT REHAB AT MULTIDISCIPLINARY TEAM MEETING, INPATIENT REHAB TO RESUBMIT TO INSURANCE FOR INPATIENT REHAB AUTHORIZATION REQUEST. CM TO CONTINUE TO FOLLOW AND ASSIST IF NEEDED. Jaya Dove, CASE MANAGEMENT DCP- Discharge Planning Updated by [id number]: Jaya Dove on 04/22/19 3:[address] Patient Name: DANIEL ALVAREZ Encounter No: [id number] : 1945 Primary Insurance: [employer] Anticipated DC Date: Planned Disposition: Home with Home Health External Planned Provider: TO BE DETERMINED DCP follow-up note: CM RECEIVED CALL FROM [facility] OF INPATIENT REHAB, PT WAS DECLINED BY INSURANCE FOR INPATIENT REHAB. CM SPOKE TO PT IN ROOM, PT DOES NOT WANT TO GO TO LONG TERM FOR REHAB AND WANTS TO RETURN HOME WITH HOME HEALTH. PT REPORTS GETTING OUT OF BED AND WALKING INDEPENDENTLY AND IS STONG ENOUGH TO RETURN HOME AT DISCHARGE. PT DENIES FURHTER NEEDS OTHER THAN HOME HEALTH. CM NOTIFIED PEPITO RIDER. CM TO FOLLOW UP WITH PT SOON POSSIBLE TO GET PT'S CHOICE ON HOME HEALTH PROVIDER AND WILL ARRANGE HOME HEALTH FOR DISCHARGE HOME WITH PHYSICIAN AGREEEMENT AND ORDERS. Jaya Dove, CASE MANAGEMENT DCP- Discharge Planning Updated by [id number]: Zohreh Potter on 04/15/19 10:[address] CM spoke with patient's sister yesterday. Her sister (Tracy) states she doesn't want her to go to a penitentiary if possible. She states that she would like her to go to inpatient rehab. I informed her that she would need authorization for that from insurance and inpatient rehab is already working on that. I informed her that it could probably be a denial if she is unable to participate in 3 hours of therapy a day. Her sister states if she is denied, that she would consent to a skilled unit. I spoke with Maria E with [facility], and Maria E states she believes [place] and [facility] are in network, but unsure. I also spoke with Dong Mac with [facility] and he states he may be able to work with her insurance for authorization. Her sister states it does not matter which one she goes to, "whatever we can find". Ngozi Jones, liason for [facility], states they are not in network with [place]. CM will continue to follow and assist with discharge planning/needs. DCP- Discharge Planning Updated by [id number]: Zohreh Potter on 04/13/19 2:[address] Patient Name: DANIEL ALVAREZ Admission Status: ER Accout number: [id number] Admission Date: 04-12-2019 : 1945 Admission Diagnosis: Attending: MYESHA JOYNER Current LOS: 1 Anticipated DC Date: Planned Disposition: Inpatient Rehab Primary Insurance: COVENTRDesecuritrexRE ADVANTAGE Discharge Planning Comments: CM met with patient to discuss discharge planning/needs. She lives with her sister and brother in law in a mobile home. She states she is ok with going to rehab and doesn't care where she goes. Permission granted to call her family for further planning. I spoke with patient's brother in law (Heike) to discuss discharge plan. I informed them of the availability of inpatient rehab, SNF, home health and DME. He states he would like her to stay here at our inpatient rehab if possible. He states that he feels she may need more than 2 weeks of therapy though. I discussed SNF. He states he would like a referral to [facility] if inpatient rehab is not authorized. I spoke with Ngozi at [facility], they do not accept [employer]. She will need preauthorization for inpatient rehab. CM will continue to follow and assist with discharge planning/needs. Nursing Assoc: Zohreh Potter DCPIA - Discharge Planning Initial Assessment Updated by [id number]: Zohreh Potter on 04/13/19 3:17 pm * Is the patient Alert and Oriented? Yes * How many steps to enter\\exit or inside your home? 4/0 * PCP Flakita Delaney * Pharmacy [facility] * Preadmission Environment Home with Family * ADLs Partial Dependent * Partial ADLs (Assistance needed) Ambulation Medication Management * Equipment Cane Nebulizer Other Oxygen * Other Equipment Portable oxygen Trilogy * List name and contact numbers for known caregivers / representatives who currently or will assist patient after discharge: Heike Alexander - Brother in law - [phone] Tracy Alexander - Sister (POA) - [phone] * Verbal permission to speak to the caregivers and representatives has been obtained from the patient. Yes * Community resources currently utilized Other * Please name any agencies selected above. [facility] * Additional services required to return to the preadmission environment? Yes * Can the patient safely return to the preadmission environment? No * Has this patient been hospitalized within the prior 30 days at any hospital? No Coverage Notice Reviewer: [id number] - Zohreh Potter Notice Issued Date-Time: 04/13/2019 15:24 Notice Type: Patient Choice Letter Notice Delivered To: Family Member Relationship to Patient: Brother in Law Nanotechnology Engineering Technologist Name: Heike Alexander Delivery Method: HAND - Hand Delivered Isha Days: Prior Verbal Notification: Recipient Understood Notice: Yes Recipient Signature: Med Rec Note Co-signed by Attending: Coverage Notice Comment: [facility] for [facility] Reviewer: [id number] - Jaya Dove Notice Issued Date-Time: 04/28/2019 15:50 Notice Type: IM Discharge Notice Notice Delivered To: Patient Relationship to Patient: Nanotechnology Engineering Technologist Name: Delivery Method: HAND - Hand Delivered Isha Days: Prior Verbal Notification: Recipient Understood Notice: Yes Recipient Signature: Yes Med Rec Note Co-signed by Attending: Coverage Notice Comment: Last DP export: 05/01/19 11:51 a Patient Name: DANIEL ALVAREZ Page 36535 at 1307 All edits/amendments must be made on the electronic document DICTATION DATE: 05/01/19 1306 DRUG COUNSELOR: TIFFANY 05/01/19 1306 RPT#: [id number] DC DATE: STATUS: ADM IN [facility] [address] [place] [address] END OF REPORT
[2019-05-01 13:19] VITALS: BP 158/64
--- NOTE | 2019-05-01 14:45 | MORECARE ---
CASE MANAGEMENT DISCHARGE SUMMARY PATIENT: DANIEL ALVAREZ UNIT: [id number] ADM DATE: 04/12/19 AGE: 73 : 44 SEX: F ROOM/BED: D.2123 AUTHOR: WILL,DOC PHYSICIAN: REFERRING PHYSICIAN: MYESHA JOYNER MD DATE OF SERVICE: 05/01/19 Discharge Plan Patient Name: DANIEL ALVAREZ Facility: [facility]:[place] : 1945 Planned Disposition: [facility] Facility Anticipated Discharge Date: Discharge Date: Expected LOS: Initial Reviewer: [id number] Initial Review Date: 04/13/2019 Generated: 05/01/19 3:45 pm Comments DCP- Discharge Planning Updated by [id number]: Lesly Rios on 05/01/19 12:[address] Patient Name: DANIEL ALVAREZ Admission Status: ER Accout number: [id number] Admission Date: 04-12-2019 : 1945 Admission Diagnosis:FRACTURE OF SUPERIOR RIM OF RIGHT PUBIS, INIT FOR CLOS Attending: MYESHA JOYNER Current LOS: 19 Anticipated DC Date: Planned Disposition: [facility] Facility Primary Insurance: COVENTRY [employer]RE ADVANTAGE Discharge Planning Comments: [place] HAD BEEN SIGNED FOR [facility] SNF, I FAXED REFERRAL TODAY. CM WILL FOLLOW AND ASSIST. Food Inspector: Lesly Rios DCP- Discharge Planning Updated by [id number]: Jaya Dove on 04/28/19 4:[address] Patient Name: DANIEL ALVAREZ Encounter No: [id number] : 1945 Primary Insurance: COVENTRY [employer] ADVANTAGE Anticipated DC Date: Planned Disposition: Inpatient Rehab External Planned Provider: [facility] INPATIENT REHAB DCP follow-up note: CM PARTICIPATED IN MULTIDISCIPLINARY TEAM MEETING, WAS INFORMED BY [facility] OF INPATIENT REHAB AT [place] THAT THEY ARE SUBMITTING FOR INSURANCE AUTHORIZATION AGAIN TODAY. CM NOTIFIED PT WHO IS WILLING FOR INPATIENT REHAB AT [place] AND UNDERSTANDS AND AGREES THAT IF DECLINED, SHE WILL GO TO [facility]PC FACILITY IN [place] OTHER THAN [facility]. IMPORTANT MESSAGE FROM MEDICARE PROVIDED AND EXPLAINED. CM WAITING INSURANCE DETERMINATION FOR INPATIENT REHAB AT [facility]. Jaya Dove, CASE MANAGEMENT DCP- Discharge Planning Updated by [id number]: Jaya Dove on 04/27/19 10:[address] Patient Name: DANIEL ALVAREZ Encounter No: [id number] : 1945 Primary Insurance: Home Le[employer]RE ADVANTAGE Anticipated DC Date: Planned Disposition: Inpatient Rehab External Planned Provider: [facility] INPATIENT REHAB DCP follow-up note: CM SPOKE TO VIDA OF [facility] INPATIENT REHAB DURING MULTIDICIPLINARY TEAM MEETING WHO INFORMED GROUP THAT SHE IS RESUBMITTING TO INSURANCE FOR AUTHORIZATION DETERMINATION FOR INPATIENT REHAB. CM HAS PREVIOUSLY SPOKEN TO PT'S SISTER / YANNICK WHO HAS DISCUSSED PLAN OF [facility] IN [place] IF DECLINED INPATIENT REHAB; JUST NOT [facility]. CM WAITING INSURANCE AUTHORIZATION FOR DENIAL FOR INPATIENT REHAB AT [place]. Jaya Dove. CASE MANAGEMENT DCP- Discharge Planning Updated by [id number]: Caitlyn Hodgson on 04/26/19 2:[address] CM RECEIVED MD ORDER TO CHECK IF DISCHARGE PLAN IS STILL FOR HOME. IN REVIEW OF WEEKDAY CM THE PLAN IS FOR A [facility] FACILITY. SPOKE W/ THE PRIMARY NURSE, ROSANA. THE PATIENT HAS SOME DEGREE OF CONFUSION. SHE WISHES TO DISCHARGE TO HOME. PER THE NURSING NOTES THE FAMILY WAS AT THE BEDSIDE EARLIER THIS AM. TC TO YANNICK, SISTER, TRACY. NO ANSWER. LEFT VM FOR TRACY ALEXANDER TO RETURN CALL WHEN AVAILAABLE. DCP- Discharge Planning Updated by [id number]: Jaya Dove on 04/23/19 4:[address] Patient Name: DANIEL ALVAREZ Encounter No: [id number] : 1945 Primary Insurance: Home LeasingRE ADVANTAGE Anticipated DC Date: Planned Disposition: Inpatient Rehab External Planned Provider: [facility] INPATIENT REHAB DCP follow-up note: CM RECEIVED CALL FROM PT'S SISTER AND POWER OF VEHICLE AND EQUIPMENT CLEANER, TRACY GONZALEZ, WHO WANTED TO DISCUSS DISCHARGE PLANNING. TRACY REPORTS PT NEEDS REHAB INPATIENT AT [place] AND IF DELCINED, SHE WILL NEED ANY [facility] REHAB EXCEPT [facility]. TRACY REPORTS PT HAS DEMENTIA, LIVES WITH HER (TRACY) AND THEY DISCUSSED REHAB LAST NIGHT, PT IS IN AGREEMENT WITH REHAB SERVICES. IF TRACY DOES NOT ANSWER HER PHONE, SHE DIRECTED CM TO CALL HEIKE, HER SPOUSE, . CM SPOKE TO VIDA OF INPATIENT REHAB AT MULTIDISCIPLINARY TEAM MEETING, INPATIENT REHAB TO RESUBMIT TO INSURANCE FOR INPATIENT REHAB AUTHORIZATION REQUEST. CM TO CONTINUE TO FOLLOW AND ASSIST IF NEEDED. Jaya Dove, CASE MANAGEMENT DCP- Discharge Planning Updated by [id number]: Jaya Dove on 04/22/19 3:[address] Patient Name: DANIEL ALVAREZ Encounter No: [id number] : 1945 Primary Insurance: [employer] Anticipated DC Date: Planned Disposition: Home with Home Health External Planned Provider: TO BE DETERMINED DCP follow-up note: CM RECEIVED CALL FROM [facility] OF INPATIENT REHAB, PT WAS DECLINED BY INSURANCE FOR INPATIENT REHAB. CM SPOKE TO PT IN ROOM, PT DOES NOT WANT TO GO TO [facility] FOR [facility] AND WANTS TO RETURN HOME WITH HOME HEALTH. PT REPORTS GETTING OUT OF BED AND WALKING INDEPENDENTLY AND IS STONG ENOUGH TO RETURN HOME AT DISCHARGE. PT DENIES FURHTER NEEDS OTHER THAN HOME HEALTH. CM NOTIFIED PEPITO RIDER. CM TO FOLLOW UP WITH PT SOON POSSIBLE TO GET PT'S CHOICE ON HOME HEALTH PROVIDER AND WILL ARRANGE HOME HEALTH FOR DISCHARGE HOME WITH PHYSICIAN AGREEEMENT AND ORDERS. Jaya Dove, CASE MANAGEMENT DCP- Discharge Planning Updated by [id number]: Zohreh Potter on 04/15/19 10:[address] CM spoke with patient's sister yesterday. Her sister (Tracy) states she doesn't want her to go to a snf if possible. She states that she would like her to go to inpatient rehab. I informed her that she would need authorization for that from insurance and inpatient rehab is already working on that. I informed her that it could probably be a denial if she is unable to participate in 3 hours of therapy a day. Her sister states if she is denied, that she would consent to a skilled unit. I spoke with Maria E with [facility], and Maria E states she believes [place] and [facility] are in network, but unsure. I also spoke with Dong Mac with [facility] and he states he may be able to work with her insurance for authorization. Her sister states it does not matter which one she goes to, "whatever we can find". Ngozi Jones, liason for [facility], states they are not in network with [place]. CM will continue to follow and assist with discharge planning/needs. DCP- Discharge Planning Updated by [id number]: Zohreh Potter on 04/13/19 2:[address] Patient Name: DANIEL ALVAREZ Admission Status: ER Accout number: [id number] Admission Date: 04-12-2019 : 1945 Admission Diagnosis: Attending: MYESHA JOYNER Current LOS: 1 Anticipated DC Date: Planned Disposition: Inpatient Rehab Primary Insurance: COVENTR[employer] for [employer] ADVANTAGE Discharge Planning Comments: CM met with patient to discuss discharge planning/needs. She lives with her sister and brother in law in a mobile home. She states she is ok with going to rehab and doesn't care where she goes. Permission granted to call her family for further planning. I spoke with patient's brother in law (Heike) to discuss discharge plan. I informed them of the availability of inpatient rehab, SNF, home health and DME. He states he would like her to stay here at our inpatient rehab if possible. He states that he feels she may need more than 2 weeks of therapy though. I discussed SNF. He states he would like a referral to [facility] if inpatient rehab is not authorized. I spoke with Ngozi at [facility], they do not accept [employer]. She will need preauthorization for inpatient rehab. CM will continue to follow and assist with discharge planning/needs. Food Inspector: Zohreh Potter DCPIA - Discharge Planning Initial Assessment Updated by [id number]: Zohreh Potter on 04/13/19 3:17 pm * Is the patient Alert and Oriented? Yes * How many steps to enter\\exit or inside your home? 4/0 * PCP Flakita Delaney * Pharmacy [facility] * Preadmission Environment Home with Family * ADLs Partial Dependent * Partial ADLs (Assistance needed) Ambulation Medication Management * Equipment Cane Nebulizer Other Oxygen * Other Equipment Portable oxygen Trilogy * List name and contact numbers for known caregivers / representatives who currently or will assist patient after discharge: Heike Alexander - Brother in law - [phone] Tracy Alexander - Sister (POA) - [phone] * Verbal permission to speak to the caregivers and representatives has been obtained from the patient. Yes * Community resources currently utilized Other * Please name any agencies selected above. [facility] * Additional services required to return to the preadmission environment? Yes * Can the patient safely return to the preadmission environment? No * Has this patient been hospitalized within the prior 30 days at any hospital? No Coverage Notice Reviewer: [id number] - Zohreh Potter Notice Issued Date-Time: 04/13/2019 15:24 Notice Type: Patient Choice Letter Notice Delivered To: Family Member Relationship to Patient: Brother in Law Senior Linux Systems Administrator Name: Heike Alexander Delivery Method: HAND - Hand Delivered Isha Days: Prior Verbal Notification: Recipient Understood Notice: Yes Recipient Signature: Med Rec Note Co-signed by Attending: Coverage Notice Comment: [facility] for [facility] Reviewer: [id number] - Jaya Dove Notice Issued Date-Time: 04/28/2019 15:50 Notice Type: IM Discharge Notice Notice Delivered To: Patient Relationship to Patient: Senior Linux Systems Administrator Name: Delivery Method: HAND - Hand Delivered Isha Days: Prior Verbal Notification: Recipient Understood Notice: Yes Recipient Signature: Yes Med Rec Note Co-signed by Attending: Coverage Notice Comment: Last DP export: 05/01/19 12:07 p Patient Name: DANIEL ALVAREZ Page [id number] at 1445 All edits/amendments must be made on the electronic document DICTATION DATE: 05/01/19 1445 ELECTRIC POWER MACHINE OPERATOR: TIFFANY 05/01/19 1445 RPT#: [id number] DC DATE: STATUS: ADM IN [facility] [address] [place] [address] END OF REPORT
--- NOTE | 2019-05-01 14:51 | NUR ---
OT NOTE: PT COMPLETED ADL MOB WITH CGA. PT COMPLETED SIT TO STAND WITH CGA. PT COMPLETED HAIR GROOMING WITH SET UP . PT COMPLETED BUE AROM AXS. PT EXHIBITS SELF LIMITING BEHAVIOR AND REQUIRED MAX CUES FOR INCREASED PARTICIPATION. THANK YOU, BRENNAN WARD
[2019-05-01 17:58] VITALS: BP 98/58
--- NOTE | 2019-05-01 18:19 | NUR ---
LYING QUIETLY WITH EYES CLOSED. RESP REG AND NON LABORED. TELEMERTY SREMOVED PER CONSUELO ZENDEJAS
--- NOTE | 2019-05-01 19:41 | NUR ---
RECEIVED REPORT, WILL ASSUME CARE OF PT, HOUSE STEWARD/STEWARDESS IN ROOM CLEANING UP PT, WILL CONTINUE PLAN OF CARE
[2019-05-01 20:10] VITALS: BP 102/57
[2019-05-02 00:05] VITALS: BP 100/59
--- NOTE | 2019-05-02 01:57 | NUR ---
I have reviewed this patient and I concur with the Shift Assessment completed by the Licensed Practical Nurse today this shift.
--- NOTE | 2019-05-02 03:35 | NUR ---
SLEEPING ON L.SIDE, BED IS LOW, SRX2, CALL LIGHT IN REACH, WILL CONTINUE PLAN OF CARE
[2019-05-02 04:10] VITALS: BP 122/73
[2019-05-02 08:13] VITALS: BP 108/68
--- NOTE | 2019-05-02 08:19 | NUR ---
ASSESSMENT DONE,. DENIES NEEDS
[2019-05-02 12:49] VITALS: BP 105/44
--- NOTE | 2019-05-02 13:47 | NUR ---
I have reviewed this patient and I concur with the Shift Assessment completed by the Licensed Practical Nurse today this shift.
--- NOTE | 2019-05-02 19:22 | NUR ---
RECEIVED REPORT, PT WAS OFF FLOOR WITH FAMILY, NOW BACK IN ROOM, BED IS LOW, SRX2, CALL LIGHT IN REACH, WILL CONTINUE PLAN OF CARE
[2019-05-02 20:05] VITALS: BP 113/73
[2019-05-03] VITALS: BP 105/52
[2019-05-03 04:00] VITALS: BP 112/77
--- NOTE | 2019-05-03 05:34 | NUR ---
I have reviewed this patient and I concur with the Shift Assessment completed by the Licensed Practical Nurse today this shift.
[2019-05-03 05:51] LABS: BASOPHILS 0.8 % (0-2); EOSINOPHILS 7.3 % (0-7); IMMATURE GRANULOCYTES 0.3 % (0-5); LYMPHOCYTES 33.6 % (15-50); MCH 28.6 pg (26.0-34.0); MCHC 28.9 g/dL (31.0-37.0); MCV 98.7 fL (80.0-100.0); MEAN PLATELET VOLUME 11.7 fL (7.4-10.4); MONOCYTES 11.5 % (2-11); NEUTROPHILS 46.5 % (40-80); PLATELET COUNT 254 10x3/uL (130-400); RBC 3.85 10x6/uL (4.00-5.40); RDW 17.1 % (11.5-14.5); WBC 7.2 10x3/uL (4.8-10.8)
[2019-05-03 06:07] LABS: CALCIUM 9.5 mg/dL (8.5-10.1); CHLORIDE - SERUM 102 mmol/L (98-107); CREATININE - SERUM 0.6 mg/dL (0.6-1.3); POTASSIUM - SERUM 4.5 mmol/L (3.5-5.1); SODIUM 145 mmol/L (136-145); UREA NITROGEN 12 mg/dL (7-18); eGFR NON AFRICAN AMERICAN > 90 mL/min (90-120)
[2019-05-03 06:08] LABS: CALC OSMOLALITY 288 mosm/kg (275-300); GLUCOSE 92 mg/dL (74-106)
[2019-05-03 06:12] LABS: CARBON DIOXIDE 43.5 mmol/L (21.0-32.0)
--- NOTE | 2019-05-03 07:58 | NUR ---
ASSESSMENT DONE. DENIES NEEDS
[2019-05-03 08:37] VITALS: BP 103/58
--- NOTE | 2019-05-03 09:41 | NUR ---
I have reviewed this patient and I concur with the Shift Assessment completed by the Licensed Practical Nurse today this shift.
[2019-05-03 12:41] VITALS: BP 107/52
[2019-05-03 15:13] VITALS: BP 113/75
--- NOTE | 2019-05-03 17:20 | NUR ---
WITHOUT CHANGES OR DISTRESS NOTED AT THIS TIME. DENIES NEEDS
--- NOTE | 2019-05-03 19:04 | NUR ---
RECEIVED REPORT, WILL ASSUME CARE OF PT, SLEEPING, BED IS LOW, SRX2, CALL LIGHT IN REACH, WILL CONTINUE PLAN OF CARE
[2019-05-03 20:00] VITALS: BP 115/72
[2019-05-04] VITALS: BP 103/60
[2019-05-04 04:00] VITALS: BP 116/68
--- NOTE | 2019-05-04 05:56 | NUR ---
I have reviewed this patient and I concur with the Shift Assessment completed by the Licensed Practical Nurse today this shift.
--- NOTE | 2019-05-04 07:26 | NUR ---
ALERT AND CONFUSED. O2 AT 2L/M PER NC. LEFT WRIST SL, PATENT. UP WITH PT. BUTTOCKS EXCORATED. PT REFUSES TO GET UP TO BATHROOM AND IS INCONIENT OF URINE AND STOOL. SR UP WITH CALL LIGHT IN REACH
[2019-05-04 08:02] VITALS: BP 94/62
--- NOTE | 2019-05-04 11:25 | MORECARE ---
CASE MANAGEMENT DISCHARGE SUMMARY PATIENT: DANIEL ALVAREZ UNIT: [id number] ADM DATE: 04/12/19 AGE: 74 : 44 SEX: F ROOM/BED: D.2123 AUTHOR: WILL,DOC PHYSICIAN: REFERRING PHYSICIAN: MYESHA JOYNER MD DATE OF SERVICE: 05/04/19 Discharge Plan Patient Name: DANIEL ALVAREZ Facility: [facility]:[place] : 1945 Planned Disposition: Long-Term Facility Anticipated Discharge Date: 05/05/19 Discharge Date: Expected LOS: 23 Initial Reviewer: [id number] Initial Review Date: 04/13/2019 Generated: 05/04/19 12:24 pm Comments DCP- Discharge Planning Updated by [id number]: Lesly Rios on 05/01/19 12:[address] Patient Name: DANIEL ALVAREZ Admission Status: ER Accout number: [id number] Admission Date: 04-12-2019 : 1945 Admission Diagnosis:FRACTURE OF SUPERIOR RIM OF RIGHT PUBIS, INIT FOR CLOS Attending: MYESHA JOYNER Current LOS: 19 Anticipated DC Date: Planned Disposition: Long-Term Facility Primary Insurance: [employer] ADVANTAGE Discharge Planning Comments: [place] HAD BEEN SIGNED FOR [facility] SNF, I FAXED REFERRAL TODAY. CM WILL FOLLOW AND ASSIST. Paving Contractor: Lesly Rios DCP- Discharge Planning Updated by [id number]: Jaya Dove on 04/28/19 4:[address] Patient Name: DANIEL ALVAREZ Encounter No: [id number] : 1945 Primary Insurance: [employer] ADVANTAGE Anticipated DC Date: Planned Disposition: Inpatient Rehab External Planned Provider: [facility] INPATIENT REHAB DCP follow-up note: CM PARTICIPATED IN MULTIDISCIPLINARY TEAM MEETING, WAS INFORMED BY VIDA OF INPATIENT REHAB AT [place] THAT THEY ARE SUBMITTING FOR INSURANCE AUTHORIZATION AGAIN TODAY. CM NOTIFIED PT WHO IS WILLING FOR INPATIENT REHAB AT [place] AND UNDERSTANDS AND AGREES THAT IF DECLINED, SHE WILL GO TO SHELTER FACILITY IN [place] OTHER THAN [facility]. IMPORTANT MESSAGE FROM MEDICARE PROVIDED AND EXPLAINED. CM WAITING INSURANCE DETERMINATION FOR INPATIENT REHAB AT [facility]. Jaya Dove, CASE MANAGEMENT DCP- Discharge Planning Updated by [id number]: Jaya Dove on 04/27/19 10:[address] Patient Name: DANIEL ALVAREZ Encounter No: [id number] : 1945 Primary Insurance: [employer] MC[employer] ADVANTAGE Anticipated DC Date: Planned Disposition: Inpatient Rehab External Planned Provider: [facility] INPATIENT REH[facility] DCP follow-up note: CM SPOKE TO VIDA OF [facility] INPATIENT REHAB DURING MULTIDICIPLINARY TEAM MEETING WHO INFORMED GROUP THAT SHE IS RESUBMITTING TO INSURANCE FOR AUTHORIZATION DETERMINATION FOR INPATIENT REHAB. CM HAS PREVIOUSLY SPOKEN TO PT'S SISTER / YANNICK WHO HAS DISCUSSED PLAN OF SHELTER IN [place] IF DECLINED INPATIENT REHAB; JUST NOT [facility]. CM WAITING INSURANCE AUTHORIZATION FOR DENIAL FOR INPATIENT REHAB AT [place]. Jaya Dove. CASE MANAGEMENT DCP- Discharge Planning Updated by [id number]: Caitlyn Hodgson on 04/26/19 2:[address] CM RECEIVED MD ORDER TO CHECK IF DISCHARGE PLAN IS STILL FOR HOME. IN REVIEW OF WEEKDAY CM THE PLAN IS FOR A SHELTER FACILITY. SPOKE W/ THE PRIMARY NURSE, ROSANA. THE PATIENT HAS SOME DEGREE OF CONFUSION. SHE WISHES TO DISCHARGE TO HOME. PER THE NURSING NOTES THE FAMILY WAS AT THE BEDSIDE EARLIER THIS AM. TC TO SAHARAA, SISTER, TRACY. NO ANSWER. LEFT VM FOR TRACY ALEXANDER TO RETURN CALL WHEN AVAILAABLE. DCP- Discharge Planning Updated by [id number]: Jaya Dove on 04/23/19 4:[address] Patient Name: DANIEL ALVAREZ Encounter No: [id number] : 1945 Primary Insurance: [employer] MC[employer] ADVANTAGE Anticipated DC Date: Planned Disposition: Inpatient Rehab External Planned Provider: [facility] INPATIENT [facility] DCP follow-up note: CM RECEIVED CALL FROM PT'S SISTER AND POWER OF SUPERINTENDENT LAUNDRY, TRACY GONZALEZ, WHO WANTED TO DISCUSS DISCHARGE PLANNING. TRACY REPORTS PT NEEDS REHAB INPATIENT AT [place] AND IF DELCINED, SHE WILL NEED ANY [facility] REHAB EXCEPT [facility]. TRACY REPORTS PT HAS DEMENTIA, LIVES WITH HER (TRACY) AND THEY DISCUSSED REHAB LAST NIGHT, PT IS IN AGREEMENT WITH REHAB SERVICES. IF TRACY DOES NOT ANSWER HER PHONE, SHE DIRECTED CM TO CALL HEIKE, HER SPOUSE, . CM SPOKE TO VIDA OF INPATIENT REHAB AT MULTIDISCIPLINARY TEAM MEETING, INPATIENT REHAB TO RESUBMIT TO INSURANCE FOR INPATIENT REHAB AUTHORIZATION REQUEST. CM TO CONTINUE TO FOLLOW AND ASSIST IF NEEDED. Jaya Dove, CASE MANAGEMENT DCP- Discharge Planning Updated by [id number]: Jaya Dove on 04/22/19 3:[address] Patient Name: DANIEL ALVAREZ Encounter No: [id number] : 1945 Primary Insurance: [employer] Anticipated DC Date: Planned Disposition: Home with Home Health External Planned Provider: TO BE DETERMINED DCP follow-up note: CM RECEIVED CALL FROM [facility] OF INPATIENT REHAB, PT WAS DECLINED BY INSURANCE FOR INPATIENT REHAB. CM SPOKE TO PT IN ROOM, PT DOES NOT WANT TO GO TO [facility] FOR REHAB AND WANTS TO RETURN HOME WITH HOME HEALTH. PT REPORTS GETTING OUT OF BED AND WALKING INDEPENDENTLY AND IS STONG ENOUGH TO RETURN HOME AT DISCHARGE. PT DENIES FURHTER NEEDS OTHER THAN HOME HEALTH. CM NOTIFIED PEPITO RIDER. CM TO FOLLOW UP WITH PT SOON POSSIBLE TO GET PT'S CHOICE ON HOME HEALTH PROVIDER AND WILL ARRANGE HOME HEALTH FOR DISCHARGE HOME WITH PHYSICIAN AGREEEMENT AND ORDERS. Jaya Dove, CASE MANAGEMENT DCP- Discharge Planning Updated by [id number]: Zohreh Potter on 04/15/19 10:[address] CM spoke with patient's sister yesterday. Her sister (Tracy) states she doesn't want her to go to a skilled nursing if possible. She states that she would like her to go to inpatient rehab. I informed her that she would need authorization for that from insurance and inpatient rehab is already working on that. I informed her that it could probably be a denial if she is unable to participate in 3 hours of therapy a day. Her sister states if she is denied, that she would consent to a skilled unit. I spoke with Maria E with [employer], and Maria E states she believes [place] and [facility] are in network, but unsure. I also spoke with Dong Mac with [employer] and he states he may be able to work with her insurance for authorization. Her sister states it does not matter which one she goes to, "whatever we can find". Ngozi Jones, liason for [facility], states they are not in network with [employer]. CM will continue to follow and assist with discharge planning/needs. DCP- Discharge Planning Updated by [id number]: Zohreh Potter on 04/13/19 2:[address] Patient Name: DANIEL ALVAREZ Admission Status: ER Accout number: [id number] Admission Date: 04-12-2019 : 1945 Admission Diagnosis: Attending: MYESHA JOYNER Current LOS: 1 Anticipated DC Date: Planned Disposition: Inpatient Rehab Primary Insurance: [employer] ADVANTAGE Discharge Planning Comments: CM met with patient to discuss discharge planning/needs. She lives with her sister and brother in law in a mobile home. She states she is ok with going to rehab and doesn't care where she goes. Permission granted to call her family for further planning. I spoke with patient's brother in law (Heike) to discuss discharge plan. I informed them of the availability of inpatient rehab, SNF, home health and DME. He states he would like her to stay here at our inpatient rehab if possible. He states that he feels she may need more than 2 weeks of therapy though. I discussed SNF. He states he would like a referral to [facility] if inpatient rehab is not authorized. I spoke with Ngozi at [facility], they do not accept [employer]. She will need preauthorization for inpatient rehab. CM will continue to follow and assist with discharge planning/needs. Paving Contractor: Zohreh Potter DCPIA - Discharge Planning Initial Assessment Updated by [id number]: Zohreh Potter on 04/13/19 3:17 pm * Is the patient Alert and Oriented? Yes * How many steps to enter\\exit or inside your home? 4/0 * PCP Flakita Delaney * Pharmacy [facility] * Preadmission Environment Home with Family * ADLs Partial Dependent * Partial ADLs (Assistance needed) Ambulation Medication Management * Equipment Cane Nebulizer Other Oxygen * Other Equipment Portable oxygen Trilogy * List name and contact numbers for known caregivers / representatives who currently or will assist patient after discharge: Heike Alexander - Brother in law - [phone] Tracy Alexander - Sister (POA) - [phone] * Verbal permission to speak to the caregivers and representatives has been obtained from the patient. Yes * Community resources currently utilized Other * Please name any agencies selected above. [facility] * Additional services required to return to the preadmission environment? Yes * Can the patient safely return to the preadmission environment? No * Has this patient been hospitalized within the prior 30 days at any hospital? No Coverage Notice Reviewer: [id number] Jenni Potter Notice Issued Date-Time: 04/13/2019 15:24 Notice Type: Patient Choice Letter Notice Delivered To: Family Member Relationship to Patient: Brother in Law Reformatory Attendant Name: Heike Alexander Delivery Method: HAND - Hand Delivered Isha Days: Prior Verbal Notification: Recipient Understood Notice: Yes Recipient Signature: Med Rec Note Co-signed by Attending: Coverage Notice Comment: [facility] for [facility] Reviewer: [id number] Jenni Dove Notice Issued Date-Time: 04/28/2019 15:50 Notice Type: IM Discharge Notice Notice Delivered To: Patient Relationship to Patient: Reformatory Attendant Name: Delivery Method: HAND - Hand Delivered Isha Days: Prior Verbal Notification: Recipient Understood Notice: Yes Recipient Signature: Yes Med Rec Note Co-signed by Attending: Coverage Notice Comment: Last DP export: 05/01/19 1:45 p Patient Name: DANIEL ALVAREZ Page [id number] at 1125 All edits/amendments must be made on the electronic document DICTATION DATE: 05/04/19 112 PELLET PREPARATION OPERATOR: TIFFANY 05/04/19 1124 RPT#: [id number] DC DATE: STATUS: ADM IN [facility] [address] [place] [address] END OF REPORT
--- NOTE | 2019-05-04 11:39 | MORECARE ---
CASE MANAGEMENT DISCHARGE SUMMARY PATIENT: DANIEL ALVAREZ UNIT: [id number] ADM DATE: 04/12/19 AGE: 74 : 44 SEX: F ROOM/BED: D.2123 AUTHOR: WILL,DOC PHYSICIAN: REFERRING PHYSICIAN: MYESHA JOYNER MD DATE OF SERVICE: 05/04/19 Discharge Plan Patient Name: DANIEL ALVAREZ Facility: [facility] : 1945 Planned Disposition: Mcfp Facility Anticipated Discharge Date: 05/05/19 Discharge Date: Expected LOS: 23 Initial Reviewer: [id number] Initial Review Date: 04/13/2019 Generated: 05/04/19 12:39 pm Comments DCP- Discharge Planning Updated by [id number]: Jaya Dove on 05/04/19 10:[address] Patient Name: DANIEL ALVAREZ Encounter No: [id number] : 1945 Primary Insurance: [employer] Anticipated DC Date: 05-05-2019 Planned Disposition: Mcfp Facility External Planned Provider: [facility] [place], MEDICARE REHAB BED DCP follow-up note: SHAY RECEIVED CALL FROM HEIKE NAVA, , WHO REQEUSTED UPDATE ON PLACEMENT AT [facility] FOR REHAB. CM INFORMED HEIKE THAT WE ARE STILL WAITING AUTHORIZATION FROM PT'S INSURANCE. CM SPOKE TO DONG OF [facility], , WHO INFORMED CM THAT HE IS WAITING ON INSURANCE APPROVAL FOR CONTRACT WITH AUTHORIZATION [facility] TO PROVIDE REHAB SERVICE TO PATIENT. DONG REPORTS NOT NEEDING UPDATE TODAY AND TO WAIT TO FAX ANY UPDATES UNTIL THEY HEAR FROM INSURANCE. CM NOTIFIED PT WHO IS IN AGREEMENT WITH DISCHARGE TO REHAB AT [facility]. PT IS UP TO CHAIR. IMPORTANT MESSAGE FROM MEDICARE PROVIDED AND EXPLAINED. CM WAITING INSURANCE AUTHORIZATION FOR REHAB AT [facility]. Jaya Dove CASE MANAGEMENT DCP- Discharge Planning Updated by [id number]: Lesly Rios on 05/01/19 12:[address] Patient Name: DANIEL ALVAREZ Admission Status: ER Accout number: [id number] Admission Date: 04-12-2019 : 1945 Admission Diagnosis:FRACTURE OF SUPERIOR RIM OF RIGHT PUBIS, INIT FOR CLOS Attending: MYESHA JOYNER Current LOS: 19 Anticipated DC Date: Planned Disposition: Mcfp Facility Primary Insurance: COVENTRY MCARE ADVANTAGE Discharge Planning Comments: [place] HAD BEEN SIGNED FOR [facility] SNF, I FAXED REFERRAL TODAY. CM WILL FOLLOW AND ASSIST. Safety And Occupational Health Manager: Lesly Rios DCP- Discharge Planning Updated by [id number]: Jaya Dove on 04/28/19 4:[address] Patient Name: DANIEL ALVAREZ Encounter No: [id number] : 1945 Primary Insurance: [employer] MCARE ADVANTAGE Anticipated DC Date: Planned Disposition: Inpatient Rehab External Planned Provider: [facility] INPATIENT REHAB DCP follow-up note: CM PARTICIPATED IN MULTIDISCIPLINARY TEAM MEETING, WAS INFORMED BY VIDA OF INPATIENT REHAB AT [place] THAT THEY ARE SUBMITTING FOR INSURANCE AUTHORIZATION AGAIN TODAY. CM NOTIFIED PT WHO IS WILLING FOR INPATIENT REHAB AT [place] AND UNDERSTANDS AND AGREES THAT IF DECLINED, SHE WILL GO TO [facility] FACILITY IN [place] OTHER THAN [facility]. IMPORTANT MESSAGE FROM MEDICARE PROVIDED AND EXPLAINED. CM WAITING INSURANCE DETERMINATION FOR INPATIENT REHAB AT [facility]. Jaya Dove, CASE MANAGEMENT DCP- Discharge Planning Updated by [id number]: Jaya Dove on 04/27/19 10:[address] Patient Name: DANIEL ALVAREZ Encounter No: [id number] : 1945 Primary Insurance: [employer]ENTRY MC[employer] ADVANTAGE Anticipated DC Date: Planned Disposition: Inpatient Rehab External Planned Provider: [facility] INPATIENT REHAB DCP follow-up note: CM SPOKE TO VIDA OF [facility] INPATIENT REHAB DURING MULTIDICIPLINARY TEAM MEETING WHO INFORMED GROUP THAT SHE IS RESUBMITTING TO INSURANCE FOR AUTHORIZATION DETERMINATION FOR INPATIENT REHAB. CM HAS PREVIOUSLY SPOKEN TO PT'S SISTER / POA WHO HAS DISCUSSED PLAN OF [facility] IN [place] IF DECLINED INPATIENT REHAB; JUST NOT [facility]. CM WAITING INSURANCE AUTHORIZATION FOR DENIAL FOR INPATIENT REHAB AT [place]. Jaya Dove. CASE MANAGEMENT DCP- Discharge Planning Updated by [id number]: Caitlyn Hodgson on 04/26/19 2:[address] CM RECEIVED MD ORDER TO CHECK IF DISCHARGE PLAN IS STILL FOR HOME. IN REVIEW OF WEEKDAY CM THE PLAN IS FOR A [facility] FACILITY. SPOKE W/ THE PRIMARY NURSE, ROSANA. THE PATIENT HAS SOME DEGREE OF CONFUSION. SHE WISHES TO DISCHARGE TO HOME. PER THE NURSING NOTES THE FAMILY WAS AT THE BEDSIDE EARLIER THIS AM. TC TO POA, SISTER, TRACY. NO ANSWER. LEFT VM FOR TRACY JOHNSON TO RETURN CALL WHEN AVAILAABLE. DCP- Discharge Planning Updated by [id number]: Jaya Dove on 04/23/19 4:[address] Patient Name: DANIEL ALVAREZ Encounter No: [id number] : 1945 Primary Insurance: [employer] Anticipated DC Date: Planned Disposition: Inpatient Rehab External Planned Provider: [facility] INPATIENT REHAB DCP follow-up note: CM RECEIVED CALL FROM PT'S SISTER AND POWER OF CIGAR HEAD PEGGER, TRACY GONZALEZ, WHO WANTED TO DISCUSS DISCHARGE PLANNING. TRACY REPORTS PT NEEDS REHAB INPATIENT AT [place] AND IF DELCINED, SHE WILL NEED ANY [facility] REH[facility]CEPT [facility]. TRACY REPORTS PT HAS DEMENTIA, LIVES WITH HER (TRACY) AND THEY DISCUSSED REHAB LAST NIGHT, PT IS IN AGREEMENT WITH REHAB SERVICES. IF TRACY DOES NOT ANSWER HER PHONE, SHE DIRECTED CM TO CALL HEIKE, HER SPOUSE, . CM SPOKE TO VIDA OF INPATIENT REHAB AT MULTIDISCIPLINARY TEAM MEETING, INPATIENT REHAB TO RESUBMIT TO INSURANCE FOR INPATIENT REHAB AUTHORIZATION REQUEST. CM TO CONTINUE TO FOLLOW AND ASSIST IF NEEDED. Jaya Dove, CASE MANAGEMENT DCP- Discharge Planning Updated by [id number]: Jaya Dove on 04/22/19 3:[address] Patient Name: DANIEL ALVAREZ Encounter No: [id number] : 1945 Primary Insurance: [employer] Anticipated DC Date: Planned Disposition: Home with Home Health External Planned Provider: TO BE DETERMINED DCP follow-up note: CM RECEIVED CALL FROM [facility] OF INPATIENT REHAB, PT WAS DECLINED BY INSURANCE FOR INPATIENT REHAB. CM SPOKE TO PT IN ROOM, PT DOES NOT WANT TO GO TO [facility] FOR REHAB AND WANTS TO RETURN HOME WITH HOME HEALTH. PT REPORTS GETTING OUT OF BED AND WALKING INDEPENDENTLY AND IS STONG ENOUGH TO RETURN HOME AT DISCHARGE. PT DENIES FURHTER NEEDS OTHER THAN HOME HEALTH. CM NOTIFIED PEPITO MATILDAYULIA. CM TO FOLLOW UP WITH PT SOON POSSIBLE TO GET PT'S CHOICE ON HOME HEALTH PROVIDER AND WILL ARRANGE HOME HEALTH FOR DISCHARGE HOME WITH PHYSICIAN AGREEEMENT AND ORDERS. Jaya Dove, CASE MANAGEMENT DCP- Discharge Planning Updated by [id number]: Zohreh Potter on 04/15/19 10:[address] CM spoke with patient's sister yesterday. Her sister (Tracy) states she doesn't want her to go to a alf if possible. She states that she would like her to go to inpatient rehab. I informed her that she would need authorization for that from insurance and inpatient rehab is already working on that. I informed her that it could probably be a denial if she is unable to participate in 3 hours of therapy a day. Her sister states if she is denied, that she would consent to a skilled unit. I spoke with Maria E with [facility], and Maria E states she believes [facility] are in network, but unsure. I also spoke with Dong Mac with [facility] and he states he may be able to work with her insurance for authorization. Her sister states it does not matter which one she goes to, "whatever we can find". zeyad Menjivar for [facility], states they are not in network with [employer]. CM will continue to follow and assist with discharge planning/needs. DCP- Discharge Planning Updated by [id number]: Zohreh Potter on 04/13/19 2:[address] Patient Name: DANIEL ALVAREZ Admission Status: ER Accout number: [id number] Admission Date: 04-12-2019 : 1945 Admission Diagnosis: Attending: MYESHA JOYNER Current LOS: 1 Anticipated DC Date: Planned Disposition: Inpatient Rehab Primary Insurance: [employer] Discharge Planning Comments: CM met with patient to discuss discharge planning/needs. She lives with her sister and brother in law in a mobile home. She states she is ok with going to rehab and doesn't care where she goes. Permission granted to call her family for further planning. I spoke with patient's brother in law (Heike) to discuss discharge plan. I informed them of the availability of inpatient rehab, SNF, home health and DME. He states he would like her to stay here at our inpatient rehab if possible. He states that he feels she may need more than 2 weeks of therapy though. I discussed SNF. He states he would like a referral to [facility] if inpatient rehab is not authorized. I spoke with Ngozi at [facility], they do not accept [employer]. She will need preauthorization for inpatient rehab. CM will continue to follow and assist with discharge planning/needs. Safety And Occupational Health Manager: Zohreh Potter DCPIA - Discharge Planning Initial Assessment Updated by [id number]: Zohreh Potter on 04/13/19 3:17 pm * Is the patient Alert and Oriented? Yes * How many steps to enter\\exit or inside your home? 4/0 * PCP Flakita Delaney * Pharmacy [facility] * Preadmission Environment Home with Family * ADLs Partial Dependent * Partial ADLs (Assistance needed) Ambulation Medication Management * Equipment Cane Nebulizer Other Oxygen * Other Equipment Portable oxygen Trilogy * List name and contact numbers for known caregivers / representatives who currently or will assist patient after discharge: Heike Johnson - Brother in law - [phone] Tracy Johnson - Sister (POA) - [phone] * Verbal permission to speak to the caregivers and representatives has been obtained from the patient. Yes * Community resources currently utilized Other * Please name any agencies selected above. [facility] * Additional services required to return to the preadmission environment? Yes * Can the patient safely return to the preadmission environment? No * Has this patient been hospitalized within the prior 30 days at any hospital? No Coverage Notice Reviewer: [id number] - Zohreh Potter Notice Issued Date-Time: 04/13/2019 15:24 Notice Type: Patient Choice Letter Notice Delivered To: Family Member Relationship to Patient: Brother in Law Elementary School Librarian Name: Heike Johnson Delivery Method: HAND - Hand Delivered Isha Days: Prior Verbal Notification: Recipient Understood Notice: Yes Recipient Signature: Med Rec Note Co-signed by Attending: Coverage Notice Comment: [facility] for [facility] Reviewer: [id number] - Jaya Dove Notice Issued Date-Time: 04/28/2019 15:50 Notice Type: IM Discharge Notice Notice Delivered To: Patient Relationship to Patient: Elementary School Librarian Name: Delivery Method: HAND - Hand Delivered Isha Days: Prior Verbal Notification: Recipient Understood Notice: Yes Recipient Signature: Yes Med Rec Note Co-signed by Attending: Coverage Notice Comment: Reviewer: [id number] Jenni Dove Notice Issued Date-Time: 05/04/2019 11:25 Notice Type: IM Discharge Notice Notice Delivered To: Patient Relationship to Patient: Elementary School Librarian Name: Delivery Method: HAND - Hand Delivered Isha Days: Prior Verbal Notification: Recipient Understood Notice: Yes Recipient Signature: Yes Med Rec Note Co-signed by Attending: Coverage Notice Comment: Last DP export: 05/04/19 10:25 a Patient Name: DAINEL ALVAREZ Page 70220 at 1139 All edits/amendments must be made on the electronic document DICTATION DATE: 05/04/199 INSURANCE COUNSELOR: TIFFANY 05/04/19 1139 RPT#: [id number] DC DATE: STATUS: ADM IN [facility] [address] [place] [address] END OF REPORT
--- NOTE | 2019-05-04 12:19 | NUR ---
OT NOTE: BED MOB WITH SBA; INCONT OF BLADDER. SIT TO STAND WITH WALKER AND MIN ASSIST; IN ROOM AMBULATION WITH WALKER AND MIN ASSIST. PT REPORTED EPISODE OF DIZZINESS AND FELT THAT SHE MIGHT FAINT, BUT THIS PASSED IN A FEW SECONDS. TRANSFER TO CHAIR WITH MIN ASSIST; ABLE TO AMELIA SOCKS WITH MIN ASSIST AND EXT TIME. SIMPLE GROOMING WITH SET UP. IMPROVEMENT NOTED IN GAIT. CAMRON GORDON, OTR/L
[2019-05-04 13:09] VITALS: BP 97/63
--- NOTE | 2019-05-04 13:54 | NUR ---
I have reviewed this patient and I concur with the Shift Assessment completed by the Licensed Practical Nurse today this shift.
[2019-05-04 16:00] VITALS: BP 104/53
--- NOTE | 2019-05-04 18:13 | NUR ---
UP IN BEDSIDE CHAIR. NO NEEDS VOICED. WILL MONITOR
--- NOTE | 2019-05-04 19:29 | NUR ---
PT SITTING UP IN CHAIR, PT INCONTINENT OF URINE. WET CHEMISTRY ANALYST AT BED SIDE TO CLEAN PT.
[2019-05-04 21:08] VITALS: BP 86/47
[2019-05-05 00:20] VITALS: BP 113/64
--- NOTE | 2019-05-05 03:58 | NUR ---
I have reviewed this patient and I concur with the Shift Assessment completed by the Licensed Practical Nurse today this shift.
--- NOTE | 2019-05-05 04:03 | NUR ---
RESTING WITH EYES CLOSED, RESPERATIONS EVEN, NO S/S DISTRESS NOTED.
[2019-05-05 04:13] VITALS: BP 90/54
--- NOTE | 2019-05-05 07:29 | NUR ---
ALERT AND CONFUSED. LYING QUITELY. O2 AT 2 L/M PER NC. LEFT WRIST SL, PATENT. BUTTOCKS EXCORATED. PT IS INCONIENT OF URINE AND STOOL. WILL NOT TELL US WHEN SHE NEEDS TO GO. SR UP WITH CALL LIGHT IN REACH
[2019-05-05 09:12] VITALS: BP 124/82
--- NOTE | 2019-05-05 11:31 | MORECARE ---
CASE MANAGEMENT DISCHARGE SUMMARY PATIENT: DANIEL ALVAREZ UNIT: [id number] ADM DATE: 04/12/19 AGE: 74 : 43 SEX: F ROOM/BED: D.2123 AUTHOR: WILL,DOC PHYSICIAN: REFERRING PHYSICIAN: MYESHA JOYNER MD DATE OF SERVICE: 05/05/19 Discharge Plan Patient Name: DANIEL ALVAREZ Facility: [facility]:[place] : 1945 Planned Disposition: Prison Facility Anticipated Discharge Date: 05/05/19 Discharge Date: Expected LOS: 23 Initial Reviewer: [id number] Initial Review Date: 04/13/2019 Generated: 05/05/19 12:31 pm Comments DCP- Discharge Planning Updated by [id number]: Brittni Nieves on 05/05/19 10:[address] RECEIVED A VOICEMAIL FROM [facility] WITH [facility]. CALLED HER BACK AT [phone]. SHE STATED THAT SHE HAS EVERYTHING READY TO BE SUBMITTED TO THE VISUAL ARTS TEACHER (AND THE INFORMATION LOOKS APPROPRIATE), BUT WHEN SHE REACHED OUT TO [facility], SHE WAS TOLD THEY WERE TOO BUSY TO SUBMIT FOR AUTH YET AND SHE WAS REASSURED THEY WOULD DO IT TODAY. SHE STATED THAT THE FACILITY WAS NON [facility], AND THEY WOULD ALSO HAVE TO BE SUBMIT FOR THIS. I EXPLAINED THAT THE PATIENT HAS BEEN AT THIS FACILITY BEFORE AND THEY KNOW THE STEPS. I ASKED WHO SHE SPOKE WITH AND SHE STATED THAT SHE ASKED FOR [facility]ONG, IN THE CASEMANAGEMENT NOTES, AND WAS TRANSFERRED TO THE BUSINESS OFFICE. SHE DID NOT HAVE THE NAME OF THE LADY SHE SPOKE WITH, BUT STATED SHE WAS TOLD THEY WOULD SUBMIT FOR AUTH TODAY. I WILL CONTINUE TO ENTER DELAYS. DCP- Discharge Planning Updated by [email or web address]: Jaya Dove on 05/04/19 10:[address] Patient Name: DANIEL ALVAREZ Encounter No: [id number] : 1945 Primary Insurance: [employer] Anticipated DC Date: 05-05-2019 Planned Disposition: Prison Facility External Planned Provider: [facility], MEDICARE REHAB BED DCP follow-up note: CM RECEIVED CALL FROM HEIKE NAVA, , WHO REQEUSTED UPDATE ON PLACEMENT AT [facility] FOR REHAB. CM INFORMED HEIKE THAT WE ARE STILL WAITING AUTHORIZATION FROM PT'S INSURANCE. CM SPOKE TO DONG OF [facility], , WHO INFORMED CM THAT HE IS WAITING ON INSURANCE APPROVAL FOR CONTRACT WITH AUTHORIZATION [facility] TO PROVIDE REHAB SERVICE TO PATIENT. DONG REPORTS NOT NEEDING UPDATE TODAY AND TO WAIT TO FAX ANY UPDATES UNTIL THEY HEAR FROM INSURANCE. CM NOTIFIED PT WHO IS IN AGREEMENT WITH DISCHARGE TO REHAB AT [facility]. PT IS UP TO CHAIR. IMPORTANT MESSAGE FROM MEDICARE PROVIDED AND EXPLAINED. CM WAITING INSURANCE AUTHORIZATION FOR REHAB AT [facility]. Jaya Dove, CASE MANAGEMENT DCP- Discharge Planning Updated by [id number]: Lesly Rios on 05/01/19 12:[address] Patient Name: DANIEL ALVAREZ Admission Status: ER Accout number: [id number] Admission Date: 04-12-2019 : 1945 Admission Diagnosis:FRACTURE OF SUPERIOR RIM OF RIGHT PUBIS, INIT FOR CLOS Attending: MYESHA JOYNER Current LOS: 19 Anticipated DC Date: Planned Disposition: Prison Facility Primary Insurance: [employer] Discharge Planning Comments: [place] HAD BEEN SIGNED FOR [facility] SNF, I FAXED REFERRAL TODAY. CM WILL FOLLOW AND ASSIST. Weaving Machine Operator: Lesly Rios DCP- Discharge Planning Updated by [id number]: Jaya Dove on 04/28/19 4:[address] Patient Name: DANIEL ALVAREZ Encounter No: [id number] : 1945 Primary Insurance: [employer] ADVANTAGE Anticipated DC Date: Planned Disposition: Inpatient Rehab External Planned Provider: [facility] INPATIENT REHAB DCP follow-up note: CM PARTICIPATED IN MULTIDISCIPLINARY TEAM MEETING, WAS INFORMED BY [facility] OF INPATIENT REHAB AT [facility] THAT THEY ARE SUBMITTING FOR INSURANCE AUTHORIZATION AGAIN TODAY. CM NOTIFIED PT WHO IS WILLING FOR INPATIENT REHAB AT [facility] AND UNDERSTANDS AND AGREES THAT IF DECLINED, SHE WILL GO TO CARE HOME FACILITY IN [place] OTHER THAN [facility]. IMPORTANT MESSAGE FROM MEDICARE PROVIDED AND EXPLAINED. CM WAITING INSURANCE DETERMINATION FOR INPATIENT REHAB AT [facility]. Jaya Dove CASE RUMA DCP- Discharge Planning Updated by [id number]: Jaya Dove on 04/27/19 10:[address] Patient Name: DANIEL ALVAREZ Encounter No: [id number] : 1945 Primary Insurance: [employer] Anticipated DC Date: Planned Disposition: Inpatient Rehab External Planned Provider: [facility] INPATIENT REHAB DCP follow-up note: CM SPOKE TO VIDA OF [facility] INPATIENT REHAB DURING MULTIDICIPLINARY TEAM MEETING WHO INFORMED GROUP THAT SHE IS RESUBMITTING TO INSURANCE FOR AUTHORIZATION DETERMINATION FOR INPATIENT REHAB. CM HAS PREVIOUSLY SPOKEN TO PT'S SISTER / YANNICK WHO HAS DISCUSSED PLAN OF CARE HOME IN [place] IF DECLINED INPATIENT REHAB; JUST NOT [facility]. CM WAITING INSURANCE AUTHORIZATION FOR [facility]IAL FOR INPATIENT REHAB [facility]. Jaya Dove. CASE MANAGEMENT DCP- Discharge Planning Updated by [id number]: Caitlyn Hodgson on 04/26/19 2:[address] CM RECEIVED MD ORDER TO CHECK IF DISCHARGE PLAN IS STILL FOR HOME. IN REVIEW OF WEEKDAY CM THE PLAN IS FOR A CARE HOME FACILITY. SPOKE W/ THE PRIMARY NURSE, ROSANA. THE PATIENT HAS SOME DEGREE OF CONFUSION. SHE WISHES TO DISCHARGE TO HOME. PER THE NURSING NOTES THE FAMILY WAS AT THE BEDSIDE EARLIER THIS AM. TC TO POA, SISTER, TRACY. NO ANSWER. LEFT VM FOR TRACY JOHNSON TO RETURN CALL WHEN AVAILAABLE. DCP- Discharge Planning Updated by [id number]: Jaya Dove on 04/23/19 4:[address] Patient Name: DANIEL ALVAREZ Encounter No: [id number] : 1945 Primary Insurance: [employer] ADVANTAGE Anticipated DC Date: Planned Disposition: Inpatient Rehab External Planned Provider: [facility] INPATIENT REHAB DCP follow-up note: CM RECEIVED CALL FROM PT'S SISTER AND POWER OF PRODUCTION GEAR CUTTER, TRACY GONZALEZ, WHO WANTED TO DISCUSS DISCHARGE PLANNING. TRACY REPORTS PT NEEDS REHAB INPATIENT AT [facility] AND IF DELCINED, SHE WILL NEED ANY CARE HOME REHAB EXCEPT [facility]. TRACY REPORTS PT HAS DEMENTIA, LIVES WITH HER (TRACY) AND THEY DISCUSSED REHAB LAST NIGHT, PT IS IN AGREEMENT WITH REHAB SERVICES. IF TRACY DOES NOT ANSWER HER PHONE, SHE DIRECTED CM TO CALL HEIKE, HER SPOUSE, . CM SPOKE TO VIDA OF INPATIENT REHAB AT MULTIDISCIPLINARY TEAM MEETING, INPATIENT REHAB TO RESUBMIT TO INSURANCE FOR INPATIENT REHAB AUTHORIZATION REQUEST. CM TO CONTINUE TO FOLLOW AND ASSIST IF NEEDED. Jaya Dove, CASE MANAGEMENT DCP- Discharge Planning Updated by [email or web address]: Jaya Dove on 04/22/19 3:[address] Patient Name: DANIEL ALVAREZ Encounter No: [id number] : 1945 Primary Insurance: [employer] Anticipated DC Date: Planned Disposition: Home with Home Health External Planned Provider: TO BE DETERMINED DCP follow-up note: CM RECEIVED CALL FROM [facility], PT WAS DECLINED BY INSURANCE FOR INPATIENT REHAB. CM SPOKE TO PT IN ROOM, PT DOES NOT WANT TO GO TO CARE HOME FOR REHAB AND WANTS TO RETURN HOME WITH HOME HEALTH. PT REPORTS GETTING OUT OF BED AND WALKING INDEPENDENTLY AND IS STONG ENOUGH TO RETURN HOME AT DISCHARGE. PT DENIES FURHTER NEEDS OTHER THAN HOME HEALTH. CM NOTIFIED PEPITO RIDER. CM TO FOLLOW UP WITH PT SOON POSSIBLE TO GET PT'S CHOICE ON HOME HEALTH PROVIDER AND WILL ARRANGE HOME HEALTH FOR DISCHARGE HOME WITH PHYSICIAN AGREEEMENT AND ORDERS. Jaya Dove, CASE MANAGEMENT DCP- Discharge Planning Updated by [id number]: Zohreh Potter on 04/15/19 10:[address] CM spoke with patient's sister yesterday. Her sister (Tracy) states she doesn't want her to go to a [facility] if possible. She states that she would like her to go to inpatient rehab. I informed her that she would need authorization for that from insurance and inpatient rehab is already working on that. I informed her that it could probably be a denial if she is unable to participate in 3 hours of therapy a day. Her sister states if she is denied, that she would consent to a skilled unit. I spoke with Maria E with [facility], and Maria E states she believes [facility] and [facility] are in network, but unsure. I also spoke with Dong Mac with [facility] and he states he may be able to work with her insurance for authorization. Her sister states it does not matter which one she goes to, "whatever we can find". zeyad Menjivar for [facility], states they are not in network with [place]. CM will continue to follow and assist with discharge planning/needs. DCP- Discharge Planning Updated by [id number]: Zohreh Abbey on 04/13/19 2:[address] Patient Name: DANIEL ALVAREZ Admission Status: ER Accout number: [id number] Admission Date: 04-12-2019 : 1945 Admission Diagnosis: Attending: MYESHA JOYNER Current LOS: 1 Anticipated DC Date: Planned Disposition: Inpatient Rehab Primary Insurance: [employer] Discharge Planning Comments: CM met with patient to discuss discharge planning/needs. She lives with her sister and brother in law in a mobile home. She states she is ok with going to rehab and doesn't care where she goes. Permission granted to call her family for further planning. I spoke with patient's brother in law (Heike) to discuss discharge plan. I informed them of the availability of inpatient rehab, SNF, home health and DME. He states he would like her to stay here at our inpatient rehab if possible. He states that he feels she may need more than 2 weeks of therapy though. I discussed SNF. He states he would like a referral to [facility] if inpatient rehab is not authorized. I spoke with Ngozi at [facility], they do not accept [employer]. She will need preauthorization for inpatient rehab. CM will continue to follow and assist with discharge planning/needs. Weaving Machine Operator: Zohreh Abbey [place] - Discharge Planning Initial Assessment Updated by [id number]: Zohreh Abbey on 04/13/19 3:17 pm * Is the patient Alert and Oriented? Yes * How many steps to enter\\exit or inside your home? 4/0 * PCP Flakita Delaney * Pharmacy [facility] * Preadmission Environment Home with Family * ADLs Partial Dependent * Partial ADLs (Assistance needed) Ambulation Medication Management * Equipment Cane Nebulizer Other Oxygen * Other Equipment Portable oxygen Trilogy * List name and contact numbers for known caregivers / representatives who currently or will assist patient after discharge: Heike Johnson - Brother in law - [phone] Tracy Johnson - Sister (POA) - [phone] * Verbal permission to speak to the caregivers and representatives has been obtained from the patient. Yes * Community resources currently utilized Other * Please name any agencies selected above. [facility] * Additional services required to return to the preadmission environment? Yes * Can the patient safely return to the preadmission environment? No * Has this patient been hospitalized within the prior 30 days at any hospital? No Coverage Notice Reviewer: [id number] Jenni Potter Notice Issued Date-Time: 04/13/2019 15:24 Notice Type: Patient Choice Letter Notice Delivered To: Family Member Relationship to Patient: Brother in Law Human Factors Advisor Lead Name: Heike Johnson Delivery Method: HAND - Hand Delivered Isha Days: Prior Verbal Notification: Recipient Understood Notice: Yes Recipient Signature: Med Rec Note Co-signed by Attending: Coverage Notice Comment: [place] for [facility] Reviewer: [id number] Jenni Dove Notice Issued Date-Time: 04/28/2019 15:50 Notice Type: IM Discharge Notice Notice Delivered To: Patient Relationship to Patient: Human Factors Advisor Lead Name: Delivery Method: HAND - Hand Delivered Isha Days: Prior Verbal Notification: Recipient Understood Notice: Yes Recipient Signature: Yes Med Rec Note Co-signed by Attending: Coverage Notice Comment: Reviewer: [id number] Jenni Dove Notice Issued Date-Time: 05/04/2019 11:25 Notice Type: IM Discharge Notice Notice Delivered To: Patient Relationship to Patient: Human Factors Advisor Lead Name: Delivery Method: HAND - Hand Delivered Isha Days: Prior Verbal Notification: Recipient Understood Notice: Yes Recipient Signature: Yes Med Rec Note Co-signed by Attending: Coverage Notice Comment: Last DP export: 05/04/19 10:39 a Patient Name: DANIEL ALVAREZ Page [id number] at 1131 All edits/amendments must be made on the electronic document DICTATION DATE: 05/05/19 1131 PERSON INVESTIGATOR: TIFFANY 05/05/19 1131 RPT#: [id number] [place] DATE: STATUS: ADM IN [facility] [address] [place] [address] END OF REPORT
--- NOTE | 2019-05-05 11:34 | NUR ---
I have reviewed this patient and I concur with the Shift Assessment completed by the Licensed Practical Nurse today this shift.
[2019-05-05 12:46] VITALS: BP 104/65
--- NOTE | 2019-05-05 12:50 | NUR ---
SETTING ON EDGE OF BED. DENIES ANY NEEDS. CALL LIGHT IN REACH. WILL MONITOR
[2019-05-05 13:48] LABS: CALC OSMOLALITY 295 mosm/kg (275-300); CALCIUM 8.7 mg/dL (8.5-10.1); CHLORIDE - SERUM 103 mmol/L (98-107); CREATININE - SERUM 0.7 mg/dL (0.6-1.3); GLUCOSE 162 mg/dL (74-106); POTASSIUM - SERUM 4.5 mmol/L (3.5-5.1); SODIUM 145 mmol/L (136-145); UREA NITROGEN 22 mg/dL (7-18); eGFR NON AFRICAN AMERICAN 86 mL/min (90-120)
[2019-05-05 13:57] LABS: BASOPHILS 0.7 % (0-2); HEMATOCRIT 38.3 % (36.0-48.0); HEMOGLOBIN 11.2 g/dL (12-16); IMMATURE GRANULOCYTES 0.3 % (0-5); LYMPHOCYTES 27.9 % (15-50); MCH 28.7 pg (26.0-34.0); MCHC 29.2 g/dL (31.0-37.0); MCV 98.2 fL (80.0-100.0); MEAN PLATELET VOLUME 11.4 fL (7.4-10.4); MONOCYTES 9.9 % (2-11); NEUTROPHILS 54.2 % (40-80); PLATELET COUNT 269 10x3/uL (130-400); RDW 16.6 % (11.5-14.5); WBC 5.7 10x3/uL (4.8-10.8)
--- NOTE | 2019-05-05 15:38 | NUR ---
OT NOTE: PT ABLE TO PERFORM BED MOB WITHOUT ASSIST. SITTING BALANCE ON EOB IS GOOD. PT WAS INCONT OF BOWEL AND REQUIRED ASSIST WITH PERINEAL CARE. ASKED PT IF SHE IS ABLE TO TELL IF SHE HAS TO GO TO BATHROOM AND SHE STATES, "SOMETIMES". HOWEVER, PT DOES NOT LET ANYONE KNOW..POSSIBLY BECAUSE SHE DOES NOT ALWAYS KNOW TO USE CALL LIGHT. WILL BENEFIT FROM REHAB IN ORDER TO IMPROVE MOTIVATION AND INTEREST IN RETURNING TO MORE INDEP LIVING. CAMRON GORDON, OTR/L
--- NOTE | 2019-05-05 16:04 | MORECARE ---
CASE MANAGEMENT DISCHARGE SUMMARY PATIENT: DANIEL ALVAREZ UNIT: [id number] ADM DATE: 04/12/19 AGE: 74 : 44 SEX: F ROOM/BED: D.7693 AUTHOR: WILL,DOC PHYSICIAN: REFERRING PHYSICIAN: MYESHA JOYNER MD DATE OF SERVICE: 05/05/19 Discharge Plan Patient Name: DANIEL ALVAREZ Facility: [facility] : 1945 Planned Disposition: Long Term Facility Anticipated Discharge Date: 05/05/19 Discharge Date: Expected LOS: 23 Initial Reviewer: [id number] Initial Review Date: 04/13/2019 Generated: 05/05/19 5:04 pm Comments DCP- Discharge Planning Updated by [id number]: Jaya Dove on 05/05/19 3:[address] Patient Name: DANIEL ALVAREZ Encounter No: [id number] : 1945 Primary Insurance: [employer] Anticipated DC Date: 05-05-2019 Planned Disposition: Long Term Facility External Planned Provider: TO BE DETERMINED DCP follow-up note: CM SPOKE TO DONG OF [facility], INSURANCE HAS DECLINED CONTRACT FOR REHAB PLACEMENT. DONG HAS NOTIFIED PT AND SISTER IN ROOM. CM SPOKE TO PT'S SISTER REGARDING CALLING INSURANCE [employer] TO FIND OUT IF THERE IS AN IN NETWORK FACILITY AND WHERE THE FACILITY WOULD BE LOCATED. CM DISCUSSED LONG-TERM CARE. PT'S SISTER DOES NOT WANT TO PLACE PT INTO HAND SPRING REPAIRER HELPER CARE IN A SNF. PT'S SISTER CALLING INSURANCE COMPANY TO DISCUSS OPTIONS FOR REHAB AND WILL NOTIFY CM OF POSSIBLE OPTIONS. CM TO FOLLOW UP WITH PT'S SISTER REGARDING PLACEMENT. Jaya Dove, CASE MANAGEMENT DCP- Discharge Planning Updated by [id number]: Brittni Nieves on 05/05/19 10:[address] RECEIVED A VOICEMAIL FROM HEBER WITH [employer], [place]. CALLED HER BACK AT [phone]. SHE STATED THAT SHE HAS EVERYTHING READY TO BE SUBMITTED TO THE DIETARY AIDE COOK (AND THE INFORMATION LOOKS APPROPRIATE), BUT WHEN SHE REACHED OUT TO [facility], SHE WAS TOLD THEY WERE TOO BUSY TO SUBMIT FOR AUTH YET AND SHE WAS REASSURED THEY WOULD DO IT TODAY. SHE STATED THAT THE FACILITY WAS NON PAR, AND THEY WOULD ALSO HAVE TO BE SUBMIT FOR THIS. I EXPLAINED THAT THE PATIENT HAS BEEN AT THIS FACILITY BEFORE AND THEY KNOW THE STEPS. I ASKED WHO SHE SPOKE WITH AND SHE STATED THAT SHE ASKED FOR DONG, IN THE CASEMANAGEMENT NOTES, AND WAS TRANSFERRED TO THE BUSINESS OFFICE. SHE DID NOT HAVE THE NAME OF THE LADY SHE SPOKE WITH, BUT STATED SHE WAS TOLD THEY WOULD SUBMIT FOR AUTH TODAY. I WILL CONTINUE TO ENTER DELAYS. DCP- Discharge Planning Updated by [id number]: Jaya Dove on 05/04/19 10:[address] Patient Name: DANIEL ALVAREZ Encounter No: [id number] : 1945 Primary Insurance: [employer]o Anticipated DC Date: 05-05-2019 Planned Disposition: Long Term Facility External Planned Provider: [facility] MEDICARE REHAB BED DCP follow-up note: CM RECEIVED CALL FROM HEIKE NAVA, , WHO REQEUSTED UPDATE ON PLACEMENT AT [facility] FOR REHAB. CM INFORMED HEIKE THAT WE ARE STILL WAITING AUTHORIZATION FROM PT'S INSURANCE. CM SPOKE TO DONG OF [facility], , WHO INFORMED CM THAT HE IS WAITING ON INSURANCE APPROVAL FOR CONTRACT WITH AUTHORIZATION [facility] TO PROVIDE REHAB SERVICE TO PATIENT. DONG REPORTS NOT NEEDING UPDATE TODAY AND TO WAIT TO FAX ANY UPDATES UNTIL THEY HEAR FROM INSURANCE. CM NOTIFIED PT WHO IS IN AGREEMENT WITH DISCHARGE TO REHAB AT [facility]. PT IS UP TO CHAIR. IMPORTANT MESSAGE FROM MEDICARE PROVIDED AND EXPLAINED. CM WAITING INSURANCE AUTHORIZATION FOR REHAB AT [facility]. Jaya Dove, CASE MANAGEMENT DCP- Discharge Planning Updated by [id number]: Lesly Rios on 05/01/19 12:[address] Patient Name: DANIEL ALVAREZ Admission Status: ER Accout number: [id number] Admission Date: 04-12-2019 : 1945 Admission Diagnosis:FRACTURE OF SUPERIOR RIM OF RIGHT PUBIS, INIT FOR CLOS Attending: MYESHA JOYNER Current LOS: 19 Anticipated DC Date: Planned Disposition: Long Term Facility Primary Insurance: [employer] Discharge Planning Comments: [place] HAD BEEN SIGNED FOR [facility] SNF, I FAXED REFERRAL TODAY. CM WILL FOLLOW AND ASSIST. Dispensing Operator: Lesly Rios DCP- Discharge Planning Updated by [id number]: Jaya Dove on 04/28/19 4:[address] Patient Name: DANIEL ALVAREZ Encounter No: [id number] : 1945 Primary Insurance: [employer] Anticipated DC Date: Planned Disposition: Inpatient Rehab External Planned Provider: [facility] INPATIENT REHAB DCP follow-up note: CM PARTICIPATED IN MULTIDISCIPLINARY TEAM MEETING, WAS INFORMED BY VIDA OF INPATIENT REHAB AT [place] THAT THEY ARE SUBMITTING FOR INSURANCE AUTHORIZATION AGAIN TODAY. CM NOTIFIED PT WHO IS WILLING FOR INPATIENT REHAB AT [place] AND UNDERSTANDS AND AGREES THAT IF DECLINED, SHE WILL GO TO SNF FACILITY IN [place] OTHER THAN THE [facility]. IMPORTANT MESSAGE FROM MEDICARE PROVIDED AND EXPLAINED. CM WAITING INSURANCE DETERMINATION FOR INPATIENT REHAB AT [facility]. Jaya Dove, CASE MANAGEMENT DCP- Discharge Planning Updated by [id number]: Jaya Dove on 04/27/19 10:[address] Patient Name: DANIEL ALVAREZ Encounter No: [id number] : 1945 Primary Insurance: [employer] Anticipated DC Date: Planned Disposition: Inpatient Rehab External Planned Provider: [facility] INPATIENT REHAB DCP follow-up note: CM SPOKE TO VIDA OF [facility] INPATIENT REHAB DURING MULTIDICIPLINARY TEAM MEETING WHO INFORMED GROUP THAT SHE IS RESUBMITTING TO INSURANCE FOR AUTHORIZATION DETERMINATION FOR INPATIENT REHAB. CM HAS PREVIOUSLY SPOKEN TO PT'S SISTER / YANNICK WHO HAS DISCUSSED PLAN OF SNF IN [place] IF DECLINED INPATIENT REHAB; JUST NOT [facility]. CM WAITING INSURANCE AUTHORIZATION FOR DENIAL FOR INPATIENT REHAB AT [place]. Jaya Dove. CASE MANAGEMENT DCP- Discharge Planning Updated by [id number]: Caitlyn Hodgson on 04/26/19 2:[address] CM RECEIVED MD ORDER TO CHECK IF DISCHARGE PLAN IS STILL FOR HOME. IN REVIEW OF WEEKDAY CM THE PLAN IS FOR A SNF FACILITY. SPOKE W/ THE PRIMARY NURSE, ROSANA. THE PATIENT HAS SOME DEGREE OF CONFUSION. SHE WISHES TO DISCHARGE TO HOME. PER THE NURSING NOTES THE FAMILY WAS AT THE BEDSIDE EARLIER THIS AM. TC TO POA, SISTER, TRACY. NO ANSWER. LEFT VM FOR TRACY JOHNSON TO RETURN CALL WHEN AVAILAABLE. DCP- Discharge Planning Updated by [id number]: Jaya Dove on 04/23/19 4:[address] Patient Name: DANIEL ALVAREZ Encounter No: [id number] : 1945 Primary Insurance: [employer]lingo Anticipated DC Date: Planned Disposition: Inpatient Rehab External Planned Provider: [facility] INPATIENT REHAB DCP follow-up note: CM RECEIVED CALL FROM PT'S SISTER AND POWER OF NOTEREADER, TRACY GONZALEZ, WHO WANTED TO DISCUSS DISCHARGE PLANNING. TRACY REPORTS PT NEEDS REHAB INPATIENT AT [place] AND IF DELCINED, SHE WILL NEED ANY SNF REHAB EXCEPT [facility]. TRACY REPORTS PT HAS DEMENTIA, LIVES WITH HER (TRACY) AND THEY DISCUSSED REHAB LAST NIGHT, PT IS IN AGREEMENT WITH REHAB SERVICES. IF TRACY DOES NOT ANSWER HER PHONE, SHE DIRECTED CM TO CALL HEIKE, HER SPOUSE, . CM SPOKE TO VIDA OF INPATIENT REHAB AT MULTIDISCIPLINARY TEAM MEETING, INPATIENT REHAB TO RESUBMIT TO INSURANCE FOR INPATIENT REHAB AUTHORIZATION REQUEST. CM TO CONTINUE TO FOLLOW AND ASSIST IF NEEDED. Jaya Dove CASE MANAGEMENT DCP- Discharge Planning Updated by [id number]: Jaya Dove on 04/22/19 3:[address] Patient Name: DANIEL ALVAREZ Encounter No: [id number] : 1945 Primary Insurance: [employer]o Anticipated DC Date: Planned Disposition: Home with Home Health External Planned Provider: TO BE DETERMINED DCP follow-up note: CM RECEIVED CALL FROM VIDA OF INPATIENT REHAB, PT WAS DECLINED BY INSURANCE FOR INPATIENT REHAB. CM SPOKE TO PT IN ROOM, PT DOES NOT WANT TO GO TO SNF FOR REHAB AND WANTS TO RETURN HOME WITH HOME HEALTH. PT REPORTS GETTING OUT OF BED AND WALKING INDEPENDENTLY AND IS STONG ENOUGH TO RETURN HOME AT DISCHARGE. PT DENIES FURHTER NEEDS OTHER THAN HOME HEALTH. CM NOTIFIED PEPITO RIDER. CM TO FOLLOW UP WITH PT SOON POSSIBLE TO GET PT'S CHOICE ON HOME HEALTH PROVIDER AND WILL ARRANGE HOME HEALTH FOR DISCHARGE HOME WITH PHYSICIAN AGREEEMENT AND ORDERS. Jaya Dove, CASE MANAGEMENT DCP- Discharge Planning Updated by [id number]: Zohreh Potter on 04/15/19 10:[address] CM spoke with patient's sister yesterday. Her sister (Tracy) states she doesn't want her to go to a fdc if possible. She states that she would like her to go to inpatient rehab. I informed her that she would need authorization for that from insurance and inpatient rehab is already working on that. I informed her that it could probably be a denial if she is unable to participate in 3 hours of therapy a day. Her sister states if she is denied, that she would consent to a skilled unit. I spoke with Maria E with [facility], and Maria E states she believes [facility] and [facility] are in network, but unsure. I also spoke with Dong Mac with [facility] and he states he may be able to work with her insurance for authorization. Her sister states it does not matter which one she goes to, "whatever we can find". zeyad Menjivar for [facility], states they are not in network with [employer]. CM will continue to follow and assist with discharge planning/needs. DCP- Discharge Planning Updated by [id number]: Zohreh Potter on 04/13/19 2:[address] Patient Name: DANIEL ALVAREZ Admission Status: ER Accout number: [id number] Admission Date: 04-12-2019 : 1945 Admission Diagnosis: Attending: MYESHA JOYNER Current LOS: 1 Anticipated DC Date: Planned Disposition: Inpatient Rehab Primary [facility] [employer] [facility] Discharge Planning Comments: CM met with patient to discuss discharge planning/needs. She lives with her sister and brother in law in a mobile home. She states she is ok with going to rehab and doesn't care where she goes. Permission granted to call her family for further planning. I spoke with patient's brother in law (Heike) to discuss discharge plan. I informed them of the availability of inpatient rehab, SNF, home health and DME. He states he would like her to stay here at our inpatient rehab if possible. He states that he feels she may need more than 2 weeks of therapy though. I discussed SNF. He states he would like a referral to [facility] if inpatient rehab is not authorized. I spoke with Ngozi at [facility], they do not accept [employer]. She will need preauthorization for inpatient rehab. CM will continue to follow and assist with discharge planning/needs. Dispensing Operator: Zohreh Alejomadeline COPIA - Discharge Planning Initial Assessment Updated by [id number]: Zohreh Abbey on 04/13/19 3:17 pm * Is the patient Alert and Oriented? Yes * How many steps to enter\\exit or inside your home? 4/0 * PCP Flakita Delaney * Pharmacy [facility] * Preadmission Environment Home with Family * ADLs Partial Dependent * Partial ADLs (Assistance needed) Ambulation Medication Management * Equipment Cane Nebulizer Other Oxygen * Other Equipment Portable oxygen Trilogy * List name and contact numbers for known caregivers / representatives who currently or will assist patient after discharge: Heike Johnson - Brother in law - [phone] Tracy Johnson - Sister (POA) - [phone] * Verbal permission to speak to the caregivers and representatives has been obtained from the patient. Yes * Community resources currently utilized Other * Please name any agencies selected above. [facility] * Additional services required to return to the preadmission environment? Yes * Can the patient safely return to the preadmission environment? No * Has this patient been hospitalized within the prior 30 days at any hospital? No Coverage Notice Reviewer: [id number] - Zohreh Potter Notice Issued Date-Time: 04/13/2019 15:24 Notice Type: Patient Choice Letter Notice Delivered To: Family Member Relationship to Patient: Brother in Law Group Home Counselor Name: Heike Johnson Delivery Method: HAND - Hand Delivered Isha Days: Prior Verbal Notification: Recipient Understood Notice: Yes Recipient Signature: Med Rec Note Co-signed by Attending: Coverage Notice Comment: [place] for [facility] Reviewer: [id number] Jenni Dove Notice Issued Date-Time: 04/28/2019 15:50 Notice Type: IM Discharge Notice Notice Delivered To: Patient Relationship to Patient: Group Home Counselor Name: Delivery Method: HAND - Hand Delivered Isha Days: Prior Verbal Notification: Recipient Understood Notice: Yes Recipient Signature: Yes Med Rec Note Co-signed by Attending: Coverage Notice Comment: Reviewer: [email or web address] Jenni Dove Notice Issued Date-Time: 05/04/2019 11:25 Notice Type: IM Discharge Notice Notice Delivered To: Patient Relationship to Patient: Group Home Counselor Name: Delivery Method: HAND - Hand Delivered Isha Days: Prior Verbal Notification: Recipient Understood Notice: Yes Recipient Signature: Yes Med Rec Note Co-signed by Attending: Coverage Notice Comment: Last DP export: 05/05/19 10:31 a Patient Name: DANIEL ALVAREZ Page [id number] at 1604 All edits/amendments must be made on the electronic document DICTATION DATE: 05/05/191603 SPINNING AND WINDING SUPERVISOR: TIFFANY 05/05/191603 RPT#: [id number] DC DATE: STATUS: ADM IN [facility] [address] [place] [address] END OF REPORT
[2019-05-05 17:16] VITALS: BP 107/68
--- NOTE | 2019-05-05 19:48 | NUR ---
ASSESSMENT COMPLETE, PT ALERT, ORIENTED TO SELF. PT SITTING UP ON SIDE OF BED, RT AT BED SIDE TO ADMINISTER UPDRAFT. IV TO LEFT WRIST SL, IV SITE CLEAN AND DRY. PT DENIES PAIN OR NEEDS, BED LOW, CL IN REACH.
[2019-05-05 20:00] VITALS: BP 98/59
--- NOTE | 2019-05-05 23:28 | NUR ---
PT SITTING UP ON SIDE OF BED YELLING "I CANT BREATHE" PTS O2 SAT 98% ON 2 LITERS VIA NC. CALLED JENNIFER FROM RT, NO ORDERS FOR PRN UPDRAFTS ON EMAR. CALL PLACED TO ZHANE PEREIRA APN, ORDERS RECIEVED TO GIVE ONE TIMEDUPNEB UPDRAFT.
[2019-05-06] VITALS: BP 103/62
--- NOTE | 2019-05-06 00:04 | NUR ---
PT LAYING BACK IN BED, PT C/O SOB, O2 SATS 98% ON O2 AT 3 LITERS. BS 148, BP 101/71, HR 96.
--- NOTE | 2019-05-06 01:45 | NUR ---
ZHANE PEREIRA TAX MANAGER CPA AT BED SIDE, STAT CHEST X RAY AND ABGS ORDERED.
--- NOTE | 2019-05-06 02:27 | NUR ---
PAGE OUT TO DR PAVON FOR CONSULT.
--- NOTE | 2019-05-06 02:41 | NUR ---
SPOKE WITH DR PAVON, INFORMED HIM OF CONSULT. REVIEWED ABGS AND RECIEVED SETTING FOR BI-PAP THAT WAS ORDERED BY Erin PEREIRA APN. ORDERS REVIEWED WITH RT JENNIFER. JENNIFER AT BED SIDE TO CARRY OUT ORDERS.
--- NOTE | 2019-05-06 03:37 | NUR ---
PT YELLING OUT, ENTERED ROOM, PT TRYING TO PULL OFF MASK, INFORMED PT THAT SHE NEEDED TO WEAR HER MASK BECAUSE HER CO2 LEVELS WERE HIGH, PT INSISTED THAT BIPAP MASK BE REMOVED. REMOVED MASK, PLACED PT BACK ON O2 AT 3 LITERS VIA NC.
[2019-05-06 04:00] VITALS: BP 119/78
[2019-05-06 05:23] LABS: BASOPHILS 0.6 % (0-2); EOSINOPHILS 6.1 % (0-7); HEMATOCRIT 41.5 % (36.0-48.0); HEMOGLOBIN 12.3 g/dL (12-16); IMMATURE GRANULOCYTES 0.2 % (0-5); LYMPHOCYTES 30.6 % (15-50); MCH 29.5 pg (26.0-34.0); MCHC 29.6 g/dL (31.0-37.0); MCV 99.5 fL (80.0-100.0); MEAN PLATELET VOLUME 10.8 fL (7.4-10.4); MONOCYTES 9.8 % (2-11); NEUTROPHILS 52.7 % (40-80); RBC 4.17 10x6/uL (4.00-5.40); RDW 16.8 % (11.5-14.5)
[2019-05-06 05:25] LABS: PLATELET COUNT 330 10x3/uL (130-400); WBC 8.5 10x3/uL (4.8-10.8)
--- NOTE | 2019-05-06 05:45 | NUR ---
PATIENT RESTING IN BED. BREATHING UNLABORED AND EVEN. PATIENT STATES HE IS FEELING MUCH BETTER AND THE PAIN IN HIS LEFT HAND AND RIGHT FOOT IS GOING DOWN. PATIENT STATES THE PAIN IS A 3 OUT OF 10. PATIENT SIGNED CONSENT FOR HEART CATH AND WITNESSED. BED IN LOWEST POSITION AND CALL LIGHT IN REACH.
[2019-05-06 05:48] LABS: ANION GAP 4.6 mmol/L (8-16); CALCIUM 9.2 mg/dL (8.5-10.1); MAGNESIUM - SERUM 2.1 mg/dL (1.8-2.4); POTASSIUM - SERUM 4.7 mmol/L (3.5-5.1)
[2019-05-06 05:53] LABS: CREATININE - SERUM 0.9 mg/dL (0.6-1.3)
[2019-05-06 05:55] LABS: CARBON DIOXIDE 43.1 mmol/L (21.0-32.0)
--- NOTE | 2019-05-06 07:40 | MORECARE ---
CASE MANAGEMENT DISCHARGE SUMMARY PATIENT: DANIEL ALVAREZ UNIT: [id number] ADM DATE: 04/12/19 AGE: 74 : 44 SEX: F ROOM/BED: D.9513 AUTHOR: WILL,DOC PHYSICIAN: REFERRING PHYSICIAN: MYESHA JOYNER MD DATE OF SERVICE: 05/06/19 Discharge Plan Patient Name: DANIEL ALVAREZ Facility: [facility] : 1945 Planned Disposition: Fdc Facility Anticipated Discharge Date: 05/05/19 Discharge Date: Expected LOS: 23 Initial Reviewer: [id number] Initial Review Date: 04/13/2019 Generated: 05/06/19 8:39 am Comments DCP- Discharge Planning Updated by [id number]: Jaya Dove on 05/06/19 6:[address] Patient Name: DANIEL ALVAREZ Encounter No: [id number] : 1945 Primary Insurance: Voyat Anticipated DC Date: 05-05-2019 Planned Disposition: Fdc Facility External Planned Provider: [facility] MEDICARE REHAB BED DCP follow-up note: LATE ENTRY FROM 05-05-19: CM SPOKE TO PT'S SISTER WHO WAS SPEAKING TO PT'S INSURANCE PROVIDER, [employer] ON THE PHONE REGARDING PLACEMENT FOR REHAB. PT'S SISTER ASKED CM TO SPEAK TO FADI OF [employer]. PETER ADVISED THAT THE FOLLOWING SENIOR LIVING FACILITIES ARE IN NETWORK WITH [place] [facility] : [facility], [facility] IN [place] AND [facility] IN [place]. PT'S SISTER REQUESTED REFERRAL BE SENT TO [facility] FOR REHAB. PT'S SISTER IS ALSO APPEALING INSURANCE DECISION OF DENIAL FOR [employer] CONTRACT AND STATES SHE WAS ADVISED THAT SHE CAN APPEAL THE [employer] DENIAL WHILE CM CONTINUES SEEKING PLACEMENT AT [facility]. ON 05-06-19, CM NOTIFIED MING OF [facility] OF REFERRAL FOR REHAB AT [phone], FAXED REHAB REFERRAL TO [facility] VIA MING AT [phone]. CM WAITING ADMISSION DETERMINATION FROM [facility] WELL INSURANCE DETERMINATION FOR REHAB SERVICES AT [facility]. Jaya Dove, CASE MANAGEMENT DCP- Discharge Planning Updated by [id number]: Jaya Dove on 05/05/19 3:[address] Patient Name: DANIEL ALVAREZ Encounter No: [id number] : 1945 Primary Insurance: [employer] Anticipated DC Date: 05-05-2019 Planned Disposition: Fdc Facility External Planned Provider: TO BE DETERMINED DCP follow-up note: CM SPOKE TO DONG OF [facility], INSURANCE HAS DECLINED CONTRACT FOR REHAB PLACEMENT. DONG HAS NOTIFIED PT AND SISTER IN ROOM. CM SPOKE TO PT'S SISTER REGARDING CALLING INSURANCE COMPANY TO FIND OUT IF THERE IS AN IN NETWORK FACILITY AND WHERE THE FACILITY WOULD BE LOCATED. CM DISCUSSED [facility]. PT'S SISTER DOES NOT WANT TO PLACE PT INTO RESEARCH PHLEBOTOMIST CARE IN A ALF. PT'S SISTER CALLING INSURANCE COMPANY TO DISCUSS OPTIONS FOR REHAB AND WILL NOTIFY CM OF POSSIBLE OPTIONS. CM TO FOLLOW UP WITH PT'S SISTER REGARDING PLACEMENT. Jaya Dove, CASE MANAGEMENT DCP- Discharge Planning Updated by [email or web address]: Brittni Nieves on 05/05/19 10:[address] RECEIVED A VOICEMAIL FROM [facility] WITH [employer]. CALLED HER BACK AT [phone]. SHE STATED THAT SHE HAS EVERYTHING READY TO BE SUBMITTED TO THE POWER PLANT ASSISTANT (AND THE INFORMATION LOOKS APPROPRIATE), BUT WHEN SHE REACHED OUT TO [facility], SHE WAS TOLD THEY WERE TOO BUSY TO SUBMIT FOR AUTH YET AND SHE WAS REASSURED THEY WOULD DO IT TODAY. SHE STATED THAT THE [facility], AND THEY WOULD ALSO HAVE TO BE SUBMIT FOR THIS. I EXPLAINED THAT THE PATIENT HAS BEEN AT THIS FACILITY BEFORE AND THEY KNOW THE STEPS. I ASKED WHO SHE SPOKE WITH AND SHE STATED THAT SHE ASKED FOR DONG, IN THE CASEMANAGEMENT NOTES, AND WAS TRANSFERRED TO THE BUSINESS OFFICE. SHE DID NOT HAVE THE NAME OF THE LADY SHE SPOKE WITH, BUT STATED SHE WAS TOLD THEY WOULD SUBMIT FOR AUTH TODAY. I WILL CONTINUE TO ENTER DELAYS. DCP- Discharge Planning Updated by [id number]: Jaya Dove on 05/04/19 10:[address] Patient Name: DANIEL ALVAREZ Encounter No: [id number] : 1945 Primary Insurance: [employer] ADVANTAGE Anticipated DC Date: 05-05-2019 Planned Disposition: Fdc Facility External Planned Provider: [facility], MEDICARE REHAB BED DCP follow-up note: CM RECEIVED CALL FROM HEIKE BRANDY, , WHO REQEUSTED UPDATE ON PLACEMENT AT [facility] FOR REHAB. CM INFORMED HEIKE THAT WE ARE STILL WAITING AUTHORIZATION FROM PT'S INSURANCE. CM SPOKE TO DONG OF [facility], , WHO INFORMED CM THAT HE IS WAITING ON INSURANCE APPROVAL FOR CONTRACT WITH AUTHORIZATION [facility] TO PROVIDE REHAB SERVICE TO PATIENT. DONG REPORTS NOT NEEDING UPDATE TODAY AND TO WAIT TO FAX ANY UPDATES UNTIL THEY HEAR FROM INSURANCE. CM NOTIFIED PT WHO IS IN AGREEMENT WITH DISCHARGE TO REHAB AT [facility]. PT IS UP TO CHAIR. IMPORTANT MESSAGE FROM MEDICARE PROVIDED AND EXPLAINED. CM WAITING INSURANCE AUTHORIZATION FOR REHAB AT [facility]. Jaya Dove, CASE MANAGEMENT DCP- Discharge Planning Updated by [id number]: Lesly Rios on 05/01/19 12:[address] Patient Name: DANIEL ALVAREZ Admission Status: ER Accout number: [id number] Admission Date: 04-12-2019 : 1945 Admission Diagnosis:FRACTURE OF SUPERIOR RIM OF RIGHT PUBIS, INIT FOR CLOS Attending: MYESHA JOYNER Current LOS: 19 Anticipated DC Date: Planned Disposition: Fdc Facility Primary Insurance: [employer] ADVANTAGE Discharge Planning Comments: [place] HAD BEEN SIGNED FOR [facility] SNF, I FAXED REFERRAL TODAY. CM WILL FOLLOW AND ASSIST. Aquaculture Program Director: Lesly Rios DCP- Discharge Planning Updated by [id number]: Jaya Dove on 04/28/19 4:[address] Patient Name: DANIEL ALVAREZ Encounter No: [id number] : 1945 Primary Insurance: [employer] ADVANTAGE Anticipated DC Date: Planned Disposition: Inpatient Rehab External Planned Provider: [facility] INPATIENT REHAB DCP follow-up note: CM PARTICIPATED IN MULTIDISCIPLINARY TEAM MEETING, WAS INFORMED BY VIDA OF INPATIENT REHAB AT [place] THAT THEY ARE SUBMITTING FOR INSURANCE AUTHORIZATION AGAIN TODAY. CM NOTIFIED PT WHO IS WILLING FOR INPATIENT REHAB AT [place] AND UNDERSTANDS AND AGREES THAT IF DECLINED, SHE WILL GO TO SENIOR LIVING FACILITY [facility] [place] OTHER THAN [facility]. IMPORTANT MESSAGE FROM MEDICARE PROVIDED AND EXPLAINED. CM WAITING INSURANCE DETERMINATION FOR INPATIENT REHAB AT [facility]. Jaya Dove, CASE MANAGEMENT DCP- Discharge Planning Updated by [id number]: Jaya Dove on 04/27/19 10:[address] Patient Name: DANIEL ALVAREZ Encounter No: [id number] : 1945 Primary Insurance: [employer] ADVANTAGE Anticipated DC Date: Planned Disposition: Inpatient Rehab External Planned Provider: [facility] INPATIENT REHAB DCP follow-up note: CM SPOKE TO VIDA OF [facility] INPATIENT REHAB DURING MULTIDICIPLINARY TEAM MEETING WHO INFORMED GROUP THAT SHE IS RESUBMITTING TO INSURANCE FOR AUTHORIZATION DETERMINATION FOR INPATIENT REHAB. CM HAS PREVIOUSLY SPOKEN TO PT'S SISTER / YANNICK WHO HAS DISCUSSED PLAN OF SENIOR LIVING IN [place] IF DECLINED INPATIENT REHAB; JUST NOT THE [facility]. CM WAITING INSURANCE AUTHORIZATION FOR DENIAL FOR INPATIENT REHAB AT [place]. Jaya Dove. CASE MANAGEMENT DCP- Discharge Planning Updated by [id number]: Caitlyn Hodgson on 04/26/19 2:[address] CM RECEIVED MD ORDER TO CHECK IF DISCHARGE PLAN IS STILL FOR HOME. IN REVIEW OF WEEKDAY CM THE PLAN IS FOR A SENIOR LIVING FACILITY. SPOKE W/ THE PRIMARY NURSE, ROSANA. THE PATIENT HAS SOME DEGREE OF CONFUSION. SHE WISHES TO DISCHARGE TO HOME. PER THE NURSING NOTES THE FAMILY WAS AT THE BEDSIDE EARLIER THIS AM. TC TO SAHARAA, SISTER, TRACY. NO ANSWER. LEFT VM FOR TRACY ALEXANDER TO RETURN CALL WHEN AVAILAABLE. DCP- Discharge Planning Updated by [id number]: Jaya Dove on 04/23/19 4:[address] Patient Name: DANIEL ALVAREZ Encounter No: [id number] : 1945 Primary Insurance: [employer] ADVANTAGE Anticipated DC Date: Planned Disposition: Inpatient Rehab External Planned Provider: [facility] INPATIENT REH[facility] DCP follow-up note: CM RECEIVED CALL FROM PT'S SISTER AND POWER OF GENERATION TECHNOLOGIST, TRACY GONZALEZ, WHO WANTED TO DISCUSS DISCHARGE PLANNING. TRACY REPORTS PT NEEDS REHAB INPATIENT AT [place] AND IF DELCINED, SHE WILL NEED ANY SENIOR LIVING REHAB EXCEPT [facility]. TRACY REPORTS PT HAS DEMENTIA, LIVES WITH HER (TRACY) AND THEY DISCUSSED REHAB LAST NIGHT, PT IS IN AGREEMENT WITH REHAB SERVICES. IF TRACY DOES NOT ANSWER HER PHONE, SHE DIRECTED CM TO CALL HEIKE, HER SPOUSE, . CM SPOKE TO VIDA OF INPATIENT REHAB AT MULTIDISCIPLINARY TEAM MEETING, INPATIENT REHAB TO RESUBMIT TO INSURANCE FOR INPATIENT REHAB AUTHORIZATION REQUEST. CM TO CONTINUE TO FOLLOW AND ASSIST IF NEEDED. Jaya Dove, CASE MANAGEMENT DCP- Discharge Planning Updated by [id number]: Jaya Dove on 04/22/19 3:[address] Patient Name: DANIEL ALVAREZ Encounter No: [id number] : 1945 Primary Insurance: Voyat Anticipated DC Date: Planned Disposition: Home with Home Health External Planned Provider: TO BE DETERMINED DCP follow-up note: CM RECEIVED CALL FROM VIDA OF INPATIENT REHAB, PT WAS DECLINED BY INSURANCE FOR INPATIENT REHAB. CM SPOKE TO PT IN ROOM, PT DOES NOT WANT TO GO TO SENIOR LIVING FOR REHAB AND WANTS TO RETURN HOME WITH HOME HEALTH. PT REPORTS GETTING OUT OF BED AND WALKING INDEPENDENTLY AND IS STONG ENOUGH TO RETURN HOME AT DISCHARGE. PT DENIES FURHTER NEEDS OTHER THAN HOME HEALTH. CM NOTIFIED PEPITO RIDER. CM TO FOLLOW UP WITH PT SOON POSSIBLE TO GET PT'S CHOICE ON HOME HEALTH PROVIDER AND WILL ARRANGE HOME HEALTH FOR DISCHARGE HOME WITH PHYSICIAN AGREEEMENT AND ORDERS. Jaya Dove, CASE MANAGEMENT DCP- Discharge Planning Updated by [id number]: Zohreh Potter on 04/15/19 10:[address] CM spoke with patient's sister yesterday. Her sister (Tracy) states she doesn't want her to go to a detention if possible. She states that she would like her to go to inpatient rehab. I informed her that she would need authorization for that from insurance and inpatient rehab is already working on that. I informed her that it could probably be a denial if she is unable to participate in 3 hours of therapy a day. Her sister states if she is denied, that she would consent to a skilled unit. I spoke with Maria E with [facility], and Maria E states she believes [facility] and [facility] are in network, but unsure. I also spoke with Dong Phanrexsandee with [facility] and he states he may be able to work with her insurance for authorization. Her sister states it does not matter which one she goes to, "whatever we can find". Ming Jones, liason for [facility], states they are not in network with [employer]. CM will continue to follow and assist with discharge planning/needs. DCP- Discharge Planning Updated by [id number]: Zohreh Potter on 04/13/19 2:[address] Patient Name: DANIEL ALVAREZ Admission Status: ER Accout number: [id number] Admission Date: 04-12-2019 : 1945 Admission Diagnosis: Attending: MYESHA JOYNER Current LOS: 1 Anticipated DC Date: Planned Disposition: Inpatient Rehab Primary Insurance: [employer] ADVANTAGE Discharge Planning Comments: CM met with patient to discuss discharge planning/needs. She lives with her sister and brother in law in a mobile home. She states she is ok with going to rehab and doesn't care where she goes. Permission granted to call her family for further planning. I spoke with patient's brother in law (Heike) to discuss discharge plan. I informed them of the availability of inpatient rehab, SNF, home health and DME. He states he would like her to stay here at our inpatient rehab if possible. He states that he feels she may need more than 2 weeks of therapy though. I discussed SNF. He states he would like a referral to [facility] if inpatient rehab is not authorized. I spoke with Ming at [facility], they do not accept [employer]. She will need preauthorization for inpatient rehab. CM will continue to follow and assist with discharge planning/needs. Aquaculture Program Director: Zohreh Potter DCPIA - Discharge Planning Initial Assessment Updated by [id number]: Zohreh Alejomadeline on 04/13/19 3:17 pm * Is the patient Alert and Oriented? Yes * How many steps to enter\\exit or inside your home? 4/0 * PCP Flakita Delaney * Pharmacy [facility] * Preadmission Environment Home with Family * ADLs Partial Dependent * Partial ADLs (Assistance needed) Ambulation Medication Management * Equipment Cane Nebulizer Other Oxygen * Other Equipment Portable oxygen Trilogy * List name and contact numbers for known caregivers / representatives who currently or will assist patient after discharge: Heike Alexander - Brother in law - [phone] Tracy Alexander - Sister (POA) - [phone] * Verbal permission to speak to the caregivers and representatives has been obtained from the patient. Yes * Community resources currently utilized Other * Please name any agencies selected above. [facility] * Additional services required to return to the preadmission environment? Yes * Can the patient safely return to the preadmission environment? No * Has this patient been hospitalized within the prior 30 days at any hospital? No Coverage Notice Reviewer: [id number] Jenni Potter Notice Issued Date-Time: 04/13/2019 15:24 Notice Type: Patient Choice Letter Notice Delivered To: Family Member Relationship to Patient: Brother in Law Stitcher Utility Name: Heike Alexander Delivery Method: HAND - Hand Delivered Isha Days: Prior Verbal Notification: Recipient Understood Notice: Yes Recipient Signature: Med Rec Note Co-signed by Attending: Coverage Notice Comment: [facility] for [facility] Reviewer: [id number] Dove Notice Issued Date-Time: 04/28/2019 15:50 Notice Type: IM Discharge Notice Notice Delivered To: Patient Relationship to Patient: Stitcher Utility Name: Delivery Method: HAND - Hand Delivered Isha Days: Prior Verbal Notification: Recipient Understood Notice: Yes Recipient Signature: Yes Med Rec Note Co-signed by Attending: Coverage Notice Comment: Reviewer: [id number] Dove Notice Issued Date-Time: 05/04/2019 11:25 Notice Type: IM Discharge Notice Notice Delivered To: Patient Relationship to Patient: Stitcher Utility Name: Delivery Method: HAND - Hand Delivered Isha Days: Prior Verbal Notification: Recipient Understood Notice: Yes Recipient Signature: Yes Med Rec Note Co-signed by Attending: Coverage Notice Comment: Last DP export: 05/05/19 3:04 p Patient Name: DANIEL ALVAREZ Page [id number] at 0740 All edits/amendments must be made on the electronic document DICTATION DATE: 05/06/19738 NEWSPAPER INSERTER: TIFFANY 05/06/19738 RPT#: [id number] DC DATE: STATUS: ADM IN [facility] [address] [place] [address] END OF REPORT
--- NOTE | 2019-05-06 07:58 | MORECARE ---
CASE MANAGEMENT DISCHARGE SUMMARY PATIENT: DANIEL ALVAREZ UNIT: [id number] ADM DATE: 04/12/19 AGE: 74 : 44 SEX: F ROOM/BED: D.9223 AUTHOR: WILL,DOC PHYSICIAN: REFERRING PHYSICIAN: MYESHA JOYNER MD DATE OF SERVICE: 05/06/19 Discharge Plan Patient Name: DANIEL ALVAREZ Facility: [facility] : 1945 Planned Disposition: Custodial Facility Anticipated Discharge Date: 05/05/19 Discharge Date: Expected LOS: 23 Initial Reviewer: [id number] Initial Review Date: 04/13/2019 Generated: 05/06/19 8:58 am Comments DCP- Discharge Planning Updated by [id number]: Jaya Dove on 05/06/19 6:[address] Patient Name: DANIEL ALVAREZ Encounter No: [id number] : 1945 Primary Insurance: Well[employer] Anticipated DC Date: 05-05-2019 Planned Disposition: Custodial Facility External Planned Provider: [facility] MEDICARE REHAB BED DCP follow-up note: LATE ENTRY FROM 05-05-19: CM SPOKE TO PT'S SISTER WHO WAS SPEAKING TO PT'S INSURANCE PROVIDER, GeostellarYONIS ON THE PHONE REGARDING PLACEMENT FOR REHAB. PT'S SISTER ASKED CM TO SPEAK TO FADI OF [employer]. PETER ADVISED THAT THE FOLLOWING LONG-TERM FACILITIES ARE IN NETWORK WITH [place] OF : [facility], [facility] IN [place] AND [facility] IN [place]. PT'S SISTER REQUESTED REFERRAL BE SENT TO [facility] FOR REHAB. PT'S SISTER IS ALSO APPEALING INSURANCE DECISION OF DENIAL FOR [place] CONTRACT AND STATES SHE WAS ADVISED THAT SHE CAN APPEAL THE [place] DENIAL WHILE CM CONTINUES SEEKING PLACEMENT AT [facility]. ON 05-06-19, CM NOTIFIED MING OF [facility] OF REFERRAL FOR REHAB AT [phone], FAXED REHAB REFERRAL TO [facility] VIA [facility] AT [phone]. CM WAITING ADMISSION DETERMINATION FROM [facility] WELL INSURANCE DETERMINATION FOR REHAB SERVICES AT [facility]. Jaya Dove, CASE MANAGEMENT DCP- Discharge Planning Updated by [id number]: Jaya Dove on 05/05/19 3:[address] Patient Name: DANIEL ALVAREZ Encounter No: [id number] : 1945 Primary Insurance: [employer] Anticipated DC Date: 05-05-2019 Planned Disposition: Custodial Facility External Planned Provider: TO BE DETERMINED DCP follow-up note: CM SPOKE TO DONG OF [facility], INSURANCE HAS DECLINED CONTRACT FOR REHAB PLACEMENT. DONG HAS NOTIFIED PT AND SISTER IN ROOM. CM SPOKE TO PT'S SISTER REGARDING CALLING INSURANCE COMPANY TO FIND OUT IF THERE IS AN IN NETWORK FACILITY AND WHERE THE FACILITY WOULD BE LOCATED. CM DISCUSSED AUTOMAT CAR ATTENDANT CARE. PT'S SISTER DOES NOT WANT TO PLACE PT INTO AUTOMAT CAR ATTENDANT CARE IN A INTERMEDIATE. PT'S SISTER CALLING INSURANCE COMPANY TO DISCUSS OPTIONS FOR REHAB AND WILL NOTIFY CM OF POSSIBLE OPTIONS. CM TO FOLLOW UP WITH PT'S SISTER REGARDING PLACEMENT. Jaya Dove, CASE MANAGEMENT DCP- Discharge Planning Updated by [id number]: Brittni Nieves on 05/05/19 10:[address] RECEIVED A VOICEMAIL FROM HEBER WITH [employer]. CALLED HER BACK AT [phone]. SHE STATED THAT SHE HAS EVERYTHING READY TO BE SUBMITTED TO THE TRAVEL OCCUPATIONAL THERAPIST (AND THE INFORMATION LOOKS APPROPRIATE), BUT WHEN SHE REACHED OUT TO [facility], SHE WAS TOLD THEY WERE TOO BUSY TO SUBMIT FOR AUTH YET AND SHE WAS REASSURED THEY WOULD DO IT TODAY. SHE STATED THAT THE FACILITY WAS NON [facility], AND THEY WOULD ALSO HAVE TO BE SUBMIT FOR THIS. I EXPLAINED THAT THE PATIENT HAS BEEN AT THIS FACILITY BEFORE AND THEY KNOW THE STEPS. I ASKED WHO SHE SPOKE WITH AND SHE STATED THAT SHE ASKED FOR DONG, IN THE CASEMANAGEMENT NOTES, AND WAS TRANSFERRED TO THE BUSINESS OFFICE. SHE DID NOT HAVE THE NAME OF THE LADY SHE SPOKE WITH, BUT STATED SHE WAS TOLD THEY WOULD SUBMIT FOR AUTH TODAY. I WILL CONTINUE TO ENTER DELAYS. DCP- Discharge Planning Updated by [id number]: Jaya Dove on 05/04/19 10:[address] Patient Name: DANIEL ALVAREZ Encounter No: [id number] : 1945 Primary Insurance: [employer]VANTAGE Anticipated DC Date: 05-05-2019 Planned Disposition: Custodial Facility External Planned Provider: [facility], MEDICARE REHAB BED DCP follow-up note: CM RECEIVED CALL FROM HEIKE BRANDY, , WHO REQEUSTED UPDATE ON PLACEMENT AT [facility] FOR REHAB. CM INFORMED HEIKE THAT WE ARE STILL WAITING AUTHORIZATION FROM PT'S INSURANCE. CM SPOKE TO DONG OF [facility], , WHO INFORMED CM THAT HE IS WAITING ON INSURANCE APPROVAL FOR CONTRACT WITH AUTHORIZATION [facility] TO PROVIDE REHAB SERVICE TO PATIENT. DONG REPORTS NOT NEEDING UPDATE TODAY AND TO WAIT TO FAX ANY UPDATES UNTIL THEY HEAR FROM INSURANCE. CM NOTIFIED PT WHO IS IN AGREEMENT WITH DISCHARGE TO REHAB AT [facility]. PT IS UP TO CHAIR. IMPORTANT MESSAGE FROM MEDICARE PROVIDED AND EXPLAINED. CM WAITING INSURANCE AUTHORIZATION FOR REHAB AT [facility]. Jaya Dove, CASE MANAGEMENT DCP- Discharge Planning Updated by [id number]: Lesly Rios on 05/01/19 12:[address] Patient Name: DANIEL ALVAREZ Admission Status: ER Accout number: [id number] Admission Date: 04-12-2019 : 1945 Admission Diagnosis:FRACTURE OF SUPERIOR RIM OF RIGHT PUBIS, INIT FOR CLOS Attending: MYESHA JOYNER Current LOS: 19 Anticipated DC Date: Planned Disposition: Custodial Facility Primary Insurance: [employer] ADVANTAGE Discharge Planning Comments: [place] HAD BEEN SIGNED FOR [facility] SNF, I FAXED REFERRAL TODAY. CM WILL FOLLOW AND ASSIST. Director Process: Lesly Rios DCP- Discharge Planning Updated by [id number]: Jaya Dove on 04/28/19 4:[address] Patient Name: DANIEL ALVAREZ Encounter No: [id number] : 1945 Primary Insurance: [employer] ADVANTAGE Anticipated DC Date: Planned Disposition: Inpatient Rehab External Planned Provider: [facility] INPATIENT REHAB DCP follow-up note: CM PARTICIPATED IN MULTIDISCIPLINARY TEAM MEETING, WAS INFORMED BY VIDA OF INPATIENT REHAB AT [place] THAT THEY ARE SUBMITTING FOR INSURANCE AUTHORIZATION AGAIN TODAY. CM NOTIFIED PT WHO IS WILLING FOR INPATIENT REHAB AT [place] AND UNDERSTANDS AND AGREES THAT IF DECLINED, SHE WILL GO TO LONG-TERM FACILITY IN [place] OTHER THAN THE [facility]. IMPORTANT MESSAGE FROM MEDICARE PROVIDED AND EXPLAINED. CM WAITING INSURANCE DETERMINATION FOR INPATIENT REHAB AT [facility]. Jaya Dove, CASE MANAGEMENT DCP- Discharge Planning Updated by [id number]: Jaya Dove on 04/27/19 10:[address] Patient Name: DANIEL ALVAREZ Encounter No: [id number] : 1945 Primary Insurance: [employer] ADVANTAGE Anticipated DC Date: Planned Disposition: Inpatient Rehab External Planned Provider: [facility] INPATIENT REHAB DCP follow-up note: CM SPOKE TO VIDA OF [facility] INPATIENT REHAB DURING MULTIDICIPLINARY TEAM MEETING WHO INFORMED GROUP THAT SHE IS RESUBMITTING TO INSURANCE FOR AUTHORIZATION DETERMINATION FOR INPATIENT REHAB. CM HAS PREVIOUSLY SPOKEN TO PT'S SISTER / YANNICK WHO HAS DISCUSSED PLAN OF LONG-TERM IN [place] IF DECLINED INPATIENT REHAB; JUST NOT THE [facility]. CM WAITING INSURANCE AUTHORIZATION FOR DENIAL FOR INPATIENT REHAB AT [place]. Jaya Dove. CASE MANAGEMENT DCP- Discharge Planning Updated by [id number]: Caitlyn Hodgson on 04/26/19 2:[address] CM RECEIVED MD ORDER TO CHECK IF DISCHARGE PLAN IS STILL FOR HOME. IN REVIEW OF WEEKDAY CM THE PLAN IS FOR A LONG-TERM FACILITY. SPOKE W/ THE PRIMARY NURSE, ROSANA. THE PATIENT HAS SOME DEGREE OF CONFUSION. SHE WISHES TO DISCHARGE TO HOME. PER THE NURSING NOTES THE FAMILY WAS AT THE BEDSIDE EARLIER THIS AM. TC TO SAHARAA, SISTER, TRACY. NO ANSWER. LEFT VM FOR TRACY ALEXANDER TO RETURN CALL WHEN AVAILAABLE. DCP- Discharge Planning Updated by [id number]: Jaya Dove on 04/23/19 4:[address] Patient Name: DANIEL ALVAREZ Encounter No: [id number] : 1945 Primary Insurance: [employer] ADVANTAGE Anticipated DC Date: Planned Disposition: Inpatient Rehab External Planned Provider: [facility] INPATIENT REHAB DCP follow-up note: CM RECEIVED CALL FROM PT'S SISTER AND POWER OF [employer]UIT I FARMWORKER, TRACY GONZALEZ, WHO WANTED TO DISCUSS DISCHARGE PLANNING. TRACY REPORTS PT NEEDS REHAB INPATIENT AT [place] AND IF DELCINED, SHE WILL NEED ANY LONG-TERM REHAB EXCEPT [facility]. TRACY REPORTS PT HAS DEMENTIA, LIVES WITH HER (TRACY) AND THEY DISCUSSED REHAB LAST NIGHT, PT IS IN AGREEMENT WITH REHAB SERVICES. IF TRACY DOES NOT ANSWER HER PHONE, SHE DIRECTED CM TO CALL HEIKE, HER SPOUSE, . CM SPOKE TO VIDA OF INPATIENT REHAB AT MULTIDISCIPLINARY TEAM MEETING, INPATIENT REHAB TO RESUBMIT TO INSURANCE FOR INPATIENT REHAB AUTHORIZATION REQUEST. CM TO CONTINUE TO FOLLOW AND ASSIST IF NEEDED. Jaya Dove, CASE MANAGEMENT DCP- Discharge Planning Updated by [id number]: Jaya Dove on 04/22/19 3:[address] Patient Name: DANIEL ALVAREZ Encounter No: [id number] : 1945 Primary Insurance: Well[employer] Anticipated DC Date: Planned Disposition: Home with Home Health External Planned Provider: TO BE DETERMINED DCP follow-up note: CM RECEIVED CALL FROM VIDA OF INPATIENT REHAB, PT WAS DECLINED BY INSURANCE FOR INPATIENT REHAB. CM SPOKE TO PT IN ROOM, PT DOES NOT WANT TO GO TO LONG-TERM FOR REHAB AND WANTS TO RETURN HOME WITH HOME HEALTH. PT REPORTS GETTING OUT OF BED AND WALKING INDEPENDENTLY AND IS STONG ENOUGH TO RETURN HOME AT DISCHARGE. PT DENIES FURHTER NEEDS OTHER THAN HOME HEALTH. CM NOTIFIED PEPITO RIDER. CM TO FOLLOW UP WITH PT SOON POSSIBLE TO GET PT'S CHOICE ON HOME HEALTH PROVIDER AND WILL ARRANGE HOME HEALTH FOR DISCHARGE HOME WITH PHYSICIAN AGREEEMENT AND ORDERS. Jaya Dove, CASE MANAGEMENT DCP- Discharge Planning Updated by [id number]: Zohreh Potter on 04/15/19 10:[address] CM spoke with patient's sister yesterday. Her sister (Tracy) states she doesn't want her to go to a long-term if possible. She states that she would like her to go to inpatient rehab. I informed her that she would need authorization for that from insurance and inpatient rehab is already working on that. I informed her that it could probably be a denial if she is unable to participate in 3 hours of therapy a day. Her sister states if she is denied, that she would consent to a skilled unit. I spoke with Maria E with [facility], and Maria E states she believes [facility] and [facility] are in network, but unsure. I also spoke with Dong Phanrexsandee with [facility] and he states he may be able to work with her insurance for authorization. Her sister states it does not matter which one she goes to, "whatever we can find". Ming Jones, liason for [facility], states they are not in network with [employer]. CM will continue to follow and assist with discharge planning/needs. DCP- Discharge Planning Updated by [email or web address]: Zohreh Potter on 04/13/19 2:[address] Patient Name: DANIEL ALVAREZ Admission Status: ER Accout number: [id number] Admission Date: 04-12-2019 : 1945 Admission Diagnosis: Attending: MYESHA JOYNER Current LOS: 1 Anticipated DC Date: Planned Disposition: Inpatient Rehab Primary Insurance: [employer]AGE Discharge Planning Comments: CM met with patient to discuss discharge planning/needs. She lives with her sister and brother in law in a mobile home. She states she is ok with going to rehab and doesn't care where she goes. Permission granted to call her family for further planning. I spoke with patient's brother in law (Heike) to discuss discharge plan. I informed them of the availability of inpatient rehab, SNF, home health and DME. He states he would like her to stay here at our inpatient rehab if possible. He states that he feels she may need more than 2 weeks of therapy though. I discussed SNF. He states he would like a referral to [facility] if inpatient rehab is not authorized. I spoke with Ming at [facility], they do not accept [employer]. She will need preauthorization for inpatient rehab. CM will continue to follow and assist with discharge planning/needs. Director Process: Zohreh Potter DCPIA - Discharge Planning Initial Assessment Updated by [email or web address]: Zohreh Alejomadeline on 04/13/19 3:17 pm * Is the patient Alert and Oriented? Yes * How many steps to enter\\exit or inside your home? 4/0 * PCP Flakita Delaney * Pharmacy [facility] * Preadmission Environment Home with Family * ADLs Partial Dependent * Partial ADLs (Assistance needed) Ambulation Medication Management * Equipment Cane Nebulizer Other Oxygen * Other Equipment Portable oxygen Trilogy * List name and contact numbers for known caregivers / representatives who currently or will assist patient after discharge: Heike Alexander - Brother in law - [phone] Tracy Alexander - Sister (POA) - [phone] * Verbal permission to speak to the caregivers and representatives has been obtained from the patient. Yes * Community resources currently utilized Other * Please name any agencies selected above. [facility] * Additional services required to return to the preadmission environment? Yes * Can the patient safely return to the preadmission environment? No * Has this patient been hospitalized within the prior 30 days at any hospital? No External Providers External Provider: [facility] Next Contact Date: 05/06/2019 Service Request Date: Service Type: Resolution: Reviewer: Comments: Coverage Notice Reviewer: [id number] Jenni Potter Notice Issued Date-Time: 04/13/2019 15:24 Notice Type: Patient Choice Letter Notice Delivered To: Family Member Relationship to Patient: Brother in Law Pediatrician/Medical Doctor Name: Heike Alexander Delivery Method: HAND - Hand Delivered Isha Days: Prior Verbal Notification: Recipient Understood Notice: Yes Recipient Signature: Med Rec Note Co-signed by Attending: Coverage Notice Comment: [facility] for [facility] Reviewer: [id number] Jenni Dove Notice Issued Date-Time: 05/04/2019 11:25 Notice Type: IM Discharge Notice Notice Delivered To: Patient Relationship to Patient: Pediatrician/Medical Doctor Name: Delivery Method: HAND - Hand Delivered Isha Days: Prior Verbal Notification: Recipient Understood Notice: Yes Recipient Signature: Yes Med Rec Note Co-signed by Attending: Coverage Notice Comment: Reviewer: [email or web address] Dove Notice Issued Date-Time: 04/28/2019 15:50 Notice Type: IM Discharge Notice Notice Delivered To: Patient Relationship to Patient: Pediatrician/Medical Doctor Name: Delivery Method: HAND - Hand Delivered Isha Days: Prior Verbal Notification: Recipient Understood Notice: Yes Recipient Signature: Yes Med Rec Note Co-signed by Attending: Coverage Notice Comment: Last DP export: 05/06/19 6:40 a Patient Name: DANIEL ALVAREZ Page 19304 at 0758 All edits/amendments must be made on the electronic document DICTATION DATE: 05/06/19757 PNEUMATIC TUBE REPAIRER: TIFFANY 05/06/19757 RPT#: [id number] DC DATE: STATUS: ADM IN [facility] [address] [place] [address] END OF REPORT
[2019-05-06 08:00] VITALS: BP 105/59
--- NOTE | 2019-05-06 08:05 | MORECARE ---
CASE MANAGEMENT DISCHARGE SUMMARY PATIENT: DANIEL ALVAREZ UNIT: [id number] ADM DATE: 04/12/19 AGE: 74 : 43 SEX: F ROOM/BED: D.1493 AUTHOR: WILL,DOC PHYSICIAN: REFERRING PHYSICIAN: MYESHA JOYNER MD DATE OF SERVICE: 05/06/19 Discharge Plan Patient Name: DANIEL ALVAREZ Facility: [facility] : 1945 Planned Disposition: Long-Term Facility Anticipated Discharge Date: 05/05/19 Discharge Date: Expected LOS: 23 Initial Reviewer: [id number] Initial Review Date: 04/13/2019 Generated: 05/06/19 9:04 am Comments DCP- Discharge Planning Updated by [id number]: Jaya Dove on 05/06/19 6:[address] Patient Name: DANIEL ALVAREZ Encounter No: [id number] : 1945 Primary Insurance: [employer]tor Anticipated DC Date: 05-05-2019 Planned Disposition: Long-Term Facility External Planned Provider: [facility] MEDICARE REHAB BED DCP follow-up note: LATE ENTRY FROM 05-05-19: CM SPOKE TO PT'S SISTER WHO WAS SPEAKING TO PT'S INSURANCE PROVIDER, DoctorCYONIS ON THE PHONE REGARDING PLACEMENT FOR REHAB. PT'S SISTER ASKED CM TO SPEAK TO FADI OF [facility] PETER ADVISED THAT THE FOLLOWING RESIDENTIAL FACILITIES ARE IN NETWORK WITH LEONARD OF : [facility] [place], [facility] IN [place] AND [facility] IN [place]. PT'S SISTER REQUESTED REFERRAL BE SENT TO [facility] FOR REHAB. PT'S SISTER IS ALSO APPEALING INSURANCE DECISION OF DENIAL FOR [employer] CONTRACT AND STATES SHE WAS ADVISED THAT SHE CAN APPEAL THE [employer] DENIAL WHILE CM CONTINUES SEEKING PLACEMENT AT [facility]. CHOICE FOR [facility] SIGNED. ON 05-06-19, CM NOTIFIED MING OF [facility] OF REFERRAL FOR REHAB AT [phone], FAXED REHAB REFERRAL TO [facility] VIA MING AT [phone]. CM WAITING ADMISSION DETERMINATION FROM [facility] WELL INSURANCE DETERMINATION FOR REHAB SERVICES AT [facility]. Jaya Dove, CASE MANAGEMENT DCP- Discharge Planning Updated by [id number]: Jaya Dove on 05/05/19 3:[address] Patient Name: DANIEL ALVAREZ Encounter No: [id number] : 1945 Primary Insurance: [employer] Anticipated DC Date: 05-05-2019 Planned Disposition: Long-Term Facility External Planned Provider: TO BE DETERMINED DCP follow-up note: CM SPOKE TO DONG OF [facility], INSURANCE HAS DECLINED CONTRACT FOR REHAB PLACEMENT. DONG HAS NOTIFIED PT AND SISTER IN ROOM. CM SPOKE TO PT'S SISTER REGARDING CALLING INSURANCE COMPANY TO FIND OUT IF THERE IS AN IN NETWORK FACILITY AND WHERE THE FACILITY WOULD BE LOCATED. CM DISCUSSED BICYCLE SUBASSEMBLER CARE. PT'S SISTER DOES NOT WANT TO PLACE PT INTO BICYCLE SUBASSEMBLER CARE IN A ALF. PT'S SISTER CALLING INSURANCE COMPANY TO DISCUSS OPTIONS FOR REHAB AND WILL NOTIFY CM OF POSSIBLE OPTIONS. CM TO FOLLOW UP WITH PT'S SISTER REGARDING PLACEMENT. Jaya Dove, CASE MANAGEMENT DCP- Discharge Planning Updated by [id number]: Brittni Nieves on 05/05/19 10:[address] RECEIVED A [facility]EMAIL [facility] CALLED HER BACK AT [phone]. SHE STATED THAT SHE HAS EVERYTHING READY TO BE SUBMITTED TO THE PAPER FEEDER (AND THE INFORMATION LOOKS APPROPRIATE), BUT WHEN SHE REACHED OUT TO [facility], SHE WAS TOLD THEY WERE TOO BUSY TO SUBMIT FOR AUTH YET AND SHE WAS REASSURED THEY WOULD DO IT TODAY. SHE STATED THAT THE FACILITY WAS NON [place], AND THEY WOULD ALSO HAVE TO BE SUBMIT FOR THIS. I EXPLAINED THAT THE PATIENT HAS BEEN AT THIS FACILITY BEFORE AND THEY KNOW THE STEPS. I ASKED WHO SHE SPOKE WITH AND SHE STATED THAT SHE ASKED FOR DONG, IN THE CASEMANAGEMENT NOTES, AND WAS TRANSFERRED TO THE BUSINESS OFFICE. SHE DID NOT HAVE THE NAME OF THE LADY SHE SPOKE WITH, BUT STATED SHE WAS TOLD THEY WOULD SUBMIT FOR AUTH TODAY. I WILL CONTINUE TO ENTER DELAYS. DCP- Discharge Planning Updated by [id number]: Jaya Dove on 05/04/19 10:[address] Patient Name: DANIEL ALVAREZ Encounter No: [id number] : 1945 Primary Insurance: [employer] ADVANTAGE Anticipated DC Date: 05-05-2019 Planned Disposition: Long-Term Facility External Planned Provider: [facility], MEDICARE REHAB BED DCP follow-up note: CM RECEIVED CALL FROM HEIKE NAVA, , WHO REQEUSTED UPDATE ON PLACEMENT AT [facility] FOR REHAB. CM INFORMED HEIKE THAT WE ARE STILL WAITING AUTHORIZATION FROM PT'S INSURANCE. CM SPOKE TO DONG OF [facility], , WHO INFORMED CM THAT HE IS WAITING ON INSURANCE APPROVAL FOR CONTRACT WITH AUTHORIZATION [facility] TO PROVIDE REHAB SERVICE TO PATIENT. DONG REPORTS NOT NEEDING UPDATE TODAY AND TO WAIT TO FAX ANY UPDATES UNTIL THEY HEAR FROM INSURANCE. CM NOTIFIED PT WHO IS IN AGREEMENT WITH DISCHARGE TO REHAB AT [facility]. PT IS UP TO CHAIR. IMPORTANT MESSAGE FROM MEDICARE PROVIDED AND EXPLAINED. CM WAITING INSURANCE AUTHORIZATION FOR REHAB AT [facility]. Jaya Dove, CASE MANAGEMENT DCP- Discharge Planning Updated by [id number]: Lesly Rios on 05/01/19 12:[address] Patient Name: DANIEL ALVAREZ Admission Status: ER Accout number: [id number] Admission Date: 04-12-2019 : 1945 Admission Diagnosis:FRACTURE OF SUPERIOR RIM OF RIGHT PUBIS, INIT FOR CLOS Attending: MYESHA JOYNER Current LOS: 19 Anticipated DC Date: Planned Disposition: Long-Term Facility Primary Insurance: [employer] ADVANTAGE Discharge Planning Comments: [place] HAD BEEN SIGNED FOR [facility] SNF, I FAXED REFERRAL TODAY. CM WILL FOLLOW AND ASSIST. General Merchandise Salesperson: Lesly Rios DCP- Discharge Planning Updated by [id number]: Jaya Dove on 04/28/19 4:[address] Patient Name: DANIEL ALVAREZ Encounter No: [id number] : 1945 Primary Insurance: [employer] ADVANTAGE Anticipated DC Date: Planned Disposition: Inpatient Rehab External Planned Provider: [facility] INPATIENT REHAB DCP follow-up note: CM PARTICIPATED IN MULTIDISCIPLINARY TEAM MEETING, WAS INFORMED BY VIDA OF INPATIENT REHAB AT [place] THAT THEY ARE SUBMITTING FOR INSURANCE AUTHORIZATION AGAIN TODAY. CM NOTIFIED PT WHO IS WILLING FOR INPATIENT REHAB AT [place] AND UNDERSTANDS AND AGREES THAT IF DECLINED, SHE WILL GO TO RESIDENTIAL FACILITY IN [place] OTHER THAN [facility]. IMPORTANT MESSAGE FROM MEDICARE PROVIDED AND EXPLAINED. CM WAITING INSURANCE DETERMINATION FOR INPATIENT REHAB AT [facility]. Jaya Dove, CASE MANAGEMENT DCP- Discharge Planning Updated by [id number]: Jaya Dove on 04/27/19 10:[address] Patient Name: DANIEL ALVAREZ Encounter No: [id number] : 1945 Primary Insurance: [employer] ADVANTAGE Anticipated DC Date: Planned Disposition: Inpatient Rehab External Planned Provider: [facility] INPATIENT REHAB DCP follow-up note: CM SPOKE TO VIDA OF [facility] INPATIENT REHAB DURING MULTIDICIPLINARY TEAM MEETING WHO INFORMED GROUP THAT SHE IS RESUBMITTING TO INSURANCE FOR AUTHORIZATION DETERMINATION FOR INPATIENT REHAB. CM HAS PREVIOUSLY SPOKEN TO PT'S SISTER / YANNICK WHO HAS DISCUSSED PLAN OF RESIDENTIAL IN [place] IF DECLINED INPATIENT REHAB; JUST NOT THE [facility]. CM WAITING INSURANCE AUTHORIZATION FOR DENIAL FOR INPATIENT REHAB AT [place]. Jaya Dove. CASE MANAGEMENT DCP- Discharge Planning Updated by [id number]: Caitlyn Hodgson on 04/26/19 2:[address] CM RECEIVED MD ORDER TO CHECK IF DISCHARGE PLAN IS STILL FOR HOME. IN REVIEW OF WEEKDAY CM THE PLAN IS FOR A RESIDENTIAL FACILITY. SPOKE W/ THE PRIMARY NURSE, ROSANA. THE PATIENT HAS SOME DEGREE OF CONFUSION. SHE WISHES TO DISCHARGE TO HOME. PER THE NURSING NOTES THE FAMILY WAS AT THE BEDSIDE EARLIER THIS AM. TC TO POA, SISTER, TRACY. NO ANSWER. LEFT VM FOR TRACY ALEXANDER TO RETURN CALL WHEN AVAILAABLE. DCP- Discharge Planning Updated by [id number]: Jaya Dove on 04/23/19 4:[address] Patient Name: DANIEL ALVAREZ Encounter No: [id number] : 1945 Primary Insurance: [employer] ADV[employer]AGE Anticipated DC Date: Planned Disposition: Inpatient Rehab External Planned Provider: [facility] INPATIENT REHAB DCP follow-up note: CM RECEIVED CALL FROM PT'S SISTER AND POWER OF AUTOMOBILE ENGINE ASSEMBLER, TRACY GONZALEZ, WHO WANTED TO DISCUSS DISCHARGE PLANNING. TRACY REPORTS PT NEEDS REHAB INPATIENT AT [place] AND IF DELCINED, SHE WILL NEED ANY RESIDENTIAL REHAB EXCEPT [facility]. TRACY REPORTS PT HAS DEMENTIA, LIVES WITH HER (TRACY) AND THEY DISCUSSED REHAB LAST NIGHT, PT IS IN AGREEMENT WITH REHAB SERVICES. IF TRACY DOES NOT ANSWER HER PHONE, SHE DIRECTED CM TO CALL HEIKE, HER SPOUSE, . CM SPOKE TO VIDA OF INPATIENT REHAB AT MULTIDISCIPLINARY TEAM MEETING, INPATIENT REHAB TO RESUBMIT TO INSURANCE FOR INPATIENT REHAB AUTHORIZATION REQUEST. CM TO CONTINUE TO FOLLOW AND ASSIST IF NEEDED. Jaya Dove, CASE MANAGEMENT DCP- Discharge Planning Updated by [id number]: Jaya Dove on 04/22/19 3:[address] Patient Name: DANIEL ALVAREZ Encounter No: [id number] : 1945 Primary Insurance: [employer] Anticipated DC Date: Planned Disposition: Home with Home Health External Planned Provider: TO BE DETERMINED DCP follow-up note: CM RECEIVED CALL FROM VIDA OF INPATIENT REHAB, PT WAS DECLINED BY INSURANCE FOR INPATIENT REHAB. CM SPOKE TO PT IN ROOM, PT DOES NOT WANT TO GO TO RESIDENTIAL FOR REHAB AND WANTS TO RETURN HOME WITH HOME HEALTH. PT REPORTS GETTING OUT OF BED AND WALKING INDEPENDENTLY AND IS STONG ENOUGH TO RETURN HOME AT DISCHARGE. PT DENIES FURHTER NEEDS OTHER THAN HOME HEALTH. CM NOTIFIED PEPITO RIDER. CM TO FOLLOW UP WITH PT SOON POSSIBLE TO GET PT'S CHOICE ON HOME HEALTH PROVIDER AND WILL ARRANGE HOME HEALTH FOR DISCHARGE HOME WITH PHYSICIAN AGREEEMENT AND ORDERS. Jaya Dove, CASE MANAGEMENT DCP- Discharge Planning Updated by [id number]: Zohreh Potter on 04/15/19 10:[address] CM spoke with patient's sister yesterday. Her sister (Tracy) states she doesn't want her to go to a custodial if possible. She states that she would like her to go to inpatient rehab. I informed her that she would need authorization for that from insurance and inpatient rehab is already working on that. I informed her that it could probably be a denial if she is unable to participate in 3 hours of therapy a day. Her sister states if she is denied, that she would consent to a skilled unit. I spoke with Maria E with [facility], and Maria E states she believes [place] and [facility] are in network, but unsure. I also spoke with Dong Mca with [facility] and he states he may be able to work with her insurance for authorization. Her sister states it does not matter which one she goes to, "whatever we can find". Ming Jones, liason for [facility], states they [facility] not [facility]. CM will continue to follow and assist with discharge planning/needs. DCP- Discharge Planning Updated by [id number]: Zohreh Alejomadeline on 04/13/19 2:[address] Patient Name: DANIEL ALVAREZ Admission Status: ER Accout number: [id number] Admission Date: 04-12-2019 : 1945 Admission Diagnosis: Attending: MYESHA JOYNER Current LOS: 1 Anticipated DC Date: Planned Disposition: Inpatient Rehab Primary Insurance: [employer] ADV[employer]AGE Discharge Planning Comments: CM met with patient to discuss discharge planning/needs. She lives with her sister and brother in law in a mobile home. She states she is ok with going to rehab and doesn't care where she goes. Permission granted to call her family for further planning. I spoke with patient's brother in law (Heike) to discuss discharge plan. I informed them of the availability of inpatient rehab, SNF, home health and DME. He states he would like her to stay here at our inpatient rehab if possible. He states that he feels she may need more than 2 weeks of therapy though. I discussed SNF. He states he would like a referral to [facility] if inpatient rehab is not authorized. I spoke with Ming at [facility], they do not accept [employer]. She will need preauthorization for inpatient rehab. CM will continue to follow and assist with discharge planning/needs. General Merchandise Salesperson: Zohreh Potter DCPIA - Discharge Planning Initial Assessment Updated by [id number]: Zohreh Alejomadeline on 04/13/19 3:17 pm * Is the patient Alert and Oriented? Yes * How many steps to enter\\exit or inside your home? 4/0 * PCP Flakita Delaney * Pharmacy [facility] * Preadmission Environment Home with Family * ADLs Partial Dependent * Partial ADLs (Assistance needed) Ambulation Medication Management * Equipment Cane Nebulizer Other Oxygen * Other Equipment Portable oxygen Trilogy * List name and contact numbers for known caregivers / representatives who currently or will assist patient after discharge: Heike Alexander - Brother in law - [phone] Tracy Alexander - Sister (POA) - [phone] * Verbal permission to speak to the caregivers and representatives has been obtained from the patient. Yes * Community resources currently utilized Other * Please name any agencies selected above. [facility] * Additional services required to return to the preadmission environment? Yes * Can the patient safely return to the preadmission environment? No * Has this patient been hospitalized within the prior 30 days at any hospital? No Coverage Notice Reviewer: [id number] Jenni Dove Notice Issued Date-Time: 05/05/2019 16:10 Notice Type: Patient Choice Letter Notice Delivered To: Family Member Relationship to Patient: Sister Float Phlebotomist Name: TRACY ALEXANDER Delivery Method: HAND - Hand Delivered Isha Days: Prior Verbal Notification: Recipient Understood Notice: Yes Recipient Signature: Yes Med Rec Note Co-signed by Attending: Coverage Notice Comment: KIP [facility]BES Reviewer: [id number] Jenni Potter Notice Issued Date-Time: 04/13/2019 15:24 Notice Type: Patient Choice Letter Notice Delivered To: Family Member Relationship to Patient: Brother in Law Float Phlebotomist Name: Heike Alexander Delivery Method: HAND - Hand Delivered Isha Days: Prior Verbal Notification: Recipient Understood Notice: Yes Recipient Signature: Med Rec Note Co-signed by Attending: Coverage Notice Comment: [facility] for [facility] Reviewer: [id number] Jenni Dove Notice Issued Date-Time: 05/04/2019 11:25 Notice Type: IM Discharge Notice Notice Delivered To: Patient Relationship to Patient: Float Phlebotomist Name: Delivery Method: HAND - Hand Delivered Isha Days: Prior Verbal Notification: Recipient Understood Notice: Yes Recipient Signature: Yes Med Rec Note Co-signed by Attending: Coverage Notice Comment: Reviewer: [id number] Dove Notice Issued Date-Time: 04/28/2019 15:50 Notice Type: IM Discharge Notice Notice Delivered To: Patient Relationship to Patient: Float Phlebotomist Name: Delivery Method: HAND - Hand Delivered Isha Days: Prior Verbal Notification: Recipient Understood Notice: Yes Recipient Signature: Yes Med Rec Note Co-signed by Attending: Coverage Notice Comment: Last DP export: 05/06/19 6:58 a Patient Name: DANIEL ALVAREZ Page [id number] at 0805 All edits/amendments must be made on the electronic document DICTATION DATE: 05/06/19803 CUT OFF MACHINE UNLOADER: TIFFANY 05/06/19803 RPT#: [id number] DC DATE: STATUS: ADM IN [facility] [address] [place] [address] END OF REPORT
--- NOTE | 2019-05-06 09:25 | MORECARE ---
CASE MANAGEMENT DISCHARGE SUMMARY PATIENT: DANIEL ALVAREZ UNIT: [id number] ADM DATE: 04/12/19 AGE: 74 : 43 SEX: F ROOM/BED: D.7413 AUTHOR: WILL,DOC PHYSICIAN: REFERRING PHYSICIAN: MYESHA JOYNER MD DATE OF SERVICE: 05/06/19 Discharge Plan Patient Name: DANIEL ALVAREZ Facility: [facility] : 1945 Planned Disposition: Penitentiary Facility Anticipated Discharge Date: 05/05/19 Discharge Date: Expected LOS: 23 Initial Reviewer: [id number] Initial Review Date: 04/13/2019 Generated: 05/06/19 10:24 am Comments DCP- Discharge Planning Updated by [id number]: Jaya Dove on 05/06/19 6:[address] Patient Name: DANIEL ALVAREZ Encounter No: [id number] : 1945 Primary Insurance: [employer] Anticipated DC Date: 05-05-2019 Planned Disposition: Penitentiary Facility External Planned Provider: [facility] MEDICARE REHAB BED DCP follow-up note: LATE ENTRY FROM 05-05-19: CM SPOKE TO PT'S SISTER WHO WAS SPEAKING TO PT'S INSURANCE PROVIDER, [employer] ON THE PHONE REGARDING PLACEMENT FOR REHAB. PT'S SISTER ASKED CM TO SPEAK TO FADI OF [facility]. PETER ADVISED THAT THE FOLLOWING [facility] FACILITIES ARE IN NETWORK WITH [place] OF : [facility], [place], [facility] IN [place] AND [facility] IN [place]. PT'S SISTER REQUESTED REFERRAL BE SENT TO [facility] FOR REHAB. PT'S SISTER IS ALSO APPEALING INSURANCE DECISION OF DENIAL FOR [employer] CONTRACT AND STATES SHE WAS ADVISED THAT SHE CAN APPEAL THE [employer] DENIAL WHILE CM CONTINUES SEEKING PLACEMENT AT [facility]. CHOICE FOR [facility] SIGNED. ON 05-06-19, CM NOTIFIED MING OF [facility] OF REFERRAL FOR REHAB AT [phone], FAXED REHAB REFERRAL TO [facility] VIA [facility] AT [phone]. CM WAITING ADMISSION DETERMINATION FROM [facility] WELL INSURANCE DETERMINATION FOR REHAB SERVICES AT [facility]. Jaya Dove, CASE MANAGEMENT DCP- Discharge Planning Updated by [id number]: Jaya Dove on 05/05/19 3:[address] Patient Name: DANIEL ALVAREZ Encounter No: [id number] : 1945 Primary Insurance: [employer] Anticipated DC Date: 05-05-2019 Planned Disposition: Penitentiary Facility External Planned Provider: TO BE DETERMINED DCP follow-up note: CM SPOKE TO DONG OF [facility], INSURANCE HAS DECLINED CONTRACT FOR REHAB PLACEMENT. DONG HAS NOTIFIED PT AND SISTER IN ROOM. CM SPOKE TO PT'S SISTER REGARDING CALLING INSURANCE COMPANY TO FIND OUT IF THERE IS AN IN NETWORK FACILITY AND WHERE THE FACILITY WOULD BE LOCATED. CM DISCUSSED GROUP HOME CARE. PT'S SISTER DOES NOT WANT TO PLACE PT INTO ACCOUNTING OFFICER CARE IN A PENITENTIARY. PT'S SISTER CALLING INSURANCE COMPANY TO DISCUSS OPTIONS FOR REHAB AND WILL NOTIFY CM OF POSSIBLE OPTIONS. CM TO FOLLOW UP WITH PT'S SISTER REGARDING PLACEMENT. Jaya Dove, CASE MANAGEMENT DCP- Discharge Planning Updated by [id number]: Brittni Nieves on 05/05/19 10:[address] RECEIVED A VOICEMAIL FROM [facility] CALLED HER BACK AT [phone]. SHE STATED THAT SHE HAS EVERYTHING READY TO BE SUBMITTED TO THE CLINICAL DATA ANALYST (AND THE INFORMATION LOOKS APPROPRIATE), BUT WHEN SHE REACHED OUT TO [facility], SHE WAS TOLD THEY WERE TOO BUSY TO SUBMIT FOR AUTH YET AND SHE WAS REASSURED THEY WOULD DO IT TODAY. SHE STATED THAT THE FACILITY WAS NON [facility], AND THEY WOULD ALSO HAVE TO BE SUBMIT FOR THIS. I EXPLAINED THAT THE PATIENT HAS BEEN AT THIS FACILITY BEFORE AND THEY KNOW THE STEPS. I ASKED WHO SHE SPOKE WITH AND SHE STATED THAT SHE ASKED FOR DONG, IN THE CASEMANAGEMENT NOTES, AND WAS TRANSFERRED TO THE BUSINESS OFFICE. SHE DID NOT HAVE THE NAME OF THE LADY SHE SPOKE WITH, BUT STATED SHE WAS TOLD THEY WOULD SUBMIT FOR AUTH TODAY. I WILL CONTINUE TO ENTER DELAYS. DCP- Discharge Planning Updated by [id number]: Jaya Dove on 05/04/19 10:[address] Patient Name: DANIEL ALVAREZ Encounter No: [id number] : 1945 Primary Insurance: [employer] Anticipated DC Date: 05-05-2019 Planned Disposition: Penitentiary Facility External Planned Provider: [facility], MEDICARE REHAB BED DCP follow-up note: CM RECEIVED CALL FROM HEIKE NAVA, , WHO REQEUSTED UPDATE ON PLACEMENT AT [facility] FOR REHAB. CM INFORMED HEIKE THAT WE ARE STILL WAITING AUTHORIZATION FROM PT'S INSURANCE. CM SPOKE TO DONG OF [facility], , WHO INFORMED CM THAT HE IS WAITING ON INSURANCE APPROVAL FOR CONTRACT WITH AUTHORIZATION [facility] TO PROVIDE REHAB SERVICE TO PATIENT. DONG REPORTS NOT NEEDING UPDATE TODAY AND TO WAIT TO FAX ANY UPDATES UNTIL THEY HEAR FROM INSURANCE. CM NOTIFIED PT WHO IS IN AGREEMENT WITH DISCHARGE TO REHAB AT [facility]. PT IS UP TO CHAIR. IMPORTANT MESSAGE FROM MEDICARE PROVIDED AND EXPLAINED. CM WAITING INSURANCE AUTHORIZATION FOR REHAB AT [facility]. Jaya Dove, CASE MANAGEMENT DCP- Discharge Planning Updated by [id number]: Lesly Rios on 05/01/19 12:[address] Patient Name: DANIEL ALVAREZ Admission Status: ER Accout number: [id number] Admission Date: 04-12-2019 : 1945 Admission Diagnosis:FRACTURE OF SUPERIOR RIM OF RIGHT PUBIS, INIT FOR CLOS Attending: MYESHA JOYNER Current LOS: 19 Anticipated DC Date: Planned Disposition: Penitentiary Facility Primary Insurance: [employer] Discharge Planning Comments: [place] HAD BEEN SIGNED FOR [facility] SNF, I FAXED REFERRAL TODAY. CM WILL FOLLOW AND ASSIST. Electrolytic De Scaler: Lesly Rios DCP- Discharge Planning Updated by [id number]: Jaya Dove on 04/28/19 4:[address] Patient Name: DANIEL ALVAREZ Encounter No: [id number] : 1945 Primary Insurance: [employer] Anticipated DC Date: Planned Disposition: Inpatient Rehab External Planned Provider: [facility] INPATIENT REHAB DCP follow-up note: CM PARTICIPATED IN MULTIDISCIPLINARY TEAM MEETING, WAS INFORMED BY VIDA OF INPATIENT REHAB AT [facility] THAT THEY ARE SUBMITTING FOR INSURANCE AUTHORIZATION AGAIN TODAY. CM NOTIFIED PT WHO IS WILLING FOR INPATIENT REHAB AT [facility] AND UNDERSTANDS AND AGREES THAT IF DECLINED, SHE WILL GO TO [facility] F[facility] IN [place] OTHER THAN [facility]. IMPORTANT MESSAGE FROM MEDICARE PROVIDED AND EXPLAINED. CM WAITING INSURANCE DETERMINATION FOR INPATIENT REHAB AT [facility]. Jaya Dove, CASE MANAGEMENT DCP- Discharge Planning Updated by [id number]: Jaya Dove on 04/27/19 10:[address] Patient Name: DANIEL ALVAREZ Encounter No: [id number] : 1945 Primary Insurance: [employer] Anticipated DC Date: Planned Disposition: Inpatient Rehab External Planned Provider: [facility] INPATIENT REHAB DCP follow-up note: CM SPOKE TO VIDA OF [facility] INPATIENT REHAB DURING MULTIDICIPLINARY TEAM MEETING WHO INFORMED GROUP THAT SHE IS RESUBMITTING TO INSURANCE FOR AUTHORIZATION DETERMINATION FOR INPATIENT REHAB. CM HAS PREVIOUSLY SPOKEN TO PT'S SISTER / YANNICK WHO HAS DISCUSSED PLAN OF [facility] IN [place] IF DECLINED INPATIENT REHAB; JUST NOT [facility]. CM WAITING INSURANCE AUTHORIZATION FOR DENIAL FOR INPATIENT REHAB AT [facility]. Jaya Dove. CASE MANAGEMENT DCP- Discharge Planning Updated by [id number]: Caitlyn Hodgson on 04/26/19 2:[address] CM RECEIVED MD ORDER TO CHECK IF DISCHARGE PLAN IS STILL FOR HOME. IN REVIEW OF WEEKDAY CM THE PLAN IS FOR A [facility] FACILITY. SPOKE W/ THE PRIMARY NURSE, ROSANA. THE PATIENT HAS SOME DEGREE OF CONFUSION. SHE WISHES TO DISCHARGE TO HOME. PER THE NURSING NOTES THE FAMILY WAS AT THE BEDSIDE EARLIER THIS AM. TC TO POA, SISTER, TRACY. NO ANSWER. LEFT VM FOR TRACY ALEXANDER TO RETURN CALL WHEN AVAILAABLE. DCP- Discharge Planning Updated by [id number]: Jaya Dove on 04/23/19 4:[address] Patient Name: DANIEL ALVAREZ Encounter No: [id number] : 1945 Primary Insurance: [employer] Anticipated DC Date: Planned Disposition: Inpatient Rehab External Planned Provider: [facility] INPATIENT REHAB DCP follow-up note: CM RECEIVED CALL FROM PT'S SISTER AND POWER OF BUSINESS ENTERPRISE OFFICER, TRACY GONZALEZ, WHO WANTED TO DISCUSS DISCHARGE PLANNING. TRACY REPORTS PT NEEDS REHAB INPATIENT AT [facility] AND IF DELCINED, SHE WILL NEED ANY [facility] REHAB EXCEPT [facility]. TRACY REPORTS PT HAS DEMENTIA, LIVES WITH HER (TRACY) AND THEY DISCUSSED REHAB LAST NIGHT, PT IS IN AGREEMENT WITH REHAB SERVICES. IF TRACY DOES NOT ANSWER HER PHONE, SHE DIRECTED CM TO CALL HEIKE, HER SPOUSE, . CM SPOKE TO VIDA OF INPATIENT REHAB AT MULTIDISCIPLINARY TEAM MEETING, INPATIENT REHAB TO RESUBMIT TO INSURANCE FOR INPATIENT REHAB AUTHORIZATION REQUEST. CM TO CONTINUE TO FOLLOW AND ASSIST IF NEEDED. Jaya Dove, CASE MANAGEMENT DCP- Discharge Planning Updated by [id number]: Jaya Dove on 04/22/19 3:[address] Patient Name: DANIEL ALVAREZ Encounter No: [id number] : 1945 Primary Insurance: [employer] Anticipated DC Date: Planned Disposition: Home with Home Health External Planned Provider: TO BE DETERMINED DCP follow-up note: CM RECEIVED CALL FROM VIDA OF INPATIENT REHAB, PT WAS DECLINED BY INSURANCE FOR INPATIENT REHAB. CM SPOKE TO PT IN ROOM, PT DOES NOT WANT TO GO TO [facility] FOR REHAB AND WANTS TO RETURN HOME WITH HOME HEALTH. PT REPORTS GETTING OUT OF BED AND WALKING INDEPENDENTLY AND IS STONG ENOUGH TO RETURN HOME AT DISCHARGE. PT DENIES FURHTER NEEDS OTHER THAN HOME HEALTH. CM NOTIFIED PEPITO RIDER. CM TO FOLLOW UP WITH PT SOON POSSIBLE TO GET PT'S CHOICE ON HOME HEALTH PROVIDER AND WILL ARRANGE HOME HEALTH FOR DISCHARGE HOME WITH PHYSICIAN AGREEEMENT AND ORDERS. Jaya Dove, CASE MANAGEMENT DCP- Discharge Planning Updated by [id number]: Zohreh Potter on 04/15/19 10:[address] CM spoke with patient's sister yesterday. Her sister (Tracy) states she doesn't want her to go to a halfway if possible. She states that she would like her to go to inpatient rehab. I informed her that she would need authorization for that from insurance and inpatient rehab is already working on that. I informed her that it could probably be a denial if she is unable to participate in 3 hours of therapy a day. Her sister states if she is denied, that she would consent to a skilled unit. I spoke with Maria E with [facility], and Maria E states she believes [facility] and [facility] are in network, but unsure. I also spoke with Dong Mac with [facility] and he states he may be able to work with her insurance for authorization. Her sister states it does not matter which one she goes to, "whatever we can find". Ming Jones, liason for [facility], states [facility]. CM will continue to follow and assist with discharge planning/needs. DCP- Discharge Planning Updated by [id number]: Zohreh Alejomadeline on 04/13/19 2:[address] Patient Name: DANIEL ALVAREZ Admission Status: ER Accout number: [id number] Admission Date: 04-12-2019 : 1945 Admission Diagnosis: Attending: MYESHA JOYNER Current LOS: 1 Anticipated DC Date: Planned Disposition: Inpatient Rehab Primary Insurance: [employer] Discharge Planning Comments: CM met with patient to discuss discharge planning/needs. She lives with her sister and brother in law in a mobile home. She states she is ok with going to rehab and doesn't care where she goes. Permission granted to call her family for further planning. I spoke with patient's brother in law (Heike) to discuss discharge plan. I informed them of the availability of inpatient rehab, SNF, home health and DME. He states he would like her to stay here at our inpatient rehab if possible. He states that he feels she may need more than 2 weeks of therapy though. I discussed SNF. He states he would like a referral to [facility] if inpatient rehab is not authorized. I spoke with Ming at [facility], they do not accept [employer]. She will need preauthorization for inpatient rehab. CM will continue to follow and assist with discharge planning/needs. Electrolytic De Scaler: Zohreh Potter DCPIA - Discharge Planning Initial Assessment Updated by [id number]: Zohreh Alejomadeline on 04/13/19 3:17 pm * Is the patient Alert and Oriented? Yes * How many steps to enter\\exit or inside your home? 4/0 * PCP Flakita Delaney * Pharmacy [facility] * Preadmission Environment Home with Family * ADLs Partial Dependent * Partial ADLs (Assistance needed) Ambulation Medication Management * Equipment Cane Nebulizer Other Oxygen * Other Equipment Portable oxygen Trilogy * List name and contact numbers for known caregivers / representatives who currently or will assist patient after discharge: Heike Alexander - Brother in law - [phone] Tracy Alexander - Sister (POA) - [phone] * Verbal permission to speak to the caregivers and representatives has been obtained from the patient. Yes * Community resources currently utilized Other * Please name any agencies selected above. [facility] * Additional services required to return to the preadmission environment? Yes * Can the patient safely return to the preadmission environment? No * Has this patient been hospitalized within the prior 30 days at any hospital? No External Providers External Provider: [facility] Next Contact Date: 05/06/2019 Service Request Date: Service Type: Resolution: Reviewer: Comments: External Provider: [facility] Next Contact Date: 05/07/2019 Service Request Date: Service Type: Resolution: Reviewer: Comments: Coverage Notice Reviewer: [id number] Jenni Potter Notice Issued Date-Time: 04/13/2019 15:24 Notice Type: Patient Choice Letter Notice Delivered To: Family Member Relationship to Patient: Brother in Law Chemical Worker Name: Heike Alexander Delivery Method: HAND - Hand Delivered Isha Days: Prior Verbal Notification: Recipient Understood Notice: Yes Recipient Signature: Med Rec Note Co-signed by Attending: Coverage Notice Comment: [place] for [facility] Reviewer: [id number] Dove Notice Issued Date-Time: 04/28/2019 15:50 Notice Type: IM Discharge Notice Notice Delivered To: Patient Relationship to Patient: Chemical Worker Name: Delivery Method: HAND - Hand Delivered Isha Days: Prior Verbal Notification: Recipient Understood Notice: Yes Recipient Signature: Yes Med Rec Note Co-signed by Attending: Coverage Notice Comment: Reviewer: [id number] Dove Notice Issued Date-Time: 05/04/2019 11:25 Notice Type: IM Discharge Notice Notice Delivered To: Patient Relationship to Patient: Chemical Worker Name: Delivery Method: HAND - Hand Delivered Isha Days: Prior Verbal Notification: Recipient Understood Notice: Yes Recipient Signature: Yes Med Rec Note Co-signed by Attending: Coverage Notice Comment: Reviewer: [id number] Dove Notice Issued Date-Time: 05/05/2019 16:10 Notice Type: Patient Choice Letter Notice Delivered To: Family Member Relationship to Patient: Sister Chemical Worker Name: TRACY ALEXANDER Delivery Method: HAND - Hand Delivered Isha Days: Prior Verbal Notification: Recipient Understood Notice: Yes Recipient Signature: Yes Med Rec Note Co-signed by Attending: Coverage Notice Comment: KIP Edwards DP export: 05/06/19 7:05 a Patient Name: DANIEL ALVAREZ Page [id number] at 0925 All edits/amendments must be made on the electronic document DICTATION DATE: 05/06/19923 DROP MACHINE OPERATOR: TIFFANY 05/06/19923 RPT#: [id number] DC DATE: STATUS: ADM IN [facility] [address] [place] [address] END OF REPORT
--- NOTE | 2019-05-06 09:42 | MORECARE ---
CASE MANAGEMENT DISCHARGE SUMMARY PATIENT: DANIEL ALVAREZ UNIT: [id number] ADM DATE: 04/12/19 AGE: 74 : 43 SEX: F ROOM/BED: D.6773 AUTHOR: WILL,DOC PHYSICIAN: REFERRING PHYSICIAN: MYESHA JOYNER MD DATE OF SERVICE: 05/06/19 Discharge Plan Patient Name: DANIEL ALVAREZ Facility: [facility]:[place] : 1945 Planned Disposition: Long-Term Facility Anticipated Discharge Date: 05/05/19 Discharge Date: Expected LOS: 23 Initial Reviewer: [id number] Initial Review Date: 04/13/2019 Generated: 05/06/19 10:42 am Comments DCP- Discharge Planning Updated by [id number]: Jaya Dove on 05/06/19 8:[address] Patient Name: DANIEL ALVAREZ Encounter No: [id number] : 1945 Primary Insurance: [employer] ADVANTAGE Anticipated DC Date: 05-05-2019 Planned Disposition: Long-Term Facility External Planned Provider: [facility], MEDICARE REHAB BED DCP follow-up note: CM RECEIVED CALL FROM [facility] WHO INFORMED CM THAT [facility] AND [facility] ARE NOT IN NETWORK WITH [employer]. CM CALLED [facility], THEY ARE NOT IN NETWORK WITH [employer] MEDICARE. CM CALLED [facility], THEY DO ACCEPT [employer] MEDICARE. CM CALLED Tracy Catherine - Sister (POA) - [phone], INFORMED OF ABOVE, TRACY REPORTS HAVING NO PREFERENCE ON THE THREE IN NETWORK FACILITIES AND ASKED THAT CM WORK FOR REHAB PLACEMENT IN A COVERED FACILITY. CM NOTIFIED EDWARD OF [facility], , OF REFERRAL, FAXED TO [phone]. CM CALLED AND NOTIFIED CELENA OF [facility], , NOTIFIED OF REFERRAL AND [facility] AT [phone]. CM WAITING ADMISSION DETERMINATIONS FROM [facility]. CM WAITING INSURANCE AUTHORIZATION FOR ALF REHAB SERVICES. Jaya Dove, CASE MANAGEMENT DCP- Discharge Planning Updated by [id number]: Jaya Dove on 05/06/19 6:[address] Patient Name: DANIEL ALVAREZ Encounter No: [id number] : 1945 Primary Insurance: [employer] ADVANTAGE Anticipated DC Date: 05-05-2019 Planned Disposition: Long-Term Facility External Planned Provider: [facility], MEDICARE REHAB BED DCP follow-up note: LATE ENTRY FROM 05-05-19: CM SPOKE TO PT'S SISTER WHO WAS SPEAKING TO PT'S INSURANCE PROVIDER, ALLY ON THE PHONE REGARDING PLACEMENT FOR REHAB. PT'S SISTER ASKED CM TO SPEAK TO FADI OF [facility]. PETER ADVISED THAT THE FOLLOWING ALF FACILITIES ARE IN NETWORK WITH [place] OF : [facility], [facility], [place], [facility], [facility] IN [place] AND [facility] IN [place]. PT'S SISTER REQUESTED REFERRAL BE SENT TO [facility] FOR REHAB. PT'S SISTER IS ALSO APPEALING INSURANCE DECISION OF DENIAL FOR [facility] CONTRACT AND STATES SHE WAS ADVISED THAT SHE CAN APPEAL THE [facility] DENIAL WHILE CM CONTINUES SEEKING PLACEMENT AT [facility]. CHOICE FOR [facility] SIGNED. ON 05-06-19, CM NOTIFIED MING OF [facility] OF REFERRAL FOR REHAB AT [phone], FAXED REHAB REFERRAL TO [facility] VIA [facility] AT [phone]. CM WAITING ADMISSION DETERMINATION FROM [facility] WE[facility] INSURANCE DETERMINATION FOR REHAB SERVICES AT [facility]. Jaya Dove CASE MANAGEMENT DCP- Discharge Planning Updated by [id number]: Jaya Dove on 05/05/19 3:[address] Patient Name: DANIEL ALVAREZ Encounter No: [id number] : 1945 Primary Insurance: [employer] ADVANTAGE Anticipated DC Date: 05-05-2019 Planned Disposition: Long-Term Facility External Planned Provider: TO BE DETERMINED DCP follow-up note: CM SPOKE TO DONG OF [facility], INSURANCE HAS DECLINED CONTRACT FOR REHAB PLACEMENT. DONG HAS NOTIFIED PT AND SISTER IN ROOM. CM SPOKE TO PT'S SISTER REGARDING CALLING INSURANCE COMPANY TO FIND OUT IF THERE IS AN IN NETWORK FACILITY AND WHERE THE FACILITY WOULD BE LOCATED. CM DISCUSSED HALFWAY CARE. PT'S SISTER DOES NOT WANT TO PLACE PT INTO HALFWAY CARE IN A SKILLED NURSING. PT'S SISTER CALLING INSURANCE COMPANY TO DISCUSS OPTIONS FOR REHAB AND WILL NOTIFY CM OF POSSIBLE OPTIONS. CM TO FOLLOW UP WITH PT'S SISTER REGARDING PLACEMENT. Jaya Dove, CASE MANAGEMENT DCP- Discharge Planning Updated by [id number]: Brittni Nieves on 05/05/19 10:[address] RECEIVED A [facility]EMAIL FROM [facility] CALLED HER BACK AT [phone]. SHE STATED THAT SHE HAS EVERYTHING READY TO BE SUBMITTED TO THE SURGICAL INSTRUMENT MAKER (AND THE INFORMATION LOOKS APPROPRIATE), BUT WHEN SHE REACHED OUT TO [facility], SHE WAS TOLD THEY WERE TOO BUSY TO SUBMIT FOR AUTH YET AND SHE WAS REASSURED THEY WOULD DO IT TODAY. SHE STATED THAT THE FACILITY WAS NON [facility], AND THEY WOULD ALSO HAVE TO BE SUBMIT FOR THIS. I EXPLAINED THAT THE PATIENT HAS BEEN AT THIS FACILITY BEFORE AND THEY KNOW THE STEPS. I ASKED WHO SHE SPOKE WITH AND SHE STATED THAT SHE ASKED FOR DONG, IN THE CASEMANAGEMENT NOTES, AND WAS TRANSFERRED TO THE BUSINESS OFFICE. SHE DID NOT HAVE THE NAME OF THE LADY SHE SPOKE WITH, BUT STATED SHE WAS TOLD THEY WOULD SUBMIT FOR AUTH TODAY. I WILL CONTINUE TO ENTER DELAYS. DCP- Discharge Planning Updated by [id number]: Jaya Dove on 05/04/19 10:[address] Patient Name: DANIEL ALVAREZ Encounter No: [id number] : 1945 Primary Insurance: [employer] Anticipated DC Date: 05-05-2019 Planned Disposition: Long-Term Facility External Planned Provider: [facility] B[facility] DCP follow-up note: CM RECEIVED CALL FROM HEIKE NAVA, , WHO REQEUSTED UPDATE ON PLACEMENT AT [facility] FOR REHAB. CM INFORMED HEIKE THAT WE ARE STILL WAITING AUTHORIZATION FROM PT'S INSURANCE. CM SPOKE TO DONG OF [facility], , WHO INFORMED CM THAT HE IS WAITING ON INSURANCE APPROVAL FOR CONTRACT WITH AUTHORIZATION [facility] TO PROVIDE REHAB SERVICE TO PATIENT. DONG REPORTS NOT NEEDING UPDATE TODAY AND TO WAIT TO FAX ANY UPDATES UNTIL THEY HEAR FROM INSURANCE. CM NOTIFIED PT WHO IS IN AGREEMENT WITH DISCHARGE TO REHAB AT [facility]. PT IS UP TO CHAIR. IMPORTANT MESSAGE FROM MEDICARE PROVIDED AND EXPLAINED. CM WAITING INSURANCE AUTHORIZATION FOR REHAB AT [facility]. LORENZA Beaulieu DCP- Discharge Planning Updated by [id number]: Lesly Rios on 05/01/19 12:[address] Patient Name: DANIEL ALVAREZ Admission Status: ER Accout number: [id number] Admission Date: 04-12-2019 : 1945 Admission Diagnosis:FRACTURE OF SUPERIOR RIM OF RIGHT PUBIS, INIT FOR CLOS Attending: MYESHA JOYNER Current LOS: 19 Anticipated DC Date: Planned Disposition: Long-Term Facility Primary Insurance: [employer]ARE ADVANTAGE Discharge Planning Comments: [place] HAD BEEN SIGNED FOR [facility] SNF, I FAXED REFERRAL TODAY. CM WILL FOLLOW AND ASSIST. Loss Prevention Consultant: Lesly Rios DCP- Discharge Planning Updated by [id number]: Jaya Dove on 04/28/19 4:[address] Patient Name: DANIEL ALVAREZ Encounter No: [id number] : 1945 Primary Insurance: [employer] ADVANTAGE Anticipated DC Date: Planned Disposition: Inpatient Rehab External Planned Provider: [facility] DCP follow-up note: CM PARTICIPATED IN MULTIDISCIPLINARY TEAM MEETING, WAS INFORMED BY VIDA OF INPATIENT REHAB AT [place] THAT THEY ARE SUBMITTING FOR INSURANCE AUTHORIZATION AGAIN TODAY. CM NOTIFIED PT WHO IS WILLING FOR INPATIENT REHAB AT [facility] AND UNDERSTANDS AND AGREES THAT IF DECLINED, SHE WILL GO TO ALF FACILITY IN [place] OTHER THAN [facility]. IMPORTANT MESSAGE FROM MEDICARE PROVIDED AND EXPLAINED. CM WAITING INSURANCE DETERMINATION FOR INPATIENT REHAB AT [facility]. LORENZA Beaulieu DCP- Discharge Planning Updated by [id number]: Jaya Dove on 04/27/19 10:[address] Patient Name: DANIEL ALVAREZ Encounter No: [id number] : 1945 Primary Insurance: [employer] ADVANTAGE Anticipated DC Date: Planned Disposition: Inpatient Rehab External Planned Provider: [facility] DCP follow-up note: CM SPOKE TO VIDA OF [facility] INPATIENT REH[facility] DURING MULTIDICIPLINARY TEAM MEETING WHO INFORMED GROUP THAT SHE IS RESUBMITTING TO INSURANCE FOR AUTHORIZATION DETERMINATION FOR INPATIENT REHAB. CM HAS PREVIOUSLY SPOKEN TO PT'S SISTER / YANNICK WHO HAS DISCUSSED PLAN OF ALF IN [place] IF DECLINED INPATIENT REHAB; JUST NOT [facility]. CM WAITING INSURANCE AUTHORIZATION FOR DENIAL FOR INPATIENT REHAB AT [facility]. Jaya Dove. CASE MANAGEMENT DCP- Discharge Planning Updated by [id number]: Caitlyn Hodgson on 04/26/19 2:[address] CM RECEIVED MD ORDER TO CHECK IF DISCHARGE PLAN IS STILL FOR HOME. IN REVIEW OF WEEKDAY CM THE PLAN IS FOR A ALF FACILITY. SPOKE W/ THE PRIMARY NURSE, ROSANA. THE PATIENT HAS SOME DEGREE OF CONFUSION. SHE WISHES TO DISCHARGE TO HOME. PER THE NURSING NOTES THE FAMILY WAS AT THE BEDSIDE EARLIER THIS AM. TC TO YANNICK, SISTER, TRACY. NO ANSWER. LEFT VM FOR TRACY ALEXANDER TO RETURN CALL WHEN AVAILAABLE. DCP- Discharge Planning Updated by [id number]: Jaya Dove on 04/23/19 4:[address] Patient Name: DANIEL ALVAREZ Encounter No: [id number] : 1945 Primary Insurance: [employer] Anticipated DC Date: Planned Disposition: Inpatient Rehab External Planned Provider: [facility] DCP follow-up note: CM RECEIVED CALL FROM PT'S SISTER AND POWER OF [employer]ANKMAN, TRACY GONZALEZ, WHO WANTED TO DISCUSS DISCHARGE PLANNING. TRACY REPORTS PT NEEDS REHAB INPATIENT AT [facility] AND IF DELCINED, SHE WILL NEED ANY ALF REHAB EXCEPT [facility]. TRACY REPORTS PT HAS DEMENTIA, LIVES WITH HER (TRACY) AND THEY DISCUSSED REHAB LAST NIGHT, PT IS IN AGREEMENT WITH REHAB SERVICES. IF TRACY DOES NOT ANSWER HER PHONE, SHE DIRECTED CM TO CALL HEIKE, HER SPOUSE, . CM SPOKE TO VIDA OF INPATIENT REHAB AT MULTIDISCIPLINARY TEAM MEETING, INPATIENT REHAB TO RESUBMIT TO INSURANCE FOR INPATIENT REHAB AUTHORIZATION REQUEST. CM TO CONTINUE TO FOLLOW AND ASSIST IF NEEDED. Jaya Dove, CASE MANAGEMENT DCP- Discharge Planning Updated by [id number]: Jaya Dove on 04/22/19 3:[address] Patient Name: DANIEL ALVAREZ Encounter No: [id number] : 1945 Primary Insurance: [employer] ADVANTAGE Anticipated DC Date: Planned Disposition: Home with Home Health External Planned Provider: TO BE DETERMINED DCP follow-up note: CM RECEIVED CALL FROM [facility] OF [facility]PATIENT [facility], PT WAS DECLINED BY INSURANCE FOR INPATIENT REHAB. CM SPOKE TO PT IN ROOM, PT DOES NOT WANT TO GO TO ALF FOR REHAB AND WANTS TO RETURN HOME WITH HOME HEALTH. PT REPORTS GETTING OUT OF BED AND WALKING INDEPENDENTLY AND IS STONG ENOUGH TO RETURN HOME AT DISCHARGE. PT DENIES FURHTER NEEDS OTHER THAN HOME HEALTH. CM NOTIFIED [facility] RIDER. CM TO FOLLOW UP WITH PT SOON POSSIBLE TO GET PT'S CHOICE ON HOME HEALTH PROVIDER AND WILL ARRANGE HOME HEALTH FOR DISCHARGE HOME WITH PHYSICIAN AGREEEMENT AND ORDERS. Jaya Dove, CASE MANAGEMENT DCP- Discharge Planning Updated by [id number]: Zohreh Abbey on 04/15/19 10:[address] CM spoke with patient's sister yesterday. Her sister (Tracy) states she doesn't want her to go to a senior care if possible. She states that she would like her to go to inpatient rehab. I informed her that she would need authorization for that from insurance and inpatient rehab is already working on that. I informed her that it could probably be a denial if she is unable to participate in 3 hours of therapy a day. Her sister states if she is denied, that she would consent to a skilled unit. I spoke with Maria E with [facility], and Maira E states she believes [facility] and [facility] are in network, but unsure. I also spoke with Dong Mac with [facility] and he states he may be able to work with her insurance for authorization. Her sister states it does not matter which one she goes to, "whatever we can find". Ming Jones, liason for [facility], states they are not in network with [employer]. CM will continue to follow and assist with discharge planning/needs. DCP- Discharge Planning Updated by [id number]: Zohreh Abbey on 04/13/19 2:[address] Patient Name: DANIEL ALVAREZ Admission Status: ER Accout number: [id number] Admission Date: 04-12-2019 : 1945 Admission Diagnosis: Attending: MYESHA JOYNER Current LOS: 1 Anticipated DC Date: Planned Disposition: Inpatient Rehab Primary Insurance: [employer] ADVANTAGE Discharge Planning Comments: CM met with patient to discuss discharge planning/needs. She lives with her sister and brother in law in a mobile home. She states she is ok with going to rehab and doesn't care where she goes. Permission granted to call her family for further planning. I spoke with patient's brother in law (Heike) to discuss discharge plan. I informed them of the availability of inpatient rehab, SNF, home health and DME. He states he would like her to stay here at our inpatient rehab if possible. He states that he feels she may need more than 2 weeks of therapy though. I discussed SNF. He states he would like a referral to [facility] if inpatient rehab is not authorized. I spoke with Ming at [facility], they do not accept [employer]. She will need preauthorization for inpatient rehab. CM will continue to follow and assist with discharge planning/needs. Loss Prevention Consultant: [facility] Initial Assessment Updated by [id number]: Zohreh Potter on 04/13/19 3:17 pm * Is the patient Alert and Oriented? Yes * How many steps to enter\\exit or inside your home? 4/0 * PCP Flakita Delaney * Pharmacy [facility] [place] * Preadmission Environment Home with Family * ADLs Partial Dependent * Partial ADLs (Assistance needed) Ambulation Medication Management * Equipment Cane Nebulizer Other Oxygen * Other Equipment Portable oxygen Trilogy * List name and contact numbers for known caregivers / representatives who currently or will assist patient after discharge: Heike Alexander - Brother in law - [phone] Tracy Alexander - Sister (POA) - [phone] * Verbal permission to speak to the caregivers and representatives has been obtained from the patient. Yes * Community resources currently utilized Other * Please name any agencies selected above. [facility] * Additional services required to return to the preadmission environment? Yes * Can the patient safely return to the preadmission environment? No * Has this patient been hospitalized within the prior 30 days at any hospital? No Coverage Notice Reviewer: [id number] - Zohreh Potter Notice Issued Date-Time: 04/13/2019 15:24 Notice Type: Patient Choice Letter Notice Delivered To: Family Member Relationship to Patient: Brother in Law Rail Car Repairer Name: Heike Alexander Delivery Method: HAND - Hand Delivered Isha Days: Prior Verbal Notification: Recipient Understood Notice: Yes Recipient Signature: Med Rec Note Co-signed by Attending: Coverage Notice Comment: [place] [facility] [facility] [place] Reviewer: JEFERSON Dove Notice Issued Date-Time: 04/28/2019 15:50 Notice Type: IM Discharge Notice Notice Delivered To: Patient Relationship to Patient: Rail Car Repairer Name: Delivery Method: HAND - Hand Delivered Isha Days: Prior Verbal Notification: Recipient Understood Notice: Yes Recipient Signature: Yes Med Rec Note Co-signed by Attending: Coverage Notice Comment: Reviewer: JEFERSON Dove Notice Issued Date-Time: 05/04/2019 11:25 Notice Type: IM Discharge Notice Notice Delivered To: Patient Relationship to Patient: Rail Car Repairer Name: Delivery Method: HAND - Hand Delivered Isha Days: Prior Verbal Notification: Recipient Understood Notice: Yes Recipient Signature: Yes Med Rec Note Co-signed by Attending: Coverage Notice Comment: Reviewer: JEFERSON Dove Notice Issued Date-Time: 05/05/2019 16:10 Notice Type: Patient Choice Letter Notice Delivered To: Family Member Relationship to Patient: Sister Rail Car Repairer Name: TRACY ALEXANDER Delivery Method: HAND - Hand Delivered Isha Days: Prior Verbal Notification: Recipient Understood Notice: Yes Recipient Signature: Yes Med Rec Note Co-signed by Attending: Coverage Notice Comment: [facility] Reviewer: JEFERSON Dove Notice Issued Date-Time: 05/06/2019 8:00 Notice Type: IM Discharge Notice Notice Delivered To: Family Member Relationship to Patient: Sister Rail Car Repairer Name: TRACY ALEXANDER Delivery Method: HAND - Hand Delivered Isha Days: Prior Verbal Notification: Recipient Understood Notice: Yes Recipient Signature: Yes Med Rec Note Co-signed by Attending: Coverage Notice Comment: Last DP export: 05/06/19 8:24 a Patient Name: DANIEL ALVAREZ Page [id number] at 0942 All edits/amendments must be made on the electronic document DICTATION DATE: 05/06/19941 SUPERVISOR IN CIRCUIT TESTING: TIFFANY 05/06/19941 RPT#: [id number] DC DATE: STATUS: ADM IN [facility] [address] [place] [address] END OF REPORT
--- NOTE | 2019-05-06 10:01 | NUR ---
UP TO SHOWER WITH PT/OT ASSIST.
--- NOTE | 2019-05-06 10:22 | NUR ---
BECAME SOB AND HYPOXIC DURING SHOWER. ASSISTED BACK TO BED AND BYPAP AND UD WAS PROVIDED BY RT. WILL MONITOR.
--- NOTE | 2019-05-06 11:36 | NUR ---
OT NOTE: PT SITTING UP ON EOB THIS AM. ALERT AND ORIENTED X 2. ASKED PT IF SHE WOULD LIKE TO GET A SHOWER AND SHE STOOD UP AND STARTED TOWARDS THE BATHROOM. ASSISTED PT BACK TO SITTING POSITION WHILE ITEMS WERE GATHERED FOR SHOWER. AMB WITH NIGHT CUSTODIAN X 2; TRANSFER TO SHOWER CHAIR WITH MOD ASSIST. BEFORE SHOWER WAS COMPLETE, PT C/O SOB AND STATING THAT SHE CANT BREATH. RINSED PT AND PROVIDED 02; NURSING NOTIFIED AND RESPIRATORY CAME TO ASSIST. GOT PT BACK TO BED WITH MOD ASSIST X 2 TO SIT ON EOB. RESP PROVIDED BI PAP AND BREATHING TMT. REQUIRED APPROX 15 MIN TO RECOUP. ASSISTED BACK TO BED. CAMRON GORDON, OTR/L
--- NOTE | 2019-05-06 11:52 | NUR ---
RESTING WITH EYES CLOSED. BIPAP ON. CALL LIGHT IN REACH.
--- NOTE | 2019-05-06 12:15 | NUR ---
Nutrition Follow-up: Per staff, pt not eating well. 0% recorded for breakfast this AM. Diet: Cardiac, Ensure with meals PO intake: 0-10% No new wt Last BM: 05/05 per chart Labs noted: Glu 125, Na 147 Meds reviewed -Rec appetite stimulant/nutrition support 2/2 continued poor PO intake. -Need new wt. -RD following.
[2019-05-06 13:59] VITALS: BP 129/69
--- NOTE | 2019-05-06 15:06 | NUR ---
UP TO CHAIR PER DR PAVON REQUEST.
--- NOTE | 2019-05-06 15:26 | MORECARE ---
CASE MANAGEMENT DISCHARGE SUMMARY PATIENT: DANIEL ALVAREZ UNIT: [id number] ADM DATE: 04/12/19 AGE: 74 : 43 SEX: F ROOM/BED: D.2123 AUTHOR: ZENY SOLIS PHYSICIAN: REFERRING PHYSICIAN: MYESHA JONYER MD DATE OF SERVICE: 05/06/19 Discharge Plan Patient Name: DANIEL ALVAREZ Facility: [facility]:[place] : 1945 Planned Disposition: Senior Care Facility Anticipated Discharge Date: 05/05/19 Discharge Date: Expected LOS: 23 Initial Reviewer: [email or web address] Initial Review Date: 04/13/2019 Generated: 05/06/19 4:26 pm Comments DCP- Discharge Planning Updated by [id number]: Brittni Nieves on 05/06/19 2:[address] @1436, SPOKE WITH HEBER WITH [facility]. SHE STATED THAT THE SNF AUTH FOR [facility] HAS BEEN APPROVED FOR SNF WITH #[id number]. SHE STATED THAT SHE HAS CALLED TO NOTIFY THE SNF BEFORE SHE CALLED ME AND LEFT A VOICEMAIL ON THE BUSINESS OFFICE VOICEMAIL. @4072, I TRIED TO CALL [facility] ([phone]), AND I ORIGINALLY SPOKE CAYLA ALEX WHO ULTIMATELY TRANSFERRED TO THE BUSINESS OFFICE AND I LEFT A VOICEMAIL ON [employer] INQUIRING ON TO WHEN THEY WOULD ACCEPT THE PATIENT NOW THAT WE HAVE AUTH. I REPEATED THE AUTH # AND ALSO MENTIONED THAT HEBER CALLED AND SAID SHE LEFT HER A VOICEMAIL PRIOR TO CALLING ME. WE WILL WAIT FOR A RESPONSE FROM THEM. DCP- Discharge Planning Updated by [id number]: Jaya Dove on 05/06/19 8:[address] Patient Name: DANIEL ALVAREZ Encounter No: [id number] : 1945 Primary Insurance: [employer] Medical[employer]binger Tech SolutionsRE ADVANTAGE Anticipated DC Date: 05-05-2019 Planned Disposition: Senior Care Facility External Planned Provider: [facility], MEDICARE REHAB BED DCP follow-up note: CM RECEIVED CALL FROM BLACK WHO INFORMED CM THAT [facility] AND THE [facility] ARE NOT IN NETWORK WITH [employer]. CM CALLED BHARATH OF [employer], THEY ARE NOT IN NETWORK WITH [employer] MEDICARE. CM CALLED [facility], [facility] AND [facility], THEY DO ACCEPT [employer] MEDICARE. CM CALLED Tracy Alexander - Sister (POA) - [phone], INFORMED OF ABOVE, TRACY REPORTS HAVING NO PREFERENCE ON THE THREE IN NETWORK FACILITIES AND ASKED THAT CM WORK FOR REHAB PLACEMENT IN A COVERED FACILITY. CM NOTIFIED EDWARD OF [facility], , OF REFERRAL, FAXED TO [phone]. CM CALLED AND NOTIFIED CELENA OF [facility], , NOTIFIED OF REFERRAL AND FAXED REFERRAL TO [facility] AT [phone]. CM WAITING ADMISSION DETERMINATIONS FROM [facility]. CM WAITING INSURANCE AUTHORIZATION FOR [facility] REHAB SERVICES. Jaya Dove, CASE MANAGEMENT DCP- Discharge Planning Updated by [id number]: Jaya Dove on 05/06/19 6:[address] Patient Name: DANIEL ALVAREZ Encounter No: [id number] : 1945 Primary Insurance: [employer] ADVANTAGE Anticipated DC Date: 05-05-2019 Planned Disposition: Senior Care Facility External Planned Provider: [facility] BED DCP follow-up note: LATE ENTRY FROM 05-05-19: CM SPOKE TO PT'S SISTER WHO WAS SPEAKING TO PT'S INSURANCE PROVIDER, [facility] ON THE PHONE REGARDING PLACEMENT FOR REHAB. PT'S SISTER ASKED CM TO SPEAK TO FADI OF [employer]. PETER ADVISED THAT THE FOLLOWING CORRECTION FACILITIES ARE IN NETWORK WITH [facility] OF : [facility], [facility], [employer], [facility], [facility] [place] AND [facility] IN [place]. PT'S SISTER REQUESTED REFERRAL BE SENT TO [facility] FOR REHAB. PT'S SISTER IS ALSO APPEALING INSURANCE DECISION OF DENIAL FOR [employer] CONTRACT AND STATES SHE WAS ADVISED THAT SHE CAN APPEAL THE [employer] DENIAL WHILE CM CONTINUES SEEKING PLACEMENT AT [facility]. CHOICE FOR [facility] SIGNED. ON 05-06-19, CM NOTIFIED MING OF [facility] OF REFERRAL FOR REHAB AT [phone], FAXED REHAB REFERRAL TO [facility] VIA [facility] AT [phone]. CM WAITING ADMISSION DETERMINATION FROM [facility] WELL INSURANCE DETERMINATION FOR REHAB SERVICES AT [facility]. Jaya Dove, CASE MANAGEMENT DCP- Discharge Planning Updated by [id number]: Jaya Dove on 05/05/19 3:[address] Patient Name: DANIEL ALVAREZ Encounter No: [id number] : 1945 Primary Insurance: [employer] Anticipated DC Date: 05-05-2019 Planned Disposition: Senior Care Facility External Planned Provider: TO BE DETERMINED DCP follow-up note: CM SPOKE TO DONG OF [facility], INSURANCE HAS DECLINED CONTRACT FOR REHAB PLACEMENT. DONG HAS NOTIFIED PT AND SISTER IN ROOM. CM SPOKE TO PT'S SISTER REGARDING CALLING INSURANCE [facility] TO FIND OUT IF THERE IS AN IN NETWORK FACILITY AND WHERE THE FACILITY WOULD BE LOCATED. CM DISCUSSED [facility] [employer] [facility]. PT'S SISTER DOES NOT WANT TO PLACE PT INTO SNF CARE IN A SNF. PT'S SISTER CALLING INSURANCE COMPANY TO DISCUSS OPTIONS FOR REHAB AND WILL NOTIFY CM OF POSSIBLE OPTIONS. CM TO FOLLOW UP WITH PT'S SISTER REGARDING PLACEMENT. Jaya Dove, CASE MANAGEMENT DCP- Discharge Planning Updated by [id number]: Brittni Nieves on 05/05/19 10:[address] RECEIVED A [facility]EMAIL [facility] CALLED HER BACK AT [phone]. SHE STATED THAT SHE HAS EVERYTHING READY TO BE SUBMITTED TO THE BREAD WRAPPER (AND THE INFORMATION LOOKS APPROPRIATE), BUT WHEN SHE REACHED OUT TO [facility], SHE WAS TOLD THEY WERE TOO BUSY TO SUBMIT FOR AUTH YET AND SHE WAS REASSURED THEY WOULD DO IT TODAY. SHE STATED THAT THE FACILITY WAS NON [facility], AND THEY WOULD ALSO HAVE TO BE SUBMIT FOR THIS. I EXPLAINED THAT THE PATIENT HAS BEEN AT THIS FACILITY BEFORE AND THEY KNOW THE STEPS. I ASKED WHO SHE SPOKE WITH AND SHE STATED THAT SHE ASKED FOR DONG, IN THE CASEMANAGEMENT NOTES, AND WAS TRANSFERRED TO THE BUSINESS OFFICE. SHE DID NOT HAVE THE NAME OF THE LADY SHE SPOKE WITH, BUT STATED SHE WAS TOLD THEY WOULD SUBMIT FOR AUTH TODAY. I WILL CONTINUE TO ENTER DELAYS. DCP- Discharge Planning Updated by [id number]: Jaya Dove on 05/04/19 10:[address] Patient Name: DANIEL ALVAREZ Encounter No: [id number] : 1945 Primary Insurance: [employer] MC[employer] ADVANTAGE Anticipated DC Date: 05-05-2019 Planned Disposition: Senior Care Facility External Planned Provider: [facility] MEDICARE REHAB BED DCP follow-up note: CM RECEIVED CALL FROM HEIKE NAVA, , WHO REQEUSTED UPDATE ON PLACEMENT AT [facility] FOR REHAB. CM INFORMED HEIKE THAT WE ARE STILL WAITING AUTHORIZATION FROM PT'S INSURANCE. CM SPOKE TO DONG OF [facility], , WHO INFORMED CM THAT HE IS WAITING ON INSURANCE APPROVAL FOR CONTRACT WITH AUTHORIZATION [facility] TO PROVIDE REHAB SERVICE TO PATIENT. DONG REPORTS NOT NEEDING UPDATE TODAY AND TO WAIT TO FAX ANY UPDATES UNTIL THEY HEAR FROM INSURANCE. CM NOTIFIED PT WHO IS IN AGREEMENT WITH DISCHARGE TO REHAB AT [facility]. PT IS UP TO CHAIR. IMPORTANT MESSAGE FROM MEDICARE PROVIDED AND EXPLAINED. CM WAITING INSURANCE AUTHORIZATION FOR REHAB AT [facility]. Jaya Dove, CASE MANAGEMENT DCP- Discharge Planning Updated by [id number]: Lesly Rios on 05/01/19 12:[address] Patient Name: DANIEL ALVAREZ Admission Status: ER Accout number: [id number] Admission Date: 04-12-2019 : 1945 Admission Diagnosis:FRACTURE OF SUPERIOR RIM OF RIGHT PUBIS, INIT FOR CLOS Attending: MYESHA JOYNER Current LOS: 19 Anticipated DC Date: Planned Disposition: Senior Care Facility Primary Insurance: [employer] MCARE ADVANTAGE Discharge Planning Comments: [place] HAD BEEN SIGNED FOR [facility] SNF, I FAXED REFERRAL TODAY. CM WILL FOLLOW AND ASSIST. Maintenance Service Technician: Lesly Rios DCP- Discharge Planning Updated by [id number]: Jaya Dove on 04/28/19 4:[address] Patient Name: DANIEL ALVAREZ Encounter No: [id number] : 1945 Primary Insurance: [employer] MCARE ADVANTAGE Anticipated DC Date: Planned Disposition: Inpatient Rehab External Planned Provider: [facility] DCP follow-up note: CM PARTICIPATED IN MULTIDISCIPLINARY TEAM MEETING, WAS INFORMED BY VIDA OF INPATIENT REHAB AT [place] THAT THEY ARE SUBMITTING FOR INSURANCE AUTHORIZATION AGAIN TODAY. CM NOTIFIED PT WHO IS WILLING FOR INPATIENT REHAB AT [place] AND UNDERSTANDS AND AGREES THAT IF DECLINED, SHE WILL GO TO CORRECTION FACILITY IN [place] OTHER THAN [facility]. IMPORTANT MESSAGE FROM MEDICARE PROVIDED AND EXPLAINED. CM WAITING INSURANCE DETERMINATION FOR INPATIENT REHAB AT [facility]. Jaya Dove, CASE MANAGEMENT DCP- Discharge Planning Updated by [id number]: Jaya Dove on 04/27/19 10:[address] Patient Name: DANIEL ALVAREZ Encounter No: [id number] : 1945 Primary Insurance: [employer] MC[employer] ADVANTAGE Anticipated DC Date: Planned Disposition: Inpatient Rehab External Planned Provider: [facility] DCP follow-up note: CM SPOKE TO VIDA OF [facility] DURING MULTIDICIPLINARY TEAM MEETING WHO INFORMED GROUP THAT SHE IS RESUBMITTING TO INSURANCE FOR AUTHORIZATION DETERMINATION FOR INPATIENT REHAB. CM HAS PREVIOUSLY SPOKEN TO PT'S SISTER / POA WHO HAS DISCUSSED PLAN OF CORRECTION IN [place] IF DECLINED INPATIENT REHAB; JUST NOT [facility]. CM WAITING INSURANCE AUTHORIZATION FOR DENIAL FOR INPATIENT REHAB AT [place]. Jaya Dove. CASE MANAGEMENT DCP- Discharge Planning Updated by [id number]: Caitlyn Hodgson on 04/26/19 2:[address] CM RECEIVED MD ORDER TO CHECK IF DISCHARGE PLAN IS STILL FOR HOME. IN REVIEW OF WEEKDAY CM THE PLAN IS FOR A CORRECTION FACILITY. SPOKE W/ THE PRIMARY NURSE, ROSANA. THE PATIENT HAS SOME DEGREE OF CONFUSION. SHE WISHES TO DISCHARGE TO HOME. PER THE NURSING NOTES THE FAMILY WAS AT THE BEDSIDE EARLIER THIS AM. TC TO POA, SISTER, TRACY. NO ANSWER. LEFT VM FOR TRACY ALEXANDER TO RETURN CALL WHEN AVAILAABLE. DCP- Discharge Planning Updated by [id number]: Jaya Dove on 04/23/19 4:[address] Patient Name: DANIEL ALVAREZ Encounter No: [id number] : 1945 Primary Insurance: [employer] MCARE ADVANTAGE Anticipated DC Date: Planned Disposition: Inpatient Rehab External Planned Provider: [facility] DCP follow-up note: CM RECEIVED CALL FROM PT'S SISTER AND POWER OF INORGANIC CHEMISTRY TEACHER, TRACY GONZALEZ, WHO WANTED TO DISCUSS DISCHARGE PLANNING. TRACY REPORTS PT NEEDS REHAB INPATIENT AT [place] AND IF DELCINED, SHE WILL NEED ANY COR[facility] REHAB EXCEPT [facility]. TRACY REPORTS PT HAS DEMENTIA, LIVES WITH HER (TRACY) AND THEY DISCUSSED REHAB LAST NIGHT, PT IS IN AGREEMENT WITH REHAB SERVICES. IF TRACY DOES NOT ANSWER HER PHONE, SHE DIRECTED CM TO CALL HEIKE, HER SPOUSE, . CM SPOKE TO VIDA OF INPATIENT REHAB AT MULTIDISCIPLINARY TEAM MEETING, INPATIENT REHAB TO RESUBMIT TO INSURANCE FOR INPATIENT REHAB AUTHORIZATION REQUEST. CM TO CONTINUE TO FOLLOW AND ASSIST IF NEEDED. Jaya Dove, CASE MANAGEMENT DCP- Discharge Planning Updated by [id number]: Jaya Dove on 04/22/19 3:[address] Patient Name: DANIEL ALVAREZ Encounter No: [id number] : 1945 Primary Insurance: [employer] Anticipated DC Date: Planned Disposition: Home with Home Health External Planned Provider: TO BE DETERMINED DCP follow-up note: CM RECEIVED CALL FROM VIDA OF INPATIENT REHAB, PT WAS DECLINED BY INSURANCE FOR INPATIENT REHAB. CM SPOKE TO PT IN ROOM, PT DOES NOT WANT TO GO TO CORRE[facility] FOR REHAB AND WANTS TO RETURN HOME WITH HOME HEALTH. PT REPORTS GETTING OUT OF BED AND WALKING INDEPENDENTLY AND IS STONG ENOUGH TO RETURN HOME AT DISCHARGE. PT DENIES FURHTER NEEDS OTHER THAN HOME HEALTH. CM NOTIFIED PEPITO RIDER. CM TO FOLLOW UP WITH PT SOON POSSIBLE TO GET PT'S CHOICE ON HOME HEALTH PROVIDER AND WILL ARRANGE HOME HEALTH FOR DISCHARGE HOME WITH PHYSICIAN AGREEEMENT AND ORDERS. Jaya Dove, CASE MANAGEMENT DCP- Discharge Planning Updated by [id number]: Zohreh Potter on 04/15/19 10:[address] CM spoke with patient's sister yesterday. Her sister (Tracy) states she doesn't want her to go to a long term if possible. She states that she would like her to go to inpatient rehab. I informed her that she would need authorization for that from insurance and inpatient rehab is already working on that. I informed her that it could probably be a denial if she is unable to participate in 3 hours of therapy a day. Her sister states if she is denied, that she would consent to a skilled unit. I spoke with Maria E with [facility], and Maria E states she believes [facility] and [facility] are in network, but unsure. I also spoke with Dong Mac with [facility] and he states he may be able to work with her insurance for authorization. Her sister states it does not matter which one she goes to, "whatever we can find". Ming Jones, liason for [facility], states they are not in network with [facility]. CM will continue to follow and assist with discharge planning/needs. DCP- Discharge Planning Updated by [id number]: Zohreh Abbey on 04/13/19 2:[address] Patient Name: DANIEL ALVAREZ Admission Status: ER Accout number: [id number] Admission Date: 04-12-2019 : 1945 Admission Diagnosis: Attending: MYESHA JOYNER Current LOS: 1 Anticipated DC Date: Planned Disposition: Inpatient Rehab Primary Insurance: [employer]OVEN[employer]binger [employer]RE ADVANTAGE Discharge Planning Comments: CM met with patient to discuss discharge planning/needs. She lives with her sister and brother in law in a mobile home. She states she is ok with going to rehab and doesn't care where she goes. Permission granted to call her family for further planning. I spoke with patient's brother in law (Heike) to discuss discharge plan. I informed them of the availability of inpatient rehab, SNF, home health and DME. He states he would like her to stay here at our inpatient rehab if possible. He states that he feels she may need more than 2 weeks of therapy though. I discussed SNF. He states he would like a referral to [facility] if inpatient rehab is not authorized. I spoke with Ming at [facility], they do not accept [employer]. She will need preauthorization for inpatient rehab. CM will continue to follow and assist with discharge planning/needs. Maintenance Service Technician: Zohreh Potter DCPIA - Discharge Planning Initial Assessment Updated by [id number]: Zohreh Alejomadeline on 04/13/19 3:17 pm * Is the patient Alert and Oriented? Yes * How many steps to enter\\exit or inside your home? 4/0 * PCP Flakita Delaney * Pharmacy [facility] * Preadmission Environment Home with Family * ADLs Partial Dependent * Partial ADLs (Assistance needed) Ambulation Medication Management * Equipment Cane Nebulizer Other Oxygen * Other Equipment Portable oxygen Trilogy * List name and contact numbers for known caregivers / representatives who currently or will assist patient after discharge: Heike Alexander - Brother in law - [phone] Tracy Alexander - Sister (POA) - [phone] * Verbal permission to speak to the caregivers and representatives has been obtained from the patient. Yes * Community resources currently utilized Other * Please name any agencies selected above. [facility] * Additional services required to return to the preadmission environment? Yes * Can the patient safely return to the preadmission environment? No * Has this patient been hospitalized within the prior 30 days at any hospital? No Coverage Notice Reviewer: [id number] Jenni Potter Notice Issued Date-Time: 04/13/2019 15:24 Notice Type: Patient Choice Letter Notice Delivered To: Family Member Relationship to Patient: Brother in Hvac Sheet Metal Installer Helper Name: Heike Alexander Delivery Method: HAND - Hand Delivered Isha Days: Prior Verbal Notification: Recipient Understood Notice: Yes Recipient Signature: Med Rec Note Co-signed by Attending: Coverage Notice Comment: [place] for [facility] Reviewer: [id number] Jenni Dove Notice Issued Date-Time: 04/28/2019 15:50 Notice Type: IM Discharge Notice Notice Delivered To: Patient Relationship to Patient: Hvac Sheet Metal Installer Helper Name: Delivery Method: HAND - Hand Delivered Isha Days: Prior Verbal Notification: Recipient Understood Notice: Yes Recipient Signature: Yes Med Rec Note Co-signed by Attending: Coverage Notice Comment: Reviewer: [id number] Dove Notice Issued Date-Time: 05/04/2019 11:25 Notice Type: IM Discharge Notice Notice Delivered To: Patient Relationship to Patient: Hvac Sheet Metal Installer Helper Name: Delivery Method: HAND - Hand Delivered Isha Days: Prior Verbal Notification: Recipient Understood Notice: Yes Recipient Signature: Yes Med Rec Note Co-signed by Attending: Coverage Notice Comment: Reviewer: [id number] Dove Notice Issued Date-Time: 05/05/2019 16:10 Notice Type: Patient Choice Letter Notice Delivered To: Family Member Relationship to Patient: Sister Hvac Sheet Metal Installer Helper Name: TRACY ALEXANDER Delivery Method: HAND - Hand Delivered Isha Days: Prior Verbal Notification: Recipient Understood Notice: Yes Recipient Signature: Yes Med Rec Note Co-signed by Attending: Coverage Notice Comment: [facility] Reviewer: [id number] Jenni Dove Notice Issued Date-Time: 05/06/2019 8:00 Notice Type: IM Discharge Notice Notice Delivered To: Family Member Relationship to Patient: Sister Hvac Sheet Metal Installer Helper Name: TRACY ALEXANDER Delivery Method: HAND - Hand Delivered Isha Days: Prior Verbal Notification: Recipient Understood Notice: Yes Recipient Signature: Yes Med Rec Note Co-signed by Attending: Coverage Notice Comment: Last DP export: 05/06/19 8:42 a Patient Name: DANIEL ALVAREZ Page [id number] at 1526 All edits/amendments must be made on the electronic document DICTATION DATE: 05/06/191524 ASSOCIATE PROFESSOR OF BIOSTATISTICS: TIFFANY 05/06/191524 RPT#: [id number] DC DATE: STATUS: ADM IN [facility] [address] [place] [address] END OF REPORT
--- NOTE | 2019-05-06 16:42 | NUR ---
Rehab Note- REceived a call from Omkar with the Appeals group with [facility], she explained that the patient had initiated her own appeal for an inpatient acute rehab stay & that the appeals department has only 72hrs to have a decision. Stated she would be faxing information to attach with her current clinical updates & that she would be attaching her previous record that was faxed in for an inpatient acute rehab stay. Explained to her that how the patient has Auth discontinued & reinitiated d/t being medically unstable since her original prescreen order on 04/13. Received fax from Omkar & faxed in clinicals as per requested for the patient's appeals process. Provided the appeals department with SHAY Dickson contact # in case there is a need to get more current information for the patient. Will continue to follow at this time. Deirdre Up RN Clinical Liaison, [facility] Rehab
--- NOTE | 2019-05-06 17:06 | NUR ---
OT NOTE: PT COMPLETED BED MOB SUPINE TO SIT WITH SBA. PT COMPLETED ADL MOB WITH CGA/MIN A. PT COMPLETED BATHING TASKS WITH MAX A. PT COMPLETED GROOMING TASKS WITH MAX A. PT HAD SOB EPISODE. NURSING WAS CALLED. PT STABLE. THANK YOU, BRENNAN WARD
[2019-05-06 17:19] VITALS: BP 92/53
--- NOTE | 2019-05-06 19:34 | NUR ---
ASSESSMENT COMPLETE, PT ALERT WITH SOME CONFUSION. PT SITTING UP IN CHAIR WATCHING TV. RESPERATIONS NON LABORED ON O2 AT 3 LITERS VIA NC. IV TO LEFT WIRST SL. PT CURRENTLY DENIES PAIN OR NEEDS, BED LOW, CL IN REACH.
[2019-05-06 20:00] VITALS: BP 149/74
--- NOTE | 2019-05-06 23:53 | NUR ---
RT AT BED SIDE TO PLACE PT ON BIPAP.
[2019-05-07] VITALS (7 sets, daily range): BP systolic 78–115; BP diastolic 48–65
--- NOTE | 2019-05-07 00:50 | NUR ---
PT PULLED HOSE OUT OF BI PAP MASK, WHEN I ENTERED ROOM PT INSISTED THAT THE MASK BE TAKEN OFF. TOOK BIPAP OFF AND PLACED PT BACK ON O2 VIA NC.
--- NOTE | 2019-05-07 02:58 | NUR ---
RESTING ON RIGHT SIDE, RESPERATIONS NON LABORED. O2 AT 3 LITERS VIA NC.
[2019-05-07 06:10] LABS: BASOPHILS 0.3 % (0-2); EOSINOPHILS 3.3 % (0-7); HEMATOCRIT 37.9 % (36.0-48.0); IMMATURE GRANULOCYTES 0.3 % (0-5); LYMPHOCYTES 20.3 % (15-50); MCH 29.1 pg (26.0-34.0); MCV 100.3 fL (80.0-100.0); MEAN PLATELET VOLUME 11.2 fL (7.4-10.4); MONOCYTES 8.2 % (2-11); NEUTROPHILS 67.6 % (40-80); RBC 3.78 10x6/uL (4.00-5.40); RDW 16.8 % (11.5-14.5); WBC 9.7 10x3/uL (4.8-10.8)
[2019-05-07 06:28] LABS: PLATELET COUNT 259 10x3/uL (130-400)
[2019-05-07 06:30] LABS: POTASSIUM - SERUM 4.2 mmol/L (3.5-5.1)
[2019-05-07 06:35] LABS: ANION GAP 5.4 mmol/L (8-16)
[2019-05-07 06:36] LABS: CARBON DIOXIDE 44.8 mmol/L (21.0-32.0)
--- NOTE | 2019-05-07 07:12 | NUR ---
REPORT RECEIVED. WILL CONTINUE WITH POC. PT CURRENTLY LYING SEMI FOWLERS. CALL LIGHT W/I REACH. PT CURRENTLY UNDERGOING RESP TRX. RR EVEN AND UNLABORED. L.WRIST PIV IS SALINE LOCKED. NO S/S OF DISTRESS NOTED. PT DENIES ANY NEEDS. WILL CTM.
--- NOTE | 2019-05-07 12:41 | MORECARE ---
CASE MANAGEMENT DISCHARGE SUMMARY PATIENT: DANIEL ALVAREZ UNIT: [id number] ADM DATE: 04/12/19 AGE: 74 : 43 SEX: F ROOM/BED: D.2123 AUTHOR: WILL,DOC PHYSICIAN: REFERRING PHYSICIAN: MYESHA JOYNER MD DATE OF SERVICE: 05/07/19 Discharge Plan Patient Name: DANIEL ALVAREZ Facility: [facility]:[place] : 1945 Planned Disposition: Snf Facility Anticipated Discharge Date: 05/05/19 Discharge Date: Expected LOS: 23 Initial Reviewer: [id number] Initial Review Date: 04/13/2019 Generated: 05/07/19 1:41 pm Comments DCP- Discharge Planning Updated by [id number]: Vanessa Dove on 05/07/19 11:[address] Patient Name: DANIEL ALVAREZ Encounter No: [id number] : 1945 Primary Insurance: [employer]grar[employer]RE ADVANTAGE Anticipated DC Date: 05-05-2019 Planned Disposition: Snf Facility External Planned Provider: [facility], MEDICARE REHAB BED DCP follow-up note: CM RETURNED CALL TO KATHLEEN AT [facility], , [facility] HAS VERIFIED INSURANCE AND IS TRYING TO CONTACT PT'S SISTER TO DISCUSS COPAY OF $157 PER DAY AND WILL OFFER TO FILE FOR MEDICAID TO COVER THE COSTS IF NECESSARY, BUT CANNOT ADMIT UNTIL THIS IS DECIDED BY FAMILY. CM PROVIED CONTACT PHONE NUMBERS FOR PT'S SISTER AND BROTHER IN LAW. CM WAITING ADMISSION DETERMINATION FROM [facility] IN [place] WELL FAMILY TO DECIDE REGARDING PAYING COPAY OR FILING FOR MEDICAID. VANESSA DOVE, CASE MANAGEMENT DCP- Discharge Planning Updated by [id number]: Brittni Nieves on 05/06/19 2:[address] @3059, SPOKE WITH HEBER WITH [employer]. SHE STATED THAT THE SNF AUTH FOR [facility] HAS BEEN APPROVED FOR SNF WITH #[id number]. SHE STATED THAT SHE HAS CALLED TO NOTIFY THE SNF BEFORE SHE CALLED ME AND LEFT A VOICEMAIL ON THE BUSINESS OFFICE VOICEMAIL. @9856, I TRIED TO CALL [facility] ([phone]), AND I ORIGINALLY SPOKE [employer] ALEX WHO ULTIMATELY TRANSFERRED TO THE BUSINESS OFFICE AND I LEFT A VOICEMAIL ON KATHLEEN'S MACHINE INQUIRING ON TO WHEN THEY WOULD ACCEPT THE PATIENT NOW THAT WE HAVE AUTH. I REPEATED THE AUTH # AND ALSO MENTIONED THAT HEBER CALLED AND SAID SHE LEFT HER A VOICEMAIL PRIOR TO CALLING ME. WE WILL WAIT FOR A RESPONSE FROM THEM. DCP- Discharge Planning Updated by [id number]: Vanessa Dove on 05/06/19 8:[address] Patient Name: DANIEL ALVAREZ Encounter No: [id number] : 1945 Primary Insurance: [employer] ADVANTAGE Anticipated DC Date: 05-05-2019 Planned Disposition: Snf Facility External Planned Provider: [facility], MEDICARE REHAB BED DCP follow-up note: CM RECEIVED CALL FROM [facility] WHO INFORMED CM THAT [facility] AND [facility] ARE NOT IN NETWORK WITH [employer]. CM CALLED [facility] OF [facility], THEY ARE NOT IN NETWORK WITH [employer] MEDICARE. CM CALLED [facility], THEY DO ACCEPT [place] MEDICARE. CM CALLED Tracy Alexander - Sister (POA) - [phone], INFORMED OF ABOVE, TRACY REPORTS HAVING NO PREFERENCE ON THE THREE IN NETWORK FACILITIES AND ASKED THAT CM WORK FOR REHAB PLACEMENT IN A COVERED FACILITY. CM NOTIFIED EDWARD OF [facility], , OF REFERRAL, FAXED TO [phone]. CM CALLED AND NOTIFIED CELENA OF [facility], , NOTIFIED OF REFERRAL AND FAXED REFERRAL TO [facility] AT [phone]. CM WAITING ADMISSION DETERMINATIONS FROM [facility]. CM WAITING INSURANCE AUTHORIZATION FOR LONG TERM REHAB SERVICES. Vanessa Dove, CASE MANAGEMENT DCP- Discharge Planning Updated by [id number]: Vanessa Dove on 05/06/19 6:[address] Patient Name: DANIEL ALVAREZ Encounter No: [id number] : 1945 Primary Insurance: [employer] MCARE ADVANTAGE Anticipated DC Date: 05-05-2019 Planned Disposition: Snf Facility External Planned Provider: [facility], MEDICARE REHAB BED DCP follow-up note: LATE ENTRY FROM 05-05-19: CM SPOKE TO PT'S SISTER WHO WAS SPEAKING TO PT'S INSURANCE PROVIDER, ALLY ON THE PHONE REGARDING PLACEMENT FOR REHAB. PT'S SISTER ASKED CM TO SPEAK TO FADI OF [facility]. PETER ADVISED THAT THE FOLLOWING LONG TERM FACILITIES ARE [facility], [facility] [place], [facility] IN [place] AND [facility] IN [place]. PT'S SISTER REQUESTED REFERRAL BE SENT TO [facility] FOR REHAB. PT'S SISTER IS ALSO APPEALING INSURANCE DECISION OF DENIAL FOR [employer] CONTRACT AND STATES SHE WAS ADVISED THAT SHE CAN APPEAL THE [facility] Wote DENIAL WHILE CM CONTINUES SEEKING PLACEMENT AT [facility]. CHOICE FOR [facility] SIGNED. ON 05-06-19, CM NOTIFIED MING OF [facility] OF REFERRAL FOR REHAB AT [phone], FAXED REHAB REFERRAL TO [facility] VIA M[facility] AT [phone]. CM WAITING ADMISSION DETERMINATION FROM [facility] WELL INSURANCE DETERMINATION FOR REHAB SERVICES AT [facility]. Vanessa Dove, CASE MANAGEMENT DCP- Discharge Planning Updated by [id number]: Vanessa Dove on 05/05/19 3:[address] Patient Name: DANIEL ALVAREZ Encounter No: [id number] : 1945 Primary Insurance: [employer] MCARE ADVANTAGE Anticipated DC Date: 05-05-2019 Planned Disposition: Snf Facility External Planned Provider: TO BE DETERMINED DCP follow-up note: CM SPOKE TO DONG OF [facility], INSURANCE HAS DECLINED CONTRACT FOR REHAB PLACEMENT. DONG HAS NOTIFIED PT AND SISTER IN ROOM. CM SPOKE TO PT'S SISTER REGARDING CALLING INSURANCE COMPANY TO FIND OUT IF THERE IS AN IN NETWORK FACILITY AND WHERE THE FACILITY WOULD BE LOCATED. CM DISCUSSED DETENTION CARE. PT'S SISTER DOES NOT WANT TO PLACE PT INTO MEDICAL FIELD REPRESENTATIVE CARE IN A SNF. PT'S SISTER CALLING INSURANCE COMPANY TO DISCUSS OPTIONS FOR REHAB AND WILL NOTIFY CM OF POSSIBLE OPTIONS. CM TO FOLLOW UP WITH PT'S SISTER REGARDING PLACEMENT. Vanessa Dove, CASE MANAGEMENT DCP- Discharge Planning Updated by [id number]: Brittni Nieves on 05/05/19 10:[address] RECEIVED A VOICEMAIL FROM HEBER WITH [employer]. CALLED HER BACK AT [phone]. SHE STATED THAT SHE HAS EVERYTHING READY TO BE SUBMITTED TO THE DIALYSIS RN (AND THE INFORMATION LOOKS APPROPRIATE), BUT WHEN SHE REACHED OUT TO [facility], SHE WAS TOLD THEY WERE TOO BUSY TO SUBMIT FOR AUTH YET AND SHE WAS REASSURED THEY WOULD DO IT TODAY. SHE STATED THAT THE FACILITY WAS NON [facility] [place], AND THEY WOULD ALSO HAVE TO BE SUBMIT FOR THIS. I EXPLAINED THAT THE PATIENT HAS BEEN AT THIS FACILITY BEFORE AND THEY KNOW THE STEPS. I ASKED WHO SHE SPOKE WITH AND SHE STATED THAT SHE ASKED FOR [facility]ONG, IN THE CASEMANAGEMENT NOTES, AND WAS TRANSFERRED TO THE BUSINESS OFFICE. SHE DID NOT HAVE THE NAME OF THE LADY SHE SPOKE WITH, BUT STATED SHE WAS TOLD THEY WOULD SUBMIT FOR AUTH TODAY. I WILL CONTINUE TO ENTER DELAYS. DCP- Discharge Planning Updated by [id number]: Vanessa Dove on 05/04/19 10:[address] Patient Name: DANIEL ALVAREZ Encounter No: [id number] : 1945 Primary Insurance: [employer] Anticipated DC Date: 05-05-2019 Planned Disposition: Snf Facility External Planned Provider: [facility] MEDICARE REHAB BED DCP follow-up note: CM RECEIVED CALL FROM HEIKE NAVA, , WHO REQEUSTED UPDATE ON PLACEMENT AT [facility] FOR REHAB. CM INFORMED HEIKE THAT WE ARE STILL WAITING AUTHORIZATION FROM PT'S INSURANCE. CM SPOKE TO DONG OF [facility], , WHO INFORMED CM THAT HE IS WAITING ON INSURANCE APPROVAL FOR CONTRACT WITH AUTHORIZATION [facility] TO PROVIDE REHAB SERVICE TO PATIENT. DONG REPORTS NOT NEEDING UPDATE TODAY AND TO WAIT TO FAX ANY UPDATES UNTIL THEY HEAR FROM INSURANCE. CM NOTIFIED PT WHO IS IN AGREEMENT WITH DISCHARGE TO REHAB AT [facility]. PT IS UP TO CHAIR. IMPORTANT MESSAGE FROM MEDICARE PROVIDED AND EXPLAINED. CM WAITING INSURANCE AUTHORIZATION FOR REHAB AT [facility]. Vanessa Dove, CASE MANAGEMENT DCP- Discharge Planning Updated by [id number]: Lesly Rios on 05/01/19 12:[address] Patient Name: DANIEL ALVAREZ Admission Status: ER Accout number: [id number] Admission Date: 04-12-2019 : 1945 Admission Diagnosis:FRACTURE OF SUPERIOR RIM OF RIGHT PUBIS, INIT FOR CLOS Attending: MYESHA JOYNER Current LOS: 19 Anticipated DC Date: Planned Disposition: Snf Facility Primary Insurance: [employer] MCARE ADVANTAGE Discharge Planning Comments: [facility] HAD BEEN SIGNED FOR [facility] SNF, I FAXED REFERRAL TODAY. CM WILL FOLLOW AND ASSIST. Service Shop Foreman: Lesly Rios DCP- Discharge Planning Updated by [id number]: Vanessa Dove on 04/28/19 4:[address] Patient Name: DANIEL ALVAREZ Encounter No: [id number] : 1945 Primary Insurance: [employer] MCARE ADVANTAGE Anticipated DC Date: Planned Disposition: Inpatient Rehab External Planned Provider: [facility] INPATIENT REHAB DCP follow-up note: CM PARTICIPATED IN MULTIDISCIPLINARY TEAM MEETING, WAS INFORMED BY VIDA OF INPATIENT REHAB AT [facility] THAT THEY ARE SUBMITTING FOR INSURANCE AUTHORIZATION AGAIN TODAY. CM NOTIFIED PT WHO IS WILLING FOR INPATIENT REHAB AT [facility] AND UNDERSTANDS AND AGREES THAT IF DECLINED, SHE WILL GO TO LONG TERM FACILITY IN [place] OTHER THAN [facility]. IMPORTANT MESSAGE FROM MEDICARE PROVIDED AND EXPLAINED. CM WAITING INSURANCE DETERMINATION FOR INPATIENT REHAB AT [facility]. Vanessa Dove, CASE MANAGEMENT DCP- Discharge Planning Updated by [id number]: Vanessa Dove on 04/27/19 10:[address] Patient Name: DANIEL ALVAREZ Encounter No: [id number] : 1945 Primary Insurance: [employer] MCARE ADVANTAGE Anticipated DC Date: Planned Disposition: Inpatient Rehab External Planned Provider: [facility] IN[facility]HAB DCP follow-up note: CM SPOKE TO VIDA OF [facility] INPATIENT REHAB DURING MULTIDICIPLINARY TEAM MEETING WHO INFORMED GROUP THAT SHE IS RESUBMITTING TO INSURANCE FOR AUTHORIZATION DETERMINATION FOR INPATIENT REHAB. CM HAS PREVIOUSLY SPOKEN TO PT'S SISTER / POA WHO HAS DISCUSSED PLAN OF LONG TERM IN [place] IF DECLINED INPATIENT REHAB; JUST NOT [facility]. CM WAITING INSURANCE AUTHORIZATION FOR DENIAL FOR INPATIENT REHAB AT [facility]. Vanessa Dove. CASE MANAGEMENT DCP- Discharge Planning Updated by [id number]: Caitlyn Hodgson on 04/26/19 2:[address] CM RECEIVED MD ORDER TO CHECK IF DISCHARGE PLAN IS STILL FOR HOME. IN REVIEW OF WEEKDAY CM THE PLAN IS FOR A LONG TERM FACILITY. SPOKE W/ THE PRIMARY NURSE, ROSANA. THE PATIENT HAS SOME DEGREE OF CONFUSION. SHE WISHES TO DISCHARGE TO HOME. PER THE NURSING NOTES THE FAMILY WAS AT THE BEDSIDE EARLIER THIS AM. TC TO POA, SISTER, TRACY. NO ANSWER. LEFT VM FOR TRACY ALEXANDER TO RETURN CALL WHEN AVAILAABLE. DCP- Discharge Planning Updated by [id number]: Vanessa Dove on 04/23/19 4:[address] Patient Name: DANIEL ALVAREZ Encounter No: [id number] : 1945 Primary Insurance: [employer] Anticipated DC Date: Planned Disposition: Inpatient Rehab External Planned Provider: [facility] IN[facility] DCP follow-up note: CM RECEIVED CALL FROM PT'S SISTER AND POWER OF WORK ENVIRONMENT SAFETY INSPECTOR, TRACY GONZALEZ, WHO WANTED TO DISCUSS DISCHARGE PLANNING. TRACY REPORTS PT NEEDS REHAB INPATIENT AT [facility] AND IF DELCINED, SHE WILL NEED ANY LONG TERM REHAB EXCEPT [facility]. TRACY REPORTS PT HAS DEMENTIA, LIVES WITH HER (TRACY) AND THEY DISCUSSED REHAB LAST NIGHT, PT IS IN AGREEMENT WITH REHAB SERVICES. IF TRACY DOES NOT ANSWER HER PHONE, SHE DIRECTED CM TO CALL HEIKE, HER SPOUSE, . CM SPOKE TO VIDA OF INPATIENT REHAB AT MULTIDISCIPLINARY TEAM MEETING, INPATIENT REHAB TO RESUBMIT TO INSURANCE FOR INPATIENT REHAB AUTHORIZATION REQUEST. CM TO CONTINUE TO FOLLOW AND ASSIST IF NEEDED. Vanessa Dove, CASE MANAGEMENT DCP- Discharge Planning Updated by [id number]: Vanessa Dove on 04/22/19 3:[address] Patient Name: DANIEL ALVAREZ Encounter No: [id number] : 1945 Primary Insurance: Agrar[employer]RE [email or web address] Anticipated DC Date: Planned Disposition: Home with Home Health External Planned Provider: TO BE DETERMINED DCP follow-up note: CM RECEIVED CALL FROM VIDA OF INPATIENT REHAB, PT WAS DECLINED BY INSURANCE FOR INPATIENT REHAB. CM SPOKE TO PT IN ROOM, PT DOES NOT WANT TO GO TO LONG TERM FOR REHAB AND WANTS TO RETURN HOME WITH HOME HEALTH. PT REPORTS GETTING OUT OF BED AND WALKING INDEPENDENTLY AND IS STONG ENOUGH TO RETURN HOME AT DISCHARGE. PT DENIES FURHTER NEEDS OTHER THAN HOME HEALTH. CM NOTIFIED PEPITO RIDER. CM TO FOLLOW UP WITH PT SOON POSSIBLE TO GET PT'S CHOICE ON HOME HEALTH PROVIDER AND WILL ARRANGE HOME HEALTH FOR DISCHARGE HOME WITH PHYSICIAN AGREEEMENT AND ORDERS. Vanessa Dove, CASE MANAGEMENT DCP- Discharge Planning Updated by [id number]: Zohreh Potter on 04/15/19 10:[address] CM spoke with patient's sister yesterday. Her sister (Tracy) states she doesn't want her to go to a residential if possible. She states that she would like her to go to inpatient rehab. I informed her that she would need authorization for that from insurance and inpatient rehab is already working on that. I informed her that it could probably be a denial if she is unable to participate in 3 hours of therapy a day. Her sister states if she is denied, that she would consent to a skilled unit. I spoke with Maria E with [facility], and Maria E states she believes [facility] are in network, but unsure. I also spoke with Dong Mac with [facility] and he states he may be able to work with her insurance for authorization. Her sister states it does not matter which one she goes to, "whatever we can find". Ming Jones, liason for [facility], states they are not in network with [facility]. CM will continue to follow and assist with discharge planning/needs. DCP- Discharge Planning Updated by [id number]: Zohreh Potter on 04/13/19 2:[address] Patient Name: DANIEL ALVAREZ Admission Status: ER Accout number: [id number] Admission Date: 04-12-2019 : 1945 Admission Diagnosis: Attending: MYESHA JOYNER Current LOS: 1 Anticipated DC Date: Planned Disposition: Inpatient Rehab Primary Insurance: [email or web address] Discharge Planning Comments: CM met with patient to discuss discharge planning/needs. She lives with her sister and brother in law in a mobile home. She states she is ok with going to rehab and doesn't care where she goes. Permission granted to call her family for further planning. I spoke with patient's brother in law (Heike) to discuss discharge plan. I informed them of the availability of inpatient rehab, SNF, home health and DME. He states he would like her to stay here at our inpatient rehab if possible. He states that he feels she may need more than 2 weeks of therapy though. I discussed SNF. He states he would like a referral to [facility] if inpatient rehab is not authorized. I spoke with Ming at [facility], they do not accept [employer]. She will need preauthorization for inpatient rehab. CM will continue to follow and assist with discharge planning/needs. Service Shop Foreman: Zohreh Potter DCPIA - Discharge Planning Initial Assessment Updated by [id number]: Zohreh Potter on 04/13/19 3:17 pm * Is the patient Alert and Oriented? Yes * How many steps to enter\\exit or inside your home? 4/0 * PCP Flakita Delaney * [facility] * Preadmission Environment Home with Family * ADLs Partial Dependent * Partial ADLs (Assistance needed) Ambulation Medication Management * Equipment Cane Nebulizer Other Oxygen * Other Equipment Portable oxygen Trilogy * List name and contact numbers for known caregivers / representatives who currently or will assist patient after discharge: Heike Alexander - Brother in law - [phone] Tracy Alexander - Sister (POA) - [phone] * Verbal permission to speak to the caregivers and representatives has been obtained from the patient. Yes * Community resources currently utilized Other * Please name any agencies selected above. [facility] * Additional services required to return to the preadmission environment? Yes * Can the patient safely return to the preadmission environment? No * Has this patient been hospitalized within the prior 30 days at any hospital? No Coverage Notice Reviewer: [id number] - Zohreh Potter Notice Issued Date-Time: 04/13/2019 15:24 Notice Type: Patient Choice Letter Notice Delivered To: Family Member Relationship to Patient: Brother in Law Perlite Grinder Name: Heike Alexander Delivery Method: HAND - Hand Delivered Isha Days: Prior Verbal Notification: Recipient Understood Notice: Yes Recipient Signature: Med Rec Note Co-signed by Attending: Coverage Notice Comment: [place] [facility] Reviewer: [id number] - Vanessa Dove Notice Issued Date-Time: 04/28/2019 15:50 Notice Type: IM Discharge Notice Notice Delivered To: Patient Relationship to Patient: Perlite Grinder Name: Delivery Method: HAND - Hand Delivered Isha Days: Prior Verbal Notification: Recipient Understood Notice: Yes Recipient Signature: Yes Med Rec Note Co-signed by Attending: Coverage Notice Comment: Reviewer: JEFERSON Dove Notice Issued Date-Time: 05/04/2019 11:25 Notice Type: IM Discharge Notice Notice Delivered To: Patient Relationship to Patient: Perlite Grinder Name: Delivery Method: HAND - Hand Delivered Isha Days: Prior Verbal Notification: Recipient Understood Notice: Yes Recipient Signature: Yes Med Rec Note Co-signed by Attending: Coverage Notice Comment: Reviewer: JEFERSON Dove Notice Issued Date-Time: 05/05/2019 16:10 Notice Type: Patient Choice Letter Notice Delivered To: Family Member Relationship to Patient: Sister Perlite Grinder Name: TRACY ALEXANDER Delivery Method: HAND - Hand Delivered Isha Days: Prior Verbal Notification: Recipient Understood Notice: Yes Recipient Signature: Yes Med Rec Note Co-signed by Attending: Coverage Notice Comment: [facility] Reviewer: JEFERSON Dove Notice Issued Date-Time: 05/06/2019 8:00 Notice Type: IM Discharge Notice Notice Delivered To: Family Member Relationship to Patient: Sister Perlite Grinder Name: TRACY ALEXANDER Delivery Method: HAND - Hand Delivered Isha Days: Prior Verbal Notification: Recipient Understood Notice: Yes Recipient Signature: Yes Med Rec Note Co-signed by Attending: Coverage Notice Comment: Last DP export: 05/06/19 2:26 p Patient Name: DANIEL ALVAREZ Page [id number] at 1241 All edits/amendments must be made on the electronic document DICTATION DATE: 05/07/19 1241 CRIMINAL INTELLIGENCE ANALYST: TIFFANY 05/07/19 1241 RPT#: [id number] DC DATE: STATUS: ADM IN [facility] [address] [place] [address] END OF REPORT
--- NOTE | 2019-05-07 13:27 | MORECARE ---
CASE MANAGEMENT DISCHARGE SUMMARY PATIENT: DANIEL ALVAREZ UNIT: [id number] ADM DATE: 04/12/19 AGE: 74 : 43 SEX: F ROOM/BED: D.2123 AUTHOR: WILLDOC PHYSICIAN: REFERRING PHYSICIAN: MYESHA JOYNER MD DATE OF SERVICE: 05/07/19 Discharge Plan Patient Name: DANIEL ALVAREZ Facility: [facility]:Speed : 1945 Planned Disposition: Senior Care Facility Anticipated Discharge Date: 05/05/19 Discharge Date: Expected LOS: 23 Initial Reviewer: [id number] Initial Review Date: 04/13/2019 Generated: 05/07/19 2:27 pm Comments DCP- Discharge Planning Updated by [id number]: Brittni Nieves on 05/07/19 12:[address] RECEIVED A CALL FROM HEBER WITH [facility]. SHE WANTE TO KNOW IF THE PATIENT HAS LEFT YET AND IF SHE CAN HAVE DISCHARGE INFORMATION. I EXPLAINED THAT NOW WE ARE IN A HOLDING PATTERN OVER THE COPAY SECONDARY TO THEM NOT BEING ABLE TO AFFORD THE $157 OR $159/DAY FEE THEY WOULD HAVE TO PAY AND THAT THE BUSINESS OFFICE AT [facility] IS TRYING TO GET AHOLD OF THE SISTER TO SEE ABOUT APPLYING FOR MEDICAID. PER HEBER THE PATIENT HAD 62 OR 63 WELL DAYS AND SHE SHOULD HAVE 20 DAYS WITH NO COPAY DAYS AND THE PATIENT SHOULD BE ABLE TO DISCHARGE TO THE FACILITY AND THEY COULD FIGURE IT OUT WHILE THEY ARE THERE. SHE STATED THAT SHE IS GOING TO DOUBLE CHECK AND MAKE SURE THAT SHE IS COMPLETELY CORRECT ABOUT THE PATIENT RESETTING AND WILL CALL ME BACK. WILL RELAY THIS INFORMATION TO THE DISCHARGE CASEMANAGER AND WAIT FOR RETURN CALL. DCP- Discharge Planning Updated by [id number]: Vanessa Dove on 05/07/19 11:[address] Patient Name: DANIEL ALVAREZ Encounter No: [id number] : 1945 Primary Insurance: COVENTRY MC[employer] ADVANTAGE Anticipated DC Date: 05-05-2019 Planned Disposition: Senior Care Facility External Planned Provider: [facility], MEDICARE REHAB BED DCP follow-up note: SHAY RETURNED CALL TO KATHLEEN AT [facility], , [facility] HAS VERIFIED INSURANCE AND IS TRYING TO CONTACT PT'S SISTER TO DISCUSS COPAY OF $157 PER DAY AND WILL OFFER TO FILE FOR MEDICAID TO COVER THE COSTS IF NECESSARY, BUT CANNOT ADMIT UNTIL THIS IS DECIDED BY FAMILY. CM PROVIED CONTACT PHONE NUMBERS FOR PT'S SISTER AND BROTHER IN LAW. CM WAITING ADMISSION DETERMINATION FROM [facility] [place] [facility] FAMILY TO DECIDE REGARDING PAYING COPAY OR FILING FOR MEDICAID. VANESSA DOVE, CASE MANAGEMENT DCP- Discharge Planning Updated by [id number]: Brittni Nieves on 05/06/19 2:[address] @1436, SPOKE WITH HEBER WITH [facility]. SHE STATED THAT THE SNF AUTH FOR [facility] HAS BEEN APPROVED FOR SNF WITH #[id number]. SHE STATED THAT SHE HAS CALLED TO NOTIFY THE FDC BEFORE SHE CALLED ME AND LEFT A VOICEMAIL ON THE BUSINESS OFFICE VOICEMAIL. @0353, I TRIED TO CALL [facility] ([phone]), AND I ORIGINALLY SPOKE CAYLA ALEX WHO ULTIMATELY TRANSFERRED TO THE BUSINESS OFFICE AND I LEFT A VOICEMAIL ON [employer] MACHINE INQUIRING ON TO WHEN THEY WOULD ACCEPT THE PATIENT NOW THAT WE HAVE AUTH. I REPEATED THE AUTH # AND ALSO MENTIONED THAT HEBER CALLED AND SAID SHE LEFT HER A VOICEMAIL PRIOR TO CALLING ME. WE WILL WAIT FOR A RESPONSE FROM THEM. DCP- Discharge Planning Updated by [id number]: Vanessa Dove on 05/06/19 8:[address] Patient Name: DANIEL ALVAREZ Encounter No: [id number] : 1945 Primary Insurance: COVENTRY MCARE ADVANTAGE Anticipated DC Date: 05-05-2019 Planned Disposition: Senior Care Facility External Planned Provider: [facility], MEDICARE REHAB BED DCP follow-up note: CM RECEIVED CALL FROM BLACK WHO INFORMED CM THAT [facility] AND [facility] ARE NOT IN NETWORK WITH COVENTRY MEDICARE. CM CALLED [facility], THEY ARE NOT IN NETWORK WITH COVERNTRY MEDICARE. CM CALLED [facility] AND [facility], THEY DO ACCEPT COVENTRY MEDICARE. CM CALLED Tracy Alexander - Sister (POA) - [phone], INFORMED OF ABOVE, TRACY REPORTS HAVING NO PREFERENCE ON THE THREE IN NETWORK FACILITIES AND ASKED THAT CM WORK FOR REHAB PLACEMENT IN A COVERED FACILITY. CM NOTIFIED EDWARD OF [facility], , OF REFERRAL, FAXED TO [phone]. CM CALLED AND NOTIFIED CELENA OF [facility], , NOTIFIED OF REFERRAL AND FAXED REFERRAL TO [facility] AT [phone]. CM WAITING ADMISSION DETERMINATIONS FROM [facility]. CM WAITING INSURANCE AUTHORIZATION FOR PRISON REHAB SERVICES. Vanessa Dove CASE MANAGEMENT DCP- Discharge Planning Updated by [id number]: Vanessa Dove on 05/06/19 6:[address] Patient Name: DANIEL ALVAREZ Encounter No: [id number] : 1945 Primary Insurance: [employer] ADVANTAGE Anticipated DC Date: 05-05-2019 Planned Disposition: Senior Care Facility External Planned Provider: [facility] MEDICARE REHAB BED DCP follow-up note: LATE ENTRY FROM 05-05-19: CM SPOKE TO PT'S SISTER WHO WAS SPEAKING TO PT'S INSURANCE PROVIDER, [employer] ON THE PHONE REGARDING PLACEMENT FOR REHAB. PT'S SISTER ASKED CM TO SPEAK TO FADI OF [facility]. PETER ADVISED THAT THE FOLLOWING PRISON FACILITIES ARE IN NETWORK WITH [facility] OF : [facility], [facility], [facility], [facility], [facility] [place] AND [facility] [place] PT'S SISTER REQUESTED REFERRAL BE SENT TO [facility] FOR REHAB. PT'S SISTER IS ALSO APPEALING INSURANCE DECISION OF DENIAL FOR [facility] CONTRACT AND STATES SHE WAS ADVISED THAT SHE CAN APPEAL THE [facility] DENIAL WHILE CM CONTINUES SEEKING PLACEMENT AT [facility]. CHOICE FOR [facility] SIGNED. ON 05-06-19, CM NOTIFIED MING OF [facility] OF REFERRAL FOR REHAB AT [phone], FAXED REHAB REFERRAL TO [facility] VIA [facility] AT [phone]. CM WAITING ADMISSION DETERMINATION FROM [facility] WELL INSURANCE DETERMINATION FOR REHAB SERVICES AT [facility]. Vanessa Dove CASE MANAGEMENT DCP- Discharge Planning Updated by [id number]: Vanessa Dove on 05/05/19 3:[address] Patient Name: DANIEL ALVAREZ Encounter No: [id number] : 1945 Primary Insurance: COVENTRY MC[employer] ADVANTAGE Anticipated DC Date: 05-05-2019 Planned Disposition: Senior Care Facility External Planned Provider: TO BE DETERMINED DCP follow-up note: CM SPOKE TO DONG OF [facility], INSURANCE HAS DECLINED CONTRACT FOR REHAB PLACEMENT. DONG HAS NOTIFIED PT AND SISTER IN ROOM. CM SPOKE TO PT'S SISTER REGARDING CALLING INSURANCE COMPANY TO FIND OUT IF THERE IS AN IN NETWORK FACILITY AND WHERE THE FACILITY WOULD BE LOCATED. CM DISCUSSED HALFWAY CARE. PT'S SISTER DOES NOT WANT TO PLACE PT INTO BELL PERSON CARE IN A FDC. PT'S SISTER CALLING INSURANCE COMPANY TO DISCUSS OPTIONS FOR REHAB AND WILL NOTIFY CM OF POSSIBLE OPTIONS. CM TO FOLLOW UP WITH PT'S SISTER REGARDING PLACEMENT. Vanessa Dove, CASE MANAGEMENT DCP- Discharge Planning Updated by [id number]: Brittni Nieves on 05/05/19 10:[address] RECEIVED A VOICEMAIL FROM HEBER WITH [facility]. CALLED HER BACK AT [phone]. SHE STATED THAT SHE HAS EVERYTHING READY TO BE SUBMITTED TO THE NATIONAL STORMW[employer] LEADER (AND THE INFORMATION LOOKS APPROPRIATE), BUT WHEN SHE REACHED OUT TO [facility], SHE WAS TOLD THEY WERE TOO BUSY TO SUBMIT FOR AUTH YET AND SHE WAS REASSURED THEY WOULD DO IT TODAY. SHE STATED THAT THE FACILITY WAS NON [facility], AND THEY WOULD ALSO HAVE TO BE SUBMIT FOR THIS. I EXPLAINED THAT THE PATIENT HAS BEEN AT THIS FACILITY BEFORE AND THEY KNOW THE STEPS. I ASKED WHO SHE SPOKE WITH AND SHE STATED THAT SHE ASKED FOR [facility], IN THE CASEMANAGEMENT NOTES, AND WAS TRANSFERRED TO THE BUSINESS OFFICE. SHE DID NOT HAVE THE NAME OF THE LADY SHE SPOKE WITH, BUT STATED SHE WAS TOLD THEY WOULD SUBMIT FOR AUTH TODAY. I WILL CONTINUE TO ENTER DELAYS. DCP- Discharge Planning Updated by [id number]: Vanessa Dove on 05/04/19 10:[address] Patient Name: DANIEL ALVAREZ Encounter No: [id number] : 1945 Primary Insurance: COVENTRY MCARE ADVANTAGE Anticipated DC Date: 05-05-2019 Planned Disposition: Senior Care Facility External Planned Provider: [facility], MEDICARE REHAB BED DCP follow-up note: CM RECEIVED CALL FROM HEIKE NAVA, , WHO REQEUSTED UPDATE ON PLACEMENT AT [facility] FOR REHAB. CM INFORMED HEIKE THAT WE ARE STILL WAITING AUTHORIZATION FROM PT'S INSURANCE. CM SPOKE TO DONG OF [facility], , WHO INFORMED CM THAT HE IS WAITING ON INSURANCE APPROVAL FOR CONTRACT WITH AUTHORIZATION [facility] TO PROVIDE REHAB SERVICE TO PATIENT. DONG REPORTS NOT NEEDING UPDATE TODAY AND TO WAIT TO FAX ANY UPDATES UNTIL THEY HEAR FROM INSURANCE. CM NOTIFIED PT WHO IS IN AGREEMENT WITH DISCHARGE TO REHAB AT [facility]. PT IS UP TO CHAIR. IMPORTANT MESSAGE FROM MEDICARE PROVIDED AND EXPLAINED. CM WAITING INSURANCE AUTHORIZATION FOR REHAB AT [facility]. Vanessa Dove, CASE MANAGEMENT DCP- Discharge Planning Updated by [id number]: Lesly Rios on 05/01/19 12:[address] Patient Name: DANIEL ALVAREZ Admission Status: ER Accout number: [id number] Admission Date: 04-12-2019 : 1945 Admission Diagnosis:FRACTURE OF SUPERIOR RIM OF RIGHT PUBIS, INIT FOR CLOS Attending: MYESHA JOYNER Current LOS: 19 Anticipated DC Date: Planned Disposition: Senior Care Facility Primary Insurance: COVENTRY [employer] ADVANTAGE Discharge Planning Comments: [place] HAD BEEN SIGNED FOR [facility] SNF, I FAXED REFERRAL TODAY. CM WILL FOLLOW AND ASSIST. Pyridine Operator: Lesly Rios DCP- Discharge Planning Updated by [id number]: Vanessa Dove on 04/28/19 4:[address] Patient Name: DANIEL ALVAREZ Encounter No: [id number] : 1945 Primary Insurance: COVENTRY MCARE ADVANTAGE Anticipated DC Date: Planned Disposition: Inpatient Rehab External Planned Provider: [facility] DCP follow-up note: CM PARTICIPATED IN MULTIDISCIPLINARY TEAM MEETING, WAS INFORMED BY VIDA OF INPATIENT REHAB AT [facility] THAT THEY ARE SUBMITTING FOR INSURANCE AUTHORIZATION AGAIN TODAY. CM NOTIFIED PT WHO IS WILLING FOR INPATIENT REHAB AT [facility] AND UNDERSTANDS AND AGREES THAT IF DECLINED, SHE WILL GO TO PRISON FACILITY IN [place] OTHER THAN [facility]. IMPORTANT MESSAGE FROM MEDICARE PROVIDED AND EXPLAINED. CM WAITING INSURANCE DETERMINATION FOR INPATIENT REHAB AT [facility]. Vanessa Dove CASE RUMA DCP- Discharge Planning Updated by [id number]: Vanessa Dove on 04/27/19 10:[address] Patient Name: DANIEL ALVAREZ Encounter No: [id number] : 1945 Primary Insurance: COVENTRY MC[employer] ADVANTAGE Anticipated DC Date: Planned Disposition: Inpatient Rehab External Planned Provider: [facility] DCP follow-up note: CM SPOKE TO VIDA OF [facility] INPATIENT [facility] DURING MULTIDICIPLINARY TEAM MEETING WHO INFORMED GROUP THAT SHE IS RESUBMITTING TO INSURANCE FOR AUTHORIZATION DETERMINATION FOR INPATIENT REHAB. CM HAS PREVIOUSLY SPOKEN TO PT'S SISTER / YANNICK WHO HAS DISCUSSED PLAN OF PRISON IN [place] IF DECLINED INPATIENT REHAB; JUST NOT [facility]. CM WAITING INSURANCE AUTHORIZATION FOR DENIAL FOR INPATIENT REHAB AT [facility]. Vanessa Dove. CASE MANAGEMENT DCP- Discharge Planning Updated by [id number]: Caitlyn Hodgson on 04/26/19 2:[address] CM RECEIVED MD ORDER TO CHECK IF DISCHARGE PLAN IS STILL FOR HOME. IN REVIEW OF WEEKDAY CM THE PLAN IS FOR A PRISON FACILITY. SPOKE W/ THE PRIMARY NURSE, ROSANA. THE PATIENT HAS SOME DEGREE OF CONFUSION. SHE WISHES TO DISCHARGE TO HOME. PER THE NURSING NOTES THE FAMILY WAS AT THE BEDSIDE EARLIER THIS AM. TC TO POA, SISTER, TRACY. NO ANSWER. LEFT VM FOR TRACY ALEXANDER TO RETURN CALL WHEN AVAILAABLE. DCP- Discharge Planning Updated by [id number]: Vanessa Dove on 04/23/19 4:[address] Patient Name: DANIEL ALVAREZ Encounter No: [id number] : 1945 Primary Insurance: COVENTRY MCARE ADVANTAGE Anticipated DC Date: Planned Disposition: Inpatient Rehab External Planned Provider: [facility] DCP follow-up note: CM RECEIVED CALL FROM PT'S SISTER AND POWER OF POWER SYSTEM OPERATOR, TRACY GONZALEZ, WHO WANTED TO DISCUSS DISCHARGE PLANNING. TRACY REPORTS PT NEEDS REHAB INPATIENT AT [facility] AND IF DELCINED, SHE WILL NEED ANY PRISON REHAB EXCEPT [facility]. TRACY REPORTS PT HAS DEMENTIA, LIVES WITH HER (TRACY) AND THEY DISCUSSED REHAB LAST NIGHT, PT IS IN AGREEMENT WITH REHAB SERVICES. IF TRACY DOES NOT ANSWER HER PHONE, SHE DIRECTED CM TO CALL HEIKE, HER SPOUSE, . CM SPOKE TO VIDA OF INPATIENT REHAB AT MULTIDISCIPLINARY TEAM MEETING, INPATIENT REHAB TO RESUBMIT TO INSURANCE FOR INPATIENT REHAB AUTHORIZATION REQUEST. CM TO CONTINUE TO FOLLOW AND ASSIST IF NEEDED. Vanessa Dove, CASE MANAGEMENT DCP- Discharge Planning Updated by [id number]: Vanessa Dove on 04/22/19 3:[address] Patient Name: DANIEL ALVAREZ Encounter No: [id number] : 1945 Primary Insurance: [employer] Anticipated DC Date: Planned Disposition: Home with Home Health External Planned Provider: TO BE DETERMINED DCP follow-up note: CM RECEIVED CALL FROM VIDA OF INPATIENT REHAB, PT WAS DECLINED BY INSURANCE FOR INPATIENT REHAB. CM SPOKE TO PT IN ROOM, PT DOES NOT WANT TO GO TO PRISON FOR REHAB AND WANTS TO RETURN HOME WITH HOME HEALTH. PT REPORTS GETTING OUT OF BED AND WALKING INDEPENDENTLY AND IS STONG ENOUGH TO RETURN HOME AT DISCHARGE. PT DENIES FURHTER NEEDS OTHER THAN HOME HEALTH. CM NOTIFIED PEPITO RIDER. CM TO FOLLOW UP WITH PT SOON POSSIBLE TO GET PT'S CHOICE ON HOME HEALTH PROVIDER AND WILL ARRANGE HOME HEALTH FOR DISCHARGE HOME WITH PHYSICIAN AGREEEMENT AND ORDERS. Vanessa Dove, CASE MANAGEMENT DCP- Discharge Planning Updated by [id number]: Zohreh Potter on 04/15/19 10:[address] CM spoke with patient's sister yesterday. Her sister (Tracy) states she doesn't want her to go to a penitentiary if possible. She states that she would like her to go to inpatient rehab. I informed her that she would need authorization for that from insurance and inpatient rehab is already working on that. I informed her that it could probably be a denial if she is unable to participate in 3 hours of therapy a day. Her sister states if she is denied, that she would consent to a skilled unit. I spoke with Maria E with [facility], and Maria E states she believes [facility] and [facility] are in network, but unsure. I also spoke with Dong Mac with [facility] and he states he may be able to work with her insurance for authorization. Her sister states it does not matter which one she goes to, "whatever we can find". zeyad Menjivar for [facility], states they are not in network with [facility]. CM will continue to follow and assist with discharge planning/needs. DCP- Discharge Planning Updated by [id number]: Zohreh Potter on 04/13/19 2:[address] Patient Name: DANIEL ALVAREZ Admission Status: ER Accout number: [id number] Admission Date: 04-12-2019 : 1945 Admission Diagnosis: Attending: MYESHA JOYNER Current LOS: 1 Anticipated DC Date: Planned Disposition: Inpatient Rehab Primary Insurance: [employer] ADVANTAGE Discharge Planning Comments: CM met with patient to discuss discharge planning/needs. She lives with her sister and brother in law in a mobile home. She states she is ok with going to rehab and doesn't care where she goes. Permission granted to call her family for further planning. I spoke with patient's brother in law (Heike) to discuss discharge plan. I informed them of the availability of inpatient rehab, SNF, home health and DME. He states he would like her to stay here at our inpatient rehab if possible. He states that he feels she may need more than 2 weeks of therapy though. I discussed SNF. He states he would like a referral to [facility] if inpatient rehab is not authorized. I spoke with Ming at [facility], they do not accept [employer]. She will need preauthorization for inpatient rehab. CM will continue to follow and assist with discharge planning/needs. Pyridine Operator: Zohreh Abbey IDPIA - Discharge Planning Initial Assessment Updated by [id number]: Zohreh Alejomadeline on 04/13/19 3:17 pm * Is the patient Alert and Oriented? Yes * How many steps to enter\\exit or inside your home? 4/0 * PCP Flakita Delaney * Pharmacy [facility] * Preadmission Environment Home with Family * ADLs Partial Dependent * Partial ADLs (Assistance needed) Ambulation Medication Management * Equipment Cane Nebulizer Other Oxygen * Other Equipment Portable oxygen Trilogy * List name and contact numbers for known caregivers / representatives who currently or will assist patient after discharge: Heike Alexander - Brother in law - [phone] Tracy Alexander - Sister (POA) - [phone] * Verbal permission to speak to the caregivers and representatives has been obtained from the patient. Yes * Community resources currently utilized Other * Please name any agencies selected above. [facility] * Additional services required to return to the preadmission environment? Yes * Can the patient safely return to the preadmission environment? No * Has this patient been hospitalized within the prior 30 days at any hospital? No Coverage Notice Reviewer: [id number] Jenni Potter Notice Issued Date-Time: 04/13/2019 15:24 Notice Type: Patient Choice Letter Notice Delivered To: Family Member Relationship to Patient: Brother in Law Cue Worker Name: Heike Nelsonramona Delivery Method: HAND - Hand Delivered Isha Days: Prior Verbal Notification: Recipient Understood Notice: Yes Recipient Signature: Med Rec Note Co-signed by Attending: Coverage Notice Comment: [place] for [facility] Reviewer: [id number] Dove Notice Issued Date-Time: 04/28/2019 15:50 Notice Type: IM Discharge Notice Notice Delivered To: Patient Relationship to Patient: Cue Worker Name: Delivery Method: HAND - Hand Delivered Isha Days: Prior Verbal Notification: Recipient Understood Notice: Yes Recipient Signature: Yes Med Rec Note Co-signed by Attending: Coverage Notice Comment: Reviewer: JEFERSON Dove Notice Issued Date-Time: 05/04/2019 11:25 Notice Type: IM Discharge Notice Notice Delivered To: Patient Relationship to Patient: Cue Worker Name: Delivery Method: HAND - Hand Delivered Isha Days: Prior Verbal Notification: Recipient Understood Notice: Yes Recipient Signature: Yes Med Rec Note Co-signed by Attending: Coverage Notice Comment: Reviewer: JEFERSON Dove Notice Issued Date-Time: 05/05/2019 16:10 Notice Type: Patient Choice Letter Notice Delivered To: Family Member Relationship to Patient: Sister Cue Worker Name: TRACY NELSONRAMONA Delivery Method: HAND - Hand Delivered Isha Days: Prior Verbal Notification: Recipient Understood Notice: Yes Recipient Signature: Yes Med Rec Note Co-signed by Attending: Coverage Notice Comment: [facility] Reviewer: [id number] Dove Notice Issued Date-Time: 05/06/2019 8:00 Notice Type: IM Discharge Notice Notice Delivered To: Family Member Relationship to Patient: Sister Cue Worker Name: TRACY NELSONRAMONA Delivery Method: HAND - Hand Delivered Isha Days: Prior Verbal Notification: Recipient Understood Notice: Yes Recipient Signature: Yes Med Rec Note Co-signed by Attending: Coverage Notice Comment: Last DP export: 05/07/19 11:41 a Patient Name: DANIEL ALVAREZ Page [id number] at 1327 All edits/amendments must be made on the electronic document DICTATION DATE: 05/07/191326 [employer]: [employer]FF[place] 05/07/197 RPT#: [id number] DC DATE: STATUS: ADM IN [facility] [address] [place] [address] END OF REPORT
--- NOTE | 2019-05-07 14:20 | NUR ---
I have reviewed this patient and I concur with the Shift Assessment completed by the Licensed Practical Nurse today this shift.
--- NOTE | 2019-05-07 14:49 | MORECARE ---
CASE MANAGEMENT DISCHARGE SUMMARY PATIENT: DANIEL ALVAREZ UNIT: [id number] ADM DATE: 04/12/19 AGE: 74 : 44 SEX: F ROOM/BED: D.2123 AUTHOR: WILL,DOC PHYSICIAN: REFERRING PHYSICIAN: MYESHA JOYNER MD DATE OF SERVICE: 05/07/19 Discharge Plan Patient Name: DANIEL ALVAREZ Facility: [facility]:[place] : 1945 Planned Disposition: Snf Facility Anticipated Discharge Date: 05/05/19 Discharge Date: Expected LOS: 23 Initial Reviewer: [id number] Initial Review Date: 04/13/2019 Generated: 05/07/19 3:48 pm Comments DCP- Discharge Planning Updated by [id number]: Brittni Nieves on 05/07/19 1:[address] @ 1418, CALLED HEBER WITH [email or web address] ([phone]). I HAVE EXPLAINED TO HER THAT [facility] KNOWS THAT THE PATIENT HAS 20 DAYS WITH NO COPAY, BUT THEY ARE REFUSING TO TAKE THE PATIENT UNTIL THEY HAVE A MEDICAID APPLICATION COMPLETED IN CASE SHE STAYS MORE THAN 20 DAYS. I HAVE LET HER KNOW THAT A REFERRAL HAS BEEN SENT TO [facility], AND IF THEY DECIDE TO TAKE THE PATIENT THEY WILL BE SUBMITTING FOR AUTH. HEBER HAS STATED THAT IF THE PATIENT DOES NOT DISCHARGE TODAY, THEN THEY WILL HAVE TO HAVE THE REQUEST GO BACK TO THE LOGISTICS SUPPLY OFFICER FOR [facility], WHICH CAN TAKE A FEW DAYS TO RECEIVE BACK. SHE STATED THAT SHE CANNOT SAY THE OUTCOME WOULD BE ANY DIFFERENT WITH THE RESUBMISSION, BUT SHE CAN SAY IT WILL TAKE LONGER TO GET BACK. I HAVE APOLOGIZED FOR ALL THE RIGMAROLE. WILL WAIT FOR THE DETERMINATION. DCP- Discharge Planning Updated by [id number]: Brittni Nieves on 05/07/19 12:[address] RECEIVED A CALL FROM HEBER WITH [employer]. SHE WANTE TO KNOW IF THE PATIENT HAS LEFT YET AND IF SHE CAN HAVE DISCHARGE INFORMATION. I EXPLAINED THAT NOW WE ARE IN A HOLDING PATTERN OVER THE COPAY SECONDARY TO THEM NOT BEING ABLE TO AFFORD THE $157 OR $159/DAY FEE THEY WOULD HAVE TO PAY AND THAT THE BUSINESS OFFICE AT [facility] IS TRYING TO GET AHOLD OF THE SISTER TO SEE ABOUT APPLYING FOR MEDICAID. PER HEBER THE PATIENT HAD 62 OR 63 WELL DAYS AND SHE SHOULD HAVE 20 DAYS WITH NO COPAY DAYS AND THE PATIENT SHOULD BE ABLE TO DISCHARGE TO THE FACILITY AND THEY COULD FIGURE IT OUT WHILE THEY ARE THERE. SHE STATED THAT SHE IS GOING TO DOUBLE CHECK AND MAKE SURE THAT SHE IS COMPLETELY CORRECT ABOUT THE PATIENT RESETTING AND WILL CALL ME BACK. WILL RELAY THIS INFORMATION TO THE DISCHARGE CASEMANAGER AND WAIT FOR RETURN CALL. DCP- Discharge Planning Updated by [id number]: Vanessa Dove on 05/07/19 11:[address] Patient Name: DANIEL ALVAREZ Encounter No: [id number] : 1945 Primary Insurance: [employer] Anticipated DC Date: 05-05-2019 Planned Disposition: Snf Facility External Planned Provider: [facility], MEDICARE REHAB BED DCP follow-up note: CM RETURNED CALL TO KATHLEEN AT [facility], , [facility] AND IS TRYING TO CONTACT PT'S SISTER TO DISCUSS COPAY OF $157 PER DAY AND WILL OFFER TO FILE FOR MEDICAID TO COVER THE COSTS IF NECESSARY, BUT CANNOT ADMIT UNTIL THIS IS DECIDED BY FAMILY. CM PROVIED CONTACT PHONE NUMBERS FOR PT'S SISTER AND BROTHER IN LAW. CM WAITING ADMISSION DETERMINATION FROM [facility] IN [place] WELL FAMILY TO DECIDE REGARDING PAYING COPAY OR FILING FOR MEDICAID. VANESSA DOVE, CASE MANAGEMENT DCP- Discharge Planning Updated by [id number]: Brittni Nieves on 05/06/19 2:[address] @1386, SPOKE WITH HEBER WITH [employer]. SHE STATED THAT THE SNF AUTH FOR [facility] HAS BEEN APPROVED FOR SNF WITH #[id number]. SHE STATED THAT SHE HAS CALLED TO NOTIFY THE LONGTERM BEFORE SHE CALLED ME AND LEFT A VOICEMAIL ON THE BUSINESS OFFICE VOICEMAIL. @1575, I TRIED TO CALL [facility] ([phone]), AND I ORIGINALLY SPOKE CAYLA ALEX WHO ULTIMATELY TRANSFERRED TO THE BUSINESS OFFICE AND I LEFT A VOICEMAIL ON [employer] MACHINE INQUIRING ON TO WHEN THEY WOULD ACCEPT THE PATIENT NOW THAT WE HAVE AUTH. I REPEATED THE AUTH # AND ALSO MENTIONED THAT HEBER CALLED AND SAID SHE LEFT HER A VOICEMAIL PRIOR TO CALLING ME. WE WILL WAIT FOR A RESPONSE FROM THEM. DCP- Discharge Planning Updated by [id number]: Vanessa Dove on 05/06/19 8:[address] Patient Name: DANIEL ALVAREZ Encounter No: [id number] : 1945 Primary Insurance: [employer] Anticipated DC Date: 05-05-2019 Planned Disposition: Snf Facility External Planned Provider: [facility], MEDICARE REHAB BED DCP follow-up note: CM RECEIVED CALL FROM [facility] WHO INFORMED CM THAT [facility] AND [facility] ARE NOT IN NETWORK WITH [employer]. CM CALLED BHARATH OF [facility], THEY ARE NOT IN NETWORK WITH [employer]. CM CALLED [facility], THEY DO ACCEPT [employer] MEDICARE. CM CALLED Tracy Alexander - Sister (POA) - [phone], INFORMED OF ABOVE, TRACY REPORTS HAVING NO PREFERENCE ON THE THREE IN NETWORK FACILITIES AND ASKED THAT CM WORK FOR REHAB PLACEMENT IN A COVERED FACILITY. CM NOTIFIED EDWARD OF [facility], , OF REFERRAL, FAXED TO [phone]. CM CALLED AND NOTIFIED CELENA OF [facility], , NOTIFIED OF REFERRAL AND FAXED REFERRAL TO [facility] AT [phone]. CM WAITING ADMISSION DETERMINATIONS FROM [facility]. CM WAITING INSURANCE AUTHORIZATION FOR SENIOR LIVING REHAB SERVICES. Vanessa Dove, CASE MANAGEMENT DCP- Discharge Planning Updated by [id number]: Vanessa Dove on 05/06/19 6:[address] Patient Name: DANIEL ALVAREZ Encounter No: [id number] : 1945 Primary Insurance: [employer] Anticipated DC Date: 05-05-2019 Planned Disposition: Snf Facility External Planned Provider: [facility], MEDICARE REHAB BED DCP follow-up note: LATE ENTRY FROM 05-05-19: CM SPOKE TO PT'S SISTER WHO WAS SPEAKING TO PT'S INSURANCE PROVIDER, [employer] ON THE PHONE REGARDING PLACEMENT FOR REHAB. PT'S SISTER ASKED CM TO SPEAK TO FADI OF [employer]. PETER ADVISED THAT THE FOLLOWING SENIOR LIVING FACILITIES ARE IN NETWORK WITH [employer] OF : [facility] [place], [facility], [facility], [facility], [facility] [place] AND [facility] IN [place]. PT'S SISTER REQUESTED REFERRAL BE SENT TO [facility] FOR REHAB. PT'S SISTER IS ALSO APPEALING INSURANCE DECISION OF DENIAL FOR [facility] CONTRACT AND STATES SHE WAS ADVISED THAT SHE CAN APPEAL THE [facility] DENIAL WHILE CM CONTINUES SEEKING PLACEMENT AT [facility]. CHOICE FOR [facility] SIGNED. ON 05-06-19, CM NOTIFIED MING OF [facility] OF REFERRAL FOR REHAB AT [phone], FAXED REHAB REFERRAL TO [facility] VIA [facility] AT [phone]. CM WAITING ADMISSION DETERMINATION FROM [facility] WELL INSURANCE DETERMINATION FOR REHAB SERVICES AT [facility]. Vanessa Dove, CASE MANAGEMENT DCP- Discharge Planning Updated by [id number]: Vanessa Dove on 05/05/19 3:[address] Patient Name: DANIEL ALVAREZ Encounter No: [id number] : 1945 Primary Insurance: [employer] Anticipated DC Date: 05-05-2019 Planned Disposition: Snf Facility External Planned Provider: TO BE DETERMINED DCP follow-up note: CM SPOKE TO DONG OF [facility], INSURANCE HAS DECLINED CONTRACT FOR REHAB PLACEMENT. DONG HAS NOTIFIED PT AND SISTER IN ROOM. CM SPOKE TO PT'S SISTER REGARDING CALLING INSURANCE [employer] TO FIND OUT IF THERE IS AN IN NETWORK FACILITY AND WHERE THE FACILITY WOULD BE LOCATED. CM DISCUSSED PRISON CARE. PT'S SISTER DOES NOT WANT TO PLACE PT INTO [facility] TECHNICIAN CARE IN A LONGTERM. PT'S SISTER CALLING INSURANCE COMPANY TO DISCUSS OPTIONS FOR REHAB AND WILL NOTIFY CM OF POSSIBLE OPTIONS. CM TO FOLLOW UP WITH PT'S SISTER REGARDING PLACEMENT. Vanessa Dove, CASE MANAGEMENT DCP- Discharge Planning Updated by [email or web address]: Brittni Nieves on 05/05/19 10:[address] RECEIVED A VOICEMAIL FROM HEBER WITH [employer]. CALLED HER BACK AT [phone]. SHE STATED THAT SHE HAS EVERYTHING READY TO BE SUBMITTED TO THE LOGISTICS SUPPLY OFFICER (AND THE INFORMATION LOOKS APPROPRIATE), BUT WHEN SHE REACHED OUT TO [facility], SHE WAS TOLD THEY WERE TOO BUSY TO SUBMIT FOR AUTH YET AND SHE WAS REASSURED THEY WOULD DO IT TODAY. SHE STATED THAT THE FACILITY WAS NON [facility], AND THEY WOULD ALSO HAVE TO BE SUBMIT FOR THIS. I EXPLAINED THAT THE PATIENT HAS BEEN AT THIS FACILITY BEFORE AND THEY KNOW THE STEPS. I ASKED WHO SHE SPOKE WITH AND SHE STATED THAT SHE ASKED FOR DONG, IN THE CASEMANAGEMENT NOTES, AND WAS TRANSFERRED TO THE BUSINESS OFFICE. SHE DID NOT HAVE THE NAME OF THE LADY SHE SPOKE WITH, BUT STATED SHE WAS TOLD THEY WOULD SUBMIT FOR AUTH TODAY. I WILL CONTINUE TO ENTER DELAYS. DCP- Discharge Planning Updated by [id number]: Vanessa Dove on 05/04/19 10:[address] Patient Name: DANIEL ALVAREZ Encounter No: [id number] : 1945 Primary Insurance: [employer] Anticipated DC Date: 05-05-2019 Planned Disposition: Snf Facility External Planned Provider: [facility] MEDICARE REHAB BED DCP follow-up note: CM RECEIVED CALL FROM HEIKE NAVA, , WHO REQEUSTED UPDATE ON PLACEMENT AT [facility] FOR REHAB. CM INFORMED HEIKE THAT WE ARE STILL WAITING AUTHORIZATION FROM PT'S INSURANCE. CM SPOKE TO DONG OF [facility], , WHO INFORMED CM THAT HE IS WAITING ON INSURANCE APPROVAL FOR CONTRACT WITH AUTHORIZATION [facility] TO PROVIDE REHAB SERVICE TO PATIENT. DONG REPORTS NOT NEEDING UPDATE TODAY AND TO WAIT TO FAX ANY UPDATES UNTIL THEY HEAR FROM INSURANCE. CM NOTIFIED PT WHO IS IN AGREEMENT WITH DISCHARGE TO REHAB AT [facility]. PT IS UP TO CHAIR. IMPORTANT MESSAGE FROM MEDICARE PROVIDED AND EXPLAINED. CM WAITING INSURANCE AUTHORIZATION FOR REHAB AT [facility]. Vanessa Dove, CASE MANAGEMENT DCP- Discharge Planning Updated by [id number]: Lesly Rios on 05/01/19 12:[address] Patient Name: DANIEL ALVAREZ Admission Status: ER Accout number: [id number] Admission Date: 04-12-2019 : 1945 Admission Diagnosis:FRACTURE OF SUPERIOR RIM OF RIGHT PUBIS, INIT FOR CLOS Attending: MYESHA JOYNER Current LOS: 19 Anticipated DC Date: Planned Disposition: Snf Facility Primary Insurance: [employer] Discharge Planning Comments: [place] HAD BEEN SIGNED FOR [facility] SNF, I FAXED REFERRAL TODAY. CM WILL FOLLOW AND ASSIST. Freezing Machine Operator: Lesly Rios DCP- Discharge Planning Updated by [id number]: Vanessa Dove on 04/28/19 4:[address] Patient Name: DANIEL ALVAREZ Encounter No: [id number] : 1945 Primary Insurance: [employer] Anticipated DC Date: Planned Disposition: Inpatient Rehab External Planned Provider: [facility] INPATIENT REHAB DCP follow-up note: CM PARTICIPATED IN MULTIDISCIPLINARY TEAM MEETING, WAS INFORMED BY VIDA OF INPATIENT REHAB AT [facility] THAT THEY ARE SUBMITTING FOR INSURANCE AUTHORIZATION AGAIN TODAY. CM NOTIFIED PT WHO IS WILLING FOR INPATIENT REHAB AT [facility] AND UNDERSTANDS AND AGREES THAT IF DECLINED, SHE WILL GO TO SENIOR LIVING FACILITY IN [place] OTHER THAN [facility]. IMPORTANT MESSAGE FROM MEDICARE PROVIDED AND EXPLAINED. CM WAITING INSURANCE DETERMINATION FOR INPATIENT REHAB AT [facility]. Vanessa Dove, CASE MANAGEMENT DCP- Discharge Planning Updated by [id number]: Vanessa Dove on 04/27/19 10:[address] Patient Name: DANIEL ALVAREZ Encounter No: [id number] : 1945 Primary Insurance: [employer] Anticipated DC Date: Planned Disposition: Inpatient Rehab External Planned Provider: [facility] INPATIENT REHAB DCP follow-up note: CM SPOKE TO VIDA OF [facility] INPATIENT REHAB DURING MULTIDICIPLINARY TEAM MEETING WHO INFORMED GROUP THAT SHE IS RESUBMITTING TO INSURANCE FOR AUTHORIZATION DETERMINATION FOR INPATIENT REHAB. CM HAS PREVIOUSLY SPOKEN TO PT'S SISTER / YANNICK WHO HAS DISCUSSED PLAN OF SENIOR LIVING IN [place] IF DECLINED INPATIENT REHAB; JUST NOT THE [facility]. CM WAITING INSURANCE AUTHORIZATION FOR DENIAL FOR INPATIENT REHAB AT [facility]. Vanessa Dove. CASE MANAGEMENT DCP- Discharge Planning Updated by [id number]: Caitlyn Hodgson on 04/26/19 2:[address] CM RECEIVED MD ORDER TO CHECK IF DISCHARGE PLAN IS STILL FOR HOME. IN REVIEW OF WEEKDAY CM THE PLAN IS FOR A SENIOR LIVING FACILITY. SPOKE W/ THE PRIMARY NURSE, ROSANA. THE PATIENT HAS SOME DEGREE OF CONFUSION. SHE WISHES TO DISCHARGE TO HOME. PER THE NURSING NOTES THE FAMILY WAS AT THE BEDSIDE EARLIER THIS AM. TC TO POA, SISTER, TRACY. NO ANSWER. LEFT VM FOR TRACY ALEXANDER TO RETURN CALL WHEN AVAILAABLE. DCP- Discharge Planning Updated by [id number]: Vanessa Dove on 04/23/19 4:[address] Patient Name: DANIEL ALVAREZ Encounter No: [id number] : 1945 Primary Insurance: [employer] Anticipated DC Date: Planned Disposition: Inpatient Rehab External Planned Provider: [facility] INPATIENT REHAB DCP follow-up note: CM RECEIVED CALL FROM PT'S SISTER AND POWER OF FAMILY NURSE, TRACY GONZALEZ, WHO WANTED TO DISCUSS DISCHARGE PLANNING. TRACY REPORTS PT NEEDS REHAB INPATIENT AT [facility] AND IF DELCINED, SHE WILL NEED ANY SENIOR LIVING REHAB EXCEPT [facility]. TRACY REPORTS PT HAS DEMENTIA, LIVES WITH HER (TRACY) AND THEY DISCUSSED REHAB LAST NIGHT, PT IS IN AGREEMENT WITH REHAB SERVICES. IF TRACY DOES NOT ANSWER HER PHONE, SHE DIRECTED CM TO CALL HEIKE, HER SPOUSE, . CM SPOKE TO VIDA OF INPATIENT REHAB AT MULTIDISCIPLINARY TEAM MEETING, INPATIENT REHAB TO RESUBMIT TO INSURANCE FOR INPATIENT REHAB AUTHORIZATION REQUEST. CM TO CONTINUE TO FOLLOW AND ASSIST IF NEEDED. Vanessa Dove CASE MANAGEMENT DCP- Discharge Planning Updated by [id number]: Vanessa Dove on 04/22/19 3:[address] Patient Name: DANIEL ALVAREZ Encounter No: [id number] : 1945 Primary Insurance: [employer] Anticipated DC Date: Planned Disposition: Home with Home Health External Planned Provider: TO BE DETERMINED DCP follow-up note: CM RECEIVED CALL FROM VIDA OF INPATIENT REHAB, PT WAS DECLINED BY INSURANCE FOR INPATIENT REHAB. CM SPOKE TO PT IN ROOM, PT DOES NOT WANT TO GO TO SENIOR LIVING FOR REHAB AND WANTS TO RETURN HOME WITH HOME HEALTH. PT REPORTS GETTING OUT OF BED AND WALKING INDEPENDENTLY AND IS STONG ENOUGH TO RETURN HOME AT DISCHARGE. PT DENIES FURHTER NEEDS OTHER THAN HOME HEALTH. CM NOTIFIED PEPITO RIDER. CM TO FOLLOW UP WITH PT SOON POSSIBLE TO GET PT'S CHOICE ON HOME HEALTH PROVIDER AND WILL ARRANGE HOME HEALTH FOR DISCHARGE HOME WITH PHYSICIAN AGREEEMENT AND ORDERS. Vanessa Dove CASE MANAGEMENT DCP- Discharge Planning Updated by [id number]: Zohreh Potter on 04/15/19 10:[address] CM spoke with patient's sister yesterday. Her sister (Tracy) states she doesn't want her to go to a fci if possible. She states that she would like her to go to inpatient rehab. I informed her that she would need authorization for that from insurance and inpatient rehab is already working on that. I informed her that it could probably be a denial if she is unable to participate in 3 hours of therapy a day. Her sister states if she is denied, that she would consent to a skilled unit. I spoke with Maria E with [employer], and Maria E states she believes [place] and [facility] are in network, but unsure. I also spoke with Dong Mac with [facility] and he states he may be able to work with her insurance for authorization. Her sister states it does not matter which one she goes to, "whatever we can find". zeyad Menjivar for [facility], states they are not in network with [place]. CM will continue to follow and assist with discharge planning/needs. DCP- Discharge Planning Updated by [id number]: Zohreh Potter on 04/13/19 2:[address] Patient Name: DANIEL ALVAREZ Admission Status: ER Accout number: [id number] Admission Date: 04-12-2019 : 1945 Admission Diagnosis: Attending: MYESHA JOYNER Current LOS: 1 Anticipated DC Date: Planned Disposition: Inpatient Rehab Primary Insurance: [facility] Discharge Planning Comments: CM met with patient to discuss discharge planning/needs. She lives with her sister and brother in law in a mobile home. She states she is ok with going to rehab and doesn't care where she goes. Permission granted to call her family for further planning. I spoke with patient's brother in law (Heike) to discuss discharge plan. I informed them of the availability of inpatient rehab, SNF, home health and DME. He states he would like her to stay here at our inpatient rehab if possible. He states that he feels she may need more than 2 weeks of therapy though. I discussed SNF. He states he would like a referral to [facility] if inpatient rehab is not authorized. I spoke with Ming at [facility], they do not accept [employer]. She will need preauthorization for inpatient rehab. CM will continue to follow and assist with discharge planning/needs. Freezing Machine Operator: Zohreh Potter MIPIA - Discharge Planning Initial Assessment Updated by [id number]: Zohreh Abbey on 04/13/19 3:17 pm * Is the patient Alert and Oriented? Yes * How many steps to enter\\exit or inside your home? 4/0 * PCP Flakita Delaney * Pharmacy [facility] * Preadmission Environment Home with Family * ADLs Partial Dependent * Partial ADLs (Assistance needed) Ambulation Medication Management * Equipment Cane Nebulizer Other Oxygen * Other Equipment Portable oxygen Trilogy * List name and contact numbers for known caregivers / representatives who currently or will assist patient after discharge: Heike Alexander - Brother in law - [phone] Tracy Alexander - Sister (POA) - [phone] * Verbal permission to speak to the caregivers and representatives has been obtained from the patient. Yes * Community resources currently utilized Other * Please name any agencies selected above. [facility] * Additional services required to return to the preadmission environment? Yes * Can the patient safely return to the preadmission environment? No * Has this patient been hospitalized within the prior 30 days at any hospital? No Coverage Notice Reviewer: [id number] Jenni Sotoy Abbey Notice Issued Date-Time: 04/13/2019 15:24 Notice Type: Patient Choice Letter Notice Delivered To: Family Member Relationship to Patient: Brother in Law Liaison Engineer Name: Heike Alexander Delivery Method: HAND - Hand Delivered Isha Days: Prior Verbal Notification: Recipient Understood Notice: Yes Recipient Signature: Med Rec Note Co-signed by Attending: Coverage Notice Comment: [place] [facility] Reviewer: [id number] Jenni Dove Notice Issued Date-Time: 04/28/2019 15:50 Notice Type: IM Discharge Notice Notice Delivered To: Patient Relationship to Patient: Liaison Engineer Name: Delivery Method: HAND - Hand Delivered Isha Days: Prior Verbal Notification: Recipient Understood Notice: Yes Recipient Signature: Yes Med Rec Note Co-signed by Attending: Coverage Notice Comment: Reviewer: [id number] Dove Notice Issued Date-Time: 05/04/2019 11:25 Notice Type: IM Discharge Notice Notice Delivered To: Patient Relationship to Patient: Liaison Engineer Name: Delivery Method: HAND - Hand Delivered Isha Days: Prior Verbal Notification: Recipient Understood Notice: Yes Recipient Signature: Yes Med Rec Note Co-signed by Attending: Coverage Notice Comment: Reviewer: [id number] Dove Notice Issued Date-Time: 05/05/2019 16:10 Notice Type: Patient Choice Letter Notice Delivered To: Family Member Relationship to Patient: Sister Liaison Engineer Name: TRACY ALEXANDER Delivery Method: HAND - Hand Delivered Isha Days: Prior Verbal Notification: Recipient Understood Notice: Yes Recipient Signature: Yes Med Rec Note Co-signed by Attending: Coverage Notice Comment: [facility] Reviewer: [id number] Jenni Dove Notice Issued Date-Time: 05/06/2019 8:00 Notice Type: IM Discharge Notice Notice Delivered To: Family Member Relationship to Patient: Sister Liaison Engineer Name: TRACY ALEXANDER Delivery Method: HAND - Hand Delivered Isha Days: Prior Verbal Notification: Recipient Understood Notice: Yes Recipient Signature: Yes Med Rec Note Co-signed by Attending: Coverage Notice Comment: Last DP export: 05/07/19 12:27 p Patient Name: DANIEL ALVAREZ Page [id number] at 1449 All edits/amendments must be made on the electronic document DICTATION DATE: 05/07/191447 MORTGAGE LOAN SPECIALIST: TIFFANY 05/07/191447 RPT#: [id number] DC DATE: STATUS: ADM IN [facility] [address] [place] [address] END OF REPORT
--- NOTE | 2019-05-07 15:23 | MORECARE ---
CASE MANAGEMENT DISCHARGE SUMMARY PATIENT: DANIEL ALVAREZ UNIT: [id number] ADM DATE: 04/12/19 AGE: 74 : 44 SEX: F ROOM/BED: D.2123 AUTHOR: WILL,DOC PHYSICIAN: REFERRING PHYSICIAN: MYESHA JOYNER MD DATE OF SERVICE: 05/07/19 Discharge Plan Patient Name: DANIEL ALVAREZ Facility: [facility] : 1945 Planned Disposition: Fpc Facility Anticipated Discharge Date: 05/05/19 Discharge Date: Expected LOS: 23 Initial Reviewer: [id number] Initial Review Date: 04/13/2019 Generated: 05/07/19 4:22 pm Comments DCP- Discharge Planning Updated by [id number]: Vanessa Dove on 05/07/19 2:[address] Patient Name: DANIEL ALVAREZ Encounter No: [id number] : 1945 Primary Insurance: Oz [employer]ek Anticipated DC Date: 05-05-2019 Planned Disposition: Fpc Facility External Planned Provider: [facility] DCP follow-up note: CM CALLED CELENA OF [facility], , WHO INFORMED CM THAT SHE DID NOT RECEIVE THE REFERRAL FOR REHAB. CM REFAXED REFERRAL, , INFORMED CELENA THAT PT IS READY TO DISCHARGE AND HAS 20 SKILLED DAYS PER INSURANCE; CM EXPLAINED REFERRAL TO [facility] WELL INSURANCE DENIAL FOR INPATIENT REHAB SERVICES. CM SPOKE TO JANIE AT [facility], SHE VISITED WITH PT AND THEY STILL PLAN TO ACCEPT PT ONCE FINANCIAL ARRANGEMENTS ARE COMPLETED WITH FAMILY. CM LATER SPOKE TO HEIKE ALEXANDER AT [facility], HE HAS NOT RECEIVED ANY CALLS FROM [facility] TO DISCUSS FINANCIAL ARRANGEMENTS FOR PT. CM PROVIDED EHIKE WITH THE NAME OF KATHLEEN AND CONTACT NUMBER FOR [facility]. HEIKE REPORTS NO PREFERENCE ON FACILITY, PT WILL GO TO FIRST ACCEPTING REHAB. IMPORTANT MESSAGE FROM MEDICARE PROVIDED AND EXPLAINED. CM WAITING FAMILY TO WORK OUT FINANCIAL ARRANGEMENTS WITH [facility] AND FOR ADMISSION DETERMINATION FROM [facility]. Vanessa Dove, CASE MANAGEMENT DCP- Discharge Planning Updated by [id number]: Brittni Nieves on 05/07/19 1:[address] @ 1418, CALLED HEBER WITH [employer] ([phone]). I HAVE EXPLAINED TO HER THAT [facility] KNOWS THAT THE PATIENT HAS 20 DAYS WITH NO COPAY, BUT THEY ARE REFUSING TO TAKE THE PATIENT UNTIL THEY HAVE A MEDICAID APPLICATION COMPLETED IN CASE SHE STAYS MORE THAN 20 DAYS. I HAVE LET HER KNOW THAT A REFERRAL HAS BEEN SENT TO [facility] AND REHAB, AND IF THEY DECIDE TO TAKE THE PATIENT THEY WILL BE SUBMITTING FOR AUTH. HEBER HAS STATED THAT IF THE PATIENT DOES NOT DISCHARGE TODAY, THEN THEY WILL HAVE TO HAVE THE REQUEST GO BACK TO THE DARKROOM WORKER FOR [facility], WHICH CAN TAKE A FEW DAYS TO RECEIVE BACK. SHE STATED THAT SHE CANNOT SAY THE OUTCOME WOULD BE ANY DIFFERENT WITH THE RESUBMISSION, BUT SHE CAN SAY IT WILL TAKE LONGER TO GET BACK. I HAVE APOLOGIZED FOR ALL THE RIGMAROLE. WILL WAIT FOR THE DETERMINATION. DCP- Discharge Planning Updated by [id number]: Brittni Nieves on 05/07/19 12:[address] RECEIVED A CALL FROM HEBER WITH [employer]. SHE WANTE TO KNOW IF THE PATIENT HAS LEFT YET AND IF SHE CAN HAVE DISCHARGE INFORMATION. I EXPLAINED THAT NOW WE ARE IN A HOLDING PATTERN OVER THE COPAY SECONDARY TO THEM NOT BEING ABLE TO AFFORD THE $157 OR $159/DAY FEE THEY WOULD HAVE TO PAY AND THAT THE BUSINESS OFFICE AT [facility] IS TRYING TO GET AHOLD OF THE SISTER TO SEE ABOUT APPLYING FOR MEDICAID. PER HEBER THE PATIENT HAD 62 OR 63 WELL DAYS AND SHE SHOULD HAVE 20 DAYS WITH NO COPAY DAYS AND THE PATIENT SHOULD BE ABLE TO DISCHARGE TO THE FACILITY AND THEY COULD FIGURE IT OUT WHILE THEY ARE THERE. SHE STATED THAT SHE IS GOING TO DOUBLE CHECK AND MAKE SURE THAT SHE IS COMPLETELY CORRECT ABOUT THE PATIENT RESETTING AND WILL CALL ME BACK. WILL RELAY THIS INFORMATION TO THE DISCHARGE CASEMANAGER AND WAIT FOR RETURN CALL. DCP- Discharge Planning Updated by [id number]: Vanessa Dove on 05/07/19 11:[address] Patient Name: DANIEL ALVAREZ Encounter No: [id number] : 1945 Primary Insurance: Oz Sonotek Anticipated DC Date: 05-05-2019 Planned Disposition: Fpc Facility External Planned Provider: [facility], MEDICARE REHAB BED DCP follow-up note: CM RETURNED CALL TO KATHLEEN AT [facility], , [facility] HAS VERIFIED INSURANCE AND IS TRYING TO CONTACT PT'S SISTER TO DISCUSS COPAY OF $157 PER DAY AND WILL OFFER TO FILE FOR MEDICAID TO COVER THE COSTS IF NECESSARY, BUT CANNOT ADMIT UNTIL THIS IS DECIDED BY FAMILY. CM PROVIED CONTACT PHONE NUMBERS FOR PT'S SISTER AND BROTHER IN LAW. CM WAITING ADMISSION DETERMINATION FROM [facility] IN [place] WELL FAMILY TO DECIDE REGARDING PAYING COPAY OR FILING FOR MEDICAID. VANESSA DOVE, CASE MANAGEMENT DCP- Discharge Planning Updated by [id number]: Brittni Ezequiel on 05/06/19 2:[address] @1436, SPOKE WITH HEBER WITH [facility]. SHE STATED THAT THE SNF AUTH FOR [facility] HAS BEEN APPROVED FOR SNF WITH #[id number]. SHE STATED THAT SHE HAS CALLED TO NOTIFY THE LONG TERM BEFORE SHE CALLED ME AND LEFT A VOICEMAIL ON THE BUSINESS OFFICE VOICEMAIL. @6962, I TRIED TO CALL MAUDEK[employer]IN ([phone]), AND I ORIGINALLY SPOKE CAYLA ALEX WHO ULTIMATELY TRANSFERRED TO THE BUSINESS OFFICE AND I LEFT A VOICEMAIL ON KATHLEEN'S MACHINE INQUIRING ON TO WHEN THEY WOULD ACCEPT THE PATIENT NOW THAT WE HAVE AUTH. I REPEATED THE AUTH # AND ALSO MENTIONED THAT HEBER CALLED AND SAID SHE LEFT HER A VOICEMAIL PRIOR TO CALLING ME. WE WILL WAIT FOR A RESPONSE FROM THEM. DCP- Discharge Planning Updated by [id number]: Vanessa Dove on 05/06/19 8:[address] Patient Name: DANIEL ALVAREZ Encounter No: [id number] : 1945 Primary Insurance: [employer]ENTRY MCARE ADVANTAGE Anticipated DC Date: 05-05-2019 Planned Disposition: Fpc Facility External Planned Provider: [facility], MEDICARE REHAB BED DCP follow-up note: CM RECEIVED CALL FROM BLACK WHO INFORMED CM THAT [facility] AND [facility] ARE NOT IN NETWORK WITH COVENTRY MEDICARE. CM CALLED [facility] [place], THEY ARE NOT IN NETWORK WITH [employer]TRY MEDICARE. CM CALLED [facility], [facility] AND [facility], THEY DO ACCEPT [place]ENTRY MEDICARE. CM CALLED Tracy Alexander - Sister (POA) - [phone], INFORMED OF ABOVE, TARCY REPORTS HAVING NO PREFERENCE ON THE THREE IN NETWORK FACILITIES AND ASKED THAT CM WORK FOR REHAB PLACEMENT IN A COVERED FACILITY. CM NOTIFIED EDWARD OF [facility], , OF REFERRAL, FAXED TO [phone]. CM CALLED AND NOTIFIED CELENA OF [facility], , NOTIFIED OF REFERRAL AND FAXED REFERRAL TO [facility] AT [phone]. CM WAITING ADMISSION DETERMINATIONS FROM [facility]. CM WAITING INSURANCE AUTHORIZATION FOR [facility] SERVICES. Vanessa Dove CASE MANAGEMENT DCP- Discharge Planning Updated by [id number]: Vanessa Dove on 05/06/19 6:[address] Patient Name: DANIEL ALVAREZ Encounter No: [id number] : 1945 Primary Insurance: Oz Sonotek Anticipated DC Date: 05-05-2019 Planned Disposition: Fpc Facility External Planned Provider: [facility] MEDICARE REHAB BED DCP follow-up note: LATE ENTRY FROM 05-05-19: CM SPOKE TO PT'S SISTER WHO WAS SPEAKING TO PT'S INSURANCE PROVIDER, [employer] ON THE PHONE REGARDING PLACEMENT FOR REHAB. PT'S SISTER ASKED CM TO SPEAK TO FADI OF [employer]. PETER ADVISED THAT THE FOLLOWING [facility] FACILITIES ARE IN NETWORK WITH HERNANDO OF : [facility], [facility], [place], [facility], [facility] [place] AND [facility] IN [place] PT'S SISTER REQUESTED REFERRAL BE SENT TO [facility] FOR REHAB. PT'S SISTER IS ALSO APPEALING INSURANCE DECISION OF DENIAL FOR [facility] [employer] CONTRACT AND STATES SHE WAS ADVISED THAT SHE CAN APPEAL THE [employer] DENIAL WHILE CM CONTINUES SEEKING PLACEMENT AT [facility]. CHOICE FOR [facility] SIGNED. ON 05-06-19, CM NOTIFIED MING OF [facility] OF REFERRAL FOR REHAB AT [phone], FAXED REHAB REFERRAL TO [facility] VIA [facility] AT [phone]. CM WAITING ADMISSION DETERMINATION FROM [facility] WELL INSURANCE DETERMINATION FOR REHAB SERVICES AT [facility]. Vanessa Dove CASE MANAGEMENT DCP- Discharge Planning Updated by [id number]: Vanessa Dove on 05/05/19 3:[address] Patient Name: DANIEL ALVAREZ Encounter No: [id number] : 1945 Primary Insurance: [employer] ADVANTAGE Anticipated DC Date: 05-05-2019 Planned Disposition: Fpc Facility External Planned Provider: TO BE DETERMINED DCP follow-up note: CM SPOKE TO DONG OF [facility], INSURANCE HAS DECLINED CONTRACT FOR REHAB PLACEMENT. DONG HAS NOTIFIED PT AND SISTER IN ROOM. CM SPOKE TO PT'S SISTER REGARDING CALLING INSURANCE COMPANY TO FIND OUT IF THERE IS AN IN NETWORK FACILITY AND WHERE THE FACILITY WOULD BE LOCATED. CM DISCUSSED PLUG MACHINE OPERATOR CARE. PT'S SISTER DOES NOT WANT TO PLACE PT INTO PLUG MACHINE OPERATOR CARE IN A LONG TERM. PT'S SISTER CALLING INSURANCE COMPANY TO DISCUSS OPTIONS FOR REHAB AND WILL NOTIFY CM OF POSSIBLE OPTIONS. CM TO FOLLOW UP WITH PT'S SISTER REGARDING PLACEMENT. Vanessa Dove, CASE MANAGEMENT DCP- Discharge Planning Updated by [id number]: Brittnikeya Nieves on 05/05/19 10:[address] RECEIVED A VOICEMAIL FROM HEBER WITH [facility]. CALLED HER BACK AT [phone]. SHE STATED THAT SHE HAS EVERYTHING READY TO BE SUBMITTED TO THE DARKROOM WORKER (AND THE INFORMATION LOOKS APPROPRIATE), BUT WHEN SHE REACHED OUT TO [facility], SHE WAS TOLD THEY WERE TOO BUSY TO SUBMIT FOR AUTH YET AND SHE WAS REASSURED THEY WOULD DO IT TODAY. SHE STATED THAT THE FACILITY WAS NON [facility], AND THEY WOULD ALSO HAVE TO BE SUBMIT FOR THIS. I EXPLAINED THAT THE PATIENT HAS BEEN AT THIS FACILITY BEFORE AND THEY KNOW THE STEPS. I ASKED WHO SHE SPOKE WITH AND SHE STATED THAT SHE ASKED FOR DONG, IN THE CASEMANAGEMENT NOTES, AND WAS TRANSFERRED TO THE BUSINESS OFFICE. SHE DID NOT HAVE THE NAME OF THE LADY SHE SPOKE WITH, BUT STATED SHE WAS TOLD THEY WOULD SUBMIT FOR AUTH TODAY. I WILL CONTINUE TO ENTER DELAYS. DCP- Discharge Planning Updated by [id number]: Vanessa Dove on 05/04/19 10:[address] Patient Name: DANIEL ALVAREZ Encounter No: [id number] : 1945 Primary Insurance: [employer] ADVANTAGE Anticipated DC Date: 05-05-2019 Planned Disposition: Fpc Facility External Planned Provider: [facility], MEDICARE REHAB BED DCP follow-up note: CM RECEIVED CALL FROM HEIKE LINJACQUI, , WHO REQEUSTED UPDATE ON PLACEMENT AT [facility] FOR REHAB. CM INFORMED HEIKE THAT WE ARE STILL WAITING AUTHORIZATION FROM PT'S INSURANCE. CM SPOKE TO DONG OF [facility], , WHO INFORMED CM THAT HE IS WAITING ON INSURANCE APPROVAL FOR CONTRACT WITH AUTHORIZATION [facility] TO PROVIDE REHAB SERVICE TO PATIENT. DONG REPORTS NOT NEEDING UPDATE TODAY AND TO WAIT TO FAX ANY UPDATES UNTIL THEY HEAR FROM INSURANCE. CM NOTIFIED PT WHO IS IN AGREEMENT WITH DISCHARGE TO REHAB AT [facility]. PT IS UP TO CHAIR. IMPORTANT MESSAGE FROM MEDICARE PROVIDED AND EXPLAINED. CM WAITING INSURANCE AUTHORIZATION FOR REHAB AT [facility]. LORENZA Beaulieu DCP- Discharge Planning Updated by [id number]: Lesly Rios on 05/01/19 12:[address] Patient Name: DANIEL ALVAREZ Admission Status: ER Accout number: [id number] Admission Date: 04-12-2019 : 1945 Admission Diagnosis:FRACTURE OF SUPERIOR RIM OF RIGHT PUBIS, INIT FOR CLOS Attending: MYESHA JOYNER Current LOS: 19 Anticipated DC Date: Planned Disposition: Fpc Facility Primary Insurance: COVENTRY MCARE ADVANTAGE Discharge Planning Comments: [place] HAD BEEN SIGNED FOR [facility] SNF, I FAXED REFERRAL TODAY. CM WILL FOLLOW AND ASSIST. Sheep Clipper: Lesly Rios DCP- Discharge Planning Updated by [id number]: Vanessa Dove on 04/28/19 4:[address] Patient Name: DANIEL ALVAREZ Encounter No: [id number] : 1945 Primary Insurance: COVENTRY MCARE ADVANTAGE Anticipated DC Date: Planned Disposition: Inpatient Rehab External Planned Provider: [facility] INPATIENT REHAB DCP follow-up note: CM PARTICIPATED IN MULTIDISCIPLINARY TEAM MEETING, WAS INFORMED BY VIDA OF INPATIENT REHAB AT [facility] THAT THEY ARE SUBMITTING FOR INSURANCE AUTHORIZATION AGAIN TODAY. CM NOTIFIED PT WHO IS WILLING FOR INPATIENT REHAB AT [facility] AND UNDERSTANDS AND AGREES THAT IF DECLINED, SHE WILL GO TO [facility] F[facility] IN [place] OTHER THAN [facility]. IMPORTANT MESSAGE FROM MEDICARE PROVIDED AND EXPLAINED. CM WAITING INSURANCE DETERMINATION FOR INPATIENT REHAB AT [facility]. Vanessa Petty, CASE MANAGEMENT DCP- Discharge Planning Updated by [id number]: Vanessa Dove on 04/27/19 10:[address] Patient Name: DANIEL ALVAREZ Encounter No: [id number] : 1945 Primary Insurance: [employer] ADVANTAGE Anticipated DC Date: Planned Disposition: Inpatient Rehab External Planned Provider: [facility] INPATIENT REHAB DCP follow-up note: CM SPOKE TO VIDA OF [facility] INPATIENT REHAB DURING MULTIDICIPLINARY TEAM MEETING WHO INFORMED GROUP THAT SHE IS RESUBMITTING TO INSURANCE FOR AUTHORIZATION DETERMINATION FOR INPATIENT REHAB. CM HAS PREVIOUSLY SPOKEN TO PT'S SISTER / YANNICK WHO HAS DISCUSSED PLAN OF [facility] IN [place] IF DECLINED INPATIENT REHAB; JUST NOT [facility]. CM WAITING INSURANCE AUTHORIZATION FOR DENIAL FOR INPATIENT REHAB AT [facility]. Vanessa Dove. CASE MANAGEMENT DCP- Discharge Planning Updated by [id number]: Caitlyn Hodgson on 04/26/19 2:[address] CM RECEIVED MD ORDER TO CHECK IF DISCHARGE PLAN IS STILL FOR HOME. IN REVIEW OF WEEKDAY CM THE PLAN IS FOR A [facility] FACILITY. SPOKE W/ THE PRIMARY NURSE, ROSANA. THE PATIENT HAS SOME DEGREE OF CONFUSION. SHE WISHES TO DISCHARGE TO HOME. PER THE NURSING NOTES THE FAMILY WAS AT THE BEDSIDE EARLIER THIS AM. TC TO YANNICK, SISTER, TRACY. NO ANSWER. LEFT VM FOR TRACY ALEXANDER TO RETURN CALL WHEN AVAILAABLE. DCP- Discharge Planning Updated by [id number]: Vanessa Dove on 04/23/19 4:[address] Patient Name: DANIEL ALVAREZ Encounter No: [id number] : 1945 Primary Insurance: [employer] ADVANTAGE Anticipated DC Date: Planned Disposition: Inpatient Rehab External Planned Provider: [facility] INPATIENT REHAB DCP follow-up note: CM RECEIVED CALL FROM PT'S SISTER AND POWER OF DECAL DECORATOR, TRACY GONZALEZ, WHO WANTED TO DISCUSS DISCHARGE PLANNING. TRACY REPORTS PT NEEDS REHAB INPATIENT AT [facility] AND IF DELCINED, SHE WILL NEED ANY [facility] REHAB EXCEPT [facility]. TRACY REPORTS PT HAS DEMENTIA, LIVES WITH HER (TRACY) AND THEY DISCUSSED REHAB LAST NIGHT, PT IS IN AGREEMENT WITH REHAB SERVICES. IF TRACY DOES NOT ANSWER HER PHONE, SHE DIRECTED CM TO CALL HEIKE, HER SPOUSE, . CM SPOKE TO VIDA OF INPATIENT REHAB AT MULTIDISCIPLINARY TEAM MEETING, INPATIENT REHAB TO RESUBMIT TO INSURANCE FOR INPATIENT REHAB AUTHORIZATION REQUEST. CM TO CONTINUE TO FOLLOW AND ASSIST IF NEEDED. Vanessa Dove, CASE MANAGEMENT DCP- Discharge Planning Updated by [id number]: Vanessa Dove on 04/22/19 3:[address] Patient Name: DANIEL ALVAREZ Encounter No: [id number] : 1945 Primary Insurance: Oz [employer]ek Anticipated DC Date: Planned Disposition: Home with Home Health External Planned Provider: TO BE DETERMINED DCP follow-up note: CM RECEIVED CALL FROM VIDA OF INPATIENT REHAB, PT WAS DECLINED BY INSURANCE FOR INPATIENT REHAB. CM SPOKE TO PT IN ROOM, PT DOES NOT WANT TO GO TO [facility] FOR REHAB AND WANTS TO RETURN HOME WITH HOME HEALTH. PT REPORTS GETTING OUT OF BED AND WALKING INDEPENDENTLY AND IS STONG ENOUGH TO RETURN HOME AT DISCHARGE. PT DENIES FURHTER NEEDS OTHER THAN HOME HEALTH. CM NOTIFIED PEPITO RIDER. CM TO FOLLOW UP WITH PT SOON POSSIBLE TO GET PT'S CHOICE ON HOME HEALTH PROVIDER AND WILL ARRANGE HOME HEALTH FOR DISCHARGE HOME WITH PHYSICIAN AGREEEMENT AND ORDERS. Vanessa Dove, CASE MANAGEMENT DCP- Discharge Planning Updated by [id number]: Zohreh Potter on 04/15/19 10:[address] CM spoke with patient's sister yesterday. Her sister (Tracy) states she doesn't want her to go to a alf if possible. She states that she would like her to go to inpatient rehab. I informed her that she would need authorization for that from insurance and inpatient rehab is already working on that. I informed her that it could probably be a denial if she is unable to participate in 3 hours of therapy a day. Her sister states if she is denied, that she would consent to a skilled unit. I spoke with Maria E with [facility], and Maria E states she believes [facility] and [facility] are in network, but unsure. I also spoke with Dong Mac with [facility] and he states he may be able to work with her insurance for authorization. Her sister states it does not matter which one she goes to, "whatever we can find". Ming Jones, liason for [facility], states they are not in network with [place]. CM will continue to follow and assist with discharge planning/needs. DCP- Discharge Planning Updated by [id number]: Zohreh Potter on 04/13/19 2:[address] Patient Name: DANIEL ALVAREZ Admission Status: ER Accout number: [id number] Admission Date: 04-12-2019 : 1945 Admission Diagnosis: Attending: MYESHA JOYNER Current LOS: 1 Anticipated DC Date: Planned Disposition: Inpatient Rehab Primary Insurance: [employer] ADVANTAGE Discharge Planning Comments: CM met with patient to discuss discharge planning/needs. She lives with her sister and brother in law in a mobile home. She states she is ok with going to rehab and doesn't care where she goes. Permission granted to call her family for further planning. I spoke with patient's brother in law (Heike) to discuss discharge plan. I informed them of the availability of inpatient rehab, SNF, home health and DME. He states he would like her to stay here at our inpatient rehab if possible. He states that he feels she may need more than 2 weeks of therapy though. I discussed SNF. He states he would like a referral to [facility] if inpatient rehab is not authorized. I spoke with Ming at [facility], they do not accept [employer]. She will need preauthorization for inpatient rehab. CM will continue to follow and assist with discharge planning/needs. Sheep Clipper: Zohreh Potter DCPIA - Discharge Planning Initial Assessment Updated by [id number]: Zohreh Potter on 04/13/19 3:17 pm * Is the patient Alert and Oriented? Yes * How many steps to enter\\exit or inside your home? 4/0 * PCP Flakita Delaney * Pharmacy [facility] * Preadmission Environment Home with Family * ADLs Partial Dependent * Partial ADLs (Assistance needed) Ambulation Medication Management * Equipment Cane Nebulizer Other Oxygen * Other Equipment Portable oxygen Trilogy * List name and contact numbers for known caregivers / representatives who currently or will assist patient after discharge: Heike Alexander - Brother in law - [phone] Tracy Alexander - Sister (POA) - [phone] * Verbal permission to speak to the caregivers and representatives has been obtained from the patient. Yes * Community resources currently utilized Other * Please name any agencies selected above. [facility] * Additional services required to return to the preadmission environment? Yes * Can the patient safely return to the preadmission environment? No * Has this patient been hospitalized within the prior 30 days at any hospital? No Coverage Notice Reviewer: [id number] Jenni Potter Notice Issued Date-Time: 04/13/2019 15:24 Notice Type: Patient Choice Letter Notice Delivered To: Family Member Relationship to Patient: Brother in Law Behavioral Health Specialist Name: Heike Alexander Delivery Method: HAND - Hand Delivered Isha Days: Prior Verbal Notification: Recipient Understood Notice: Yes Recipient Signature: Med Rec Note Co-signed by Attending: Coverage Notice Comment: [place] for [facility] Reviewer: [id number] Dove Notice Issued Date-Time: 04/28/2019 15:50 Notice Type: IM Discharge Notice Notice Delivered To: Patient Relationship to Patient: Behavioral Health Specialist Name: Delivery Method: HAND - Hand Delivered Isha Days: Prior Verbal Notification: Recipient Understood Notice: Yes Recipient Signature: Yes Med Rec Note Co-signed by Attending: Coverage Notice Comment: Reviewer: JEFERSON Dove Notice Issued Date-Time: 05/04/2019 11:25 Notice Type: IM Discharge Notice Notice Delivered To: Patient Relationship to Patient: Behavioral Health Specialist Name: Delivery Method: HAND - Hand Delivered Isha Days: Prior Verbal Notification: Recipient Understood Notice: Yes Recipient Signature: Yes Med Rec Note Co-signed by Attending: Coverage Notice Comment: Reviewer: JEFERSON Dove Notice Issued Date-Time: 05/05/2019 16:10 Notice Type: Patient Choice Letter Notice Delivered To: Family Member Relationship to Patient: Sister Behavioral Health Specialist Name: TRACY ALEXANDER Delivery Method: HAND - Hand Delivered Isha Days: Prior Verbal Notification: Recipient Understood Notice: Yes Recipient Signature: Yes Med Rec Note Co-signed by Attending: Coverage Notice Comment: [facility] Reviewer: [id number] Dove Notice Issued Date-Time: 05/06/2019 8:00 Notice Type: IM Discharge Notice Notice Delivered To: Family Member Relationship to Patient: Sister Behavioral Health Specialist Name: TRACY ALEXANDER Delivery Method: HAND - Hand Delivered Isha Days: Prior Verbal Notification: Recipient Understood Notice: Yes Recipient Signature: Yes Med Rec Note Co-signed by Attending: Coverage Notice Comment: Reviewer: [id number] - Vanessa Dove Notice Issued Date-Time: 05/07/2019 15:07 Notice Type: IM Discharge Notice Notice Delivered To: Family Member Relationship to Patient: Brother in Law Behavioral Health Specialist Name: HEIKE ALEXANDER Delivery Method: HAND - Hand Delivered Isha Days: Prior Verbal Notification: Recipient Understood Notice: Yes Recipient Signature: Yes Med Rec Note Co-signed by Attending: Coverage Notice Comment: Last DP export: 05/07/19 1:49 p Patient Name: DANIEL ALVAREZ Page [id number] at 1523 All edits/amendments must be made on the electronic document DICTATION DATE: 05/07/191521 PHARMACY RESIDENT: TIFFANY 05/07/191521 RPT#: [id number] DC DATE: STATUS: ADM IN [facility] [address] [place] [address] END OF REPORT
--- NOTE | 2019-05-07 16:38 | NUR ---
Rehab Note- Received call from Araceli with [facility] appeals department & are still denying the patient an inpatient acute rehab stay. Did provide the SNF Auth #[id number] for placement of [facility] that has been approved. Spoke with SHAY Dickson and relayed this message to him. THank you for this referral! Deirdre Up RN Clinical Liaison, [facility]
--- NOTE | 2019-05-07 17:35 | MORECARE ---
CASE MANAGEMENT DISCHARGE SUMMARY PATIENT: DANIEL ALVAREZ UNIT: [id number] ADM DATE: 04/12/19 AGE: 74 : 44 SEX: F ROOM/BED: D.8263 AUTHOR: WILL,DOC PHYSICIAN: REFERRING PHYSICIAN: MYESHA JOYNER MD DATE OF SERVICE: 05/07/19 Discharge Plan Patient Name: DANIEL ALVAREZ Facility: [facility] : 1945 Planned Disposition: Prison Facility Anticipated Discharge Date: 05/05/19 Discharge Date: Expected LOS: 23 Initial Reviewer: [id number] Initial Review Date: 04/13/2019 Generated: 05/07/19 6:34 pm Comments DCP- Discharge Planning Updated by [id number]: Vanessa Dove on 05/07/19 4:[address] Patient Name: DANIEL ALVAREZ Encounter No: [id number] : 1945 Primary Insurance: [employer] Anticipated DC Date: 05-05-2019 Planned Disposition: Prison Facility External Planned Provider: [facility], MEDICARE REHAB BED DCP follow-up note: CM RECEIVED CALL FROM EDWARD AT [facility], , NOTIFIED THEY WILL ACCEPT TOMORROW MORNING, WILL ARRANGE VAN APPLICATIONS DEVELOPER EARLY. CM NOTIFIED PT'S BROTHER IN LAW, HEIKE, VIA PHONE, WHO IS IN AGREEMENT WITH DISCHARGE PLAN. PEPITO RIDER NOTIFIED. FOR DISCHARGE, FAX DISCHARGE INFORMATION TO [facility] AT [phone]. NURSE REPORT TO BE CALLED TO [facility] AT [phone]. [facility] TO ARRANGE VAN APPLICATIONS DEVELOPER FIRST THING IN THE MORNING, 05-08-19. Vanessa Dove, CASE MANAGEMENT DCP- Discharge Planning Updated by [id number]: Vanessa Dove on 05/07/19 2:[address] Patient Name: DANIEL ALVAREZ Encounter No: [id number] : 1945 Primary Insurance: [employer] Anticipated DC Date: 05-05-2019 Planned Disposition: Prison Facility External Planned Provider: [facility], MEDICARE REHAB BED DCP follow-up note: CM CALLED CELENA POLK [facility], , WHO INFORMED CM THAT SHE DID NOT RECEIVE THE REFERRAL FOR REHAB. CM REFAXED REFERRAL, , INFORMED CELENA THAT PT IS READY TO DISCHARGE AND HAS 20 SKILLED DAYS PER INSURANCE; CM EXPLAINED REFERRAL TO [facility] WELL INSURANCE DENIAL FOR INPATIENT REHAB SERVICES. CM SPOKE TO EDWARD OF [facility] AT NURSES STATION, SHE VISITED WITH PT AND THEY STILL PLAN TO ACCEPT PT ONCE FINANCIAL ARRANGEMENTS ARE COMPLETED WITH FAMILY. CM LATER SPOKE TO HEIKE ALEXANDER AT NURSES STATION, HE HAS NOT RECEIVED ANY CALLS FROM [facility] TO DISCUSS FINANCIAL ARRANGEMENTS FOR PT. CM PROVIDED HEIKE WITH THE NAME OF KATHLEEN AND CONTACT NUMBER FOR [facility]. HEIKE REPORTS NO PREFERENCE ON FACILITY, PT WILL GO TO FIRST ACCEPTING REHAB. IMPORTANT MESSAGE FROM MEDICARE PROVIDED AND EXPLAINED. CM WAITING FAMILY TO WORK OUT FINANCIAL ARRANGEMENTS WITH [facility] AND FOR ADMISSION DETERMINATION FROM [facility]. Vanessa Dove, CASE MANAGEMENT DCP- Discharge Planning Updated by [id number]: Brittni Nieves on 05/07/19 1:[address] @ 1410, CALLED HEBER WITH [employer] ([phone]). I HAVE EXPLAINED TO HER THAT [facility] KNOWS THAT THE PATIENT HAS 20 DAYS WITH NO COPAY, BUT THEY ARE REFUSING TO TAKE THE PATIENT UNTIL THEY HAVE A MEDICAID APPLICATION COMPLETED IN CASE SHE STAYS MORE THAN 20 DAYS. I HAVE LET HER KNOW THAT A REFERRAL HAS BEEN SENT TO [facility], AND IF THEY DECIDE TO TAKE THE PATIENT THEY WILL BE SUBMITTING FOR AUTH. HEBER HAS STATED THAT IF THE PATIENT DOES NOT DISCHARGE TODAY, THEN THEY WILL HAVE TO HAVE THE REQUEST GO BACK TO THE OFFICE MANAGER EXECUTIVE ASSISTANT FOR [facility], WHICH CAN TAKE A FEW DAYS TO RECEIVE BACK. SHE STATED THAT SHE CANNOT SAY THE OUTCOME WOULD BE ANY DIFFERENT WITH THE RESUBMISSION, BUT SHE CAN SAY IT WILL TAKE LONGER TO GET BACK. I HAVE APOLOGIZED FOR ALL THE RIGMAROLE. WILL WAIT FOR THE DETERMINATION. DCP- Discharge Planning Updated by [id number]: Brittni Nieves on 05/07/19 12:[address] RECEIVED A CALL FROM HEBER WITH [employer]. SHE WANTE TO KNOW IF THE PATIENT HAS LEFT YET AND IF SHE CAN HAVE DISCHARGE INFORMATION. I EXPLAINED THAT NOW WE ARE IN A HOLDING PATTERN OVER THE COPAY SECONDARY TO THEM NOT BEING ABLE TO AFFORD THE $157 OR $159/DAY FEE THEY WOULD HAVE TO PAY AND THAT THE BUSINESS OFFICE AT [facility] IS TRYING TO GET AHOLD OF THE SISTER TO SEE ABOUT APPLYING FOR MEDICAID. PER HEBER THE PATIENT HAD 62 OR 63 WELL DAYS AND SHE SHOULD HAVE 20 DAYS WITH NO COPAY DAYS AND THE PATIENT SHOULD BE ABLE TO DISCHARGE TO THE FACILITY AND THEY COULD FIGURE IT OUT WHILE THEY ARE THERE. SHE STATED THAT SHE IS GOING TO DOUBLE CHECK AND MAKE SURE THAT SHE IS COMPLETELY CORRECT ABOUT THE PATIENT RESETTING AND WILL CALL ME BACK. WILL RELAY THIS INFORMATION TO THE DISCHARGE CASEMANAGER AND WAIT FOR RETURN CALL. DCP- Discharge Planning Updated by [id number]: Vanessa Dove on 05/07/19 11:[address] Patient Name: DANIEL ALVAREZ Encounter No: [id number] : 1945 Primary Insurance: [employer]VANT[employer] Anticipated DC Date: 05-05-2019 Planned Disposition: Prison Facility External Planned Provider: [facility], MEDICARE REHAB BED DCP follow-up note: CM RETURNED CALL TO KATHLEEN AT [facility], , [facility] HAS VERIFIED INSURANCE AND IS TRYING TO CONTACT PT'S SISTER TO DISCUSS COPAY OF $157 PER DAY AND WILL OFFER TO FILE FOR MEDICAID TO COVER THE COSTS IF NECESSARY, BUT CANNOT ADMIT UNTIL THIS IS DECIDED BY FAMILY. CM PROVIED CONTACT PHONE NUMBERS FOR PT'S SISTER AND BROTHER IN LAW. CM WAITING ADMISSION DETERMINATION FROM [facility] IN [place] WELL FAMILY TO DECIDE REGARDING PAYING COPAY OR FILING FOR MEDICAID. VANESSA DOVE, CASE MANAGEMENT DCP- Discharge Planning Updated by [id number]: Brittni Nieves on 05/06/19 2:[address] @0986, SPOKE WITH HEBER WITH [employer]. SHE STATED THAT THE SNF AUTH FOR [facility] HAS BEEN APPROVED FOR SNF WITH #[id number]. SHE STATED THAT SHE HAS CALLED TO NOTIFY THE FDC BEFORE SHE CALLED ME AND LEFT A VOICEMAIL ON THE BUSINESS OFFICE VOICEMAIL. @2249, I TRIED TO CALL SOLE ([phone]), AND I ORIGINALLY SPOKE CAYLA ALEX WHO ULTIMATELY TRANSFERRED TO THE BUSINESS OFFICE AND I LEFT A VOICEMAIL ON KATHLEEN'S MACHINE INQUIRING ON TO WHEN THEY WOULD ACCEPT THE PATIENT NOW THAT WE HAVE AUTH. I REPEATED THE AUTH # AND ALSO MENTIONED THAT HEBER CALLED AND SAID SHE LEFT HER A VOICEMAIL PRIOR TO CALLING ME. WE WILL WAIT FOR A RESPONSE FROM THEM. DCP- Discharge Planning Updated by [id number]: Vanessa Dove on 05/06/19 8:[address] Patient Name: DANIEL ALVAREZ Encounter No: [id number] : 1945 Primary Insurance: COVENTRY [employer] Anticipated DC Date: 05-05-2019 Planned Disposition: Prison Facility External Planned Provider: [facility], MEDICARE REHAB BED DCP follow-up note: CM RECEIVED CALL FROM [facility] WHO INFORMED CM THAT [facility] AND [facility] ARE NOT IN NETWORK WITH COVENTRY MEDICARE. CM CALLED BHARATH OF [facility], THEY ARE NOT IN NETWORK WITH COVERNTRY MEDICARE. CM CALLED [facility], [facility], THEY DO ACCEPT COVENTRY MEDICARE. CM CALLED Tracy Alexander - Sister (POA) - [phone], INFORMED OF ABOVE, TRACY REPORTS HAVING NO PREFERENCE ON THE THREE IN NETWORK FACILITIES AND ASKED THAT CM WORK FOR REHAB PLACEMENT IN A COVERED FACILITY. CM NOTIFIED EDWARD OF [facility], , OF REFERRAL, FAXED TO [phone]. CM CALLED AND NOTIFIED CELENA OF [facility], , NOTIFIED OF REFERRAL AND FAXED REFERRAL TO [facility] AT [phone]. CM WAITING ADMISSION DETERMINATIONS FROM [facility]. CM WAITING INSURANCE AUTHORIZATION FOR [facility] RE[facility]AB SERVICES. Vanessa Dove, CASE MANAGEMENT DCP- Discharge Planning Updated by [id number]: Vanessa Dove on 05/06/19 6:[address] Patient Name: DANIEL ALVAREZ Encounter No: [id number] : 1945 Primary Insurance: COVENTRY [employer]VANT[employer] Anticipated DC Date: 05-05-2019 Planned Disposition: Prison Facility External Planned Provider: [facility], MEDICARE REHAB BED DCP follow-up note: LATE ENTRY FROM 05-05-19: CM SPOKE TO PT'S SISTER WHO WAS SPEAKING TO PT'S INSURANCE PROVIDER, [employer] ON THE PHONE REGARDING PLACEMENT FOR REHAB. PT'S SISTER ASKED CM TO SPEAK TO FADI OF [facility]. PETER ADVISED THAT THE FOLLOWING [facility] FACILITIES ARE IN NETWORK WITH [facility] : [facility], [facility], [facility], [facility], [facility] IN [place] AND [facility] IN [place]. PT'S SISTER REQUESTED REFERRAL BE SENT TO [facility] FOR REHAB. PT'S SISTER IS ALSO APPEALING INSURANCE DECISION OF DENIAL FOR [facility] CONTRACT AND STATES SHE WAS ADVISED THAT SHE CAN APPEAL THE [facility] DENIAL WHILE CM CONTINUES SEEKING PLACEMENT AT [facility]. CHOICE FOR [facility] SIGNED. ON 05-06-19, CM NOTIFIED MING OF [facility] OF REFERRAL FOR REHAB AT [phone], FAXED REHAB REFERRAL TO [facility] VIA MING AT [phone]. CM WAITING ADMISSION DETERMINATION FROM [facility] WELL INSURANCE DETERMINATION FOR REHAB SERVICES AT [facility]. Vanessa Dove, CASE MANAGEMENT DCP- Discharge Planning Updated by [id number]: Vanessa Dove on 05/05/19 3:[address] Patient Name: DANIEL ALVAREZ Encounter No: [id number] : 1945 Primary Insurance: [employer] Anticipated DC Date: 05-05-2019 Planned Disposition: Prison Facility External Planned Provider: TO BE DETERMINED DCP follow-up note: CM SPOKE TO DONG OF [facility], INSURANCE HAS DECLINED CONTRACT FOR REHAB PLACEMENT. DONG HAS NOTIFIED PT AND SISTER IN ROOM. CM SPOKE TO PT'S SISTER REGARDING CALLING [employer] TO FIND OUT IF THERE IS AN IN NETWORK FACILITY AND WHERE THE FACILITY WOULD BE LOCATED. CM DISCUSSED [facility]. PT'S SISTER DOES NOT WANT TO PLACE PT INTO [facility] IN A FDC. PT'S SISTER CALLING [employer] TO DISCUSS OPTIONS FOR REHAB AND WILL NOTIFY CM OF POSSIBLE OPTIONS. CM TO FOLLOW UP WITH PT'S SISTER REGARDING PLACEMENT. Vanessa Dove, CASE MANAGEMENT DCP- Discharge Planning Updated by [id number]: Brittni Nieves on 05/05/19 10:[address] RECEIVED A VOICEMAIL FROM HEBER WITH [employer]. CALLED HER BACK AT [phone]. SHE STATED THAT SHE HAS EVERYTHING READY TO BE SUBMITTED TO THE OFFICE MANAGER EXECUTIVE ASSISTANT (AND THE INFORMATION LOOKS APPROPRIATE), BUT WHEN SHE REACHED OUT TO [facility], SHE WAS TOLD THEY WERE TOO BUSY TO SUBMIT FOR AUTH YET AND SHE WAS REASSURED THEY WOULD DO IT TODAY. SHE STATED THAT THE FACILITY WAS NON [facility] AND THEY WOULD ALSO HAVE TO BE SUBMIT FOR THIS. I EXPLAINED THAT THE PATIENT HAS BEEN AT THIS FACILITY BEFORE AND THEY KNOW THE STEPS. I ASKED WHO SHE SPOKE WITH AND SHE STATED THAT SHE ASKED FOR DONG, IN THE CASEMANAGEMENT NOTES, AND WAS TRANSFERRED TO THE BUSINESS OFFICE. SHE DID NOT HAVE THE NAME OF THE LADY SHE SPOKE WITH, BUT STATED SHE WAS TOLD THEY WOULD SUBMIT FOR AUTH TODAY. I WILL CONTINUE TO ENTER DELAYS. DCP- Discharge Planning Updated by [id number]: Vanessa Dove on 05/04/19 10:[address] Patient Name: DANIEL ALVAREZ Encounter No: [id number] : 1945 Primary Insurance: No Chains Anticipated DC Date: 05-05-2019 Planned Disposition: Prison Facility External Planned Provider: [facility], MEDICARE REHAB BED DCP follow-up note: CM RECEIVED CALL FROM HEIKE NAVA, , WHO REQEUSTED UPDATE ON PLACEMENT AT [facility] FOR REHAB. CM INFORMED HEIKE THAT WE ARE STILL WAITING AUTHORIZATION FROM PT'S INSURANCE. CM SPOKE TO DONG OF [facility], , WHO INFORMED CM THAT HE IS WAITING ON INSURANCE APPROVAL FOR CONTRACT WITH AUTHORIZATION [facility] TO PROVIDE REHAB SERVICE TO PATIENT. DNOG REPORTS NOT NEEDING UPDATE TODAY AND TO WAIT TO FAX ANY UPDATES UNTIL THEY HEAR FROM INSURANCE. CM NOTIFIED PT WHO IS IN AGREEMENT WITH DISCHARGE TO REHAB AT [facility]. PT IS UP TO CHAIR. IMPORTANT MESSAGE FROM MEDICARE PROVIDED AND EXPLAINED. CM WAITING INSURANCE AUTHORIZATION FOR REHAB AT [facility]. Vanessa Dove, CASE MANAGEMENT DCP- Discharge Planning Updated by [id number]: Lesly Rios on 05/01/19 12:[address] Patient Name: DANIEL ALVAREZ Admission Status: ER Accout number: [id number] Admission Date: 04-12-2019 : 1945 Admission Diagnosis:FRACTURE OF SUPERIOR RIM OF RIGHT PUBIS, INIT FOR CLOS Attending: MYESHA JOYNER Current LOS: 19 Anticipated DC Date: Planned Disposition: Prison Facility Primary Insurance: COVENTRY [employer] ADVANTAGE Discharge Planning Comments: [place] HAD BEEN SIGNED FOR [facility] SNF, I FAXED REFERRAL TODAY. CM WILL FOLLOW AND ASSIST. Optical Engineer: Lesly Rios DCP- Discharge Planning Updated by [id number]: Vanessa Dove on 04/28/19 4:[address] Patient Name: DANIEL ALVAREZ Encounter No: [id number] : 1945 Primary Insurance: COVENTRY [employer] ADVANTAGE Anticipated DC Date: Planned Disposition: Inpatient Rehab External Planned Provider: [facility] DCP follow-up note: CM PARTICIPATED IN MULTIDISCIPLINARY TEAM MEETING, WAS INFORMED BY VIDA OF INPATIENT REHAB AT [facility] THAT THEY ARE SUBMITTING FOR INSURANCE AUTHORIZATION AGAIN TODAY. CM NOTIFIED PT WHO IS WILLING FOR INPATIENT REHAB AT [facility] AND UNDERSTANDS AND AGREES THAT IF DECLINED, SHE WILL GO TO [facility] FACILITY [place] OTHER THAN [facility]. IMPORTANT MESSAGE FROM MEDICARE PROVIDED AND EXPLAINED. CM WAITING INSURANCE DETERMINATION FOR INPATIENT REHAB AT [facility]. Vanessa Dove, CASE MANAGEMENT DCP- Discharge Planning Updated by [id number]: Vanessa Dove on 04/27/19 10:[address] Patient Name: DANIEL ALVAREZ Encounter No: [id number] : 1945 Primary Insurance: COVENTRY [employer] ADVANTAGE Anticipated DC Date: Planned Disposition: Inpatient Rehab External Planned Provider: [facility] IN[facility] DCP follow-up note: CM SPOKE TO VIDA OF [facility] INPATIENT REHAB DURING MULTIDICIPLINARY TEAM MEETING WHO INFORMED GROUP THAT SHE IS RESUBMITTING TO INSURANCE FOR AUTHORIZATION DETERMINATION FOR INPATIENT REHAB. CM HAS PREVIOUSLY SPOKEN TO PT'S SISTER / POA WHO HAS DISCUSSED PLAN OF [facility] [place] IF DECLINED INPATIENT REHAB; JUST NOT [facility]. CM WAITING INSURANCE AUTHORIZATION FOR DENIAL FOR INPATIENT REHAB AT [facility]. Vanessa Dove. CASE MANAGEMENT DCP- Discharge Planning Updated by [id number]: Caitlyn Hodgson on 04/26/19 2:[address] CM RECEIVED MD ORDER TO CHECK IF DISCHARGE PLAN IS STILL FOR HOME. IN REVIEW OF WEEKDAY CM THE PLAN IS FOR A [facility] FACILITY. SPOKE W/ THE PRIMARY NURSE, ROSANA. THE PATIENT HAS SOME DEGREE OF CONFUSION. SHE WISHES TO DISCHARGE TO HOME. PER THE NURSING NOTES THE FAMILY WAS AT THE BEDSIDE EARLIER THIS AM. TC TO POA, SISTER, TRACY. NO ANSWER. LEFT VM FOR TRACY ALEXANDER TO RETURN CALL WHEN AVAILAABLE. DCP- Discharge Planning Updated by [id number]: Vanessa Dove on 04/23/19 4:[address] Patient Name: DANIEL ALVAREZ Encounter No: [id number] : 1945 Primary Insurance: No Chains Anticipated DC Date: Planned Disposition: Inpatient Rehab External Planned Provider: [facility] DCP follow-up note: CM RECEIVED CALL FROM PT'S SISTER AND POWER OF PROCUREMENT ENGINEER, TRACY GONZALEZ, WHO WANTED TO DISCUSS DISCHARGE PLANNING. TRACY REPORTS PT NEEDS REHAB INPATIENT AT [facility] AND IF DELCINED, SHE WILL NEED ANY [facility] REHAB EXCEPT [facility]. TRACY REPORTS PT HAS DEMENTIA, LIVES WITH HER (TRACY) AND THEY DISCUSSED REHAB LAST NIGHT, PT IS IN AGREEMENT WITH REHAB SERVICES. IF TRACY DOES NOT ANSWER HER PHONE, SHE DIRECTED CM TO CALL HEIKE, HER SPOUSE, . CM SPOKE TO VIDA OF INPATIENT REHAB AT MULTIDISCIPLINARY TEAM MEETING, INPATIENT REHAB TO RESUBMIT TO INSURANCE FOR INPATIENT REHAB AUTHORIZATION REQUEST. CM TO CONTINUE TO FOLLOW AND ASSIST IF NEEDED. Vanessa Dove, CASE MANAGEMENT DCP- Discharge Planning Updated by [id number]: Vanessa Dove on 04/22/19 3:[address] Patient Name: DANIEL ALVAREZ Encounter No: [id number] : 1945 Primary Insurance: No Chains Anticipated DC Date: Planned Disposition: Home with Home Health External Planned Provider: TO BE DETERMINED DCP follow-up note: CM RECEIVED CALL FROM VIDA OF INPATIENT REHAB, PT WAS DECLINED BY INSURANCE FOR INPATIENT REHAB. CM SPOKE TO PT IN ROOM, PT DOES NOT WANT TO GO TO [facility] FOR REHAB AND WANTS TO RETURN HOME WITH HOME HEALTH. PT REPORTS GETTING OUT OF BED AND WALKING INDEPENDENTLY AND IS STONG ENOUGH TO RETURN HOME AT DISCHARGE. PT DENIES FURHTER NEEDS OTHER THAN HOME HEALTH. CM NOTIFIED PEPITO RIDER. CM TO FOLLOW UP WITH PT SOON POSSIBLE TO GET PT'S CHOICE ON HOME HEALTH PROVIDER AND WILL ARRANGE HOME HEALTH FOR DISCHARGE HOME WITH PHYSICIAN AGREEEMENT AND ORDERS. Vanessa Dove, CASE MANAGEMENT DCP- Discharge Planning Updated by [id number]: Zohreh Potter on 04/15/19 10:[address] CM spoke with patient's sister yesterday. Her sister (Tracy) states she doesn't want her to go to a halfway if possible. She states that she would like her to go to inpatient rehab. I informed her that she would need authorization for that from insurance and inpatient rehab is already working on that. I informed her that it could probably be a denial if she is unable to participate in 3 hours of therapy a day. Her sister states if she is denied, that she would consent to a skilled unit. I spoke with Maria E with [facility], and Maria E states she believes [facility] and [facility] are in network, but unsure. I also spoke with Dong Mac with [facility] and he states he may be able to work with her insurance for authorization. Her sister states it does not matter which one she goes to, "whatever we can find". zeyad Menjivar for [facility], states they are not in network with [employer]. CM will continue to follow and assist with discharge planning/needs. DCP- Discharge Planning Updated by [id number]: Zohreh Potter on 04/13/19 2:[address] Patient Name: DANIEL ALVAREZ Admission Status: Accout number: [id number] Admission Date: 04-12-2019 : 1945 Admission Diagnosis: Attending: MYESHA JOYNER Current LOS: 1 Anticipated DC Date: Planned Disposition: Inpatient Rehab Primary Insurance: COVENTRY [employer] Discharge Planning Comments: CM met with patient to discuss discharge planning/needs. She lives with her sister and brother in law in a mobile home. She states she is ok with going to rehab and doesn't care where she goes. Permission granted to call her family for further planning. I spoke with patient's brother in law (Heike) to discuss discharge plan. I informed them of the availability of inpatient rehab, SNF, home health and DME. He states he would like her to stay here at our inpatient rehab if possible. He states that he feels she may need more than 2 weeks of therapy though. I discussed SNF. He states he would like a referral to [facility] if inpatient rehab is not authorized. I spoke with Ming at [facility], they do not accept [place]. She will need preauthorization for inpatient rehab. CM will continue to follow and assist with discharge planning/needs. Optical Engineer: Zohreh Potter DCPIA - Discharge Planning Initial Assessment Updated by [id number]: Zohreh Potter on 04/13/19 3:17 pm * Is the patient Alert and Oriented? Yes * How many steps to enter\\exit or inside your home? 4/0 * PCP Flakita Delaney * Pharmacy [facility] * Preadmission Environment Home with Family * ADLs Partial Dependent * Partial ADLs (Assistance needed) Ambulation Medication Management * Equipment Cane Nebulizer Other Oxygen * Other Equipment Portable oxygen Trilogy * List name and contact numbers for known caregivers / representatives who currently or will assist patient after discharge: Heike Alexander - Brother in law - [phone] Tracy Alexander - Sister (POA) - [phone] * Verbal permission to speak to the caregivers and representatives has been obtained from the patient. Yes * Community resources currently utilized Other * Please name any agencies selected above. [facility] * Additional services required to return to the preadmission environment? Yes * Can the patient safely return to the preadmission environment? No * Has this patient been hospitalized within the prior 30 days at any hospital? No Coverage Notice Reviewer: [id number] - Zohreh Potter Notice Issued Date-Time: 04/13/2019 15:24 Notice Type: Patient Choice Letter Notice Delivered To: Family Member Relationship to Patient: Brother in Law Celebrity Chef Entrepreneur Media Personality Name: Heike Alexander Delivery Method: HAND - Hand Delivered Isha Days: Prior Verbal Notification: Recipient Understood Notice: Yes Recipient Signature: Med Rec Note Co-signed by Attending: Coverage Notice Comment: [place] for [facility] Reviewer: [id number] - Vanessa Dove Notice Issued Date-Time: 04/28/2019 15:50 Notice Type: IM Discharge Notice Notice Delivered To: Patient Relationship to Patient: Celebrity Chef Entrepreneur Media Personality Name: Delivery Method: HAND - Hand Delivered Isha Days: Prior Verbal Notification: Recipient Understood Notice: Yes Recipient Signature: Yes Med Rec Note Co-signed by Attending: Coverage Notice Comment: Reviewer: JEFERSON Dove Notice Issued Date-Time: 05/04/2019 11:25 Notice Type: IM Discharge Notice Notice Delivered To: Patient Relationship to Patient: Celebrity Chef Entrepreneur Media Personality Name: Delivery Method: HAND - Hand Delivered Isha Days: Prior Verbal Notification: Recipient Understood Notice: Yes Recipient Signature: Yes Med Rec Note Co-signed by Attending: Coverage Notice Comment: Reviewer: JEFERSON Dove Notice Issued Date-Time: 05/05/2019 16:10 Notice Type: Patient Choice Letter Notice Delivered To: Family Member Relationship to Patient: Sister Celebrity Chef Entrepreneur Media Personality Name: TRACY ALEXANDER Delivery Method: HAND - Hand Delivered Isha Days: Prior Verbal Notification: Recipient Understood Notice: Yes Recipient Signature: Yes Med Rec Note Co-signed by Attending: Coverage Notice Comment: [facility] Reviewer: [id number] Dove Notice Issued Date-Time: 05/06/2019 8:00 Notice Type: IM Discharge Notice Notice Delivered To: Family Member Relationship to Patient: Sister Celebrity Chef Entrepreneur Media Personality Name: TRACY ALEXANDER Delivery Method: HAND - Hand Delivered Isha Days: Prior Verbal Notification: Recipient Understood Notice: Yes Recipient Signature: Yes Med Rec Note Co-signed by Attending: Coverage Notice Comment: Reviewer: JEFERSON Dove Notice Issued Date-Time: 05/07/2019 15:07 Notice Type: IM Discharge Notice Notice Delivered To: Family Member Relationship to Patient: Brother in Law Celebrity Chef Entrepreneur Media Personality Name: HEIKE ALEXANDER Delivery Method: HAND - Hand Delivered Isha Days: Prior Verbal Notification: Recipient Understood Notice: Yes Recipient Signature: Yes Med Rec Note Co-signed by Attending: Coverage Notice Comment: Last DP export: 05/07/19 2:23 p Patient Name: DANIEL ALVAREZ Page 10024 at 1735 All edits/amendments must be made on the electronic document DICTATION DATE: 05/07/191733 PARI MUTUEL TICKET SELLER: TIFFANY 05/07/191733 RPT#: [id number] DC DATE: STATUS: ADM IN [facility] [address] [place] [address] END OF REPORT
[2019-05-07] MEDS ORDERED: TESSALON PERLE100 MG PO (18:16)
[2019-05-07] MEDS ORDERED: MUCINEX600 MG PO (18:16)
[2019-05-07] MEDS ORDERED: BETAPACE 80 MG80 MG PO (18:16)
[2019-05-08] VITALS: BP 103/61
[2019-05-08 04:24] VITALS: BP 120/80
[2019-05-08 06:09] LABS: BASOPHILS 0.6 % (0-2); EOSINOPHILS 8.2 % (0-7); HEMATOCRIT 38.8 % (36.0-48.0); HEMOGLOBIN 11.3 g/dL (12-16); IMMATURE GRANULOCYTES 0.3 % (0-5); LYMPHOCYTES 32.6 % (15-50); MCH 29.2 pg (26.0-34.0); MCHC 29.1 g/dL (31.0-37.0); MCV 100.3 fL (80.0-100.0); MEAN PLATELET VOLUME 11.5 fL (7.4-10.4); MONOCYTES 9.4 % (2-11); NEUTROPHILS 48.9 % (40-80); PLATELET COUNT 278 10x3/uL (130-400); RBC 3.87 10x6/uL (4.00-5.40)
[2019-05-08 06:12] LABS: WBC 7.1 10x3/uL (4.8-10.8)
[2019-05-08 06:17] LABS: CALCIUM 9.5 mg/dL (8.5-10.1); CREATININE - SERUM 0.8 mg/dL (0.6-1.3); POTASSIUM - SERUM 4.1 mmol/L (3.5-5.1)
[2019-05-08 06:58] LABS: CARBON DIOXIDE 44.1 mmol/L (21.0-32.0)
--- NOTE | 2019-05-08 07:30 | NUR ---
PT RESTING IN BED, SHIFT ASSESSMENT PERFORMED. ASSISTED PT WITH [facility] AND CHANGED PT INTO HER PJS THAT SHE WILL WEAR HOME. NICK ALARM ON AND TESTED. WILL CONT TO FOLLOW POC
[2019-05-08 09:12] VITALS: BP 120/71
--- NOTE | 2019-05-08 09:35 | MORECARE ---
CASE MANAGEMENT DISCHARGE SUMMARY PATIENT: DANIEL ALVAREZ UNIT: [id number] ADM DATE: 04/12/19 AGE: 74 : 44 SEX: F ROOM/BED: D.3213 AUTHOR: WILL,DOC PHYSICIAN: REFERRING PHYSICIAN: MYESHA JOYNER MD DATE OF SERVICE: 05/08/19 Discharge Plan Patient Name: DANIEL ALVAREZ Facility: [facility] : 1945 Planned Disposition: Prison Facility Anticipated Discharge Date: 05/05/19 Discharge Date: Expected LOS: 23 Initial Reviewer: [id number] Initial Review Date: 04/13/2019 Generated: 05/08/19 10:34 am Comments DCP- Discharge Planning Updated by [id number]: Vanessa Dove on 05/07/19 4:[address] Patient Name: DANIEL ALVAREZ Encounter No: [id number] : 1945 Primary Insurance: Streame[employer]RE [employer] Anticipated DC Date: 05-05-2019 Planned Disposition: Prison Facility External Planned Provider: [facility], MEDICARE REHAB BED DCP follow-up note: CM RECEIVED CALL FROM EDWARD AT [facility], , NOTIFIED THEY WILL ACCEPT TOMORROW MORNING, WILL ARRANGE VAN ACCOUNTING/FINANCE TUTOR EARLY. CM NOTIFIED PT'S BROTHER IN LAW, HEIKE, VIA PHONE, WHO IS IN AGREEMENT WITH DISCHARGE PLAN. PEPITO RIDER NOTIFIED. FOR DISCHARGE, FAX DISCHARGE INFORMATION TO [facility] AT [phone]. NURSE REPORT TO BE CALLED TO [facility] AT [phone]. [facility] TO ARRANGE VAN ACCOUNTING/FINANCE TUTOR FIRST THING IN THE MORNING, 05-08-19. Vanessa Dove, CASE MANAGEMENT DCP- Discharge Planning Updated by [id number]: Vanessa Dove on 05/07/19 2:[address] Patient Name: DANIEL ALVAREZ Encounter No: [id number] : 1945 Primary Insurance: StreamezzoRE [employer] Anticipated DC Date: 05-05-2019 Planned Disposition: Prison Facility External Planned Provider: [facility], MEDICARE REHAB BED DCP follow-up note: CM CALLED CELENA [facility], , WHO INFORMED CM THAT SHE DID NOT RECEIVE THE REFERRAL FOR REHAB. CM REFAXED REFERRAL, , INFORMED CELENA THAT PT IS READY TO DISCHARGE AND HAS 20 SKILLED DAYS PER INSURANCE; CM EXPLAINED REFERRAL TO [facility] INSURANCE DENIAL FOR INPATIENT REHAB SERVICES. CM SPOKE TO EDWARD OF [facility] AT N[facility]ES [facility], SHE VISITED WITH PT AND THEY STILL PLAN TO ACCEPT PT ONCE FINANCIAL ARRANGEMENTS ARE COMPLETED WITH FAMILY. CM LATER SPOKE TO HEIKE ALEXANDER AT NURSES STATION, HE HAS NOT RECEIVED ANY CALLS FROM [facility] TO DISCUSS FINANCIAL ARRANGEMENTS FOR PT. CM PROVIDED HEIKE WITH THE NAME OF KATHLEEN AND CONTACT NUMBER FOR [facility]. HEIKE REPORTS NO PREFERENCE ON FACILITY, PT WILL GO TO FIRST ACCEPTING REHAB. IMPORTANT MESSAGE FROM MEDICARE PROVIDED AND EXPLAINED. CM WAITING FAMILY TO WORK OUT FINANCIAL ARRANGEMENTS WITH [facility] AND FOR ADMISSION DETERMINATION FROM [facility]. Vanessa Dove, CASE MANAGEMENT DCP- Discharge Planning Updated by [id number]: Brittni Nieves on 05/07/19 1:[address] @ 1411, CALLED HEBER WITH [employer] ([phone]). I HAVE EXPLAINED TO HER THAT [facility] KNOWS THAT THE PATIENT HAS 20 DAYS WITH NO COPAY, BUT THEY ARE REFUSING TO TAKE THE PATIENT UNTIL THEY HAVE A MEDICAID APPLICATION COMPLETED IN CASE SHE STAYS MORE THAN 20 DAYS. I HAVE LET HER KNOW THAT A REFERRAL HAS BEEN SENT TO [facility] AND [facility]HAB, AND IF THEY DECIDE TO TAKE THE PATIENT THEY WILL BE SUBMITTING FOR AUTH. HEBER HAS STATED THAT IF THE PATIENT DOES NOT DISCHARGE TODAY, THEN THEY WILL HAVE TO HAVE THE REQUEST GO BACK TO THE JEWELRY FACER FOR [facility], WHICH CAN TAKE A FEW DAYS TO RECEIVE BACK. SHE STATED THAT SHE CANNOT SAY THE OUTCOME WOULD BE ANY DIFFERENT WITH THE RESUBMISSION, BUT SHE CAN SAY IT WILL TAKE LONGER TO GET BACK. I HAVE APOLOGIZED FOR ALL THE RIGMAROLE. WILL WAIT FOR THE DETERMINATION. DCP- Discharge Planning Updated by [id number]: Brittni Nieves on 05/07/19 12:[address] RECEIVED A CALL FROM HEBER WITH [employer]. SHE WANTE TO KNOW IF THE PATIENT HAS LEFT YET AND IF SHE CAN HAVE DISCHARGE INFORMATION. I EXPLAINED THAT NOW WE ARE IN A HOLDING PATTERN OVER THE COPAY SECONDARY TO THEM NOT BEING ABLE TO AFFORD THE $157 OR $159/DAY FEE THEY WOULD HAVE TO PAY AND THAT THE BUSINESS OFFICE AT [facility] IS TRYING TO GET AHOLD OF THE SISTER TO SEE ABOUT APPLYING FOR MEDICAID. PER HEBER THE PATIENT HAD 62 OR 63 WELL DAYS AND SHE SHOULD HAVE 20 DAYS WITH NO COPAY DAYS AND THE PATIENT SHOULD BE ABLE TO DISCHARGE TO THE FACILITY AND THEY COULD FIGURE IT OUT WHILE THEY ARE THERE. SHE STATED THAT SHE IS GOING TO DOUBLE CHECK AND MAKE SURE THAT SHE IS COMPLETELY CORRECT ABOUT THE PATIENT RESETTING AND WILL CALL ME BACK. WILL RELAY THIS INFORMATION TO THE DISCHARGE CASEMANAGER AND WAIT FOR RETURN CALL. DCP- Discharge Planning Updated by [id number]: Vanessa Dove on 05/07/19 11:[address] Patient Name: DANIEL ALVAREZ Encounter No: [id number] : 1945 Primary Insurance: [employer]ii ADVANTAGE Anticipated DC Date: 05-05-2019 Planned Disposition: Prison Facility External Planned Provider: [facility], MEDICARE REHAB BED DCP follow-up note: CM RETURNED CALL TO KATHLEEN AT [facility], , [facility] HAS VERIFIED INSURANCE AND IS TRYING TO CONTACT PT'S SISTER TO DISCUSS COPAY OF $157 PER DAY AND WILL OFFER TO FILE FOR MEDICAID TO COVER THE COSTS IF NECESSARY, BUT CANNOT ADMIT UNTIL THIS IS DECIDED BY FAMILY. CM PROVIED CONTACT PHONE NUMBERS FOR PT'S SISTER AND BROTHER IN LAW. CM WAITING ADMISSION DETERMINATION FROM [facility] IN [place] WELL FAMILY TO DECIDE REGARDING PAYING COPAY OR FILING FOR MEDICAID. VANESSA DOVE, CASE MANAGEMENT DCP- Discharge Planning Updated by [id number]: Brittni Nieves on 05/06/19 2:[address] @9940, SPOKE WITH HEBER WITH [employer]. SHE STATED THAT THE SNF AUTH FOR [facility] HAS BEEN APPROVED FOR SNF WITH #[id number]. SHE STATED THAT SHE HAS CALLED TO NOTIFY THE [facility] BEFORE SHE CALLED ME AND LEFT A VOICEMAIL ON THE BUSINESS OFFICE VOICEMAIL. @5090, I TRIED TO CALL SOLE ([phone]), AND I ORIGINALLY SPOKE CAYLA ALEX WHO ULTIMATELY TRANSFERRED TO THE BUSINESS OFFICE AND I LEFT A VOICEMAIL ON KATHLEEN'S MACHINE INQUIRING ON TO WHEN THEY WOULD ACCEPT THE PATIENT NOW THAT WE HAVE AUTH. I REPEATED THE AUTH # AND ALSO MENTIONED THAT HEBER CALLED AND SAID SHE LEFT HER A VOICEMAIL PRIOR TO CALLING ME. WE WILL WAIT FOR A RESPONSE FROM THEM. DCP- Discharge Planning Updated by [id number]: Vanessa Dove on 05/06/19 8:[address] Patient Name: DANIEL ALVAREZ Encounter No: [id number] : 1945 Primary Insurance: COVENTRY Topokine [employer]rapeuticsRE ADVANTAGE Anticipated DC Date: 05-05-2019 Planned Disposition: Prison Facility External Planned Provider: [facility], MEDICARE REHAB BED DCP follow-up note: CM RECEIVED CALL FROM MING [facility] WHO INFORMED CM THAT [facility] [employer] AND THE [facility] ARE NOT IN NETWORK WITH COVENTRY MEDICARE. CM CALLED [facility], THEY ARE NOT IN NETWORK WITH COVERNTRY MEDICARE. CM CALLED [facility], [facility] AND [facility], THEY DO ACCEPT COVENTRY MEDICARE. CM CALLED Tracy Alexander - Sister (POA) - [phone], INFORMED OF ABOVE, TRACY REPORTS HAVING NO PREFERENCE ON THE THREE IN NETWORK FACILITIES AND ASKED THAT CM WORK FOR REHAB PLACEMENT IN A COVERED FACILITY. CM NOTIFIED EDWARD OF [facility], , OF REFERRAL, FAXED TO [phone]. CM CALLED AND NOTIFIED CELENA OF [facility], , NOTIFIED OF REFERRAL AND FAXED REFERRAL TO [facility] AT [phone]. CM WAITING ADMISSION DETERMINATIONS FROM [facility]. CM WAITING INSURANCE AUTHORIZATION FOR SHELTER REHAB SERVICES. Vanessa Dove, CASE MANAGEMENT DCP- Discharge Planning Updated by [id number]: Vanessa Dove on 05/06/19 6:[address] Patient Name: DANIEL ALVAREZ Encounter No: [id number] : 1945 Primary Insurance: COVENTRY MCARE ADVANTAGE Anticipated DC Date: 05-05-2019 Planned Disposition: Prison Facility External Planned Provider: [facility], MEDICARE REHAB BED DCP follow-up note: LATE ENTRY FROM 05-05-19: CM SPOKE TO PT'S SISTER WHO WAS SPEAKING TO PT'S INSURANCE PROVIDER, [employer] ON THE PHONE REGARDING PLACEMENT FOR REHAB. PT'S SISTER ASKED CM TO SPEAK TO FADI OF [facility]. PETER ADVISED THAT THE FOLLOWING SHELTER FACILITIES ARE IN NETWORK WITH [facility] OF : [facility], [facility], [facility] [place] AND [facility] [place]. PT'S SISTER REQUESTED REFERRAL BE SENT TO [facility] FOR REHAB. PT'S SISTER IS ALSO APPEALING INSURANCE DECISION OF DENIAL FOR [facility] CONTRACT AND STATES SHE WAS ADVISED THAT SHE CAN APPEAL THE [facility] DENIAL WHILE CM CONTINUES SEEKING PLACEMENT AT [facility]. CHOICE FOR [facility] SIGNED. ON 05-06-19, CM NOTIFIED MING OF [facility] OF REFERRAL FOR REHAB AT [phone], FAXED REHAB REFERRAL TO [facility] VIA [facility] AT [phone]. CM WAITING ADMISSION DETERMINATION FROM [facility] WELL INSURANCE DETERMINATION FOR REHAB SERVICES AT [facility]. Vanessa Dove, CASE MANAGEMENT DCP- Discharge Planning Updated by [id number]: Vanessa Dove on 05/05/19 3:[address] Patient Name: DANIEL ALVAREZ Encounter No: [id number] : 1945 Primary Insurance: [employer]ii ADVANTAGE Anticipated DC Date: 05-05-2019 Planned Disposition: Prison Facility External Planned Provider: TO BE DETERMINED DCP follow-up note: CM SPOKE TO DONG OF [facility], INSURANCE HAS DECLINED CONTRACT FOR REHAB PLACEMENT. DONG HAS NOTIFIED PT AND SISTER IN ROOM. CM SPOKE TO PT'S SISTER REGARDING CALLING [employer] TO FIND OUT IF THERE IS AN IN NETWORK FACILITY AND WHERE THE FACILITY WOULD BE LOCATED. CM DISCUSSED ALF CARE. PT'S SISTER DOES NOT WANT TO PLACE PT INTO [facility] CARE IN A [facility]. PT'S SISTER CALLING [employer] TO DISCUSS OPTIONS FOR REHAB AND WILL NOTIFY CM OF POSSIBLE OPTIONS. CM TO FOLLOW UP WITH PT'S SISTER REGARDING PLACEMENT. Vanessa Dove, CASE MANAGEMENT DCP- Discharge Planning Updated by [id number]: Brittni Nieves on 05/05/19 10:[address] RECEIVED A VOICEMAIL FROM HEBER WITH [employer]. CALLED HER BACK AT [phone]. SHE STATED THAT SHE HAS EVERYTHING READY TO BE SUBMITTED TO THE JEWELRY FACER (AND THE INFORMATION LOOKS APPROPRIATE), BUT WHEN SHE REACHED OUT TO [facility], SHE WAS TOLD THEY WERE TOO BUSY TO SUBMIT FOR AUTH YET AND SHE WAS REASSURED THEY WOULD DO IT TODAY. SHE STATED THAT THE FACILITY WAS NON [facility], AND THEY WOULD ALSO HAVE TO BE SUBMIT FOR THIS. I EXPLAINED THAT THE PATIENT HAS BEEN AT THIS FACILITY BEFORE AND THEY KNOW THE STEPS. I ASKED WHO SHE SPOKE WITH AND SHE STATED THAT SHE ASKED FOR DONG, IN THE CASEMANAGEMENT NOTES, AND WAS TRANSFERRED TO THE BUSINESS OFFICE. SHE DID NOT HAVE THE NAME OF THE LADY SHE SPOKE WITH, BUT STATED SHE WAS TOLD THEY WOULD SUBMIT FOR AUTH TODAY. I WILL CONTINUE TO ENTER DELAYS. DCP- Discharge Planning Updated by [id number]: Vanessa Dove on 05/04/19 10:[address] Patient Name: DANIEL ALVAREZ Encounter No: [id number] : 1945 Primary Insurance: [employer]anyon Anticipated DC Date: 05-05-2019 Planned Disposition: Prison Facility External Planned Provider: [facility], MEDICARE REHAB BED DCP follow-up note: CM RECEIVED CALL FROM HEIKE NAVA, , WHO REQEUSTED UPDATE ON PLACEMENT AT [facility] FOR REHAB. CM INFORMED HEIKE THAT WE ARE STILL WAITING AUTHORIZATION FROM PT'S INSURANCE. CM SPOKE TO DONG OF [facility], , WHO INFORMED CM THAT HE IS WAITING ON INSURANCE APPROVAL FOR CONTRACT WITH AUTHORIZATION [facility] TO PROVIDE REHAB SERVICE TO PATIENT. DONG REPORTS NOT NEEDING UPDATE TODAY AND TO WAIT TO FAX ANY UPDATES UNTIL THEY HEAR FROM INSURANCE. CM NOTIFIED PT WHO IS IN AGREEMENT WITH DISCHARGE TO REHAB AT [facility]. PT IS UP TO CHAIR. IMPORTANT MESSAGE FROM MEDICARE PROVIDED AND EXPLAINED. CM WAITING INSURANCE AUTHORIZATION FOR REHAB AT [facility]. Vanessa Dove, CASE MANAGEMENT DCP- Discharge Planning Updated by [id number]: Lesly Rios on 05/01/19 12:[address] Patient Name: DANIEL ALVAREZ Admission Status: ER Accout number: [id number] Admission Date: 04-12-2019 : 1945 Admission Diagnosis:FRACTURE OF SUPERIOR RIM OF RIGHT PUBIS, INIT FOR CLOS Attending: MYESHA JOYNER Current LOS: 19 Anticipated DC Date: Planned Disposition: Prison Facility Primary Insurance: COVENTRY MCARE ADVANTAGE Discharge Planning Comments: [place] HAD BEEN SIGNED FOR [facility] SNF, I FAXED REFERRAL TODAY. CM WILL FOLLOW AND ASSIST. Ball Rolling Machine Operator: Lesly Rios DCP- Discharge Planning Updated by [id number]: Vanessa Dove on 04/28/19 4:[address] Patient Name: DANIEL ALVAREZ Encounter No: [id number] : 1945 Primary Insurance: COVENTRY MCARE ADVANTAGE Anticipated DC Date: Planned Disposition: Inpatient Rehab External Planned Provider: [facility] INPATIENT REHAB DCP follow-up note: CM PARTICIPATED IN MULTIDISCIPLINARY TEAM MEETING, WAS INFORMED BY VIDA OF INPATIENT REHAB AT [facility] THAT THEY ARE SUBMITTING FOR INSURANCE AUTHORIZATION AGAIN TODAY. CM NOTIFIED PT WHO IS WILLING FOR INPATIENT REHAB AT [facility] AND UNDERSTANDS AND AGREES THAT IF DECLINED, SHE WILL GO TO SHELTER FACILITY IN [place] OTHER THAN [facility]. IMPORTANT MESSAGE FROM MEDICARE PROVIDED AND EXPLAINED. CM WAITING INSURANCE DETERMINATION FOR INPATIENT REHAB AT [facility]. Vanessa Dove, CASE MANAGEMENT DCP- Discharge Planning Updated by [id number]: Vanessa Dove on 04/27/19 10:[address] Patient Name: DANIEL ALVAREZ Encounter No: [id number] : 1945 Primary Insurance: COVENTRY MCARE ADVANTAGE Anticipated DC Date: Planned Disposition: Inpatient Rehab External Planned Provider: [facility] INPATIENT REHAB DCP follow-up note: CM SPOKE TO VIDA OF [facility] INPATIENT REHAB DURING MULTIDICIPLINARY TEAM MEETING WHO INFORMED GROUP THAT SHE IS RESUBMITTING TO INSURANCE FOR AUTHORIZATION DETERMINATION FOR INPATIENT REHAB. CM HAS PREVIOUSLY SPOKEN TO PT'S SISTER / POA WHO HAS DISCUSSED PLAN OF [facility]TER IN [place] IF DECLINED INPATIENT REHAB; JUST NOT THE [facility]. CM WAITING INSURANCE AUTHORIZATION FOR DENIAL FOR INPATIENT REHAB AT [facility]. Vanessa Dove. CASE MANAGEMENT DCP- Discharge Planning Updated by [id number]: Caitlyn Hodgson on 04/26/19 2:[address] CM RECEIVED MD ORDER TO CHECK IF DISCHARGE PLAN IS STILL FOR HOME. IN REVIEW OF WEEKDAY CM THE PLAN IS FOR A SHELTER FACILITY. SPOKE W/ THE PRIMARY NURSE, ROSANA. THE PATIENT HAS SOME DEGREE OF CONFUSION. SHE WISHES TO DISCHARGE TO HOME. PER THE NURSING NOTES THE FAMILY WAS AT THE BEDSIDE EARLIER THIS AM. TC TO POA, SISTER, TRACY. NO ANSWER. LEFT VM FOR TRACY ALEXANDER TO RETURN CALL WHEN AVAILAABLE. DCP- Discharge Planning Updated by [id number]: Vanessa Dove on 04/23/19 4:[address] Patient Name: DANIEL ALVAREZ Encounter No: [id number] : 1945 Primary Insurance: Lanyon Anticipated DC Date: Planned Disposition: Inpatient Rehab External Planned Provider: [facility] INPATIENT REHAB DCP follow-up note: CM RECEIVED CALL FROM PT'S SISTER AND POWER OF MILKING MACHINE MECHANIC, TRACY GONZALEZ, WHO WANTED TO DISCUSS DISCHARGE PLANNING. TRACY REPORTS PT NEEDS REHAB INPATIENT AT [facility] AND IF DELCINED, SHE WILL NEED ANY SHELTER REHAB EXCEPT [facility]. TRACY REPORTS PT HAS DEMENTIA, LIVES WITH HER (TRACY) AND THEY DISCUSSED REHAB LAST NIGHT, PT IS IN AGREEMENT WITH REHAB SERVICES. IF TRACY DOES NOT ANSWER HER PHONE, SHE DIRECTED CM TO CALL HEIKE, HER SPOUSE, . CM SPOKE TO VIDA OF INPATIENT REHAB AT MULTIDISCIPLINARY TEAM MEETING, INPATIENT REHAB TO RESUBMIT TO INSURANCE FOR INPATIENT REHAB AUTHORIZATION REQUEST. CM TO CONTINUE TO FOLLOW AND ASSIST IF NEEDED. Vaenssa Dove, CASE MANAGEMENT DCP- Discharge Planning Updated by [id number]: Vanessa Dove on 04/22/19 3:[address] Patient Name: DANIEL ALVAREZ Encounter No: [id number] : 1945 Primary Insurance: [employer]anyon Anticipated DC Date: Planned Disposition: Home with Home Health External Planned Provider: TO BE DETERMINED DCP follow-up note: CM RECEIVED CALL FROM VIDA OF INPATIENT REHAB, PT WAS DECLINED BY INSURANCE FOR INPATIENT REHAB. CM SPOKE TO PT IN ROOM, PT DOES NOT WANT TO GO TO [facility] FOR REHAB AND WANTS TO RETURN HOME WITH HOME HEALTH. PT REPORTS GETTING OUT OF BED AND WALKING INDEPENDENTLY AND IS STONG ENOUGH TO RETURN HOME AT DISCHARGE. PT DENIES FURHTER NEEDS OTHER THAN HOME HEALTH. CM NOTIFIED PEPITO RIEDR. CM TO FOLLOW UP WITH PT SOON POSSIBLE TO GET PT'S CHOICE ON HOME HEALTH PROVIDER AND WILL ARRANGE HOME HEALTH FOR DISCHARGE HOME WITH PHYSICIAN AGREEEMENT AND ORDERS. Vanessa Dove, CASE MANAGEMENT DCP- Discharge Planning Updated by [id number]: Zohreh Potter on 04/15/19 10:[address] CM spoke with patient's sister yesterday. Her sister (Tracy) states she doesn't want her to go to a fdc if possible. She states that she would like her to go to inpatient rehab. I informed her that she would need authorization for that from insurance and inpatient rehab is already working on that. I informed her that it could probably be a denial if she is unable to participate in 3 hours of therapy a day. Her sister states if she is denied, that she would consent to a skilled unit. I spoke with Maria E with [facility], and Maria E states she believes [place] and [facility] are in network, but unsure. I also spoke with Dong Mac with [facility] and he states he may be able to work with her insurance for authorization. Her sister states it does not matter which one she goes to, "whatever we can find". zeyad Menjivar for [facility], states they are not in network with [employer]. CM will continue to follow and assist with discharge planning/needs. DCP- Discharge Planning Updated by [id number]: Zohreh Potter on 04/13/19 2:[address] Patient Name: DANIEL ALVAREZ Admission Status: Accout number: [id number] Admission Date: 04-12-2019 : 1945 Admission Diagnosis: Attending: MYESHA JOYNER Current LOS: 1 Anticipated DC Date: Planned Disposition: Inpatient Rehab Primary Insurance: COVENTRY [employer]ok[employer]RE ADVANTAGE Discharge Planning Comments: CM met with patient to discuss discharge planning/needs. She lives with her sister and brother in law in a mobile home. She states she is ok with going to rehab and doesn't care where she goes. Permission granted to call her family for further planning. I spoke with patient's brother in law (Heike) to discuss discharge plan. I informed them of the availability of inpatient rehab, SNF, home health and DME. He states he would like her to stay here at our inpatient rehab if possible. He states that he feels she may need more than 2 weeks of therapy though. I discussed SNF. He states he would like a referral to [facility] if inpatient rehab is not authorized. I spoke with Ming at [facility], they do not accept [place]. She will need preauthorization for inpatient rehab. CM will continue to follow and assist with discharge planning/needs. Ball Rolling Machine Operator: Zohreh Potter DCPIA - Discharge Planning Initial Assessment Updated by [id number]: Zohreh Potter on 04/13/19 3:17 pm * Is the patient Alert and Oriented? Yes * How many steps to enter\\exit or inside your home? 4/0 * PCP Flakita Delaney * Pharmacy [facility] * Preadmission Environment Home with Family * ADLs Partial Dependent * Partial ADLs (Assistance needed) Ambulation Medication Management * Equipment Cane Nebulizer Other Oxygen * Other Equipment Portable oxygen Trilogy * List name and contact numbers for known caregivers / representatives who currently or will assist patient after discharge: Heike Alexander - Brother in law - [phone] Tracy Alexander - Sister (POA) - [phone] * Verbal permission to speak to the caregivers and representatives has been obtained from the patient. Yes * Community resources currently utilized Other * Please name any agencies selected above. [facility] * Additional services required to return to the preadmission environment? Yes * Can the patient safely return to the preadmission environment? No * Has this patient been hospitalized within the prior 30 days at any hospital? No Coverage Notice Reviewer: [id number] - Zohreh Potter Notice Issued Date-Time: 04/13/2019 15:24 Notice Type: Patient Choice Letter Notice Delivered To: Family Member Relationship to Patient: Brother in Law Commercial Production Editor Name: Heike Alexander Delivery Method: HAND - Hand Delivered Isha Days: Prior Verbal Notification: Recipient Understood Notice: Yes Recipient Signature: Med Rec Note Co-signed by Attending: Coverage Notice Comment: [place] for [facility] Reviewer: [id number] - Vanessa Dove Notice Issued Date-Time: 04/28/2019 15:50 Notice Type: IM Discharge Notice Notice Delivered To: Patient Relationship to Patient: Commercial Production Editor Name: Delivery Method: HAND - Hand Delivered Isha Days: Prior Verbal Notification: Recipient Understood Notice: Yes Recipient Signature: Yes Med Rec Note Co-signed by Attending: Coverage Notice Comment: Reviewer: JEFERSON Dove Notice Issued Date-Time: 05/04/2019 11:25 Notice Type: IM Discharge Notice Notice Delivered To: Patient Relationship to Patient: Commercial Production Editor Name: Delivery Method: HAND - Hand Delivered Isha Days: Prior Verbal Notification: Recipient Understood Notice: Yes Recipient Signature: Yes Med Rec Note Co-signed by Attending: Coverage Notice Comment: Reviewer: JEFERSON Dove Notice Issued Date-Time: 05/05/2019 16:10 Notice Type: Patient Choice Letter Notice Delivered To: Family Member Relationship to Patient: Sister Commercial Production Editor Name: TRACY ALEXANDER Delivery Method: HAND - Hand Delivered Isha Days: Prior Verbal Notification: Recipient Understood Notice: Yes Recipient Signature: Yes Med Rec Note Co-signed by Attending: Coverage Notice Comment: [facility] Reviewer: [id number] Dove Notice Issued Date-Time: 05/06/2019 8:00 Notice Type: IM Discharge Notice Notice Delivered To: Family Member Relationship to Patient: Sister Commercial Production Editor Name: TRACY ALEXANDER Delivery Method: HAND - Hand Delivered Isha Days: Prior Verbal Notification: Recipient Understood Notice: Yes Recipient Signature: Yes Med Rec Note Co-signed by Attending: Coverage Notice Comment: Reviewer: JEFERSON Dove Notice Issued Date-Time: 05/07/2019 15:07 Notice Type: IM Discharge Notice Notice Delivered To: Family Member Relationship to Patient: Brother in Law Commercial Production Editor Name: HEIKE ALEXANDER Delivery Method: HAND - Hand Delivered Isha Days: Prior Verbal Notification: Recipient Understood Notice: Yes Recipient Signature: Yes Med Rec Note Co-signed by Attending: Coverage Notice Comment: Last DP export: 05/07/19 4:35 p Patient Name: DANIEL ALVAREZ Page [id number] at 0935 All edits/amendments must be made on the electronic document DICTATION DATE: 05/08/19934 CUTTING MACHINE OFFBEARER: TIFFANY 05/08/19934 RPT#: [id number] DC DATE: STATUS: ADM IN [facility] [address] [place] [address] END OF REPORT
--- NOTE | 2019-05-08 09:43 | MORECARE ---
CASE MANAGEMENT DISCHARGE SUMMARY PATIENT: DANIEL ALVAREZ UNIT: [id number] ADM DATE: 04/12/19 AGE: 74 : 44 SEX: F ROOM/BED: D.2123 AUTHOR: WILL,DOC PHYSICIAN: REFERRING PHYSICIAN: MYESHA JOYNER MD DATE OF SERVICE: 05/08/19 Discharge Plan Patient Name: DANIEL ALVAREZ Facility: [facility] : 1945 Planned Disposition: Shelter Facility Anticipated Discharge Date: 05/05/19 Discharge Date: Expected LOS: 23 Initial Reviewer: [id number] Initial Review Date: 04/13/2019 Generated: 05/08/19 10:43 am Comments DCP- Discharge Planning Updated by [id number]: Vanessa Dove on 05/08/19 8:[address] Patient Name: DANIEL ALVAREZ Encounter No: [id number] : 1945 Primary Insurance: [employer]OVENTRY [employer] AD[employer] Anticipated DC Date: 05-05-2019 Planned Disposition: Shelter Facility External Planned Provider:[facility], MEDICARE REHAB BED DCP follow-up note: FOR CM RECEIVED DISCHARGE, CM NOTIFIED PT. CM FAXED DISCHARGE INFORMATION TO [facility] AT [phone]. CM SPOKE TO EDWARD AT [facility], SHE WILL CALL PT'S FAMILY TO GET ASSISTANCE WITH FILLING OUT ADMISSION PAPERWORK. [facility] TO SEND VAN AT 1000AM. NEWSROOM INTERN NURSE AND PT NOTIFIED. NURSE REPORT TO BE CALLED TO [facility] AT [phone]. [facility] TO ARRANGE VAN END WORKER TODAY AT 1000AM. Vanessa Dove, CASE MANAGEMENT DCP- Discharge Planning Updated by [id number]: Vanessa Dove on 05/07/19 4:[address] Patient Name: DANIEL ALVAREZ Encounter No: [id number] : 1945 Primary Insurance: [employer]OVENTRY [employer] ADVANTAGE Anticipated DC Date: 05-05-2019 Planned Disposition: Shelter Facility External Planned Provider: [facility], MEDICARE REHAB BED DCP follow-up note: CM RECEIVED CALL FROM EDWARD AT [facility], , NOTIFIED THEY WILL ACCEPT TOMORROW MORNING, WILL ARRANGE VAN END WORKER EARLY. CM NOTIFIED PT'S BROTHER IN LAW, HEIKE, VIA PHONE, WHO IS IN AGREEMENT WITH DISCHARGE PLAN. PEPITO RIDER NOTIFIED. FOR DISCHARGE, FAX DISCHARGE INFORMATION TO [facility] AT [phone]. NURSE REPORT TO BE CALLED TO [facility] AT [phone]. [facility] TO ARRANGE VAN END WORKER FIRST THING IN THE MORNING, 05-08-19. Vanessa Dove, CASE MANAGEMENT DCP- Discharge Planning Updated by [id number]: Vanessa Dove on 05/07/19 2:[address] Patient Name: DANIEL ALVAREZ Encounter No: [id number] : 1945 Primary Insurance: [employer]est Anticipated DC Date: 05-05-2019 Planned Disposition: Shelter Facility External Planned Provider: [facility], MEDICARE REHAB BED DCP follow-up note: CM CALLED CELENA OF [facility], , WHO INFORMED CM THAT SHE DID NOT RECEIVE THE REFERRAL FOR REHAB. CM REFAXED REFERRAL, , INFORMED ECLENA THAT PT IS READY TO DISCHARGE AND HAS 20 SKILLED DAYS PER INSURANCE; CM EXPLAINED REFERRAL TO [facility] WELL INSURANCE DENIAL FOR INPATIENT REHAB SERVICES. CM SPOKE TO EDWARD OF [facility] AT NURSES STATION, SHE VISITED WITH PT AND THEY STILL PLAN TO ACCEPT PT ONCE FINANCIAL ARRANGEMENTS ARE COMPLETED WITH FAMILY. CM LATER SPOKE TO HEIKE ALEXANDER AT NURSES STATION, HE HAS NOT RECEIVED ANY CALLS FROM [facility] TO DISCUSS FINANCIAL ARRANGEMENTS FOR PT. CM PROVIDED HEIKE WITH THE NAME OF KATHLEEN AND CONTACT NUMBER FOR [facility]. HEIKE REPORTS NO PREFERENCE ON FACILITY, PT WILL GO TO FIRST ACCEPTING REHAB. IMPORTANT MESSAGE FROM MEDICARE PROVIDED AND EXPLAINED. CM WAITING FAMILY TO WORK OUT FINANCIAL ARRANGEMENTS WITH [facility] AND FOR ADMISSION DETERMINATION FROM [facility]. Vanessa Dove, CASE MANAGEMENT DCP- Discharge Planning Updated by [id number]: Brittni Nieves on 05/07/19 1:[address] @ 1418, CALLED HEBER WITH [employer] ([phone]). I HAVE EXPLAINED TO HER THAT [facility] KNOWS THAT THE PATIENT HAS 20 DAYS WITH NO COPAY, BUT THEY ARE REFUSING TO TAKE THE PATIENT UNTIL THEY HAVE A MEDICAID APPLICATION COMPLETED IN CASE SHE STAYS MORE THAN 20 DAYS. I HAVE LET HER KNOW THAT A REFERRAL HAS BEEN SENT TO [facility], AND IF THEY DECIDE TO TAKE THE PATIENT THEY WILL BE SUBMITTING FOR AUTH. HEBER HAS STATED THAT IF THE PATIENT DOES NOT DISCHARGE TODAY, THEN THEY WILL HAVE TO HAVE THE REQUEST GO BACK TO THE EMERGENCY REGISTRAR FOR [facility], WHICH CAN TAKE A FEW DAYS TO RECEIVE BACK. SHE STATED THAT SHE CANNOT SAY THE OUTCOME WOULD BE ANY DIFFERENT WITH THE RESUBMISSION, BUT SHE CAN SAY IT WILL TAKE LONGER TO GET BACK. I HAVE APOLOGIZED FOR ALL THE RIGMAROLE. WILL WAIT FOR THE DETERMINATION. DCP- Discharge Planning Updated by [id number]: Brittni Ezequiel on 05/07/19 12:[address] RECEIVED A CALL FROM HEBER WITH [facility]. SHE WANTE TO KNOW IF THE PATIENT HAS LEFT YET AND IF SHE CAN HAVE DISCHARGE INFORMATION. I EXPLAINED THAT NOW WE ARE IN A HOLDING PATTERN OVER THE COPAY SECONDARY TO THEM NOT BEING ABLE TO AFFORD THE $157 OR $159/DAY FEE THEY WOULD HAVE TO PAY AND THAT THE BUSINESS OFFICE AT [facility] IS TRYING TO GET AHOLD OF THE SISTER TO SEE ABOUT APPLYING FOR MEDICAID. PER HEBER THE PATIENT HAD 62 OR 63 WELL DAYS AND SHE SHOULD HAVE 20 DAYS WITH NO COPAY DAYS AND THE PATIENT SHOULD BE ABLE TO DISCHARGE TO THE FACILITY AND THEY COULD FIGURE IT OUT WHILE THEY ARE THERE. SHE STATED THAT SHE IS GOING TO DOUBLE CHECK AND MAKE SURE THAT SHE IS COMPLETELY CORRECT ABOUT THE PATIENT RESETTING AND WILL CALL ME BACK. WILL RELAY THIS INFORMATION TO THE DISCHARGE CASEMANAGER AND WAIT FOR RETURN CALL. DCP- Discharge Planning Updated by [id number]: Vanessa Dove on 05/07/19 11:[address] Patient Name: DANIEL ALVAREZ Encounter No: [id number] : 1945 Primary Insurance: [employer] ADVANTAGE Anticipated DC Date: 05-05-2019 Planned Disposition: Shelter Facility External Planned Provider: [facility], MEDICARE REHAB BED DCP follow-up note: SHAY RETURNED CALL TO KATHLEEN AT [facility], , [facility] HAS VERIFIED INSURANCE AND IS TRYING TO CONTACT PT'S SISTER TO DISCUSS COPAY OF $157 PER DAY AND WILL OFFER TO FILE FOR MEDICAID TO COVER THE COSTS IF NECESSARY, BUT CANNOT ADMIT UNTIL THIS IS DECIDED BY FAMILY. CM PROVIED CONTACT PHONE NUMBERS FOR PT'S SISTER AND BROTHER IN LAW. CM WAITING ADMISSION DETERMINATION FROM [facility] IN [place] WELL FAMILY TO DECIDE REGARDING PAYING COPAY OR FILING FOR MEDICAID. VANESSA DOVE, CASE MANAGEMENT DCP- Discharge Planning Updated by [id number]: Brittni Nieves on 05/06/19 2:[address] @1436, SPOKE WITH HEBER WITH [facility]. SHE STATED THAT THE SNF AUTH FOR [facility] HAS BEEN APPROVED FOR SNF WITH #[id number]. SHE STATED THAT SHE HAS CALLED TO NOTIFY THE SHELTER BEFORE SHE CALLED ME AND LEFT A VOICEMAIL ON THE BUSINESS OFFICE VOICEMAIL. @6988, I TRIED TO CALL MAU[facility]IN ([phone]), AND I ORIGINALLY SPOKE CAYLA ALEX WHO ULTIMATELY TRANSFERRED TO THE BUSINESS OFFICE AND I LEFT A VOICEMAIL ON [employer] INQUIRING ON TO WHEN THEY WOULD ACCEPT THE PATIENT NOW THAT WE HAVE AUTH. I REPEATED THE AUTH # AND ALSO MENTIONED THAT HEBER CALLED AND SAID SHE LEFT HER A VOICEMAIL PRIOR TO CALLING ME. WE WILL WAIT FOR A RESPONSE FROM THEM. DCP- Discharge Planning Updated by [id number]: Vanessa Dove on 05/06/19 8:[address] Patient Name: DNAIEL ALVAREZ Encounter No: [id number] : 1945 Primary Insurance: [employer]ENTRY MCARE ADVANTAGE Anticipated DC Date: 05-05-2019 Planned Disposition: Shelter Facility External Planned Provider: [facility], MEDICARE REHAB BED DCP follow-up note: CM RECEIVED CALL FROM BLACK WHO INFORMED CM THAT [facility] AND [facility] ARE NOT IN NETWORK WITH COVENTRY MEDICARE. CM CALLED BHARATH OF [facility], THEY ARE NOT IN NETWORK WITH [employer]TRY MEDICARE. CM CALLED [facility], [facility] AND [facility], THEY DO ACCEPT COVENTRY MEDICARE. CM CALLED Tracy Anusharamona - Sister (POA) - [phone], INFORMED OF ABOVE, TRACY REPORTS HAVING NO PREFERENCE ON THE THREE IN NETWORK FACILITIES AND ASKED THAT CM WORK FOR REHAB PLACEMENT IN A COVERED FACILITY. CM NOTIFIED EDWARD OF [facility], , OF REFERRAL, FAXED TO [phone]. CM CALLED AND NOTIFIED CELENA OF [facility], , NOTIFIED OF REFERRAL AND FAXED REFERRAL TO [facility] AT [phone]. CM WAITING ADMISSION DETERMINATIONS [facility]. CM WAITING INSURANCE AUTHORIZATION FOR PRISON REHAB SERVICES. LORENZA Beaulieu MANAGEMENT DCP- Discharge Planning Updated by [id number]: Vanessa Dove on 05/06/19 6:[address] Patient Name: DANIEL ALVAREZ Encounter No: [id number] : 1945 Primary Insurance: COVENTRY MCARE ADVANTAGE Anticipated DC Date: 05-05-2019 Planned Disposition: Shelter Facility External Planned Provider: [facility], MEDICARE REHAB BED DCP follow-up note: LATE ENTRY FROM 05-05-19: CM SPOKE TO PT'S SISTER WHO WAS SPEAKING TO PT'S INSURANCE PROVIDER, Parso ON THE PHONE REGARDING PLACEMENT FOR REHAB. PT'S SISTER ASKED CM TO SPEAK TO FADI OF [facility]. PETER ADVISED THAT THE FOLLOWING PRISON FACILITIES ARE IN NETWORK WITH [facility] OF : [facility], [facility], [facility], [facility], [facility] IN [place] AND [facility] IN [place]. PT'S SISTER REQUESTED REFERRAL BE SENT TO [facility] FOR REHAB. PT'S SISTER IS ALSO APPEALING INSURANCE DECISION OF DENIAL FOR [facility] CONTRACT AND STATES SHE WAS ADVISED THAT SHE CAN APPEAL THE [facility] DENIAL WHILE CM CONTINUES SEEKING PLACEMENT AT [facility]. CHOICE FOR [facility] SIGNED. ON 05-06-19, CM NOTIFIED MING OF [facility] OF REFERRAL FOR REHAB AT [phone], FAXED REHAB REFERRAL TO [facility] VIA [facility] AT [phone]. CM WAITING ADMISSION DETERMINATION FROM [facility] WELL INSURANCE DETERMINATION FOR REHAB SERVICES AT [facility]. Vanessa Dove, CASE MANAGEMENT DCP- Discharge Planning Updated by [id number]: Vanessa Dove on 05/05/19 3:[address] Patient Name: DANIEL ALVAREZ Encounter No: [id number] : 1945 Primary Insurance: [employer]OVENTRY MCARE ADVANTAGE Anticipated DC Date: 05-05-2019 Planned Disposition: Shelter Facility External Planned Provider: TO BE DETERMINED DCP follow-up note: CM SPOKE TO DONG OF [facility], INSURANCE HAS DECLINED CONTRACT FOR REHAB PLACEMENT. DONG HAS NOTIFIED PT AND SISTER IN ROOM. CM SPOKE TO PT'S SISTER REGARDING CALLING INSURANCE COMPANY TO FIND OUT IF THERE IS AN IN NETWORK FACILITY AND WHERE THE FACILITY WOULD BE LOCATED. CM DISCUSSED TOW BOAT CAPTAIN CARE. PT'S SISTER DOES NOT WANT TO PLACE PT INTO [employer]TAIN CARE IN A SHELTER. PT'S SISTER CALLING INSURANCE COMPANY TO DISCUSS OPTIONS FOR REHAB AND WILL NOTIFY CM OF POSSIBLE OPTIONS. CM TO FOLLOW UP WITH PT'S SISTER REGARDING PLACEMENT. Vanessa Dove, CASE MANAGEMENT DCP- Discharge Planning Updated by [id number]: Brittni Nieves on 05/05/19 10:[address] RECEIVED A VOICEMAIL FROM HEBER WITH [facility]. CALLED HER BACK AT [phone]. SHE STATED THAT SHE HAS EVERYTHING READY TO BE SUBMITTED TO THE EMERGENCY REGISTRAR (AND THE INFORMATION LOOKS APPROPRIATE), BUT WHEN SHE REACHED OUT TO [facility], SHE WAS TOLD THEY WERE TOO BUSY TO SUBMIT FOR AUTH YET AND SHE WAS REASSURED THEY WOULD DO IT TODAY. SHE STATED THAT THE FACILITY WAS NON [facility], AND THEY WOULD ALSO HAVE TO BE SUBMIT FOR THIS. I EXPLAINED THAT THE PATIENT HAS BEEN AT THIS FACILITY BEFORE AND THEY KNOW THE STEPS. I ASKED WHO SHE SPOKE WITH AND SHE STATED THAT SHE ASKED FOR DONG, IN THE CASEMANAGEMENT NOTES, AND WAS TRANSFERRED TO THE BUSINESS OFFICE. SHE DID NOT HAVE THE NAME OF THE LADY SHE SPOKE WITH, BUT STATED SHE WAS TOLD THEY WOULD SUBMIT FOR AUTH TODAY. I WILL CONTINUE TO ENTER DELAYS. DCP- Discharge Planning Updated by [id number]: Vanessa Dove on 05/04/19 10:[address] Patient Name: DANIEL ALVAREZ Encounter No: [id number] : 1945 Primary Insurance: [employer]Vest Anticipated DC Date: 05-05-2019 Planned Disposition: Shelter Facility External Planned Provider: [facility] MEDICARE REHAB BED DCP follow-up note: CM RECEIVED CALL FROM HEIKE NAVA, , WHO REQEUSTED UPDATE ON PLACEMENT AT [facility] FOR REHAB. CM INFORMED HEIKE THAT WE ARE STILL WAITING AUTHORIZATION FROM PT'S INSURANCE. CM SPOKE TO DONG OF [facility], , WHO INFORMED CM THAT HE IS WAITING ON INSURANCE APPROVAL FOR CONTRACT WITH AUTHORIZATION [facility] TO PROVIDE REHAB SERVICE TO PATIENT. DONG REPORTS NOT NEEDING UPDATE TODAY AND TO WAIT TO FAX ANY UPDATES UNTIL THEY HEAR FROM INSURANCE. CM NOTIFIED PT WHO IS IN AGREEMENT WITH DISCHARGE TO REHAB AT [facility]. PT IS UP TO CHAIR. IMPORTANT MESSAGE FROM MEDICARE PROVIDED AND EXPLAINED. CM WAITING INSURANCE AUTHORIZATION FOR REHAB AT [facility]. LORENZA Beaulieu DCP- Discharge Planning Updated by [id number]: Lesly Rios on 05/01/19 12:[address] Patient Name: DANIEL ALVAREZ Admission Status: ER Accout number: [id number] Admission Date: 04-12-2019 : 1945 Admission Diagnosis:FRACTURE OF SUPERIOR RIM OF RIGHT PUBIS, INIT FOR CLOS Attending: MYESHA JOYNER Current LOS: 19 Anticipated DC Date: Planned Disposition: Shelter Facility Primary Insurance: COVENTRY [email or web address] Discharge Planning Comments: [place] HAD BEEN SIGNED FOR [facility] SNF, I FAXED REFERRAL TODAY. CM WILL FOLLOW AND ASSIST. Gaming Commissioner: Lesly Rios DCP- Discharge Planning Updated by [id number]: Vanessa Dove on 04/28/19 4:[address] Patient Name: DANIEL ALVAREZ Encounter No: [id number] : 1945 Primary Insurance: COVENTRY MCARE ADVANTAGE Anticipated DC Date: Planned Disposition: Inpatient Rehab External Planned Provider: [facility] INPATIENT REHAB DCP follow-up note: CM PARTICIPATED IN MULTIDISCIPLINARY TEAM MEETING, WAS INFORMED BY VIDA OF INPATIENT REHAB AT [place] THAT THEY ARE SUBMITTING FOR INSURANCE AUTHORIZATION AGAIN TODAY. CM NOTIFIED PT WHO IS WILLING FOR INPATIENT REHAB AT [facility] AND UNDERSTANDS AND AGREES THAT IF DECLINED, SHE WILL GO TO PRISON FACILITY IN [place] OTHER THAN [facility]. IMPORTANT MESSAGE FROM MEDICARE PROVIDED AND EXPLAINED. CM WAITING INSURANCE DETERMINATION FOR INPATIENT REHAB AT [facility]. LORENZA Beaulieu DCP- Discharge Planning Updated by [id number]: Vanessa Dove on 04/27/19 10:[address] Patient Name: DANIEL ALVAREZ Encounter No: [id number] : 1945 Primary Insurance: COVENTRY MCARE ADVANTAGE Anticipated DC Date: Planned Disposition: Inpatient Rehab External Planned Provider: [facility] INPATIENT REHAB DCP follow-up note: CM SPOKE TO VIDA OF [facility] INPATIENT REHAB DURING MULTIDICIPLINARY TEAM MEETING WHO INFORMED GROUP THAT SHE IS RESUBMITTING TO INSURANCE FOR AUTHORIZATION DETERMINATION FOR INPATIENT REHAB. CM HAS PREVIOUSLY SPOKEN TO PT'S SISTER / PONitish WHO HAS DISCUSSED PLAN OF PRISON IN [place] IF DECLINED INPATIENT REHAB; JUST NOT [facility]. CM WAITING INSURANCE AUTHORIZATION FOR DENIAL FOR INPATIENT REHAB AT [facility]. Vanessa Dove. CASE MANAGEMENT DCP- Discharge Planning Updated by [id number]: Caitlyn Dawson on 04/26/19 2:[address] CM RECEIVED MD ORDER TO CHECK IF DISCHARGE PLAN IS STILL FOR HOME. IN REVIEW OF WEEKDAY CM THE PLAN IS FOR A PRISON FACILITY. SPOKE W/ THE PRIMARY NURSE, ROSANA. THE PATIENT HAS SOME DEGREE OF CONFUSION. SHE WISHES TO DISCHARGE TO HOME. PER THE NURSING NOTES THE FAMILY WAS AT THE BEDSIDE EARLIER THIS AM. TC TO YANNICK, SISTER, TRACY. NO ANSWER. LEFT VM FOR TRACY ALEXANDER TO RETURN CALL WHEN AVAILAABLE. DCP- Discharge Planning Updated by [id number]: Vanessa Dove on 04/23/19 4:[address] Patient Name: DANIEL ALVAREZ Encounter No: [id number] : 1945 Primary Insurance: [email or web address] Anticipated DC Date: Planned Disposition: Inpatient Rehab External Planned Provider: [facility] INPATIENT REHAB DCP follow-up note: CM RECEIVED CALL FROM PT'S SISTER AND POWER OF MANOMETER TECHNICIAN, TRACY GONZALEZ, WHO WANTED TO DISCUSS DISCHARGE PLANNING. TRACY REPORTS PT NEEDS REHAB INPATIENT AT [facility] AND IF DELCINED, SHE WILL NEED ANY PRISON REHAB EXCEPT [facility]. TRACY REPORTS PT HAS DEMENTIA, LIVES WITH HER (TRACY) AND THEY DISCUSSED REHAB LAST NIGHT, PT IS IN AGREEMENT WITH REHAB SERVICES. IF TRACY DOES NOT ANSWER HER PHONE, SHE DIRECTED CM TO CALL HEIKE, HER SPOUSE, . CM SPOKE TO VIDA OF INPATIENT REHAB AT MULTIDISCIPLINARY TEAM MEETING, INPATIENT REHAB TO RESUBMIT TO INSURANCE FOR INPATIENT REHAB AUTHORIZATION REQUEST. CM TO CONTINUE TO FOLLOW AND ASSIST IF NEEDED. Vanessa Dove, CASE MANAGEMENT DCP- Discharge Planning Updated by [id number]: Vanessa Dove on 04/22/19 3:[address] Patient Name: DANIEL ALVAREZ Encounter No: [id number] : 1945 Primary Insurance: COVENTRY MCARE ADVANTAGE Anticipated DC Date: Planned Disposition: Home with Home Health External Planned Provider: TO BE DETERMINED DCP follow-up note: CM RECEIVED CALL FROM VIDA OF INPATIENT REHAB, PT WAS DECLINED BY INSURANCE FOR INPATIENT REHAB. CM SPOKE TO PT IN ROOM, PT DOES NOT WANT TO GO TO PRISON FOR REHAB AND WANTS TO RETURN HOME WITH HOME HEALTH. PT REPORTS GETTING OUT OF BED AND WALKING INDEPENDENTLY AND IS STONG ENOUGH TO RETURN HOME AT DISCHARGE. PT DENIES FURHTER NEEDS OTHER THAN HOME HEALTH. CM NOTIFIED [facility] R[facility]ER. CM TO FOLLOW UP WITH PT SOON POSSIBLE TO GET PT'S CHOICE ON HOME HEALTH PROVIDER AND WILL ARRANGE HOME HEALTH FOR DISCHARGE HOME WITH PHYSICIAN AGREEEMENT AND ORDERS. Vanessa Dove, CASE MANAGEMENT DCP- Discharge Planning Updated by [id number]: Zohreh Abbey on 04/15/19 10:[address] CM spoke with patient's sister yesterday. Her sister (Tracy) states she doesn't want her to go to a [facility] if possible. She states that she would like her to go to inpatient rehab. I informed her that she would need authorization for that from insurance and inpatient rehab is already working on that. I informed her that it could probably be a denial if she is unable to participate in 3 hours of therapy a day. Her sister states if she is denied, that she would consent to a skilled unit. I spoke with Maria E with [facility], and Maria E states she believes [facility] are in network, but unsure. I also spoke with Dong Mac with [facility] and he states he may be able to work with her insurance for authorization. Her sister states it does not matter which one she goes to, "whatever we can find". Ming Jones, zeyad for [facility], states they are not in network with [email or web address]. CM will continue to follow and assist with discharge planning/needs. DCP- Discharge Planning Updated by [id number]: Zohreh Potter on 04/13/19 2:[address] Patient Name: DANIEL ALVAREZ Admission Status: ER Accout number: [id number] Admission Date: 04-12-2019 : 1945 Admission Diagnosis: Attending: MYESHA JOYNER Current LOS: 1 Anticipated DC Date: Planned Disposition: Inpatient Rehab Primary Insurance: [employer] [facility] Discharge Planning Comments: CM met with patient to discuss discharge planning/needs. She lives with her sister and brother in law in a mobile home. She states she is ok with going to rehab and doesn't care where she goes. Permission granted to call her family for further planning. I spoke with patient's brother in law (Heike) to discuss discharge plan. I informed them of the availability of inpatient rehab, SNF, home health and DME. He states he would like her to stay here at our inpatient rehab if possible. He states that he feels she may need more than 2 weeks of therapy though. I discussed SNF. He states he would like a referral to [facility] if inpatient rehab is not authorized. I spoke with Ming at [facility], they do not accept [employer]. She will need preauthorization for inpatient rehab. CM will continue to follow and assist with discharge planning/needs. Gaming Commissioner: Zohreh Potter [facility] - Discharge Planning Initial Assessment Updated by [id number]: Zohreh Potter on 04/13/19 3:17 pm * Is the patient Alert and Oriented? Yes * How many steps to enter\\exit or inside your home? 4/0 * PCP Flakita Delaney * Pharmacy [facility] * Preadmission Environment Home with Family * ADLs Partial Dependent * Partial ADLs (Assistance needed) Ambulation Medication Management * Equipment Cane Nebulizer Other Oxygen * Other Equipment Portable oxygen Trilogy * List name and contact numbers for known caregivers / representatives who currently or will assist patient after discharge: Heike Alexander - Brother in law - [phone] Tracy Alexander - Sister (POA) - [phone] * Verbal permission to speak to the caregivers and representatives has been obtained from the patient. Yes * Community resources currently utilized Other * Please name any agencies selected above. [facility] * Additional services required to return to the preadmission environment? Yes * Can the patient safely return to the preadmission environment? No * Has this patient been hospitalized within the prior 30 days at any hospital? No Coverage Notice Reviewer: JEFERSON Dove Notice Issued Date-Time: 05/07/2019 15:07 Notice Type: IM Discharge Notice Notice Delivered To: Family Member Relationship to Patient: Brother in Law Healthcare Interpreter Name: HEIKE ALEXANDER Delivery Method: HAND - Hand Delivered Isha Days: Prior Verbal Notification: Recipient Understood Notice: Yes Recipient Signature: Yes Med Rec Note Co-signed by Attending: Coverage Notice Comment: Reviewer: JEFERSON Dove Notice Issued Date-Time: 05/06/2019 8:00 Notice Type: IM Discharge Notice Notice Delivered To: Family Member Relationship to Patient: Sister Healthcare Interpreter Name: TRACY ELIZABETH Delivery Method: HAND - Hand Delivered Isha Days: Prior Verbal Notification: Recipient Understood Notice: Yes Recipient Signature: Yes Med Rec Note Co-signed by Attending: Coverage Notice Comment: Reviewer: JEFERSON Dove Notice Issued Date-Time: 04/28/2019 15:50 Notice Type: IM Discharge Notice Notice Delivered To: Patient Relationship to Patient: Healthcare Interpreter Name: Delivery Method: HAND - Hand Delivered Isha Days: Prior Verbal Notification: Recipient Understood Notice: Yes Recipient Signature: Yes Med Rec Note Co-signed by Attending: Coverage Notice Comment: Reviewer: JEFERSON Dove Notice Issued Date-Time: 05/04/2019 11:25 Notice Type: IM Discharge Notice Notice Delivered To: Patient Relationship to Patient: Healthcare Interpreter Name: Delivery Method: HAND - Hand Delivered Isha Days: Prior Verbal Notification: Recipient Understood Notice: Yes Recipient Signature: Yes Med Rec Note Co-signed by Attending: Coverage Notice Comment: Reviewer: [id number] Jenni Potter Notice Issued Date-Time: 04/13/2019 15:24 Notice Type: Patient Choice Letter Notice Delivered To: Family Member Relationship to Patient: Brother in Law Healthcare Interpreter Name: Heike Alexander Delivery Method: HAND - Hand Delivered Isha Days: Prior Verbal Notification: Recipient Understood Notice: Yes Recipient Signature: Med Rec Note Co-signed by Attending: Coverage Notice Comment: [place] [facility] Reviewer: JEFERSON Dove Notice Issued Date-Time: 05/05/2019 16:10 Notice Type: Patient Choice Letter Notice Delivered To: Family Member Relationship to Patient: Sister Healthcare Interpreter Name: TRACY ALEXANDER Delivery Method: HAND - Hand Delivered Isha Days: Prior Verbal Notification: Recipient Understood Notice: Yes Recipient Signature: Yes Med Rec Note Co-signed by Attending: Coverage Notice Comment: KIP DONNAJuany Edwards DP export: 05/08/19 8:35 a Patient Name: DANIEL ALVAREZ Page [id number] at 0943 All edits/amendments must be made on the electronic document DICTATION DATE: 05/08/19942 FISH STRAIGHTENER: TIFFANY 05/08/19942 RPT#: [id number] DC DATE: STATUS: ADM IN [facility] [address] [place] [address] END OF REPORT
--- NOTE | 2019-05-08 10:38 | NUR ---
DISCHARGE INSTRUCTIONS REVIEWED WITH PT AND ALL QUESTIONS ANSWERED. PIV REMOVED WITH CATHETER TIP INTACT. ASSISTED PT INTO WHEELCHAIR WHERE SHE LEFT WITH [facility]. REPORT CALLED TO [facility].
== END 2019-05-08 10:40 | DRG 871 ==
LOC: D.ER 17:23 → D.M2 22:12 → D.MS 22:12 → D.M2 04-15 10:51
PROVIDERS: Emergency Medicine; Family Medicine; ADMIT Internal Medicine Nephrology; ATTEND Internal Medicine Nephrology
DX: A41.9 Sepsis, unspecified organism (principal); I50.43 Acute on chronic combined systolic (congestive) and diastolic (congestive) heart failure; J96.22 Acute and chronic respiratory failure with hypercapnia; J96.21 Acute and chronic respiratory failure with hypoxia; S32.511A Fracture of superior rim of right pubis, initial encounter for closed fracture; N39.0 Urinary tract infection, site not specified; S32.591A Other specified fracture of right pubis, initial encounter for closed fracture; I48.20 Chronic atrial fibrillation, unspecified; R33.9 Retention of urine, unspecified; F03.90 Unspecified dementia, unspecified severity, without behavioral disturbance, psychotic disturbance, mood disturbance, and anxiety; J44.9 Chronic obstructive pulmonary disease, unspecified; W01.0XXA Fall on same level from slipping, tripping and stumbling without subsequent striking against object, initial encounter; Z86.79 Personal history of other diseases of the circulatory system